=== PATIENT | female | born 1940 | race Caucasian/White ===

== ENCOUNTER → 2016-09-10 | Outpatient (CLI) | payer MEDICARE, OTHER ==
--- NOTE | 2016-09-10 12:11 | REPMRS ---
Patient History The patient states she had a clinical breast exam in 09/05 Patient is postmenopausal. No known family history of cancer. Digital Woman Screen Mammo: September 10, 2016 - Exam #: [id number] Bilateral CC and MLO view(s) were taken. Technologist: Vaishali Torres, Technologist Prior study comparison: April 10, 2014, digital woman screen mammo performed at [facility] to [facility]. March 25, 2010, bilateral bilat screen digital mammo performed at [facility] to [facility]. FINDINGS: There are scattered fibroglandular densities. There has been no change in the appearance of the mammogram from the prior studies. There is a mild amount of residual fibroglandular tissue which is fairly symmetric. There is no interval development of dominant mass, architectural distortion, or clustered microcalcification suggestive of malignancy. ASSESSMENT: BI-RADS/ACR category 1 mammogram. Negative. Recommendation Routine screening mammogram in 1 year (for women over age 40). This mammogram was interpreted with the aid of an FDA-approved computer-aided dectection system. Electronically Signed By: Jorge Darby MD 09/10/16 [id number]
== END ==
LOC: M WHC 09:14
PROVIDERS: ATTEND Nurse Practitioner Family
DX: Z01.419 Encounter for gynecological examination (general) (routine) without abnormal findings (principal); Z12.31 Encounter for screening mammogram for malignant neoplasm of breast; Z78.0 Asymptomatic menopausal state
CPT/HCPCS: G0101; G0202

== ENCOUNTER → 2017-05-08 | Outpatient (CLI) | payer MEDICARE, OTHER | LOC: M WUC 08:54 | DX: S52.022A Displaced fracture of olecranon process without intraarticular extension of left ulna, initial encounter for closed fracture (principal); X58.XXXA Exposure to other specified factors, initial encounter; Y92.9 Unspecified place or not applicable | CPT/HCPCS: 73080 ==

== ENCOUNTER → 2017-06-24 | Outpatient (REF) | payer MEDICARE, OTHER ==
[2017-06-28 00:06] LABS: LEVETIRACETAM (KEPPRA) 13.8 ug/mL (10.0-40.0)
== END ==
LOC: M LAB REF 17:13
DX: R56.9 Unspecified convulsions (principal)
CPT/HCPCS: 80180

== ENCOUNTER 2020-12-10 12:07 | Inpatient (IN) | payer MEDICARE, OTHER ==
[~2020-12-10] VITALS: Ht 154.9 cm; Wt 67.7 kg
[2020-12-10] MEDS ORDERED: traZODone 100 MG TAB PO PRN (12:30)
[2020-12-10] MEDS ORDERED: CALCIUM CARBONATE 500 MG CHEW U/D PO PRN (12:30)
[2020-12-10] MEDS ORDERED: MIRALAX *UNIT DOSE* 17GM PACKET PO PRN (12:30)
[2020-12-10 17:10] VITALS: BP 162/73
[2020-12-10] MEDS: REMEDY PHYTOPLEX Z-GUARD PASTE 113GM TUBE (FROM STOREROOM PRODUCT) TOP SCH ×2 (18:00→23:14)
[2020-12-10] MEDS ORDERED: PANT40TA29 PO (19:20)
[2020-12-10] MEDS ORDERED: AMBI5TAB PO (19:20)
[2020-12-10] MEDS ORDERED: LISI40TA4 PO (19:20)
[2020-12-10] MEDS ORDERED: ACET1TAB55 PO (19:20)
[2020-12-10] MEDS ORDERED: AMLO1TAB25 PO (19:20)
[2020-12-10] MEDS ORDERED: KEPP1TAB PO (19:20)
[2020-12-10] MEDS ORDERED: VALP1CAP2 PO (19:20)
[2020-12-10] MEDS ORDERED: MM S100C PO (19:20)
[2020-12-10] MEDS ORDERED: MELA10CA6 PO (19:20)
[2020-12-10] MEDS ORDERED: TRAZ-257 PO (19:20)
[2020-12-10] MEDS ORDERED: CALC500C16 PO (19:25)
[2020-12-10] MEDS ORDERED: HOME MED LIST COMPLETE! XX SCH (19:30)
[2020-12-10 20:00] VITALS: BP 110/56
[2020-12-10] MEDS: **hydrALAZINE HCL** 25 MG TAB PO SCH ×2 (20:34→23:12)
[2020-12-10] MEDS ORDERED: amLODIPine 5 MG TAB PO SCH (21:00)
[2020-12-10] MEDS ORDERED: lisinopriL 40 MG TAB PO SCH (21:00)
[2020-12-10] MEDS: COMBIVENT RESPIMAT 100-20MCG INHALER 4GM INH SCH (21:02)
[2020-12-10] MEDS: RAMELTEON 8 MG TAB (ROZEREM) PO SCH (21:17)
[2020-12-10] MEDS: DOCUSATE SODIUM 100MG CAPSULE PO SCH (21:17)
[2020-12-10] MEDS: levETIRAcetam 250MG TABLET (KEPPRA) PO SCH (21:17)
[2020-12-10] MEDS: SENNA 8.6 MG TAB (SENOKOT) PO SCH (21:17)
[2020-12-10] MEDS: VALPROIC ACID 250MG CAP PO SCH (21:29)
[2020-12-10] MEDS: ACETAMINOPHEN TAB 650MG DOSE (2X325MG) PO PRN (21:57)
[2020-12-11] MEDS: ACETAMINOPHEN TAB 650MG DOSE (2X325MG) PO PRN ×3 (03:50→13:34)
[2020-12-11] MEDS: **hydrALAZINE HCL** 25 MG TAB PO SCH ×3 (05:47→18:00)
[2020-12-11] MEDS: REMEDY PHYTOPLEX Z-GUARD PASTE 113GM TUBE (FROM STOREROOM PRODUCT) TOP SCH ×3 (05:50→18:00)
[2020-12-11 06:00] VITALS: BP 118/61
[2020-12-11 06:48] LABS: BASO % 0.3 % (0.0-1.0); EOS # 0.2 10^3/uL (0.0-0.5); EOS % 1.6 % (0.0-3.0); HEMATOCRIT 35.5 % (36.0-47.0); HEMOGLOBIN 11.9 g/dl (12.0-15.5); LYMPH # 5.3 10^3/uL (1.5-5.0); LYMPH % 46.2 % (24.0-44.0); MEAN CORPUSCULAR HEMOGLOBIN 31.1 pg (27.0-33.0); MEAN CORPUSCULAR HGB CONC 33.5 g/dl (32.0-36.5); MEAN CORPUSCULAR VOLUME 92.7 fl (80.0-96.0); MONO # 0.9 10^3/uL (0.0-0.8); MONO % 7.7 % (2.0-8.0); NEUTROPHILS % 43.4 % (36.0-66.0); PLATELET COUNT, AUTOMATED 234 10^3/uL (150-450); RED BLOOD COUNT 3.83 10^6/uL (4.00-5.40); WHITE BLOOD COUNT 11.6 10^3/uL (4.0-10.0)
[2020-12-11 07:11] LABS: ALBUMIN 2.6 GM/DL (3.2-5.2); ALT/SGPT 39 U/L (12-78); BILIRUBIN,TOTAL 0.4 MG/DL (0.2-1.0); BLOOD UREA NITROGEN 19 MG/DL (7-18); CALCIUM LEVEL 8.2 MG/DL (8.8-10.2); CARBON DIOXIDE LEVEL 25 MEQ/L (21-32); CHLORIDE LEVEL 113 MEQ/L (98-107); CREATININE FOR GFR 0.59 MG/DL (0.55-1.30); GLOMERULAR FILTRATION RATE > 60.0 (>39); GLUCOSE, FASTING 113 MG/DL (70-100); POTASSIUM SERUM 3.5 MEQ/L (3.5-5.1); SODIUM LEVEL 145 MEQ/L (136-145); TOTAL PROTEIN 5.7 GM/DL (6.4-8.2)
[2020-12-11] MEDS: COMBIVENT RESPIMAT 100-20MCG INHALER 4GM INH SCH ×3 (07:17→20:14)
[2020-12-11] MEDS: MAGIC MOUTHWASH SUSPENSION BTL SSP SCH ×3 (07:30→16:40)
[2020-12-11] MEDS: PANTOPRAZOLE 40MG TAB (PROTONIX) PO SCH (08:31)
[2020-12-11] MEDS: DOCUSATE SODIUM 100MG CAPSULE PO SCH ×2 (08:31→20:38)
[2020-12-11] MEDS: levETIRAcetam 250MG TABLET (KEPPRA) PO SCH ×2 (08:33→20:39)
[2020-12-11] MEDS ORDERED: FLUoxetine 20 MG CAP PO SCH (09:00)
[2020-12-11] MEDS ORDERED: FLUBLOK(EGG FREE)(QUAD)INFLUENZA VACC 0.5ML SYRINGE 18YRS & OLDER IM ONE (09:00)
--- NOTE | 2020-12-11 10:06 | HPEPDOC ---
Beef Breaker Note DATE OF ADMISSION: 12-10-20 DATE OF SERVICE: 12-11-20 TIME OF ADMISSION: Please refer to physician's admission order. SOURCE OF ADMISSION INFORMATION: [facility] record and patient CHIEF COMPLAINT: intracranial hemorrhage HISTORY OF PRESENT ILLNESS: 79F right handed with pmh HTN and spontaneous right frontal lobe ICH in 2009 presented to [place] on 12-03-20 with severe right sided headache and nausea. CTH revealed a right parietal-occipital intraparenchymal hemorrhage with brain compression and no significant midline shift. She was admitted to the neuro ICU, given hypertonic saline, made NPO, and started on Keppra for seizure prophylaxis. MRI brain on 12-07-20 showed hemorrhages measuring 3.3x5.1x6.7 cmmoderate localized vasogenic edema and mass effect upon the posterior aspect of the right lateral ventricleno evidence of acute hydrocephalus. No significant midline shift or herniation. She had left sided neglect, hemisensory loss and significant mobility and ADL impairments when evaluated by therapy and deemed medically appropriate for admission to ARU on 12-10-20. On eval patient reports her left arm has been moving involuntarily since her previous intracranial bleed. REVIEW OF SYSTEMS: The following is a completed review of systems and has been reviewed. Review of systems otherwise unremarkable. PAIN: Patient self reports no pain EYES: No recent vision changes EARS, NOSE, & THROAT: No throat pain, or dysphagia, or rhinorrhea CARDIOVASCULAR: Denies chest pain or palpitations PULMONARY: Denies shortness of breath GASTROINTESTINAL: Denies constipation/diarrhea GENITOURINARY: no dysuria MUSCULOSKELETAL: generalized weakness NEUROLOGICAL:left sided apraxia with neglect, + chorea LUE HEMATOLOGICAL: denies easy bruising SKIN:denies rash PSYCHIATRIC: Unremarkable All other review of systems found to be negative. PAST MEDICAL HISTORY: as per HPI ALLERGIES: Please see below. MEDICATIONS: Please see below. FAMILY HISTORY: Cardiac SOCIAL HISTORY: No smoking/illicit drugs/etoh DIET: mechanical soft and thins PHYSICAL EXAMINATION: VITAL SIGNS: Please see below. GENERAL: Pleasant and cooperative. No acute distress. no facial droop, tongue midline HEENT: PERRL. unable to cross midline to left, Clear conjunctiva CARDIOVASCULAR: Regular rate and rhythm. No murmurs, rubs, or gallops LUNGS: Clear to auscultation bilaterally. No wheezes. No rhonchi ABDOMEN: Soft, nontender, nondistended. Positive bowel sounds. Normal active bowel sounds NEUROLOGICAL: Alert and oriented times three. Cranial nerves II through XII grossly intact. Sensation grossly intact, +left sided neglect and impaired sensation to light touch on left, +apraxia +chorea LUE +clonus on left EXTREMITIES: 5\5 strength bilateral upper extremities. 5\5 strength right lower extremity. 5/5 strength in left lower extremity SKIN: no sacral erythema LABORATORY DATA: Please see below. IMAGING:Imaging documentation personally reviewed by record FUNCTIONAL STATUS: Premorbid: Independent with all activities of daily life as well as mobility On Admission: Total assistance for bed mobility, bathing, functional transfers, grooming GOALS: Min assist for bed mobility, functional transfers, bathing, dressing, wheelchair mobility ASSESSMENT:79-year-old F with past medical history of right frontal ICH who presents status post spontaneous right parietal-occipital lobe ICH PLAN: 1. Rehab- PT/OT advance mobility and ADLs, strengthen/stretch/maintain ROM all 4 limbs, MPO to left foot when in bed -SHANK THREADER for cog and swallow 2. Neuro hx of right frontal ICH with LUE dyskinesia, now s/p spontaneous right parieto-occipital ICH cont BP management, patient was not on antipletelet at baseline -f/u neurosurgery in 6 weeks with repeat head CT -will trial propranolol to prevent dysautonomia in setting of ICH- this may help with LUE chorea, will monitor -cont Depakote and Keppra for seizure ppx- f/u levels 3. Cardiac- hx of HTN cont BP meds -medicine consulted to assist in overall management 4. Resp- monitor for infection, admission CXR negative for infiltrate, patient without cough 5. GI ppx- protonix 6. DVT ppx- heparin and teds 7. Pain- tylenol prn 8. Psych- rozerem for insomnia 9. - monitor PVRs 10. Dispo- TBD POST ADMISSION PHYSICIAN EVALUATION: Medical and functional status: Description of medical status, medical assessment: As above. Rehabilitation diagnosis and current and prior cold morbid medical conditions as above. Risk of complications and plans to mitigate them as above. Description of functional status current status is as above. Prior status as above. Status compared to preadmission: There are no clinically significant differences between the patient's current status and the information described on the preadmission screening document. Treatment plan anticipated: Treatment plan is as described above. Required disc iplines including physical therapy, occupational therapy, others as noted above. Intensity of services: 3 hours a day, 6 days a week. Special considerations: There are no specific special or safety considerations that would likely preclude immediate implementation of an intensive rehabilitation program or subsequently influence the plan of care. ATTESTATION: Considering all the information above, it is my best judgment that this patient requires intensive rehabilitation therapy as described above and an inpatient hospital environment due to the complexity of nursing, medical, and rehabilitation needs required by the patient. Furthermore, this patient can reasonably be expected to participate in an benefit from an inpatient rehabilitation stay with an interdisciplinary team approach to the delivery of rehabilitation care under the direction and supervision of rehabilitation physician. PROGNOSIS: fair ESTIMATED LENGTH OF STAY:21-28 days. PROJECTED DISCHARGE DESTINATION: Home with family support and any durable medical equipment required to increase functional safety and mobility. TIME SPENT COUNSELING AND COORDINATING INITIAL CARE: Greater than 70 minutes. Vital Signs Vital Sign - Last 24 Hours 12/10/20 12/10/20 12/10/20 12/10/20 17:10 20:00 20:34 21:16 Temp 98.1 98.0 Pulse 94 85 98 Resp 17 17 B/P (MAP) 162/73 (102) 110/56 (74) 110/56 122/64 Pulse Ox 95 94 O2 Delivery Room Air Room Air 12/10/20 12/11/20 12/11/20 12/11/20 23:12 05:47 06:00 09:00 Temp 97.6 Pulse 80 Resp 17 B/P (MAP) 118/58 118/61 118/61 (80) Pulse Ox 96 O2 Delivery Room Air O2 Flow Rate 2.0 Laboratory Data CBC/BMP Laboratory Tests 12/11/20 06:11 Labs 24H Laboratory Tests 2 12/11/20 06:11: Immature Granulocyte % (Auto) 0.8, Neutrophils (%) (Auto) 43.4, Lymphocytes (%) (Auto) 46.2H, Monocytes (%) (Auto) 7.7, Eosinophils (%) (Auto) 1.6, Basophils (%) (Auto) 0.3, Neutrophils # (Auto) 5.0, Lymphocytes # (Auto) 5.3H, Monocytes # (Auto) 0.9H, Eosinophils # (Auto) 0.2, Basophils # (Auto) 0.0, Nucleated Red Blood Cells % (auto) 0.0, Anion Gap 7L, Glomerular Filtration Rate > 60.0, Calcium Level 8.2L, Total Bilirubin 0.4, Aspartate Amino Transf (AST/SGOT) 25, Alanine Aminotransferase (ALT/SGPT) 39, Alkaline Phosphatase 53, Total Protein 5.7L, Albumin 2.6L, Albumin/Globulin Ratio 0.8L Home Medications Scheduled Amlodipine Besylate (Amlodipine Besylate) 10 Mg Tablet, 10 MG PO QHS, (Reported) Levetiracetam (Keppra) 500 Mg Tablet, 500 MG PO BID, (Reported) Lisinopril (Lisinopril) 40 Mg Tablet, 40 MG PO QHS, (Reported) Melatonin (Melatonin) 10 Mg Capsule, 20 MG PO QHS, (Reported) Pantoprazole Sodium (Pantoprazole Sodium) 40 Mg Tablet.dr, 40 MG PO DAILY, (Reported) Trazodone HCl (Trazodone HCl) 100 Mg Tablet, 100 MG PO QHS, (Reported) Valproic Acid (Valproic Acid) 250 Mg Capsule, 250 MG PO QHS, (Reported) Zolpidem Tartrate (Ambien) 5 Mg Tablet, 2.5 MG PO QHS, (Reported) Scheduled PRN Acetaminophen (Acetaminophen) 325 Mg Tablet, 650 MG PO Q6H PRN for PAIN LEVEL 1- 4, (Reported) Calcium Carbonate (Calcium) 500 Mg Tab.chew, 1,000 MG PO Q6H PRN for INDIGESTION, (Reported) Docusate Sodium (Stool Softener) 100 Mg Capsule, 100 MG PO BID PRN for BOWEL CARE/CONSTIPATION, (Reported) Allergies Coded Allergies: chocolate flavor (Verified Allergy, Mild, FACIAL RASH, 12/10/20) No Known Allergies (Verified Allergy, Unknown, 12/10/20) A-FIB/CHADSVASC A-FIB History Current/History of A-Fib/PAF?: No Current PO Anticoag Therapy: No CHRISTIE NEVAREZ MD Dec 11, 2020 10:06
[2020-12-11] MEDS ORDERED: traZODone 25MG PER 1/2 TABLET PO PRN (10:45)
--- NOTE | 2020-12-11 11:47 | REP ---
INDICATION: r/o infiltrate. COMPARISON: No comparison chest x-ray. TECHNIQUE: Two views.. FINDINGS: The lungs are well inflated and free of infiltrate. The pleural angles are sharp. The heart is mildly enlarged with cardiothoracic ratio 54.2%.. Pulmonary vasculature is not increased. The thoracic aorta is mildly tortuous. There are degenerative changes in the thoracic spine. IMPRESSION: Mild cardiomegaly. No infiltrate seen. Otherwise no acute disease. <Electronically signed by Arturo Schroeder > 12/11/20 [id number]
[2020-12-11 14:00] VITALS: BP 124/58
[2020-12-11] MEDS: PROPRANOLOL 10 MG TAB PO SCH ×2 (16:40→20:38)
[2020-12-11 20:00] VITALS: BP 140/80
[2020-12-11] MEDS: VALPROIC ACID 250MG CAP PO SCH (20:33)
[2020-12-11] MEDS: amLODIPine 5 MG TAB PO SCH (20:38)
[2020-12-11] MEDS: SENNA 8.6 MG TAB (SENOKOT) PO SCH (20:38)
[2020-12-11] MEDS: HEPARIN SOD (PORCINE) 5000UNITS/ML 1ML VIAL/SYRINGE SQ SCH (20:39)
[2020-12-11] MEDS: RAMELTEON 8 MG TAB (ROZEREM) PO SCH (20:39)
[2020-12-12] MEDS: ACETAMINOPHEN TAB 650MG DOSE (2X325MG) PO PRN ×2 (04:46→09:11)
[2020-12-12] MEDS: **hydrALAZINE HCL** 25 MG TAB PO SCH ×4 (05:18→18:04)
[2020-12-12] MEDS: REMEDY PHYTOPLEX Z-GUARD PASTE 113GM TUBE (FROM STOREROOM PRODUCT) TOP SCH ×5 (05:21→21:11)
[2020-12-12 05:31] LABS: HEMATOCRIT 36.8 % (36.0-47.0); HEMOGLOBIN 12.4 g/dl (12.0-15.5); MEAN CORPUSCULAR HEMOGLOBIN 31.4 pg (27.0-33.0); MEAN CORPUSCULAR HGB CONC 33.7 g/dl (32.0-36.5); MEAN CORPUSCULAR VOLUME 93.2 fl (80.0-96.0); PLATELET COUNT, AUTOMATED 241 10^3/uL (150-450); RED BLOOD COUNT 3.95 10^6/uL (4.00-5.40); WHITE BLOOD COUNT 14.1 10^3/uL (4.0-10.0)
[2020-12-12 05:50] LABS: ATYPICAL LYMPH 3 % (0-5); EOSINOPHILS 3 % (0-3); LYMPHOCYTES 51 % (16-44); MONOCYTES 4 % (0-5); NEUTROPHILS 39 % (28-66); PLATELET ESTIMATE NORMAL (NORMAL)
[2020-12-12 05:51] LABS: SMUDGE CELLS 1+
[2020-12-12 06:00] VITALS: BP 161/78
[2020-12-12] MEDS: COMBIVENT RESPIMAT 100-20MCG INHALER 4GM INH SCH ×2 (08:00→20:35)
[2020-12-12] MEDS: HEPARIN SOD (PORCINE) 5000UNITS/ML 1ML VIAL/SYRINGE SQ SCH (09:00)
[2020-12-12] MEDS: MAGIC MOUTHWASH SUSPENSION BTL SSP SCH ×3 (09:10→16:50)
[2020-12-12] MEDS: PANTOPRAZOLE 40MG TAB (PROTONIX) PO SCH (09:10)
[2020-12-12] MEDS: DOCUSATE SODIUM 100MG CAPSULE PO SCH ×2 (09:10→21:08)
[2020-12-12] MEDS: levETIRAcetam 250MG TABLET (KEPPRA) PO SCH ×2 (09:11→21:08)
[2020-12-12] MEDS: PROPRANOLOL 10 MG TAB PO SCH ×3 (09:13→21:09)
--- NOTE | 2020-12-12 09:24 | IPNPDOC ---
PM&R Progress Note DATE OF SERVICE: Dec 12, 2020 Front End Architect Progress Note Subjective: Patient seen in her room stating she feels ok, but has a mild headache which tylenol is helping to treat. She staes she does not discomfort with urination, not cough, or fever. REVIEW OF SYSTEMS: The following is a completed review of systems and has been reviewed. Review of systems otherwise unremarkable. PAIN: Patient self reports no pain EYES: No recent vision changes EARS, NOSE, & THROAT: No throat pain, or dysphagia, or rhinorrhea CARDIOVASCULAR: Denies chest pain or palpitations PULMONARY: Denies shortness of breath GASTROINTESTINAL: Denies constipation/diarrhea GENITOURINARY: no dysuria MUSCULOSKELETAL: generalized weakness NEUROLOGICAL:left sided apraxia with neglect, + chorea LUE (improved) HEMATOLOGICAL: denies easy bruising SKIN:denies rash PSYCHIATRIC: Unremarkable All other review of systems found to be negative. PHYSICAL EXAMINATION: VITAL SIGNS: Please see below. GENERAL: Pleasant and cooperative. No acute distress. no facial droop, tongue midline HEENT: PERRL. able to cross midline to left, Clear conjunctiva CARDIOVASCULAR: Regular rate and rhythm. No murmurs, rubs, or gallops LUNGS: Clear to auscultation bilaterally. No wheezes. No rhonchi ABDOMEN: Soft, nontender, nondistended. Positive bowel sounds. Normal active bowel sounds NEUROLOGICAL: Alert and oriented times three. Cranial nerves II through XII grossly intact. Sensation grossly intact, +left sided neglect and impaired sensation to light touch on left, +apraxia +chorea LUE (improving) +clonus on left EXTREMITIES: 5\5 strength bilateral upper extremities. 5\5 strength right lower extremity. 5/5 strength in left lower extremity SKIN: no sacral erythema ASSESSMENT:79-year-old F with past medical history of right frontal ICH who presents status post spontaneous right parietal-occipital lobe ICH PLAN: 1. Rehab- PT/OT advance mobility and ADLs, strengthen/stretch/maintain ROM all 4 limbs, MPO to left foot when in bed -BILLET RECORDER for cog and swallow 2. Neuro hx of right frontal ICH with LUE dyskinesia, now s/p spontaneous right parieto-occipital ICH cont BP management, patient was not on antiplatelet at baseline -f/u neurosurgery in 6 weeks with repeat head CT -cont trial propranolol to prevent dysautonomia in setting of ICH- this may help with LUE chorea, will monitor -cont Depakote and Keppra for seizure ppx- f/u levels 3. Cardiac- hx of HTN cont BP meds -medicine consulted to assist in overall management 4. Resp- monitor for infection, admission CXR negative for infiltrate, patient without cough 5. GI ppx- protonix 6. DVT ppx- heparin and teds 7. Pain- tylenol prn 8. Psych- rozerem for insomnia 9. - monitor PVRs, patient retaining urine overnight with rising white count will order UA/Ucx, patient is afebrile 10. Dispo- TBD Allergies Coded Allergies: chocolate flavor (Verified Allergy, Mild, FACIAL RASH, 12/10/20) No Known Allergies (Verified Allergy, Unknown, 12/10/20) Vital Signs Vital Signs Date Time Temp Pulse Resp B/P (MAP) Pulse Ox O2 Delivery O2 Flow Rate FiO2 12/12/20 09:13 71 118/70 12/12/20 06:00 97.8 19 98 Room Air 12/11/20 23:13 2.0 Laboratory Data CBC/BMP Laboratory Tests 12/12/20 05:04 Labs 24H Laboratory Tests 2 12/12/20 05:04: Neutrophils (%) (Auto) , Nucleated Red Blood Cells % (auto) 0.0, Neutrophils 39, Lymphocytes (Manual) 51H, Monocytes (Manual) 4, Eosinophils (Manual) 3, Atypical Lymphocytes 3, Smudge Cells 1+, Platelet Estimate NORMAL, Valproic Acid (Depakene) Level 33.6L Current Medications Current Medications Current Medications Medications (Trade) Dose Ordered Sig/Melody Route PRN Reason Start Time Stop Time Status Last Admin Dose Admin Acetaminophen (Tylenol Tab) 650 mg Q4HP PRN PO fever/MILD PAIN (PS 1-4) 12/10/20 12:30 12/12/20 09:11 Albuterol/ Ipratropium (Combivent Respimat 100-20mcg) 1 puff RTID INH 12/10/20 20:00 12/11/20 20:14 Amlodipine Besylate (Norvasc) 5 mg QHS PO 12/10/20 21:00 12/10/20 20:12 DC Amlodipine Besylate (Norvasc) 5 mg QHS PO 12/11/20 21:00 12/11/20 20:38 Amlodipine Besylate (Norvasc) 10 mg QHS PO 12/10/20 21:00 12/11/20 14:44 DC 12/10/20 21:16 Calcium Carbonate (Tums) 1,000 mg Q4HP PRN PO HEARTBURN 12/10/20 12:30 Docusate Sodium (Colace) 100 mg BID PO 12/10/20 21:00 12/12/20 09:10 Fluoxetine HCl (PROzac) 20 mg DAILY PO 12/11/20 09:00 12/11/20 14:44 DC 12/11/20 12:14 Heparin Sodium (Porcine) (Heparin) 5,000 units Q12H SQ 12/11/20 21:00 12/11/20 20:39 Home Med (Home Med List Complete!) ASDIRECTED XX 12/10/20 19:30 12/10/20 19:36 DC Hydralazine HCl (Apresoline) 25 mg Q6H PO 12/10/20 18:00 12/12/20 05:18 Levetiracetam (Keppra) 500 mg BID PO 12/10/20 21:00 12/12/20 09:11 Lidocaine/ Diphenhydr/Alum/ Mg/Simeth (Magic Mouthwash) 5ML AC SSP 12/11/20 07:30 12/12/20 09:10 Lisinopril (Prinivil) 20 mg QHS PO 12/11/20 21:00 12/11/20 20:39 Lisinopril (Prinivil) 40 mg QHS PO 12/10/20 21:00 12/11/20 14:44 DC 12/10/20 21:13 Pantoprazole Sodium (Protonix) 40 mg DAILY PO 12/11/20 09:00 12/12/20 09:10 Polyethylene Glycol (Miralax) 1 pkt DAILY PRN PO CONSTIPATION 12/10/20 12:30 Propranolol HCl (Inderal) 10 mg TID PO 12/11/20 16:00 12/12/20 09:13 Ramelteon (Rozerem) 8 mg QHS PO 12/10/20 21:00 12/11/20 20:39 Senna (Senokot) 1 tab QHS PO 12/10/20 21:00 12/11/20 20:38 Trazodone HCl (Desyrel) 25 mg QHSP PRN PO INSOMNIA 12/11/20 10:45 Trazodone HCl (Desyrel) 100 mg QHSP PRN PO INSOMNIA 12/10/20 12:30 12/11/20 10:46 DC Valproic Acid (Depakene) 250 mg QHS PO 12/10/20 21:00 12/11/20 20:33 CHRISTIE NEVAREZ MD Dec 12, 2020 09:24
[2020-12-12 14:00] VITALS: BP 134/65
[2020-12-12] MEDS: ACETAMINOPHEN 500 MG TAB PO SCH ×2 (16:49→21:10)
[2020-12-12 20:00] VITALS: BP 128/60
[2020-12-12] MEDS: SENNA 8.6 MG TAB (SENOKOT) PO SCH (21:08)
[2020-12-12] MEDS: RAMELTEON 8 MG TAB (ROZEREM) PO SCH (21:08)
[2020-12-12] MEDS: amLODIPine 5 MG TAB PO SCH (21:09)
[2020-12-12] MEDS: VALPROIC ACID 250MG CAP PO SCH (21:10)
[2020-12-13] MEDS: ACETAMINOPHEN TAB 650MG DOSE (2X325MG) PO PRN (05:25)
[2020-12-13] MEDS: **hydrALAZINE HCL** 25 MG TAB PO SCH ×5 (05:25→23:43)
[2020-12-13] MEDS: REMEDY PHYTOPLEX Z-GUARD PASTE 113GM TUBE (FROM STOREROOM PRODUCT) TOP SCH ×4 (06:11→23:43)
[2020-12-13 06:34] VITALS: BP 146/80
[2020-12-13 07:51] LABS: HEMATOCRIT 36.4 % (36.0-47.0); HEMOGLOBIN 12.3 g/dl (12.0-15.5); MEAN CORPUSCULAR HEMOGLOBIN 31.4 pg (27.0-33.0); MEAN CORPUSCULAR HGB CONC 33.8 g/dl (32.0-36.5); MEAN CORPUSCULAR VOLUME 92.9 fl (80.0-96.0); PLATELET COUNT, AUTOMATED 277 10^3/uL (150-450); RED BLOOD COUNT 3.92 10^6/uL (4.00-5.40); WHITE BLOOD COUNT 15.3 10^3/uL (4.0-10.0)
[2020-12-13] MEDS: COMBIVENT RESPIMAT 100-20MCG INHALER 4GM INH SCH ×3 (08:00→20:00)
[2020-12-13 08:33] LABS: ATYPICAL LYMPH 4 % (0-5); BASOPHILS 2 % (0-1); BLAST CELLS 1 % (0-0); LYMPHOCYTES 44 % (16-44); MONOCYTES 8 % (0-5); MYELOCYTES 1 % (0-0); NEUTROPHILS 40 % (28-66); PLATELET ESTIMATE NORMAL (NORMAL)
[2020-12-13] MEDS: PROPRANOLOL 10 MG TAB PO SCH ×3 (09:00→20:14)
[2020-12-13] MEDS: DOCUSATE SODIUM 100MG CAPSULE PO SCH ×2 (09:33→20:13)
[2020-12-13] MEDS: ACETAMINOPHEN 500 MG TAB PO SCH ×3 (09:33→20:16)
[2020-12-13] MEDS: PANTOPRAZOLE 40MG TAB (PROTONIX) PO SCH (09:33)
[2020-12-13] MEDS: levETIRAcetam 250MG TABLET (KEPPRA) PO SCH ×2 (09:33→20:16)
[2020-12-13] MEDS: MAGIC MOUTHWASH SUSPENSION BTL SSP SCH ×3 (09:34→17:09)
--- NOTE | 2020-12-13 10:31 | IPNPDOC ---
PM&R Progress Note DATE OF SERVICE: Dec 13, 2020 Manager Market Research Progress Note Subjective: Patient seen in her room leaning to the left in her chair, alert and oriented, able to follow commands. She asked that she be able to take her vitamins for her macular degeneration. REVIEW OF SYSTEMS: The following is a completed review of systems and has been reviewed. Review of systems otherwise unremarkable. PAIN: Patient self reports no pain EYES: No recent vision changes EARS, NOSE, & THROAT: No throat pain, or dysphagia, or rhinorrhea CARDIOVASCULAR: Denies chest pain or palpitations PULMONARY: Denies shortness of breath GASTROINTESTINAL: Denies constipation/diarrhea GENITOURINARY: no dysuria MUSCULOSKELETAL: generalized weakness NEUROLOGICAL:left sided apraxia with neglect, + chorea LUE (improved) HEMATOLOGICAL: denies easy bruising SKIN:denies rash PSYCHIATRIC: Unremarkable All other review of systems found to be negative. PHYSICAL EXAMINATION: VITAL SIGNS: Please see below. GENERAL: Pleasant and cooperative. No acute distress. no facial droop, tongue midline HEENT: PERRL. able to cross midline to left, Clear conjunctiva CARDIOVASCULAR: Regular rate and rhythm. No murmurs, rubs, or gallops LUNGS: Clear to auscultation bilaterally. No wheezes. No rhonchi ABDOMEN: Soft, nontender, nondistended. Positive bowel sounds. Normal active bowel sounds NEUROLOGICAL: Alert and oriented times three. Cranial nerves II through XII g rossly intact. Sensation grossly intact, +left sided neglect and impaired sensation to light touch on left (improving), +apraxia +chorea LUE (improving) +clonus on left EXTREMITIES: 5\5 strength bilateral upper extremities. 5\5 strength right lower extremity. 5/5 strength in left lower extremity SKIN: no sacral erythema ASSESSMENT:79-year-old F with past medical history of right frontal ICH who presents status post spontaneous right parietal-occipital lobe ICH PLAN: 1. Rehab- PT/OT advance mobility and ADLs, strengthen/stretch/maintain ROM all 4 limbs, MPO to left foot when in bed, patient making functional gains in therapy -TOOL LAPPER HAND for cog and swallow 2. Neuro hx of right frontal ICH with LUE dyskinesia, now s/p spontaneous right parieto-occipital ICH cont BP management, patient was not on antiplatelet at baseline -f/u neurosurgery in 6 weeks with repeat head CT -cont trial propranolol to prevent dysautonomia in setting of ICH- this may help with LUE chorea, will monitor -cont Depakote and Keppra for seizure ppx- f/u levels 3. Cardiac- hx of HTN cont BP meds -medicine consulted to assist in overall management 4. Resp- monitor for infection, admission CXR negative for infiltrate, patient without cough 5. GI ppx- protonix 6. DVT ppx- heparin and teds 7. Pain- tylenol prn 8. Psych- rozerem for insomnia 9. - monitor PVRs, patient retaining urine, Ucx + for Strep agalactei will start Keflex, patient is afebrile , vitals stable, cont to monitor wbcs 10. Dispo- TBD -discussed case with her daughter Edita over the phone and answered her questions. Allergies Coded Allergies: chocolate flavor (Verified Allergy, Mild, FACIAL RASH, 12/10/20) No Known Allergies (Verified Allergy, Unknown, 12/10/20) Vital Signs Vital Signs Date Time Temp Pulse Resp B/P (MAP) Pulse Ox O2 Delivery O2 Flow Rate FiO2 12/13/20 09:00 52 138/74 12/13/20 06:34 97.7 17 95 Room Air 12/13/20 00:28 2.0 Laboratory Data CBC/BMP Laboratory Tests 12/13/20 06:34 Labs 24H Laboratory Tests 2 12/13/20 06:34: Neutrophils (%) (Auto) , Nucleated Red Blood Cells % (auto) 0.0, Neutrophils 40, Lymphocytes (Manual) 44, Monocytes (Manual) 8H, Basophils (Manual) 2H, Myelocytes 1H, Blastocytes 1H, Atypical Lymphocytes 4, Platelet Estimate NORMAL Microbiology Microbiology 12/12/20 Urine Culture - Preliminary, Resulted Strep Agalactiae Group B Current Medications Current Medications Current Medications Medications (Trade) Dose Ordered Sig/Melody Route PRN Reason Start Time Stop Time Status Last Admin Dose Admin Acetaminophen (Tylenol Tab) 650 mg Q24HP PRN PO fever/MILD PAIN (PS 1-4) 12/12/20 13:45 12/13/20 05:25 Acetaminophen (Tylenol Tab) 650 mg Q4HP PRN PO fever/MILD PAIN (PS 1-4) 12/10/20 12:30 12/12/20 13:41 DC 12/12/20 09:11 Acetaminophen (Tylenol Tab) 1,000 mg TID PO 12/12/20 16:00 12/13/20 09:33 Albuterol/ Ipratropium (Combivent Respimat 100-20mcg) 1 puff RTID INH 12/10/20 20:00 12/12/20 20:35 Amlodipine Besylate (Norvasc) 5 mg QHS PO 12/10/20 21:00 12/10/20 20:12 DC Amlodipine Besylate (Norvasc) 5 mg QHS PO 12/11/20 21:00 12/12/20 21:09 Amlodipine Besylate (Norvasc) 10 mg QHS PO 12/10/20 21:00 12/11/20 14:44 DC 12/10/20 21:16 Calcium Carbonate (Tums) 1,000 mg Q4HP PRN PO HEARTBURN 12/10/20 12:30 Cephalexin Monohydrate (Keflex) 500 mg Q6H PO 12/13/20 10:20 UNV Docusate Sodium (Colace) 100 mg BID PO 12/10/20 21:00 12/13/20 09:33 Fluoxetine HCl (PROzac) 20 mg DAILY PO 12/11/20 09:00 12/11/20 14:44 DC 12/11/20 12:14 Heparin Sodium (Porcine) (Heparin) 5,000 units Q12H SQ 12/11/20 21:00 12/12/20 09:23 DC 12/11/20 20:39 Home Med (Home Med List Complete!) ASDIRECTED XX 12/10/20 19:30 12/10/20 19:36 DC Hydralazine HCl (Apresoline) 25 mg Q6H PO 12/10/20 18:00 12/13/20 05:25 Lactobacillus Acidophilus (Bacid) 1 ea TID PO 12/13/20 16:00 UNV Levetiracetam (Keppra) 500 mg BID PO 12/10/20 21:00 12/13/20 09:33 Lidocaine/ Diphenhydr/Alum/ Mg/Simeth (Magic Mouthwash) 5ML AC SSP 12/11/20 07:30 12/13/20 09:34 Lisinopril (Prinivil) 20 mg QHS PO 12/11/20 21:00 12/12/20 21:09 Lisinopril (Prinivil) 40 mg QHS PO 12/10/20 21:00 12/11/20 14:44 DC 12/10/20 21:13 Pantoprazole Sodium (Protonix) 40 mg DAILY PO 12/11/20 09:00 12/13/20 09:33 Polyethylene Glycol (Miralax) 1 pkt DAILY PRN PO CONSTIPATION 12/10/20 12:30 Propranolol HCl (Inderal) 10 mg TID PO 12/11/20 16:00 12/12/20 21:09 Ramelteon (Rozerem) 8 mg QHS PO 12/10/20 21:00 12/12/20 21:08 Senna (Senokot) 1 tab QHS PO 12/10/20 21:00 12/12/20 21:08 Trazodone HCl (Desyrel) 25 mg QHSP PRN PO INSOMNIA 12/11/20 10:45 Trazodone HCl (Desyrel) 100 mg QHSP PRN PO INSOMNIA 12/10/20 12:30 12/11/20 10:46 DC Valproic Acid (Depakene) 250 mg QHS PO 12/10/20 21:00 12/12/20 21:10 CHRISTIE NEVAREZ MD Dec 13, 2020 10:31
[2020-12-13] MEDS: CEPHALEXIN 500 MG CAP PO SCH ×3 (12:53→23:42)
[2020-12-13] MEDS: LACTOBACILLUS ACIDOPHILUS CAP (BACID) PO SCH ×2 (12:53→17:08)
[2020-12-13 13:32] LABS: ALBUMIN 2.9 GM/DL (3.2-5.2); ALT/SGPT 57 U/L (12-78); BILIRUBIN,TOTAL 0.4 MG/DL (0.2-1.0); BLOOD UREA NITROGEN 19 MG/DL (7-18); CALCIUM LEVEL 9.1 MG/DL (8.8-10.2); CARBON DIOXIDE LEVEL 25 MEQ/L (21-32); CHLORIDE LEVEL 111 MEQ/L (98-107); CREATININE FOR GFR 0.62 MG/DL (0.55-1.30); GLOMERULAR FILTRATION RATE > 60.0 (>39); GLUCOSE, FASTING 102 MG/DL (70-100); SODIUM LEVEL 142 MEQ/L (136-145)
--- NOTE | 2020-12-13 13:59 | CR.PDOC ---
General Date of Consultation: Dec 13, 2020 Consultation REASON FOR CONSULTATION/CHIEF COMPLAINT: Management of medical comorbidities HISTORY OF PRESENT ILLNESS: 79F pmh HTN and spontaneous right frontal lobe ICH in 2009 presented to [facility] on 12-03-20 with severe right sided headache and nausea. CTH revealed a right parietal-occipital intraparenchymal hemorrhage with brain compression and no significant midline shift. She was admitted to the neuro ICU, given hypertonic saline, made NPO, and started on Keppra for seizure prophylaxis. MRI brain on 12-07-20 showed hemorrhages measuring 3.3x5.1x6.7 cmmoderate localized vasogenic edema and mass effect upon the posterior aspect of the right lateral ventricleno evidence of acute hydrocephalus. No significant midline shift or herniation. She had left sided neglect, hemisensory loss and significant mobility and ADL impairments when evaluated by therapy and deemed medically appropriate for admission to ARU on 12-10-20. On eval patient reports her left arm has been moving involuntarily and she cannot control it. She also complains of left upper extremity and left lower extremity weakness. She reports she has problem with balance and tends to fall on the left side. she denied any cough or phlegm. Denied any diarrhea or abdominal pain. No fever or chills. She did have urinary retention here at ARU requiring straight cath. Labs reveal a rising WBCs. ALLERGIES: Please see below. HOME MEDICATIONS: Please see below. PAST MEDICAL HISTORY: Hemorrhagic stroke in 2009 with right frontal hemorrhage Hypertension FAMILY HISTORY: Heart disease SOCIAL HISTORY: Does not smoke, or use alcohol, or use drugs REVIEW OF SYSTEMS: All 10 point review of systems are negative except those in HPI. PHYSICAL EXAMINATION: VITAL SIGNS: Please see below. GENERAL APPEARANCE: Awake alert sitting up by the side of the bed working with the therapy. HEENT: Normocephalic atraumatic moist mucous membranes anicteric eyes RESPIRATORY: Chest clear to auscultation no added sounds CARDIOVASCULAR: S1-S2 regular normal rate no rub murmur gallop ABDOMEN: Soft nontender bowel sounds normal EXTREMITIES: No edema NEUROLOGICAL: Some spontaneous movements of the left upper extremity with also purposeful movements, has left hemineglect LABORATORY DATA: Please see below. ASSESSMENT/PLAN: 79-year-old female with past medical history of hypertension, right frontal intracranial hemorrhage in 2009, suffered another right intracranial hemorrhage on 12/03/2020 at the parieto-occipital area with left- sided hemineglect, left upper extremity dyskinesia, and left-sided weakness now in ARU getting acute rehabilitation. Acute right-sided intracranial hemorrhage with left upper extremity dyskinesia Continue Keppra and valproic acid for seizure prophylaxis Propranolol started for dyskinesia Continue with PT/ OT as per ARU Hypertension Continue lisinopril, amlodipine, hydralazine UTI Streptococcus agalactiae On Keflex Acute urinary retention BladderScan and straight cath as needed GI prophylaxis With PPI Bowel meds and place Vital Signs/I&O Vital Signs Date Time Temp Pulse Resp B/P (MAP) Pulse Ox O2 Delivery O2 Flow Rate FiO2 12/13/20 12:54 122/64 12/13/20 09:00 52 12/13/20 06:34 97.7 17 95 Room Air 12/13/20 00:28 2.0 I&O- Last 24 Hours up to 6 AM 12/13/20 06:00 Intake Total 760 ml Output Total 950 ml Balance -190 ml Laboratory Data Labs 24H Laboratory Tests 2 12/13/20 06:30: Anion Gap 6L, Glomerular Filtration Rate > 60.0, Calcium Level 9.1, Total Bilirubin 0.4, Aspartate Amino Transf (AST/SGOT) 30, Alanine Aminotransferase (ALT/SGPT) 57, Alkaline Phosphatase 56, Total Protein 6.0L, Albumin 2.9L, Albumi n/Globulin Ratio 0.9L 12/13/20 06:34: Neutrophils (%) (Auto) , Nucleated Red Blood Cells % (auto) 0.0, Neutrophils 40, Lymphocytes (Manual) 44, Monocytes (Manual) 8H, Basophils (Manual) 2H, Myelocytes 1H, Blastocytes 1H, Atypical Lymphocytes 4, Platelet Estimate NORMAL CBC/BMP Laboratory Tests 12/13/20 06:30 12/13/20 06:34 Microbiology Microbiology 12/13/20 Blood Culture, Received Pending 12/13/20 Blood Culture, Received Pending 12/12/20 Urine Culture - Preliminary, Resulted Strep Agalactiae Group B Allergies Coded Allergies: chocolate flavor (Verified Allergy, Mild, FACIAL RASH, 12/10/20) No Known Allergies (Verified Allergy, Unknown, 12/10/20) Home Medications Scheduled Amlodipine Besylate (Amlodipine Besylate) 10 Mg Tablet, 10 MG PO QHS, (Reported) Levetiracetam (Keppra) 500 Mg Tablet, 500 MG PO BID, (Reported) Lisinopril (Lisinopril) 40 Mg Tablet, 40 MG PO QHS, (Reported) Melatonin (Melatonin) 10 Mg Capsule, 20 MG PO QHS, (Reported) Pantoprazole Sodium (Pantoprazole Sodium) 40 Mg Tablet.dr, 40 MG PO DAILY, (Reported) Trazodone HCl (Trazodone HCl) 100 Mg Tablet, 100 MG PO QHS, (Reported) Valproic Acid (Valproic Acid) 250 Mg Capsule, 250 MG PO QHS, (Reported) Zolpidem Tartrate (Ambien) 5 Mg Tablet, 2.5 MG PO QHS, (Reported) Scheduled PRN Acetaminophen (Acetaminophen) 325 Mg Tablet, 650 MG PO Q6H PRN for PAIN LEVEL 1- 4, (Reported) Calcium Carbonate (Calcium) 500 Mg Tab.chew, 1,000 MG PO Q6H PRN for INDIGESTION, (Reported) Docusate Sodium (Stool Softener) 100 Mg Capsule, 100 MG PO BID PRN for BOWEL CARE/CONSTIPATION, (Reported) Malou Reina MD Dec 13, 2020 13:59
[2020-12-13 14:00] VITALS: BP 132/71
[2020-12-13 20:00] VITALS: BP 140/74
[2020-12-13] MEDS: RAMELTEON 8 MG TAB (ROZEREM) PO SCH (20:14)
[2020-12-13] MEDS: amLODIPine 5 MG TAB PO SCH (20:15)
[2020-12-13] MEDS: TAMSULOSIN 0.4 MG CAP PO SCH (20:15)
[2020-12-13] MEDS: VALPROIC ACID 250MG CAP PO SCH (20:16)
[2020-12-13] MEDS: SENNA 8.6 MG TAB (SENOKOT) PO SCH (20:16)
[2020-12-14] MEDS: **hydrALAZINE HCL** 25 MG TAB PO SCH ×4 (05:10→23:52)
[2020-12-14] MEDS: REMEDY PHYTOPLEX Z-GUARD PASTE 113GM TUBE (FROM STOREROOM PRODUCT) TOP SCH ×4 (05:19→23:52)
[2020-12-14] MEDS: CEPHALEXIN 500 MG CAP PO SCH ×4 (05:19→23:51)
[2020-12-14] MEDS: ACETAMINOPHEN TAB 650MG DOSE (2X325MG) PO PRN (05:32)
[2020-12-14 06:00] VITALS: BP 118/58
[2020-12-14 06:43] LABS: HEMATOCRIT 37.7 % (36.0-47.0); HEMOGLOBIN 12.5 g/dl (12.0-15.5); MEAN CORPUSCULAR HEMOGLOBIN 30.9 pg (27.0-33.0); MEAN CORPUSCULAR HGB CONC 33.2 g/dl (32.0-36.5); MEAN CORPUSCULAR VOLUME 93.3 fl (80.0-96.0); PLATELET COUNT, AUTOMATED 282 10^3/uL (150-450); RED BLOOD COUNT 4.04 10^6/uL (4.00-5.40); WHITE BLOOD COUNT 17.4 10^3/uL (4.0-10.0)
[2020-12-14 07:12] LABS: ANISOCYTOSIS 1+; EOSINOPHILS 2 % (0-3); LYMPHOCYTES 35 % (16-44); MONOCYTES 5 % (0-5); NEUTROPHILS 56 % (28-66); PLATELET ESTIMATE NORMAL (NORMAL)
[2020-12-14] MEDS: DOCUSATE SODIUM 100MG CAPSULE PO SCH ×2 (09:00→20:25)
[2020-12-14] MEDS: LACTOBACILLUS ACIDOPHILUS CAP (BACID) PO SCH ×3 (09:41→17:53)
[2020-12-14] MEDS: ACETAMINOPHEN 500 MG TAB PO SCH ×3 (09:41→20:27)
[2020-12-14] MEDS: levETIRAcetam 250MG TABLET (KEPPRA) PO SCH ×2 (09:41→20:27)
[2020-12-14] MEDS: PANTOPRAZOLE 40MG TAB (PROTONIX) PO SCH (09:41)
[2020-12-14] MEDS: MAGIC MOUTHWASH SUSPENSION BTL SSP SCH ×3 (09:42→17:54)
[2020-12-14] MEDS: PROPRANOLOL 10 MG TAB PO SCH ×3 (09:53→20:26)
[2020-12-14] MEDS: COMBIVENT RESPIMAT 100-20MCG INHALER 4GM INH SCH ×3 (10:01→19:57)
[2020-12-14] MEDS ORDERED: traZODone 25MG PER 1/2 TABLET PO PRN ×2 (10:45→10:50)
[2020-12-14 14:00] VITALS: BP 119/84
[2020-12-14 20:00] VITALS: BP 138/74
[2020-12-14] MEDS: VALPROIC ACID 250MG CAP PO SCH (20:25)
[2020-12-14] MEDS: amLODIPine 5 MG TAB PO SCH (20:26)
[2020-12-14] MEDS: TAMSULOSIN 0.4 MG CAP PO SCH (20:26)
[2020-12-14] MEDS: RAMELTEON 8 MG TAB (ROZEREM) PO SCH (20:27)
[2020-12-14] MEDS: SENNA 8.6 MG TAB (SENOKOT) PO SCH (20:27)
[2020-12-15] MEDS: ACETAMINOPHEN TAB 650MG DOSE (2X325MG) PO PRN (01:36)
[2020-12-15] MEDS: CEPHALEXIN 500 MG CAP PO SCH ×4 (05:26→23:32)
[2020-12-15] MEDS: REMEDY PHYTOPLEX Z-GUARD PASTE 113GM TUBE (FROM STOREROOM PRODUCT) TOP SCH ×4 (05:26→23:33)
[2020-12-15] MEDS: **hydrALAZINE HCL** 25 MG TAB PO SCH ×4 (05:26→23:33)
[2020-12-15 06:00] VITALS: BP 116/78
[2020-12-15] MEDS: COMBIVENT RESPIMAT 100-20MCG INHALER 4GM INH SCH ×3 (07:25→20:23)
[2020-12-15] MEDS: DOCUSATE SODIUM 100MG CAPSULE PO SCH ×2 (08:22→20:11)
[2020-12-15] MEDS: MAGIC MOUTHWASH SUSPENSION BTL SSP SCH ×3 (08:22→17:54)
[2020-12-15] MEDS: PANTOPRAZOLE 40MG TAB (PROTONIX) PO SCH (08:26)
[2020-12-15] MEDS: LACTOBACILLUS ACIDOPHILUS CAP (BACID) PO SCH ×3 (08:26→18:50)
[2020-12-15] MEDS: levETIRAcetam 250MG TABLET (KEPPRA) PO SCH ×2 (08:26→20:08)
[2020-12-15] MEDS: PROPRANOLOL 10 MG TAB PO SCH ×3 (08:26→20:14)
[2020-12-15] MEDS: ACETAMINOPHEN 500 MG TAB PO SCH ×3 (08:27→20:08)
[2020-12-15] MEDS: AREDS PO SCH (08:28)
[2020-12-15 14:00] VITALS: BP 126/56
[2020-12-15 20:00] VITALS: BP 138/60
[2020-12-15] MEDS: RAMELTEON 8 MG TAB (ROZEREM) PO SCH (20:08)
[2020-12-15] MEDS: TAMSULOSIN 0.4 MG CAP PO SCH (20:09)
[2020-12-15] MEDS: VALPROIC ACID 250MG CAP PO SCH (20:09)
[2020-12-15] MEDS: SENNA 8.6 MG TAB (SENOKOT) PO SCH (20:10)
[2020-12-15] MEDS: amLODIPine 5 MG TAB PO SCH (20:10)
[2020-12-16] MEDS: CEPHALEXIN 500 MG CAP PO SCH ×3 (05:30→18:13)
[2020-12-16] MEDS: **hydrALAZINE HCL** 25 MG TAB PO SCH ×3 (05:31→18:13)
[2020-12-16] MEDS: ACETAMINOPHEN TAB 650MG DOSE (2X325MG) PO PRN (05:33)
[2020-12-16] MEDS: REMEDY PHYTOPLEX Z-GUARD PASTE 113GM TUBE (FROM STOREROOM PRODUCT) TOP SCH ×3 (05:42→18:00)
[2020-12-16 06:00] VITALS: BP 148/62
[2020-12-16 06:34] LABS: HEMATOCRIT 38.2 % (36.0-47.0); HEMOGLOBIN 12.7 g/dl (12.0-15.5); MEAN CORPUSCULAR HEMOGLOBIN 31.6 pg (27.0-33.0); MEAN CORPUSCULAR HGB CONC 33.2 g/dl (32.0-36.5); PLATELET COUNT, AUTOMATED 322 10^3/uL (150-450); RED BLOOD COUNT 4.02 10^6/uL (4.00-5.40); WHITE BLOOD COUNT 13.4 10^3/uL (4.0-10.0)
[2020-12-16 06:57] LABS: BLOOD UREA NITROGEN 16 MG/DL (7-18); CALCIUM LEVEL 8.8 MG/DL (8.8-10.2); CARBON DIOXIDE LEVEL 25 MEQ/L (21-32); CHLORIDE LEVEL 108 MEQ/L (98-107); CREATININE FOR GFR 0.67 MG/DL (0.55-1.30); GLOMERULAR FILTRATION RATE > 60.0 (>39); GLUCOSE, FASTING 110 MG/DL (70-100); POTASSIUM SERUM 4.2 MEQ/L (3.5-5.1); SODIUM LEVEL 140 MEQ/L (136-145)
[2020-12-16 07:31] LABS: ATYPICAL LYMPH 1 % (0-5); EOSINOPHILS 2 % (0-3); LYMPHOCYTES 53 % (16-44); MONOCYTES 8 % (0-5); NEUTROPHILS 36 % (28-66); PLATELET ESTIMATE NORMAL (NORMAL)
[2020-12-16] MEDS: LACTOBACILLUS ACIDOPHILUS CAP (BACID) PO SCH ×3 (08:08→16:46)
[2020-12-16] MEDS: MAGIC MOUTHWASH SUSPENSION BTL SSP SCH ×3 (08:08→16:47)
[2020-12-16] MEDS: levETIRAcetam 250MG TABLET (KEPPRA) PO SCH ×2 (08:09→21:37)
[2020-12-16] MEDS: PANTOPRAZOLE 40MG TAB (PROTONIX) PO SCH (08:09)
[2020-12-16] MEDS: AREDS PO SCH (08:09)
[2020-12-16] MEDS: PROPRANOLOL 10 MG TAB PO SCH ×3 (08:09→21:36)
[2020-12-16] MEDS: ACETAMINOPHEN 500 MG TAB PO SCH ×3 (08:10→21:38)
[2020-12-16] MEDS: DOCUSATE SODIUM 100MG CAPSULE PO SCH ×2 (08:10→21:37)
[2020-12-16] MEDS: COMBIVENT RESPIMAT 100-20MCG INHALER 4GM INH SCH ×2 (08:24→20:00)
--- NOTE | 2020-12-16 09:11 | IPNPDOC ---
PM&R Progress Note DATE OF SERVICE: Dec 16, 2020 Personnel Recruiter Progress Note Subjective: Patient seen in therapy stating she is sleeping better, is still having urinary retention and has been having the urge to go at times. She reports she had one mini seizure following her first stroke 10 years ago and nothing since. REVIEW OF SYSTEMS: The following is a completed review of systems and has been reviewed. Review of systems otherwise unremarkable. PAIN: Patient self reports no pain EYES: No recent vision changes EARS, NOSE, & THROAT: No throat pain, or dysphagia, or rhinorrhea CARDIOVASCULAR: Denies chest pain or palpitations PULMONARY: Denies shortness of breath GASTROINTESTINAL: Denies constipation/diarrhea GENITOURINARY: no dysuria, +retention MUSCULOSKELETAL: generalized weakness NEUROLOGICAL:left sided apraxia with neglect, + chorea LUE (resolved) HEMATOLOGICAL: denies easy bruising SKIN:denies rash PSYCHIATRIC: Unremarkable All other review of systems found to be negative. PHYSICAL EXAMINATION: VITAL SIGNS: Please see below. GENERAL: Pleasant and cooperative. No acute distress. no facial droop, tongue midline HEENT: PERRL. able to cross midline to left, Clear conjunctiva CARDIOVASCULAR: Regular rate and rhythm. No murmurs, rubs, or gallops LUNGS: Clear to auscultation bilaterally. No wheezes. No rhonchi ABDOMEN: Soft, nontender, nondistended. Positive bowel sounds. Normal active bowel sounds NEUROLOGICAL: Alert and oriented times three. Cranial nerves II through XII grossly intact. Sensation grossly intact, +left sided neglect and impaired sensation to light touch on left (improving), +apraxia +chorea LUE (resolved) +clonus on left EXTREMITIES: 5\\5 strength bilateral upper extremities. 5\\5 strength right lower extremity. 5/5 strength in left lower extremity SKIN: no sacral erythema ASSESSMENT:79-year-old F with past medical history of right frontal ICH who presents status post spontaneous right parietal-occipital lobe ICH PLAN: 1. Rehab- PT/OT advance mobility and ADLs, strengthen/stretch/maintain ROM all 4 limbs, MPO to left foot when in bed, patient making functional gains in therapy, ambulating with assistance 50 feet -[employer] SALESPERSON for cog and swallow 2. Neuro hx of right frontal ICH with LUE dyskinesia, now s/p spontaneous right parieto-occipital ICH cont BP management, patient was not on antiplatelet at baseline -f/u neurosurgery in 6 weeks with repeat head CT -cont trial propranolol to prevent dysautonomia in setting of ICH- this may help with LUE dyskinesia which has resolved -cont Depakote and Keppra for seizure ppx- patient has been on depakote since prior stroke (10 years) with only one reported "mini seizure" reported by patient and confirmed with her , Depakote levels are low, however she has been on this med for essentially prophylaxis, she is now on Keppra as well for prophylaxis with a level fo 9.5 (10 is normal) will increase Keppra dosing to 750 mg BID), f/u levels in a few days and discuss results with neuro, patient has not had seizures since new hemorrhagic stroke 3. Cardiac- hx of HTN cont BP meds -medicine consulted to assist in overall management 4. Resp- monitor for infection, admission CXR negative for infiltrate, patient without cough 5. GI ppx- protonix 6. DVT ppx- heparin and teds 7. Pain- tylenol prn 8. Psych- rozerem for insomnia 9. - patient c/u to retain urine, likely due to stroke and Strep agalactei UTI for which she is receiving will start Keflex and has been started on flomax, will cont to catheterize and will consider reinsertion of nguyen if no improvement in the next day or two 10. Dispo- TBD -discussed case with Russell, patient's over the phone today Allergies Coded Allergies: chocolate flavor (Verified Allergy, Mild, FACIAL RASH, 12/10/20) No Known Allergies (Verified Allergy, Unknown, 12/10/20) Vital Signs Vital Signs Date Time Temp Pulse Resp B/P (MAP) Pulse Ox O2 Delivery O2 Flow Rate FiO2 12/16/20 08:09 97 126/72 12/16/20 06:00 97.8 18 97 Room Air 12/13/20 00:28 2.0 Laboratory Data CBC/BMP Laboratory Tests 12/16/20 05:38 Labs 24H Laboratory Tests 2 12/16/20 05:38: Neutrophils (%) (Auto) , Nucleated Red Blood Cells % (auto) 0.0, Neutrophils 36, Lymphocytes (Manual) 53H, Monocytes (Manual) 8H, Eosinophils (Manual) 2, Atypica l Lymphocytes 1, Red Blood Cell Morphology NORMAL, Platelet Estimate NORMAL, Anion Gap 7L, Glomerular Filtration Rate > 60.0, Calcium Level 8.8 Microbiology Microbiology 12/13/20 Blood Culture - Preliminary, Resulted No Growth after 48 hours. All Specime... 12/13/20 Blood Culture - Preliminary, Resulted No Growth after 48 hours. All Specime... 12/12/20 Urine Culture - Final, Complete Strep Agalactiae Group B Current Medications Current Medications Current Medications Medications (Trade) Dose Ordered Sig/Melody Route PRN Reason Start Time Stop Time Status Last Admin Dose Admin Acetaminophen (Tylenol Tab) 650 mg Q24HP PRN PO fever/MILD PAIN (PS 1-4) 12/12/20 13:45 12/16/20 05:33 Acetaminophen (Tylenol Tab) 650 mg Q4HP PRN PO fever/MILD PAIN (PS 1-4) 12/10/20 12:30 12/12/20 13:41 DC 12/12/20 09:11 Acetaminophen (Tylenol Tab) 1,000 mg TID PO 12/12/20 16:00 12/16/20 08:10 Albuterol/ Ipratropium (Combivent Respimat 100-20mcg) 1 puff RTID INH 12/10/20 20:00 12/16/20 08:24 Amlodipine Besylate (Norvasc) 5 mg QHS PO 12/10/20 21:00 12/10/20 20:12 DC Amlodipine Besylate (Norvasc) 5 mg QHS PO 12/11/20 21:00 12/15/20 20:10 Amlodipine Besylate (Norvasc) 10 mg QHS PO 12/10/20 21:00 12/11/20 14:44 DC 12/10/20 21:16 Calcium Carbonate (Tums) 1,000 mg Q4HP PRN PO HEARTBURN 12/10/20 12:30 Cephalexin Monohydrate (Keflex) 500 mg Q6H PO 12/13/20 12:00 12/18/20 06:01 12/16/20 05:30 Docusate Sodium (Colace) 100 mg BID PO 12/10/20 21:00 12/14/20 20:25 Fluoxetine HCl (PROzac) 20 mg DAILY PO 12/11/20 09:00 12/11/20 14:44 DC 12/11/20 12:14 Heparin Sodium (Porcine) (Heparin) 5,000 units Q12H SQ 12/11/20 21:00 12/12/20 09:23 DC 12/11/20 20:39 Home Med (Home Med List Complete!) ASDIRECTED XX 12/10/20 19:30 12/10/20 19:36 DC Hydralazine HCl (Apresoline) 25 mg Q6H PO 12/10/20 18:00 12/16/20 05:31 Lactobacillus Acidophilus (Bacid) 1 ea WM PO 12/13/20 12:30 12/16/20 08:08 Levetiracetam (Keppra) 500 mg BID PO 12/10/20 21:00 12/16/20 09:09 DC 12/16/20 08:09 Levetiracetam (Keppra) 750 mg BID PO 12/16/20 21:00 UNV Lidocaine/ Diphenhydr/Alum/ Mg/Simeth (Magic Mouthwash) 5ML AC SSP 12/11/20 07:30 12/16/20 08:08 Lisinopril (Prinivil) 20 mg QHS PO 12/11/20 21:00 12/15/20 20:09 Lisinopril (Prinivil) 40 mg QHS PO 12/10/20 21:00 12/11/20 14:44 DC 12/10/20 21:13 Pantoprazole Sodium (Protonix) 40 mg DAILY PO 12/11/20 09:00 12/16/20 08:09 Patient Own Medication (Patient'S Own Med) 2 CAPS DAILY PO 12/15/20 09:00 12/16/20 08:09 Polyethylene Glycol (Miralax) 1 pkt DAILY PRN PO CONSTIPATION 12/10/20 12:30 Propranolol HCl (Inderal) 10 mg TID PO 12/11/20 16:00 12/16/20 08:09 Ramelteon (Rozerem) 8 mg QHS PO 12/10/20 21:00 12/15/20 20:08 Senna (Senokot) 1 tab QHS PO 12/10/20 21:00 12/14/20 20:27 Tamsulosin HCl (Flomax) 0.4 mg QHS PO 12/13/20 21:00 12/15/20 20:09 Trazodone HCl (Desyrel) 25 mg DAILY PRN PO INSOMNIA 12/14/20 10:50 Trazodone HCl (Desyrel) 25 mg QHSP PRN PO INSOMNIA 12/11/20 10:45 12/14/20 10:47 DC 12/13/20 22:28 Trazodone HCl (Desyrel) 50 mg QHSP PRN PO INSOMNIA 12/14/20 10:45 Trazodone HCl (Desyrel) 100 mg QHSP PRN PO INSOMNIA 12/10/20 12:30 12/11/20 10:46 DC Valproic Acid (Depakene) 250 mg QHS PO 12/10/20 21:00 12/15/20 20:09 CHRISTIE NEVAREZ MD Dec 16, 2020 09:11
--- NOTE | 2020-12-16 10:17 | IPNPDOC ---
Text Note Date of Service The patient was seen on 12/16/20. NOTE Patient was seen and examined this morning. No acute overnight events. PHYSICAL EXAMINATION: VITAL SIGNS: Please see below. GENERAL APPEARANCE: Awake alert sitting up by the side of the bed working with the therapy. HEENT: Normocephalic atraumatic moist mucous membranes anicteric eyes RESPIRATORY: Chest clear to auscultation no added sounds CARDIOVASCULAR: S1-S2 regular normal rate no rub murmur gallop ABDOMEN: Soft nontender bowel sounds normal EXTREMITIES: No edema NEUROLOGICAL: Some spontaneous movements of the left upper extremity with also purposeful movements, has left hemineglect LABORATORY DATA: Reviewed ASSESSMENT/PLAN: 79F with past medical history of hypertension and spontaneous right frontal lobe ICH in 2009 presented to [facility] on 12-03-20 with severe right sided headache and nausea. CTH revealed a right parietal-occipital intraparenchymal hemorrhage with brain compression and no significant midline shift. She was admitted to the neuro ICU, given hypertonic saline, made NPO, and started on Keppra for seizure prophylaxis. MRI brain on 12-07-20 showed hemorrhages measuring 3.3x5.1x6.7 cmmoderate localized vasogenic edema and mass effect upon the posterior aspect of the right lateral ventricleno evidence of acute hydrocephalus. No signific ant midline shift or herniation. She had left sided neglect, hemisensory loss and significant mobility and ADL impairments when evaluated by therapy and deemed medically appropriate for admission to ARU on 12-10-20. On eval patient reports her left arm has been moving involuntarily and she cannot control it. She also complains of left upper extremity and left lower extremity weakness. She reports she has problem with balance and tends to fall on the left side. she denied any cough or phlegm. In summary the patient suffered another right intracranial hemorrhage on 12/03/2020 at the parieto-occipital area with left- sided hemineglect, left upper extremity dyskinesia, and left-sided weakness now in ARU getting acute rehabilitation. 1. Acute right-sided intracranial hemorrhage with left upper extremity dyskinesia Continue Keppra and valproic acid for seizure prophylaxis Propranolol started for dyskinesia Continue with PT/ OT as per ARU 2. Hypertension Continue lisinopril, amlodipine, hydralazine The goal is to keep the systolic blood pressure under 120 mmHg and diastolic under 80 mmHg 3. UTI Streptococcus agalactiae On Keflex 4. Acute urinary retention BladderScan and straight cath as needed GI prophylaxis With PPI Disposition as per primary Rhonda KHOURY, I+O VSRhonda I+O Laboratory Tests 12/16/20 05:38 Vital Signs Date Time Temp Pulse Resp B/P (MAP) Pulse Ox O2 Delivery O2 Flow Rate FiO2 12/16/20 09:00 2.0 12/16/20 08:09 97 126/72 12/16/20 06:00 97.8 18 97 Room Air I&O- Last 24 Hours up to 6 AM 12/16/20 05:59 Intake Total 685 ml Output Total 2075 ml Balance -1390 ml JESSICA COFFEY MD Dec 16, 2020 10:17
[2020-12-16 14:00] VITALS: BP 107/64
[2020-12-16 20:00] VITALS: BP 132/58
[2020-12-16] MEDS: TAMSULOSIN 0.4 MG CAP PO SCH (21:36)
[2020-12-16] MEDS: VALPROIC ACID 250MG CAP PO SCH (21:37)
[2020-12-16] MEDS: RAMELTEON 8 MG TAB (ROZEREM) PO SCH (21:37)
[2020-12-16] MEDS: amLODIPine 5 MG TAB PO SCH (21:37)
[2020-12-16] MEDS: SENNA 8.6 MG TAB (SENOKOT) PO SCH (21:37)
[2020-12-17] MEDS: CEPHALEXIN 500 MG CAP PO SCH ×5 (00:28→23:00)
[2020-12-17] MEDS: **hydrALAZINE HCL** 25 MG TAB PO SCH ×5 (00:28→20:41)
[2020-12-17] MEDS: REMEDY PHYTOPLEX Z-GUARD PASTE 113GM TUBE (FROM STOREROOM PRODUCT) TOP SCH ×5 (00:28→23:01)
[2020-12-17] MEDS: ACETAMINOPHEN TAB 650MG DOSE (2X325MG) PO PRN (04:00)
[2020-12-17 06:00] VITALS: BP 132/80
[2020-12-17] MEDS: COMBIVENT RESPIMAT 100-20MCG INHALER 4GM INH SCH ×3 (08:00→20:00)
[2020-12-17] MEDS: LACTOBACILLUS ACIDOPHILUS CAP (BACID) PO SCH ×3 (08:23→17:15)
[2020-12-17] MEDS: MAGIC MOUTHWASH SUSPENSION BTL SSP SCH ×3 (08:23→17:17)
[2020-12-17] MEDS: PANTOPRAZOLE 40MG TAB (PROTONIX) PO SCH (08:23)
[2020-12-17] MEDS: ACETAMINOPHEN 500 MG TAB PO SCH ×3 (08:24→20:43)
[2020-12-17] MEDS: levETIRAcetam 250MG TABLET (KEPPRA) PO SCH ×2 (08:24→20:40)
[2020-12-17] MEDS: DOCUSATE SODIUM 100MG CAPSULE PO SCH ×2 (08:24→20:42)
[2020-12-17] MEDS: AREDS PO SCH (08:24)
[2020-12-17] MEDS: PROPRANOLOL 10 MG TAB PO SCH ×3 (08:25→20:41)
--- NOTE | 2020-12-17 12:17 | IPNPDOC ---
PM&R Progress Note DATE OF SERVICE: Dec 17, 2020 Cloth Washer Back Tender Progress Note Subjective: Patient seen in her room with her bedside stating she was feeling ok, but she was sleeping well. REVIEW OF SYSTEMS: The following is a completed review of systems and has been reviewed. Review of systems otherwise unremarkable. PAIN: Patient self reports no pain EYES: No recent vision changes EARS, NOSE, & THROAT: No throat pain, or dysphagia, or rhinorrhea CARDIOVASCULAR: Denies chest pain or palpitations PULMONARY: Denies shortness of breath GASTROINTESTINAL: Denies constipation/diarrhea GENITOURINARY: no dysuria, +retention MUSCULOSKELETAL: generalized weakness NEUROLOGICAL:left sided apraxia with neglect (improving) HEMATOLOGICAL: denies easy bruising SKIN:denies rash PSYCHIATRIC: Unremarkable All other review of systems found to be negative. PHYSICAL EXAMINATION: VITAL SIGNS: Please see below. GENERAL: Pleasant and cooperative. No acute distress. no facial droop, tongue midline HEENT: PERRL. able to cross midline to left, Clear conjunctiva CARDIOVASCULAR: Regular rate and rhythm. No murmurs, rubs, or gallops LUNGS: Clear to auscultation bilaterally. No wheezes. No rhonchi ABDOMEN: Soft, nontender, nondistended. Positive bowel sounds. Normal active bowel sounds NEUROLOGICAL: Alert and oriented times three. Cranial nerves II through XII grossly intact. Sensation grossly intact, +left sided neglect and impaired sensation to light touch on left (improving), +apraxia (improving) +clonus on left EXTREMITIES: 5\\5 strength bilateral upper extremities. 5\\5 strength right lower extremity. 5/5 strength in left lower extremity SKIN: no sacral erythema ASSESSMENT:79-year-old F with past medical history of right frontal ICH who presents status post spontaneous right parietal-occipital lobe ICH PLAN: 1. Rehab- PT/OT advance mobility and ADLs, strengthen/stretch/maintain ROM all 4 limbs, MPO to left foot when in bed, patient making functional gains in therapy, ambulating with assistance 50 feet -SO[employer] QUALITY ASSURANCE ANALYST for cog and swallow 2. Neuro hx of right frontal ICH with LUE dyskinesia, now s/p spontaneous right parieto-occipital ICH cont BP management, patient was not on antiplatelet at baseline -f/u neurosurgery in 6 weeks with repeat head CT -cont trial propranolol to prevent dysautonomia in setting of ICH- this may help with LUE dyskinesia which has resolved -cont Depakote and Keppra for seizure ppx- patient has been on depakote since prior stroke (10 years) with only one reported "mini seizure" reported by patient and confirmed with her , Depakote levels are low, however she has been on this med for essentially prophylaxis, she is now on Keppra as well for prophylaxis with a level fo 9.5 (10 is normal) will increase Keppra dosing to 750 mg BID), f/u levels in a few days and discuss results with neuro, patient has not had seizures since new hemorrhagic stroke 3. Cardiac- hx of HTN cont BP meds -medicine consulted to assist in overall management 4. Resp- monitor for infection, admission CXR negative for infiltrate, patient without cough 5. GI ppx- protonix 6. DVT ppx- teds 7. Pain- tylenol prn 8. Psych- rozerem for insomnia, will schedule trazodone 50mg qhs for insomnia and adjust BP med administration so she is not woken up at midnight for vitals 9. - patient c/u to retain urine, likely due to stroke and Strep agalactei UTI for which she is receiving Keflex and has been started on flomax, will insert nguyen today, start terazosin to help with possible bladder outlet obstruction 10. Dispo- TBD Allergies Coded Allergies: chocolate flavor (Verified Allergy, Mild, FACIAL RASH, 12/10/20) No Known Allergies (Verified Allergy, Unknown, 12/10/20) Vital Signs Vital Signs Date Time Temp Pulse Resp B/P (MAP) Pulse Ox O2 Delivery O2 Flow Rate FiO2 12/17/20 09:00 2.0 12/17/20 08:25 76 121/67 12/17/20 06:00 97.4 20 97 Room Air Microbiology Microbiology 12/13/20 Blood Culture - Preliminary, Resulted No Growth after 72 hours. All specime... 12/13/20 Blood Culture - Preliminary, Resulted No Growth after 72 hours. All specime... 12/12/20 Urine Culture - Final, Complete Strep Agalactiae Group B Current Medications Current Medications Current Medications Medications (Trade) Dose Ordered Sig/Melody Route PRN Reason Start Time Stop Time Status Last Admin Dose Admin Acetaminophen (Tylenol Tab) 650 mg Q24HP PRN PO fever/MILD PAIN (PS 1-4) 12/12/20 13:45 12/17/20 04:00 Acetaminophen (Tylenol Tab) 650 mg Q4HP PRN PO fever/MILD PAIN (PS 1-4) 12/10/20 12:30 12/12/20 13:41 DC 12/12/20 09:11 Acetaminophen (Tylenol Tab) 1,000 mg TID PO 12/12/20 16:00 12/17/20 08:24 Albuterol/ Ipratropium (Combivent Respimat 100-20mcg) 1 puff RTID INH 12/10/20 20:00 12/16/20 08:24 Amlodipine Besylate (Norvasc) 5 mg QHS PO 12/10/20 21:00 12/10/20 20:12 DC Amlodipine Besylate (Norvasc) 5 mg QHS PO 12/11/20 21:00 12/16/20 21:37 Amlodipine Besylate (Norvasc) 10 mg QHS PO 12/10/20 21:00 12/11/20 14:44 DC 12/10/20 21:16 Calcium Carbonate (Tums) 1,000 mg Q4HP PRN PO HEARTBURN 12/10/20 12:30 Cephalexin Monohydrate (Keflex) 500 mg Q6H PO 12/13/20 12:00 12/18/20 06:01 12/17/20 05:06 Docusate Sodium (Colace) 100 mg BID PO 12/10/20 21:00 12/16/20 21:37 Fluoxetine HCl (PROzac) 20 mg DAILY PO 12/11/20 09:00 12/11/20 14:44 DC 12/11/20 12:14 Heparin Sodium (Porcine) (Heparin) 5,000 units Q12H SQ 12/11/20 21:00 12/12/20 09:23 DC 12/11/20 20:39 Home Med (Home Med List Complete!) ASDIRECTED XX 12/10/20 19:30 12/10/20 19:36 DC Hydralazine HCl (Apresoline) 25 mg Q6H PO 12/10/20 18:00 12/17/20 05:06 Lactobacillus Acidophilus (Bacid) 1 ea WM PO 12/13/20 12:30 12/17/20 08:23 Levetiracetam (Keppra) 500 mg BID PO 12/10/20 21:00 12/16/20 09:09 DC 12/16/20 08:09 Levetiracetam (Keppra) 750 mg BID PO 12/16/20 21:00 12/17/20 08:24 Lidocaine/ Diphenhydr/Alum/ Mg/Simeth (Magic Mouthwash) 5ML AC SSP 12/11/20 07:30 12/17/20 08:23 Lisinopril (Prinivil) 20 mg QHS PO 12/11/20 21:00 12/16/20 21:36 Lisinopril (Prinivil) 40 mg QHS PO 12/10/20 21:00 12/11/20 14:44 DC 12/10/20 21:13 Pantoprazole Sodium (Protonix) 40 mg DAILY PO 12/11/20 09:00 12/17/20 08:23 Patient Own Medication (Patient'S Own Med) 2 CAPS DAILY PO 12/15/20 09:00 12/17/20 08:24 Polyethylene Glycol (Miralax) 1 pkt DAILY PRN PO CONSTIPATION 12/10/20 12:30 Propranolol HCl (Inderal) 10 mg TID PO 12/11/20 16:00 12/17/20 08:25 Ramelteon (Rozerem) 8 mg QHS PO 12/10/20 21:00 12/16/20 21:37 Senna (Senokot) 1 tab QHS PO 12/10/20 21:00 12/16/20 21:37 Tamsulosin HCl (Flomax) 0.4 mg QHS PO 12/13/20 21:00 12/16/20 21:36 Terazosin HCl (Hytrin) 1 mg DAILY PO 12/17/20 09:00 Trazodone HCl (Desyrel) 25 mg DAILY PRN PO INSOMNIA 12/14/20 10:50 Trazodone HCl (Desyrel) 25 mg QHSP PRN PO INSOMNIA 12/11/20 10:45 12/14/20 10:47 DC 12/13/20 22:28 Trazodone HCl (Desyrel) 50 mg QHSP PRN PO INSOMNIA 12/14/20 10:45 Trazodone HCl (Desyrel) 100 mg QHSP PRN PO INSOMNIA 12/10/20 12:30 12/11/20 10:46 DC Valproic Acid (Depakene) 250 mg QHS PO 12/10/20 21:00 12/16/20 21:37 CHRISTIE NEVAREZ MD Dec 17, 2020 12:17
--- NOTE | 2020-12-17 12:42 | IPNPDOC ---
Text Note Date of Service The patient was seen on 12/17/20. NOTE Patient was seen and examined this morning. Participating in therapy PHYSICAL EXAMINATION: VITAL SIGNS: Please see below. GENERAL APPEARANCE: Awake alert sitting up by the side of the bed working with the therapy. HEENT: Normocephalic atraumatic moist mucous membranes anicteric eyes RESPIRATORY: Chest clear to auscultation no added sounds CARDIOVASCULAR: S1-S2 regular normal rate no rub murmur gallop ABDOMEN: Soft nontender bowel sounds normal EXTREMITIES: No edema NEUROLOGICAL: Some spontaneous movements of the left upper extremity with also purposeful movements, has left hemineglect LABORATORY DATA: Reviewed ASSESSMENT/PLAN: 79F with past medical history of hypertension and spontaneous right frontal lobe ICH in 2009 presented to [facility] on 12-03-20 with severe right sided headache and nausea. CTH revealed a right parietal-occipital intraparenchymal hemorrhage with brain compression and no significant midline shift. She was admitted to the neuro ICU, given hypertonic saline, made NPO, and started on Keppra for seizure prophylaxis. MRI brain on 12-07-20 showed hemorrhages measuring 3.3x5.1x6.7 cmmoderate localized vasogenic edema and mass effect upon the posterior aspect of the right lateral ventricleno evidence of acute hydrocephalus. No significant midline shift or herniation. She had left sided neglect, hemisensory loss and significant mobility and ADL impairments when evaluated by therapy and deemed medically appropriate for admission to ARU on 12-10-20. On eval patient reports her left arm has been moving involuntarily and she cannot control it. She also complains of left upper extremity and left lower extremity weakness. She reports she has problem with balance and tends to fall on the left side. she denied any cough or phlegm. In summary the patient suffered another right intracranial hemorrhage on 12/03/2020 at the parieto-occipital area with left-sided hemineglect, left upper extremity dyskinesia, and left-sided weakness now in ARU getting acute rehabilitation. 1. Acute right-sided intracranial hemorrhage with left upper extremity dyskinesia Continue Keppra and valproic acid for seizure prophylaxis Propranolol started for dyskinesia Continue with PT/ OT as per ARU 2. Hypertension Continue lisinopril, amlodipine, hydralazine The goal is to keep the systolic blood pressure under 120 mmHg and diastolic under 80 mmHg 3. UTI Streptococcus agalactiae On Keflex WBC mildly elevated but pro-Yossi negative. Chest x-ray was done which is also negative. 4. Acute urinary retention BladderScan and straight cath as needed GI prophylaxis With PPI Disposition as per primary VS,Rhonda, I+O VSRhonda, I+O Vital Signs Date Time Temp Pulse Resp B/P (MAP) Pulse Ox O2 Delivery O2 Flow Rate FiO2 12/17/20 12:00 119/72 12/17/20 09:00 2.0 12/17/20 08:25 76 12/17/20 06:00 97.4 20 97 Room Air I&O- Last 24 Hours up to 6 AM 12/17/20 06:00 Intake Total 1260 ml Output Total 2100 ml Balance -840 ml JESSICA COFFEY MD Dec 17, 2020 12:42
[2020-12-17 14:00] VITALS: BP 116/67
[2020-12-17] MEDS: TERAZOSIN 1 MG CAP PO SCH (17:17)
[2020-12-17 20:00] VITALS: BP 158/63
[2020-12-17] MEDS: RAMELTEON 8 MG TAB (ROZEREM) PO SCH (20:39)
[2020-12-17] MEDS: TAMSULOSIN 0.4 MG CAP PO SCH (20:39)
[2020-12-17] MEDS: VALPROIC ACID 250MG CAP PO SCH (20:39)
[2020-12-17] MEDS: amLODIPine 5 MG TAB PO SCH (20:40)
[2020-12-17] MEDS: SENNA 8.6 MG TAB (SENOKOT) PO SCH (20:42)
[2020-12-17] MEDS ORDERED: traZODone 50 MG TAB PO SCH (21:00)
[2020-12-18] MEDS: REMEDY PHYTOPLEX Z-GUARD PASTE 113GM TUBE (FROM STOREROOM PRODUCT) TOP SCH ×3 (05:09→17:55)
[2020-12-18] MEDS: CEPHALEXIN 500 MG CAP PO SCH (05:09)
[2020-12-18 06:00] VITALS: BP 138/50
[2020-12-18 06:48] LABS: BASO % 0.4 % (0.0-1.0); EOS # 0.1 10^3/uL (0.0-0.5); EOS % 1.5 % (0.0-3.0); HEMATOCRIT 38.3 % (36.0-47.0); HEMOGLOBIN 12.5 g/dl (12.0-15.5); LYMPH # 4.9 10^3/uL (1.5-5.0); LYMPH % 51.4 % (24.0-44.0); MEAN CORPUSCULAR HEMOGLOBIN 31.3 pg (27.0-33.0); MEAN CORPUSCULAR HGB CONC 32.6 g/dl (32.0-36.5); MEAN CORPUSCULAR VOLUME 95.8 fl (80.0-96.0); MONO # 0.7 10^3/uL (0.0-0.8); MONO % 7.7 % (2.0-8.0); NEUTROPHILS # 3.6 10^3/uL (1.5-8.5); NEUTROPHILS % 37.9 % (36.0-66.0); PLATELET COUNT, AUTOMATED 332 10^3/uL (150-450); WHITE BLOOD COUNT 9.5 10^3/uL (4.0-10.0)
[2020-12-18 07:13] LABS: BLOOD UREA NITROGEN 17 MG/DL (7-18); CALCIUM LEVEL 9.2 MG/DL (8.8-10.2); CARBON DIOXIDE LEVEL 28 MEQ/L (21-32); CHLORIDE LEVEL 108 MEQ/L (98-107); CREATININE FOR GFR 0.66 MG/DL (0.55-1.30); GLOMERULAR FILTRATION RATE > 60.0 (>39); GLUCOSE, FASTING 106 MG/DL (70-100); POTASSIUM SERUM 4.6 MEQ/L (3.5-5.1); SODIUM LEVEL 141 MEQ/L (136-145)
[2020-12-18] MEDS: COMBIVENT RESPIMAT 100-20MCG INHALER 4GM INH SCH ×3 (07:30→19:20)
[2020-12-18] MEDS: TERAZOSIN 1 MG CAP PO SCH (08:34)
[2020-12-18] MEDS: PANTOPRAZOLE 40MG TAB (PROTONIX) PO SCH (08:34)
[2020-12-18] MEDS: levETIRAcetam 250MG TABLET (KEPPRA) PO SCH ×2 (08:34→21:17)
[2020-12-18] MEDS: LACTOBACILLUS ACIDOPHILUS CAP (BACID) PO SCH ×3 (08:35→17:55)
[2020-12-18] MEDS: PROPRANOLOL 10 MG TAB PO SCH (08:35)
[2020-12-18] MEDS: **hydrALAZINE HCL** 25 MG TAB PO SCH ×3 (08:35→21:00)
[2020-12-18] MEDS: ACETAMINOPHEN 500 MG TAB PO SCH ×3 (08:35→21:15)
[2020-12-18] MEDS: AREDS PO SCH (08:36)
[2020-12-18] MEDS: DOCUSATE SODIUM 100MG CAPSULE PO SCH ×2 (08:36→21:00)
[2020-12-18] MEDS: MAGIC MOUTHWASH SUSPENSION BTL SSP SCH ×3 (08:36→16:30)
--- NOTE | 2020-12-18 13:02 | REP ---
INDICATION: r/o new bleed- hx of recent right parietal-occip hemorrhage. COMPARISON: Comparison CT study is from August 01, 2009. By history, recent prior brain imaging was a done elsewhere. These are not available at this juncture. TECHNIQUE: Helical scanning is acquired. 5 mm axial images were reformatted. Coronal MPR images were generated. FINDINGS: Bone window settings demonstrate intact bony calvarium. The visualized paranasal sinuses are clear. Quantitative Consultant images unremarkable. No intraorbital abnormality is seen. On soft tissue window settings, there is a area of encephalomalacia in the right frontal lobe with ex vacuo enlargement of the right frontal horn. The 2010 study showed a large parenchymal hematoma in the right lower lobe and the encephalomalacia is felt to be residual. However, today's study demonstrates a subacute hemorrhage in the right parietal lobe consistent with a hemorrhagic infarction. The appearance suggests evolving and therefore subacute changes. There is some mass effect in the right parietooccipital lobe region which attenuates the occipital horn of the right lateral ventricle. No extra-axial fluid collection is seen. There is no visible midline shift. The right parieto-occipital hemorrhagic infarct area measures 6.5 x 4.4 x 6.1 cm in greatest dimension including the surrounding rim of edema. IMPRESSION: I am given the history of recent prior study showing a right parieto-occipital hemorrhage. Today's CT images demonstrate a subacute hemorrhagic infarct pattern in evolution in the right parietal and occipital lobes covering a fairly large area up to 6.5 cm in diameter. There is some mass effect but no midline shift. Old encephalomalacia is seen in the right frontal lobe region where a remote prior CT from 2009 showed a hemorrhage. No other or obviously acute intracranial hemorrhage seen. <Electronically signed by Arturo Schroeder > 12/18/20 [id number]
[2020-12-18 14:00] VITALS: BP 138/76
--- NOTE | 2020-12-18 14:13 | IPNPDOC ---
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 When asked if she slept last night she says she is not sure. REVIEW OF SYSTEMS: The following is a completed review of systems and has been reviewed. Review of systems otherwise unremarkable. PAIN: Patient self reports no pain EYES: No recent vision changes EARS, NOSE, & THROAT: No throat pain, or dysphagia, or rhinorrhea CARDIOVASCULAR: Denies chest pain or palpitations PULMONARY: Denies shortness of breath GASTROINTESTINAL: Denies constipation/diarrhea GENITOURINARY: no dysuria, +retention MUSCULOSKELETAL: generalized weakness NEUROLOGICAL:left sided apraxia with neglect (improving) HEMATOLOGICAL: denies easy bruising SKIN:denies rash PSYCHIATRIC: Unremarkable All other review of systems found to be negative. PHYSICAL EXAMINATION: VITAL SIGNS: Please see below. GENERAL: Pleasant and cooperative. No acute distress. no facial droop, tongue midline HEENT: PERRL. able to cross midline to left, Clear conjunctiva CARDIOVASCULAR: Regular rate and rhythm. No murmurs, rubs, or gallops LUNGS: Clear to auscultation bilaterally. No wheezes. No rhonchi ABDOMEN: Soft, nontender, nondistended. Positive bowel sounds. Normal active bowel sounds NEUROLOGICAL: Alert and oriented times three. Cranial nerves II through XII grossly intact. Sensation grossly intact, +left sided neglect and impaired s ensation to light touch on left (improving), +apraxia (improving) +clonus on left EXTREMITIES: 5\\5 strength bilateral upper extremities. 5\\5 strength right lower extremity. 5/5 strength in left lower extremity SKIN: no sacral erythema ASSESSMENT:79-year-old F with past medical history of right frontal ICH who presents status post spontaneous right parietal-occipital lobe ICH PLAN: 1. 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 Neuro hx of right frontal ICH with LUE dyskinesia, now s/p spontaneous right parieto-occipital ICH cont BP management, patient was not on antiplatelet at baseline -f/u neurosurgery in 6 weeks with repeat head CT -repeat CT ordered today as patient was more lethargic and leaning more to the left in PT after having had a good session in OT prior, repeat CT showing no new hemorrhage, when patient evaluated after therapy she was able to roll her self in bed, move all 4 limbs similarly to yesterday's exam, she reported feeling more tired today- suspect patient's symptoms were due to receiving trazodone last night and episode of hypotension while in PT (likely from terazosin coupled with BP meds) -s/p trial of propranolol to prevent dysautonomia in setting of ICH-stopping for now as patient with drop in BPs today in therapy -cont Depakote and Keppra for seizure ppx- patient has been on depakote since prior stroke (10 years) with only one reported "mini seizure" reported by maryam samuels and confirmed with her , Depakote levels are low, however she has been on this med for essentially prophylaxis, she is now on Keppra as well for prophylaxis with a level fo 9.5 (10 is normal) increased Keppra dosing to 750 mg BID), f/u levels in a few days and discuss results with neuro, patient has not had seizures since new hemorrhagic stroke 3. Cardiac- hx of HTN cont BP meds, patient with episode of hypotension to day in therapy most likely due to addition of terazosin, will stop propranolol, adjust hydralazine parameters to only give if sBP >140, and adjust timing of lisinopril -medicine consulted to assist in overall management 4. Resp- monitor for infection, admission CXR negative for infiltrate, patient without cough 5. GI ppx- protonix 6. DVT ppx- teds 7. Pain- tylenol prn 8. Psych- rozerem for insomnia, will decrease trazodone to 25mg qhs as patient more lethargic this morning 9. - urinary retention with failed TOV, s/p course of treatment for Strep agalactei UTI, cont flomax and terazosin for bladder outlet obstruction, nguyen placed 12-17-20, will repaet TOV next week or once patient has consistent strong urge to void 10. Dispo- 12-26-20 to home, progressing towards goals, may need additional time Allergies Coded Allergies: chocolate flavor (Verified Allergy, Mild, FACIAL RASH, 12/10/20) No Known Allergies (Verified Allergy, Unknown, 12/10/20) Vital Signs Vital Signs Date Time Temp Pulse Resp B/P (MAP) Pulse Ox O2 Delivery O2 Flow Rate FiO2 12/18/20 08:35 138/50 12/18/20 08:35 80 12/18/20 06:00 97.1 17 97 Room Air 12/17/20 09:00 2.0 Laboratory Data CBC/BMP Laboratory Tests 12/18/20 06:06 Labs 24H Laboratory Tests 2 12/18/20 06:06: Immature Granulocyte % (Auto) 1.1, Neutrophils (%) (Auto) 37.9, Lymphocytes (%) (Auto) 51.4H, Monocytes (%) (Auto) 7.7, Eosinophils (%) (Auto) 1.5, Basophils (%) (Auto) 0.4, Neutrophils # (Auto) 3.6, Lymphocytes # (Auto) 4.9, Monocytes # (Auto) 0.7, Eosinophils # (Auto) 0.1, Basophils # (Auto) 0.0, Nucleated Red Blood Cells % (auto) 0.0, Anion Gap 5L, Glomerular Filtration Rate > 60.0, Calcium Level 9.2 Microbiology Microbiology 12/13/20 Blood Culture - Final, Complete NO GROWTH AFTER 5 DAYS 12/13/20 Blood Culture - Final, Complete NO GROWTH AFTER 5 DAYS 12/12/20 Urine Culture - Final, Complete Strep Agalactiae Group B Current Medications Current Medications Current Medications Medications (Trade) Dose Ordered Sig/Melody Route PRN Reason Start Time Stop Time Status Last Admin Dose Admin Acetaminophen (Tylenol Tab) 650 mg Q24HP PRN PO fever/MILD PAIN (PS 1-4) 12/12/20 13:45 12/17/20 04:00 Acetaminophen (Tylenol Tab) 650 mg Q4HP PRN PO fever/MILD PAIN (PS 1-4) 12/10/20 12:30 12/12/20 13:41 DC 12/12/20 09:11 Acetaminophen (Tylenol Tab) 1,000 mg TID PO 12/12/20 16:00 12/18/20 08:35 Albuterol/ Ipratropium (Combivent Respimat 100-20mcg) 1 puff RTID INH 12/10/20 20:00 12/16/20 08:24 Amlodipine Besylate (Norvasc) 5 mg QHS PO 12/10/20 21:00 12/10/20 20:12 DC Amlodipine Besylate (Norvasc) 5 mg QHS PO 12/11/20 21:00 12/17/20 20:40 Amlodipine Besylate (Norvasc) 10 mg QHS PO 12/10/20 21:00 12/11/20 14:44 DC 12/10/20 21:16 Calcium Carbonate (Tums) 1,000 mg Q4HP PRN PO HEARTBURN 12/10/20 12:30 Cephalexin Monohydrate (Keflex) 500 mg Q6H PO 12/13/20 12:00 12/18/20 06:01 DC 12/18/20 05:09 Docusate Sodium (Colace) 100 mg BID PO 12/10/20 21:00 12/16/20 21:37 Fluoxetine HCl (PROzac) 20 mg DAILY PO 12/11/20 09:00 12/11/20 14:44 DC 12/11/20 12:14 Heparin Sodium (Porcine) (Heparin) 5,000 units Q12H SQ 12/11/20 21:00 12/12/20 09:23 DC 12/11/20 20:39 Home Med (Home Med List Complete!) ASDIRECTED XX 12/10/20 19:30 12/10/20 19:36 DC Hydralazine HCl (Apresoline) 25 mg Q6H PO 12/10/20 18:00 12/17/20 14:33 DC 12/17/20 05:06 Hydralazine HCl (Apresoline) 25 mg TID PO 12/17/20 16:00 12/18/20 08:35 Lactobacillus Acidophilus (Bacid) 1 ea WM PO 12/13/20 12:30 12/18/20 12:09 Levetiracetam (Keppra) 500 mg BID PO 12/10/20 21:00 12/16/20 09:09 DC 12/16/20 08:09 Levetiracetam (Keppra) 750 mg BID PO 12/16/20 21:00 12/18/20 08:34 Lidocaine/ Diphenhydr/Alum/ Mg/Simeth (Magic Mouthwash) 5ML AC SSP 12/11/20 07:30 12/18/20 12:09 Lisinopril (Prinivil) 10 mg BID PO 12/18/20 21:00 Lisinopril (Prinivil) 20 mg BID PO 12/18/20 09:00 12/18/20 11:33 DC 12/18/20 09:38 Lisinopril (Prinivil) 20 mg QHS PO 12/11/20 21:00 12/18/20 09:14 DC 12/17/20 20:41 Lisinopril (Prinivil) 40 mg QHS PO 12/10/20 21:00 12/11/20 14:44 DC 12/10/20 21:13 Pantoprazole Sodium (Protonix) 40 mg DAILY PO 12/11/20 09:00 12/18/20 08:34 Patient Own Medication (Patient'S Own Med) 2 CAPS DAILY PO 12/15/20 09:00 12/18/20 08:36 Polyethylene Glycol (Miralax) 1 pkt DAILY PRN PO CONSTIPATION 12/10/20 12:30 Propranolol HCl (Inderal) 10 mg TID PO 12/11/20 16:00 12/18/20 11:33 DC 12/18/20 08:35 Ramelteon (Rozerem) 8 mg QHS PO 12/10/20 21:00 12/17/20 20:39 Senna (Senokot) 1 tab QHS PO 12/10/20 21:00 12/16/20 21:37 Tamsulosin HCl (Flomax) 0.4 mg QHS PO 12/13/20 21:00 12/17/20 20:39 Terazosin HCl (Hytrin) 1 mg DAILY PO 12/17/20 09:00 12/18/20 08:34 Trazodone HCl (Desyrel) 25 mg DAILY PRN PO INSOMNIA 12/14/20 10:50 12/18/20 13:08 DC Trazodone HCl (Desyrel) 25 mg QHS PO 12/18/20 21:00 Trazodone HCl (Desyrel) 25 mg QHSP PRN PO INSOMNIA 12/11/20 10:45 12/14/20 10:47 DC 12/13/20 22:28 Trazodone HCl (Desyrel) 50 mg QHS PO 12/17/20 21:00 12/18/20 13:08 DC 12/17/20 20:40 Trazodone HCl (Desyrel) 50 mg QHSP PRN PO INSOMNIA 12/14/20 10:45 12/17/20 14:33 DC Trazodone HCl (Desyrel) 100 mg QHSP PRN PO INSOMNIA 12/10/20 12:30 12/11/20 10:46 DC Valproic Acid (Depakene) 250 mg QHS PO 12/10/20 21:00 12/17/20 20:39 CHRISTIE NEVAREZ MD Dec 18, 2020 14:13
[2020-12-18] MEDS: SIMETHICONE 80MG CHEW TAB PO SCH ×2 (16:28→21:17)
[2020-12-18 20:00] VITALS: BP 116/68
[2020-12-18] MEDS: SENNA 8.6 MG TAB (SENOKOT) PO SCH (21:00)
[2020-12-18] MEDS: amLODIPine 5 MG TAB PO SCH (21:16)
[2020-12-18] MEDS: VALPROIC ACID 250MG CAP PO SCH (21:17)
[2020-12-18] MEDS: RAMELTEON 8 MG TAB (ROZEREM) PO SCH (21:17)
[2020-12-18] MEDS: traZODone 25MG PER 1/2 TABLET PO SCH (21:17)
[2020-12-18] MEDS: TAMSULOSIN 0.4 MG CAP PO SCH (21:17)
[2020-12-19] MEDS: REMEDY PHYTOPLEX Z-GUARD PASTE 113GM TUBE (FROM STOREROOM PRODUCT) TOP SCH ×5 (05:25→23:55)
[2020-12-19 06:00] VITALS: BP 138/86
[2020-12-19] MEDS: TERAZOSIN 1 MG CAP PO SCH (08:50)
[2020-12-19] MEDS: SIMETHICONE 80MG CHEW TAB PO SCH ×3 (08:51→22:06)
[2020-12-19] MEDS: LACTOBACILLUS ACIDOPHILUS CAP (BACID) PO SCH ×3 (08:51→17:17)
[2020-12-19] MEDS: PANTOPRAZOLE 40MG TAB (PROTONIX) PO SCH (08:51)
[2020-12-19] MEDS: levETIRAcetam 250MG TABLET (KEPPRA) PO SCH ×2 (08:51→22:04)
[2020-12-19] MEDS: DOCUSATE SODIUM 100MG CAPSULE PO SCH ×2 (08:51→22:04)
[2020-12-19] MEDS: **hydrALAZINE HCL** 25 MG TAB PO SCH ×3 (08:52→22:03)
[2020-12-19] MEDS: ACETAMINOPHEN 500 MG TAB PO SCH ×3 (08:54→22:04)
[2020-12-19] MEDS: AREDS PO SCH (08:56)
[2020-12-19] MEDS: MAGIC MOUTHWASH SUSPENSION BTL SSP SCH ×3 (08:57→17:19)
--- NOTE | 2020-12-19 10:03 | IPNPDOC ---
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 REVIEW OF SYSTEMS: The following is a completed review of systems and has been reviewed. Review of systems otherwise unremarkable. PAIN: Patient self reports no pain EYES: No recent vision changes EARS, NOSE, & THROAT: No throat pain, or dysphagia, or rhinorrhea CARDIOVASCULAR: Denies chest pain or palpitations PULMONARY: Denies shortness of breath GASTROINTESTINAL: Denies constipation/diarrhea GENITOURINARY: no dysuria, +retention MUSCULOSKELETAL: generalized weakness NEUROLOGICAL:left sided apraxia with neglect (improving) HEMATOLOGICAL: denies easy bruising SKIN:denies rash PSYCHIATRIC: Unremarkable All other review of systems found to be negative. PHYSICAL EXAMINATION: VITAL SIGNS: Please see below. GENERAL: Pleasant and cooperative. No acute distress. no facial droop, tongue midline HEENT: PERRL. able to cross midline to left, Clear conjunctiva CARDIOVASCULAR: Regular rate and rhythm. No murmurs, rubs, or gallops LUNGS: Clear to auscultation bilaterally. No wheezes. No rhonchi ABDOMEN: Soft, nontender, nondistended. Positive bowel sounds. Normal active bowel sounds NEUROLOGICAL: Alert and oriented times three. Cranial nerves II through XII grossly intact. Sensation grossly intact, +left sided neglect and impaired sensation to light touch on left (improving), +apraxia (improving) +clonus on left EXTREMITIES: 5\\5 strength bilateral upper extremities. 5\\5 strength right lower extremity. 5/5 strength in left lower extremity SKIN: no sacral erythema ASSESSMENT:79-year-old F with past medical history of right frontal ICH who presents status post spontaneous right parietal-occipital lobe ICH PLAN: 1. 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 Neuro hx of right frontal ICH with LUE dyskinesia, now s/p spontaneous right parieto-occipital ICH cont BP management, patient was not on antiplatelet at baseline -f/u neurosurgery in 6 weeks with repeat head CT -repeat CT ordered 12-18-20 due to lethargy in therapy likely due to sleep medication and hypotension- CTH negative for new bleed, no new focal deficits, patient cont to improve -s/p trial of propranolol to prevent dysautonomia in setting of ICH-stopping for now as patient with drop in BPs today in therapy -cont Depakote and Keppra for seizure ppx- patient has been on depakote since prior stroke (10 years) with only one reported "mini seizure" reported by patient and confirmed with her , Depakote levels are low, however she has been on this med for essentially prophylaxis, she is now on Keppra as well for p rophylaxis with a level fo 9.5 (10 is normal) increased Keppra dosing to 750 mg BID), f/u levels in a few days and discuss results with neuro, patient has not had seizures since new hemorrhagic stroke 3. Cardiac- hx of HTN cont BP meds, patient with episode of hypotension to day in therapy most likely due to addition of terazosin-BP meds adjusted -medicine consulted to assist in overall management 4. Resp- monitor for infection, admission CXR negative for infiltrate, patient without cough 5. GI ppx- protonix -simethicone added for gas 6. DVT ppx- teds 7. Pain- tylenol prn 8. Psych- rozerem for insomnia, will decrease trazodone to 25mg qhs as patient more lethargic this morning 9. - urinary retention with failed TOV, s/p course of treatment for Strep aga lactei UTI, cont flomax and terazosin for bladder outlet obstruction, nguyen placed 12-17-20, will repeat TOV next week or once patient has consistent strong urge to void 10. Dispo- 12-26-20 to home, progressing towards goals, may need additional time Allergies Coded Allergies: chocolate flavor (Verified Allergy, Mild, FACIAL RASH, 12/10/20) No Known Allergies (Verified Allergy, Unknown, 12/10/20) Vital Signs Vital Signs Date Time Temp Pulse Resp B/P (MAP) Pulse Ox O2 Delivery O2 Flow Rate FiO2 12/19/20 08:53 116/56 12/19/20 06:00 97.1 100 17 99 Room Air 12/17/20 09:00 2.0 Microbiology Microbiology 12/13/20 Blood Culture - Final, Complete NO GROWTH AFTER 5 DAYS 12/13/20 Blood Culture - Final, Complete NO GROWTH AFTER 5 DAYS 12/12/20 Urine Culture - Final, Complete Strep Agalactiae Group B Current Medications Current Medications Current Medications Medications (Trade) Dose Ordered Sig/Melody Route PRN Reason Start Time Stop Time Status Last Admin Dose Admin Acetaminophen (Tylenol Tab) 650 mg Q24HP PRN PO fever/MILD PAIN (PS 1-4) 12/12/20 13:45 12/17/20 04:00 Acetaminophen (Tylenol Tab) 650 mg Q4HP PRN PO fever/MILD PAIN (PS 1-4) 12/10/20 12:30 12/12/20 13:41 DC 12/12/20 09:11 Acetaminophen (Tylenol Tab) 1,000 mg TID PO 12/12/20 16:00 12/18/20 21:15 Albuterol/ Ipratropium (Combivent Respimat 100-20mcg) 1 puff RTID INH 12/10/20 20:00 12/18/20 19:20 Amlodipine Besylate (Norvasc) 5 mg QHS PO 12/10/20 21:00 12/10/20 20:12 DC Amlodipine Besylate (Norvasc) 5 mg QHS PO 12/11/20 21:00 12/18/20 21:16 Amlodipine Besylate (Norvasc) 10 mg QHS PO 12/10/20 21:00 12/11/20 14:44 DC 12/10/20 21:16 Calcium Carbonate (Tums) 1,000 mg Q4HP PRN PO HEARTBURN 12/10/20 12:30 Cephalexin Monohydrate (Keflex) 500 mg Q6H PO 12/13/20 12:00 12/18/20 06:01 DC 12/18/20 05:09 Docusate Sodium (Colace) 100 mg BID PO 12/10/20 21:00 12/19/20 08:51 Fluoxetine HCl (PROzac) 20 mg DAILY PO 12/11/20 09:00 12/11/20 14:44 DC 12/11/20 12:14 Heparin Sodium (Porcine) (Heparin) 5,000 units Q12H SQ 12/11/20 21:00 12/12/20 09:23 DC 12/11/20 20:39 Home Med (Home Med List Complete!) ASDIRECTED XX 12/10/20 19:30 12/10/20 19:36 DC Hydralazine HCl (Apresoline) 25 mg Q6H PO 12/10/20 18:00 12/17/20 14:33 DC 12/17/20 05:06 Hydralazine HCl (Apresoline) 25 mg TID PO 12/17/20 16:00 12/18/20 08:35 Lactobacillus Acidophilus (Bacid) 1 ea WM PO 12/13/20 12:30 12/19/20 08:51 Levetiracetam (Keppra) 500 mg BID PO 12/10/20 21:00 12/16/20 09:09 DC 12/16/20 08:09 Levetiracetam (Keppra) 750 mg BID PO 12/16/20 21:00 12/19/20 08:51 Lidocaine/ Diphenhydr/Alum/ Mg/Simeth (Magic Mouthwash) 5ML AC SSP 12/11/20 07:30 12/19/20 08:57 Lisinopril (Prinivil) 10 mg BID PO 12/18/20 21:00 12/19/20 08:53 Lisinopril (Prinivil) 20 mg BID PO 12/18/20 09:00 12/18/20 11:33 DC 12/18/20 09:38 Lisinopril (Prinivil) 20 mg QHS PO 12/11/20 21:00 12/18/20 09:14 DC 12/17/20 20:41 Lisinopril (Prinivil) 40 mg QHS PO 12/10/20 21:00 12/11/20 14:44 DC 12/10/20 21:13 Pantoprazole Sodium (Protonix) 40 mg DAILY PO 12/11/20 09:00 12/19/20 08:51 Patient Own Medication (Patient'S Own Med) 2 CAPS DAILY PO 12/15/20 09:00 12/19/20 08:56 Polyethylene Glycol (Miralax) 1 pkt DAILY PRN PO CONSTIPATION 12/10/20 12:30 Propranolol HCl (Inderal) 10 mg TID PO 12/11/20 16:00 12/18/20 11:33 DC 12/18/20 08:35 Ramelteon (Rozerem) 8 mg QHS PO 12/10/20 21:00 12/18/20 21:17 Senna (Senokot) 1 tab QHS PO 12/10/20 21:00 12/16/20 21:37 Simethicone (Mylicon) 80 mg TID PO 12/18/20 16:00 12/19/20 08:51 Tamsulosin HCl (Flomax) 0.4 mg QHS PO 12/13/20 21:00 12/18/20 21:17 Terazosin HCl (Hytrin) 1 mg DAILY PO 12/17/20 09:00 12/19/20 08:50 Trazodone HCl (Desyrel) 25 mg DAILY PRN PO INSOMNIA 12/14/20 10:50 12/18/20 13:08 DC Trazodone HCl (Desyrel) 25 mg QHS PO 12/18/20 21:00 12/18/20 21:17 Trazodone HCl (Desyrel) 25 mg QHSP PRN PO INSOMNIA 12/11/20 10:45 12/14/20 10:47 DC 12/13/20 22:28 Trazodone HCl (Desyrel) 50 mg QHS PO 12/17/20 21:00 12/18/20 13:08 DC 12/17/20 20:40 Trazodone HCl (Desyrel) 50 mg QHSP PRN PO INSOMNIA 12/14/20 10:45 12/17/20 14:33 DC Trazodone HCl (Desyrel) 100 mg QHSP PRN PO INSOMNIA 12/10/20 12:30 12/11/20 10:46 DC Valproic Acid (Depakene) 250 mg QHS PO 12/10/20 21:00 12/18/20 21:17 CHRISTIE NEVAREZ MD Dec 19, 2020 10:03
[2020-12-19] MEDS: COMBIVENT RESPIMAT 100-20MCG INHALER 4GM INH SCH ×3 (11:28→19:45)
[2020-12-19 14:00] VITALS: BP 100/61
[2020-12-19 20:00] VITALS: BP 138/52
[2020-12-19] MEDS: TAMSULOSIN 0.4 MG CAP PO SCH (22:03)
[2020-12-19] MEDS: RAMELTEON 8 MG TAB (ROZEREM) PO SCH (22:03)
[2020-12-19] MEDS: traZODone 25MG PER 1/2 TABLET PO SCH (22:04)
[2020-12-19] MEDS: VALPROIC ACID 250MG CAP PO SCH (22:05)
[2020-12-19] MEDS: SENNA 8.6 MG TAB (SENOKOT) PO SCH (22:05)
[2020-12-19] MEDS: amLODIPine 5 MG TAB PO SCH (22:05)
[2020-12-20] MEDS: REMEDY PHYTOPLEX Z-GUARD PASTE 113GM TUBE (FROM STOREROOM PRODUCT) TOP SCH ×4 (05:16→21:23)
[2020-12-20 06:00] VITALS: BP 130/42
[2020-12-20] MEDS: COMBIVENT RESPIMAT 100-20MCG INHALER 4GM INH SCH ×3 (07:14→19:44)
[2020-12-20] MEDS: MAGIC MOUTHWASH SUSPENSION BTL SSP SCH ×3 (07:30→17:30)
[2020-12-20] MEDS: LACTOBACILLUS ACIDOPHILUS CAP (BACID) PO SCH ×3 (08:00→18:00)
[2020-12-20] MEDS: **hydrALAZINE HCL** 25 MG TAB PO SCH ×3 (09:00→21:00)
[2020-12-20] MEDS: AREDS PO SCH (09:00)
[2020-12-20] MEDS: DOCUSATE SODIUM 100MG CAPSULE PO SCH ×2 (09:00→21:00)
[2020-12-20] MEDS: SIMETHICONE 80MG CHEW TAB PO SCH ×3 (09:00→21:23)
[2020-12-20] MEDS: TERAZOSIN 1 MG CAP PO SCH (09:00)
[2020-12-20] MEDS: levETIRAcetam 250MG TABLET (KEPPRA) PO SCH ×2 (09:00→21:20)
[2020-12-20] MEDS: PANTOPRAZOLE 40MG TAB (PROTONIX) PO SCH (09:00)
[2020-12-20] MEDS: ACETAMINOPHEN 500 MG TAB PO SCH ×3 (09:00→21:23)
[2020-12-20 13:10] VITALS: BP 123/59
--- NOTE | 2020-12-20 13:30 | IPNPDOC ---
PM&R Progress Note DATE OF SERVICE: Dec 20, 2020 Kil[employer] Tender Progress Note Subjective: Rapid Assessment was called around 1:30, patient became unresponsive on the toilet after having strained to have a bowel movement. She was able to rouse, found to be warm and clammy with sBPs 100-110s, HR 100, FS 130 oriented x3, able to follow commands, no new weakness on the left. Patient most likely had a vaso vagal response while straining to have a BM which per therapy team she was straining for 5 minutes. Will give gentle hydration, no new imaging warranted as patient has no new focal deficits and did not fall or hit her head. Plans discussed and made with hospitalist. REVIEW OF SYSTEMS: The following is a completed review of systems and has been reviewed. Review of systems otherwise unremarkable. PAIN: Patient self reports no pain EYES: No recent vision changes EARS, NOSE, & THROAT: No throat pain, or dysphagia, or rhinorrhea CARDIOVASCULAR: Denies chest pain or palpitations PULMONARY: Denies shortness of breath GASTROINTESTINAL: Denies constipation/diarrhea GENITOURINARY: no dysuria, +retention MUSCULOSKELETAL: generalized weakness NEUROLOGICAL:left sided apraxia with neglect (improving) HEMATOLOGICAL: denies easy bruising SKIN:denies rash PSYCHIATRIC: Unremarkable All other review of systems found to be negative. PHYSICAL EXAMINATION: VITAL SIGNS: Please see below. GENERAL: Pleasant and cooperative. No acute distress. no facial droop, tongue midline HEENT: PERRL. able to cross midline to left, Clear conjunctiva CARDIOVASCULAR: Regular rate and rhythm. No murmurs, rubs, or gallops LUNGS: Clear to auscultation bilaterally. No wheezes. No rhonchi ABDOMEN: Soft, nontender, nondistended. Positive bowel sounds. Normal active bowel sounds NEUROLOGICAL: Alert and oriented times three. Cranial nerves II through XII grossly intact. Sensation grossly intact, +left sided neglect and impaired sensation to light touch on left (improving), +apraxia (improving) +clonus on left EXTREMITIES: 5\\5 strength bilateral upper extremities. 5\\5 strength right lower extremity. 5/5 strength in left lower extremity SKIN: no sacral erythema ASSESSMENT:79-year-old F with past medical history of right frontal ICH who presents status post spontaneous right parietal-occipital lobe ICH PLAN: 1. Rehab- PT/OT advance mobility and ADLs, strengthen/stretch/maintain ROM all 4 limbs, MPO to left foot when in bed, patient making functional gains in therapy, ambulating with assistance 50 feet -DIVISION CHIEF for cog and swallow 2. Neuro hx of right frontal ICH with LUE dyskinesia, now s/p spontaneous right parieto-occipital ICH cont BP management, patient was not on antiplatelet at baseline -f/u neurosurgery in 6 weeks with repeat head CT -repeat CT ordered 12-18-20 due to lethargy in therapy likely due to sleep medication and hypotension- CTH negative for new bleed, no new focal deficits, patient cont to improve -s/p trial of propranolol to prevent dysautonomia in setting of ICH-stopping for now as patient with drop in BPs today in therapy-improving -cont Depakote and Keppra for seizure ppx- patient has been on depakote since prior stroke (10 years) with only one reported "mini seizure" reported by patient and confirmed with her , Depakote levels are low, however she has been on this med for essentially prophylaxis, she is now on Keppra as well for prophylaxis with a level fo 9.5 (10 is normal) increased Keppra dosing to 750 mg BID), f/u levels in a few days and discuss results with neuro, 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 Cardiac- hx of HTN cont BP meds, patient with episode of hypotension to day in therapy most likely due to addition of terazosin-BP meds adjusted -medicine consulted to assist in overall management 4. Resp- monitor for infection, admission CXR negative for infiltrate, patient without cough 5. GI ppx- protonix -simethicone added for gas 6. DVT ppx- teds 7. Pain- tylenol prn 8. Psych- rozerem for insomnia, will decrease trazodone to 25mg qhs as patient more lethargic this morning 9. - urinary retention with failed TOV, s/p course of treatment for Strep agalactei UTI, cont flomax and terazosin for bladder outlet obstruction, nguyen placed 12-17-20, will repeat TOV next week or once patient has consistent strong urge to void 10. Dispo- 12-26-20 to home, progressing towards goals, may need additional time Allergies Coded Allergies: chocolate flavor (Verified Allergy, Mild, FACIAL RASH, 12/10/20) No Known Allergies (Verified Allergy, Unknown, 12/10/20) Vital Signs Vital Signs Date Time Temp Pulse Resp B/P (MAP) Pulse Ox O2 Delivery O2 Flow Rate FiO2 12/20/20 09:00 130/42 12/20/20 06:00 97.9 86 18 98 Room Air 12/17/20 09:00 2.0 Microbiology Microbiology 12/13/20 Blood Culture - Final, Complete NO GROWTH AFTER 5 DAYS 12/13/20 Blood Culture - Final, Complete NO GROWTH AFTER 5 DAYS 12/12/20 Urine Culture - Final, Complete Strep Agalactiae Group B Current Medications Current Medications Current Medications Medications (Trade) Dose Ordered Sig/Melody Route PRN Reason Start Time Stop Time Status Last Admin Dose Admin Acetaminophen (Tylenol Tab) 650 mg Q24HP PRN PO fever/MILD PAIN (PS 1-4) 12/12/20 13:45 12/17/20 04:00 Acetaminophen (Tylenol Tab) 650 mg Q4HP PRN PO fever/MILD PAIN (PS 1-4) 12/10/20 12:30 12/12/20 13:41 DC 12/12/20 09:11 Acetaminophen (Tylenol Tab) 1,000 mg TID PO 12/12/20 16:00 12/20/20 09:00 Albuterol/ Ipratropium (Combivent Respimat 100-20mcg) 1 puff RTID INH 12/10/20 20:00 12/20/20 12:10 Amlodipine Besylate (Norvasc) 5 mg QHS PO 12/10/20 21:00 12/10/20 20:12 DC Amlodipine Besylate (Norvasc) 5 mg QHS PO 12/11/20 21:00 12/19/20 22:05 Amlodipine Besylate (Norvasc) 10 mg QHS PO 12/10/20 21:00 12/11/20 14:44 DC 12/10/20 21:16 Calcium Carbonate (Tums) 1,000 mg Q4HP PRN PO HEARTBURN 12/10/20 12:30 Cephalexin Monohydrate (Keflex) 500 mg Q6H PO 12/13/20 12:00 12/18/20 06:01 DC 12/18/20 05:09 Docusate Sodium (Colace) 100 mg BID PO 12/10/20 21:00 12/20/20 09:00 Fluoxetine HCl (PROzac) 20 mg DAILY PO 12/11/20 09:00 12/11/20 14:44 DC 12/11/20 12:14 Heparin Sodium (Porcine) (Heparin) 5,000 units Q12H SQ 12/11/20 21:00 12/12/20 09:23 DC 12/11/20 20:39 Home Med (Home Med List Complete!) ASDIRECTED XX 12/10/20 19:30 12/10/20 19:36 DC Hydralazine HCl (Apresoline) 25 mg Q6H PO 12/10/20 18:00 12/17/20 14:33 DC 12/17/20 05:06 Hydralazine HCl (Apresoline) 25 mg TID PO 12/17/20 16:00 12/20/20 09:00 Lactobacillus Acidophilus (Bacid) 1 ea WM PO 12/13/20 12:30 12/20/20 12:19 Levetiracetam (Keppra) 500 mg BID PO 12/10/20 21:00 12/16/20 09:09 DC 12/16/20 08:09 Levetiracetam (Keppra) 750 mg BID PO 12/16/20 21:00 12/20/20 09:00 Lidocaine/ Diphenhydr/Alum/ Mg/Simeth (Magic Mouthwash) 5ML AC SSP 12/11/20 07:30 12/20/20 12:19 Lisinopril (Prinivil) 10 mg BID PO 12/18/20 21:00 12/20/20 09:00 Lisinopril (Prinivil) 20 mg BID PO 12/18/20 09:00 12/18/20 11:33 DC 12/18/20 09:38 Lisinopril (Prinivil) 20 mg QHS PO 12/11/20 21:00 12/18/20 09:14 DC 12/17/20 20:41 Lisinopril (Prinivil) 40 mg QHS PO 12/10/20 21:00 12/11/20 14:44 DC 12/10/20 21:13 Pantoprazole Sodium (Protonix) 40 mg DAILY PO 12/11/20 09:00 12/20/20 09:00 Patient Own Medication (Patient'S Own Med) 2 CAPS DAILY PO 12/15/20 09:00 12/20/20 09:00 Polyethylene Glycol (Miralax) 1 pkt DAILY PRN PO CONSTIPATION 12/10/20 12:30 Propranolol HCl (Inderal) 10 mg TID PO 12/11/20 16:00 12/18/20 11:33 DC 12/18/20 08:35 Ramelteon (Rozerem) 8 mg QHS PO 12/10/20 21:00 12/19/20 22:03 Senna (Senokot) 1 tab QHS PO 12/10/20 21:00 12/19/20 22:05 Simethicone (Mylicon) 80 mg TID PO 12/18/20 16:00 12/20/20 09:00 Tamsulosin HCl (Flomax) 0.4 mg QHS PO 12/13/20 21:00 12/19/20 22:03 Terazosin HCl (Hytrin) 1 mg DAILY PO 12/17/20 09:00 12/20/20 09:00 Trazodone HCl (Desyrel) 25 mg DAILY PRN PO INSOMNIA 12/14/20 10:50 12/18/20 13:08 DC Trazodone HCl (Desyrel) 25 mg QHS PO 12/18/20 21:00 12/19/20 22:04 Trazodone HCl (Desyrel) 25 mg QHSP PRN PO INSOMNIA 12/11/20 10:45 12/14/20 10:47 DC 12/13/20 22:28 Trazodone HCl (Desyrel) 50 mg QHS PO 12/17/20 21:00 12/18/20 13:08 DC 12/17/20 20:40 Trazodone HCl (Desyrel) 50 mg QHSP PRN PO INSOMNIA 12/14/20 10:45 12/17/20 14:33 DC Trazodone HCl (Desyrel) 100 mg QHSP PRN PO INSOMNIA 12/10/20 12:30 12/11/20 10:46 DC Valproic Acid (Depakene) 250 mg QHS PO 12/10/20 21:00 12/19/20 22:05 CHRISTIE NEVAREZ MD Dec 20, 2020 13:30
[2020-12-20] MEDS ORDERED: NS 1,000 ML IV ONE (13:45)
[2020-12-20 13:59] LABS: BASO # 0.1 10^3/uL (0.0-0.2); BASO % 0.4 % (0.0-1.0); EOS # 0.1 10^3/uL (0.0-0.5); EOS % 0.9 % (0.0-3.0); HEMATOCRIT 36.1 % (36.0-47.0); LYMPH # 4.3 10^3/uL (1.5-5.0); LYMPH % 38.2 % (24.0-44.0); MEAN CORPUSCULAR HEMOGLOBIN 31.3 pg (27.0-33.0); MEAN CORPUSCULAR HGB CONC 33.2 g/dl (32.0-36.5); MEAN CORPUSCULAR VOLUME 94.3 fl (80.0-96.0); MONO # 0.9 10^3/uL (0.0-0.8); MONO % 8.5 % (2.0-8.0); NEUTROPHILS # 5.7 10^3/uL (1.5-8.5); NEUTROPHILS % 51.3 % (36.0-66.0); PLATELET COUNT, AUTOMATED 355 10^3/uL (150-450); RED BLOOD COUNT 3.83 10^6/uL (4.00-5.40); WHITE BLOOD COUNT 11.1 10^3/uL (4.0-10.0)
[2020-12-20 14:00] VITALS: BP 128/65
--- NOTE | 2020-12-20 14:14 | IPNPDOC ---
Text Note Date of Service The patient was seen on 12/20/20. NOTE Patient was seen and examined this morning. Had a rapid response because she lost consciousness after having bowel movement on the bedside commode. On evaluation she was found to be in a normal state with normal blood pressure moist mucous membranes normal blood sugars. It was just thought to be vasovagal PHYSICAL EXAMINATION: VITAL SIGNS: Please see below. GENERAL APPEARANCE: Awake alert sitting up by the side of the bed working with the therapy. HEENT: Normocephalic atraumatic moist mucous membranes anicteric eyes RESPIRATORY: Chest clear to auscultation no added sounds CARDIOVASCULAR: S1-S2 regular normal rate no rub murmur gallop ABDOMEN: Soft nontender bowel sounds normal EXTREMITIES: No edema NEUROLOGICAL: Some spontaneous movements of the left upper extremity with also purposeful movements, has left hemineglect LABORATORY DATA: Reviewed ASSESSMENT/PLAN: 79F with past medical history of hypertension and spontaneous right frontal lobe ICH in 2009 presented to [place] on 12-03-20 with severe right sided headache and nausea. CTH revealed a right parietal-occipital intraparenchymal hemorrhage with brain compression and no significant midline shift. She was admitted to the neuro ICU, given hypertonic saline, made NPO, and started on Keppra for seizure prophylaxis. MRI brain on 12-07-20 showed hemorrhages measuring 3.3x5.1x6.7 cmmoderate localized vasogenic edema and mass effect upon the posterior aspect of the right lateral ventricleno evidence of acute hydrocephalus. No significant midline shift or herniation. She had left sided neglect, hemisensory loss and significant mobility and ADL impairments when evaluated by therapy and deemed medically appropriate for admission to ARU on 12-10-20. On eval patient reports her left arm has been moving involuntarily and she cannot control it. She also complains of left upper extremity and left lower extremity weakness. She reports she has problem with balance and tends to fall on the left side. she denied any cough or phlegm. In summary the patient suffered another right intracranial hemorrhage on 12/03/2020 at the parieto-occipital area with left-sided hemineglect, left upper extremity dyskinesia, and left-sided weakness now in ARU getting acute rehabilitation. 1. Acute right-sided intracranial hemorrhage with left upper extremity dyskinesia Continue Keppra and valproic acid for seizure prophylaxis Propranolol started for dyskinesia Continue with PT/ OT as per ARU 2. Hypertension Continue lisinopril, amlodipine, hydralazine The goal is to keep the systolic blood pressure under 120 mmHg and diastolic under 80 mmHg 3. UTI Streptococcus agalactiae On Keflex WBC mildly elevated but pro-Yossi negative. Chest x-ray was done which is also negative. 4. Acute urinary retention BladderScan and straight cath as needed Because of the vasovagal syncope around 1 PM today she will be given 1 L of IV fluids and will be continued to be on fall precautions and aspiration precaut ions. GI prophylaxis With PPI Disposition as per primary VS,Rhonda, I+O VS, Rhonda, I+O Laboratory Tests 12/20/20 13:44 Vital Signs Date Time Temp Pulse Resp B/P (MAP) Pulse Ox O2 Delivery O2 Flow Rate FiO2 12/20/20 09:00 130/42 12/20/20 06:00 97.9 86 18 98 Room Air 12/17/20 09:00 2.0 I&O- Last 24 Hours up to 6 AM 12/20/20 06:00 Intake Total 720 ml Output Total 1780 ml Balance -1060 ml JESSICA COFFEY MD Dec 20, 2020 14:14
[2020-12-20 14:26] LABS: CALCIUM LEVEL 9.5 MG/DL (8.8-10.2); CREATININE FOR GFR 1.03 MG/DL (0.55-1.30); GLOMERULAR FILTRATION RATE 55.3 (>39); POTASSIUM SERUM 4.6 MEQ/L (3.5-5.1)
[2020-12-20 17:49] VITALS: BP 108/74
--- NOTE | 2020-12-20 18:10 | REPVR ---
PROCEDURE INFORMATION: Exam: CT Chest Without Contrast; Diagnostic Exam date and time: 12/20/2020 5:39 PM Age: 79 years old Clinical indication: Shortness of breath; Additional info: R/O infiltrate TECHNIQUE: Imaging protocol: Diagnostic computed tomography of the chest without contrast. 3D rendering (Not supervised by radiologist): MIP and/or 3D reconstructed images were created by the technologist. Radiation optimization: All CT scans at this facility use at least one of these dose optimization techniques: automated exposure control; mA and/or kV adjustment per patient size (includes targeted exams where dose is matched to clinical indication); or iterative reconstruction. COMPARISON: CR Chest, 2 view PA, Lat 12/11/2020 11:19 AM FINDINGS: Lungs: No suspicious lung mass or air space process. No central endobronchial lesion. Pleural spaces: No pleural effusion or pneumothorax. Heart: Small volume of pericardial fluid. No overt cardiac enlargement. Pulmonary arteries: Pulmonary vascular/interstitial pattern does not suggest active pulmonary edema. Aorta: Thoracic aorta is ectatic and mildly atherosclerotic. No focal aneurysm. Lymph nodes: Small, nonspecific mediastinal nodes are present. Liver: Left lobe hepatic cyst, incidental, measuring 1 cm Bones/joints: Bony structures show no acute fracture or destructive process. Soft tissues: Unremarkable. Other findings: Limited study without IV contrast. IMPRESSION: 1. No evidence of pneumonia or pulmonary edema and no evidence of lung mass. 2. Borderline mild cardiac enlargement and small pericardial effusion without evidence of pulmonary edema Electronically signed by: Perry Shukla On 12/20/2020 18:10:18 PM
[2020-12-20 20:00] VITALS: BP 120/76
[2020-12-20] MEDS: SENNA 8.6 MG TAB (SENOKOT) PO SCH (21:00)
[2020-12-20] MEDS: VALPROIC ACID 250MG CAP PO SCH (21:21)
[2020-12-20] MEDS: amLODIPine 5 MG TAB PO SCH (21:21)
[2020-12-20] MEDS: RAMELTEON 8 MG TAB (ROZEREM) PO SCH (21:21)
[2020-12-20] MEDS: TAMSULOSIN 0.4 MG CAP PO SCH (21:21)
[2020-12-20] MEDS: traZODone 25MG PER 1/2 TABLET PO SCH (21:21)
[2020-12-21] MEDS: REMEDY PHYTOPLEX Z-GUARD PASTE 113GM TUBE (FROM STOREROOM PRODUCT) TOP SCH ×4 (05:16→22:00)
[2020-12-21 06:00] VITALS: BP 132/60
[2020-12-21] MEDS: COMBIVENT RESPIMAT 100-20MCG INHALER 4GM INH SCH ×3 (07:05→19:32)
[2020-12-21] MEDS: MAGIC MOUTHWASH SUSPENSION BTL SSP SCH ×3 (07:52→17:17)
[2020-12-21] MEDS: levETIRAcetam 250MG TABLET (KEPPRA) PO SCH ×2 (07:52→21:57)
[2020-12-21] MEDS: TERAZOSIN 1 MG CAP PO SCH (07:52)
[2020-12-21] MEDS: SIMETHICONE 80MG CHEW TAB PO SCH ×3 (07:52→21:57)
[2020-12-21] MEDS: PANTOPRAZOLE 40MG TAB (PROTONIX) PO SCH (07:52)
[2020-12-21] MEDS: DOCUSATE SODIUM 100MG CAPSULE PO SCH ×2 (07:53→21:58)
[2020-12-21] MEDS: ACETAMINOPHEN 500 MG TAB PO SCH ×3 (07:54→21:58)
[2020-12-21] MEDS: LACTOBACILLUS ACIDOPHILUS CAP (BACID) PO SCH ×3 (07:54→17:17)
[2020-12-21] MEDS: **hydrALAZINE HCL** 25 MG TAB PO SCH ×3 (07:54→21:59)
[2020-12-21] MEDS: AREDS PO SCH (08:00)
[2020-12-21 08:22] LABS: BASO # 0.1 10^3/uL (0.0-0.2); BASO % 0.6 % (0.0-1.0); EOS # 0.2 10^3/uL (0.0-0.5); EOS % 1.7 % (0.0-3.0); HEMATOCRIT 34.7 % (36.0-47.0); HEMOGLOBIN 11.4 g/dl (12.0-15.5); LYMPH # 4.1 10^3/uL (1.5-5.0); LYMPH % 46.9 % (24.0-44.0); MEAN CORPUSCULAR HEMOGLOBIN 31.4 pg (27.0-33.0); MEAN CORPUSCULAR HGB CONC 32.9 g/dl (32.0-36.5); MEAN CORPUSCULAR VOLUME 95.6 fl (80.0-96.0); MONO # 0.5 10^3/uL (0.0-0.8); MONO % 5.7 % (2.0-8.0); NEUTROPHILS # 3.9 10^3/uL (1.5-8.5); NEUTROPHILS % 44.5 % (36.0-66.0); PLATELET COUNT, AUTOMATED 289 10^3/uL (150-450); RED BLOOD COUNT 3.63 10^6/uL (4.00-5.40); WHITE BLOOD COUNT 8.8 10^3/uL (4.0-10.0)
[2020-12-21] MEDS ORDERED: NS 1,000 ML IV ONE ×2 (10:05→17:15)
[2020-12-21 14:00] VITALS: BP 126/61
[2020-12-21 18:23] LABS: ALBUMIN 2.9 GM/DL (3.2-5.2); ALT/SGPT 21 U/L (12-78); BILIRUBIN,TOTAL 0.2 MG/DL (0.2-1.0); BLOOD UREA NITROGEN 15 MG/DL (7-18); CALCIUM LEVEL 8.6 MG/DL (8.8-10.2); CARBON DIOXIDE LEVEL 24 MEQ/L (21-32); CHLORIDE LEVEL 112 MEQ/L (98-107); GLOMERULAR FILTRATION RATE > 60.0 (>39); GLUCOSE, FASTING 133 MG/DL (70-100); POTASSIUM SERUM 4.3 MEQ/L (3.5-5.1); SODIUM LEVEL 142 MEQ/L (136-145)
[2020-12-21 20:00] VITALS: BP 138/53
[2020-12-21] MEDS: NS 1,000 ML IV SCH (21:56)
[2020-12-21] MEDS: traZODone 25MG PER 1/2 TABLET PO SCH (21:57)
[2020-12-21] MEDS: VALPROIC ACID 250MG CAP PO SCH (21:57)
[2020-12-21] MEDS: RAMELTEON 8 MG TAB (ROZEREM) PO SCH (21:58)
[2020-12-21] MEDS: TAMSULOSIN 0.4 MG CAP PO SCH (21:58)
[2020-12-21] MEDS: SENNA 8.6 MG TAB (SENOKOT) PO SCH (21:58)
[2020-12-21] MEDS: amLODIPine 5 MG TAB PO SCH (21:59)
[2020-12-22] MEDS: NS 1,000 ML IV SCH ×3 (04:46→23:57)
[2020-12-22] MEDS: REMEDY PHYTOPLEX Z-GUARD PASTE 113GM TUBE (FROM STOREROOM PRODUCT) TOP SCH ×4 (04:46→20:45)
[2020-12-22 06:02] VITALS: BP 136/48
[2020-12-22] MEDS: COMBIVENT RESPIMAT 100-20MCG INHALER 4GM INH SCH ×3 (07:09→20:00)
[2020-12-22] MEDS: **hydrALAZINE HCL** 25 MG TAB PO SCH ×3 (09:00→20:45)
[2020-12-22] MEDS: PANTOPRAZOLE 40MG TAB (PROTONIX) PO SCH (09:24)
[2020-12-22] MEDS: levETIRAcetam 250MG TABLET (KEPPRA) PO SCH ×2 (09:24→20:43)
[2020-12-22] MEDS: TERAZOSIN 1 MG CAP PO SCH (09:25)
[2020-12-22] MEDS: DOCUSATE SODIUM 100MG CAPSULE PO SCH ×2 (09:25→20:43)
[2020-12-22] MEDS: LACTOBACILLUS ACIDOPHILUS CAP (BACID) PO SCH ×3 (09:25→17:05)
[2020-12-22] MEDS: SIMETHICONE 80MG CHEW TAB PO SCH ×3 (09:26→20:43)
[2020-12-22] MEDS: ACETAMINOPHEN 500 MG TAB PO SCH ×3 (09:27→20:44)
[2020-12-22] MEDS: AREDS PO SCH (09:27)
[2020-12-22] MEDS: MAGIC MOUTHWASH SUSPENSION BTL SSP SCH ×3 (09:28→17:05)
[2020-12-22 14:00] VITALS: BP 132/72
[2020-12-22 20:00] VITALS: BP 136/72
[2020-12-22] MEDS: RAMELTEON 8 MG TAB (ROZEREM) PO SCH (20:43)
[2020-12-22] MEDS: TAMSULOSIN 0.4 MG CAP PO SCH (20:43)
[2020-12-22] MEDS: SENNA 8.6 MG TAB (SENOKOT) PO SCH (20:43)
[2020-12-22] MEDS: traZODone 25MG PER 1/2 TABLET PO SCH (20:43)
[2020-12-22] MEDS: VALPROIC ACID 250MG CAP PO SCH (20:43)
[2020-12-22] MEDS: amLODIPine 5 MG TAB PO SCH (20:45)
[2020-12-23] MEDS: ACETAMINOPHEN TAB 650MG DOSE (2X325MG) PO PRN (01:55)
[2020-12-23] MEDS: REMEDY PHYTOPLEX Z-GUARD PASTE 113GM TUBE (FROM STOREROOM PRODUCT) TOP SCH ×3 (05:03→17:07)
[2020-12-23 05:54] LABS: BASO % 0.4 % (0.0-1.0); EOS # 0.3 10^3/uL (0.0-0.5); EOS % 2.6 % (0.0-3.0); HEMATOCRIT 32.7 % (36.0-47.0); HEMOGLOBIN 10.7 g/dl (12.0-15.5); LYMPH # 3.4 10^3/uL (1.5-5.0); LYMPH % 35.3 % (24.0-44.0); MEAN CORPUSCULAR HEMOGLOBIN 31.4 pg (27.0-33.0); MEAN CORPUSCULAR HGB CONC 32.7 g/dl (32.0-36.5); MEAN CORPUSCULAR VOLUME 95.9 fl (80.0-96.0); MONO # 0.5 10^3/uL (0.0-0.8); MONO % 5.3 % (2.0-8.0); NEUTROPHILS # 5.3 10^3/uL (1.5-8.5); NEUTROPHILS % 55.9 % (36.0-66.0); PLATELET COUNT, AUTOMATED 237 10^3/uL (150-450); RED BLOOD COUNT 3.41 10^6/uL (4.00-5.40); WHITE BLOOD COUNT 9.6 10^3/uL (4.0-10.0)
[2020-12-23 06:00] VITALS: BP 146/86
[2020-12-23 06:21] LABS: BLOOD UREA NITROGEN 10 MG/DL (7-18); CALCIUM LEVEL 8.9 MG/DL (8.8-10.2); CARBON DIOXIDE LEVEL 25 MEQ/L (21-32); CHLORIDE LEVEL 111 MEQ/L (98-107); CREATININE FOR GFR 0.62 MG/DL (0.55-1.30); GLOMERULAR FILTRATION RATE > 60.0 (>39); GLUCOSE, FASTING 100 MG/DL (70-100); POTASSIUM SERUM 4.2 MEQ/L (3.5-5.1); SODIUM LEVEL 144 MEQ/L (136-145)
[2020-12-23] MEDS: COMBIVENT RESPIMAT 100-20MCG INHALER 4GM INH SCH ×3 (07:51→20:00)
[2020-12-23] MEDS: LACTOBACILLUS ACIDOPHILUS CAP (BACID) PO SCH ×3 (08:00→17:03)
[2020-12-23] MEDS: MAGIC MOUTHWASH SUSPENSION BTL SSP SCH ×3 (09:08→17:06)
[2020-12-23] MEDS: DOCUSATE SODIUM 100MG CAPSULE PO SCH ×2 (09:08→20:40)
[2020-12-23] MEDS: levETIRAcetam 250MG TABLET (KEPPRA) PO SCH ×2 (09:09→20:42)
[2020-12-23] MEDS: **hydrALAZINE HCL** 25 MG TAB PO SCH ×3 (09:09→20:42)
[2020-12-23] MEDS: SIMETHICONE 80MG CHEW TAB PO SCH ×3 (09:09→20:41)
[2020-12-23] MEDS: TERAZOSIN 1 MG CAP PO SCH (09:09)
[2020-12-23] MEDS: ACETAMINOPHEN 500 MG TAB PO SCH ×3 (09:11→20:42)
[2020-12-23] MEDS: AREDS PO SCH (09:12)
[2020-12-23] MEDS: PANTOPRAZOLE 40MG TAB (PROTONIX) PO SCH (09:12)
[2020-12-23] MEDS: NS 1,000 ML IV SCH (09:19)
--- NOTE | 2020-12-23 10:20 | IPNPDOC ---
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 REVIEW OF SYSTEMS: The following is a completed review of systems and has been reviewed. Review of systems otherwise unremarkable. PAIN: Patient self reports no pain EYES: No recent vision changes EARS, NOSE, & THROAT: No throat pain, or dysphagia, or rhinorrhea CARDIOVASCULAR: Denies chest pain or palpitations PULMONARY: Denies shortness of breath GASTROINTESTINAL: Denies constipation/diarrhea GENITOURINARY: no dysuria, +retention MUSCULOSKELETAL: generalized weakness NEUROLOGICAL:left sided apraxia with neglect (improving) HEMATOLOGICAL: denies easy bruising SKIN:denies rash PSYCHIATRIC: Unremarkable All other review of systems found to be negative. PHYSICAL EXAMINATION: VITAL SIGNS: Please see below. GENERAL: Pleasant and cooperative. No acute distress. no facial droop, tongue midline HEENT: PERRL. able to cross midline to left, Clear conjunctiva CARDIOVASCULAR: Regular rate and rhythm. No murmurs, rubs, or gallops LUNGS: Clear to auscultation bilaterally. No wheezes. No rhonchi ABDOMEN: Soft, nontender, nondistended. Positive bowel sounds. Normal active bowel sounds NEUROLOGICAL: Alert and oriented times three. Cranial nerves II through XII grossly intact. Sensation grossly intact, +left sided neglect and impaired sensation to light touch on left (improving), +apraxia (improving) +clonus on left EXTREMITIES: 5\5 strength bilateral upper extremities. 5\5 strength right lower extremity. 5/5 strength in left lower extremity SKIN: no sacral erythema ASSESSMENT:79-year-old F with past medical history of right frontal ICH who presents status post spontaneous right parietal-occipital lobe ICH PLAN: 1. Rehab- PT/OT advance mobility and ADLs, strengthen/stretch/maintain ROM all 4 limbs, MPO to left foot when in bed, patient making functional gains in therapy, ambulating with assistance -HEATING PLANT SUPERINTENDENT for cog and swallow 2. Neuro hx of right frontal ICH with LUE dyskinesia, now s/p spontaneous right parieto-occipital ICH cont BP management, patient was not on antiplatelet at baseline -f/u neurosurgery in 6 weeks with repeat head CT -repeat CT ordered 12-18-20 due to lethargy in therapy likely due to sleep medication and hypotension- CTH negative for new bleed, no new focal deficits, patient cont to improve -cont Depakote and Keppra for seizure ppx-repeat Keppra levels since increasing dose is now therapeutic at 34, spoke with Dr. Velazquez who recommends given she is on AEds for prophylaxis ok to lower dose to 500 BID as therapeutic dosing not needed, patient has not had seizures since new hemorrhagic stroke -patient with vasovagal episode 12-20-20 while having a bowel movement, no new focal weakness, s/p gentle hydration, infectious work-up negative, lactic acidosis resolved with fluids-hospitalist assisting with management 3. Cardiac- hx of HTN cont BP meds -medicine consulted to assist in overall management 4. Resp- monitor for infection, admission CXR negative for infiltrate, patient without cough, CT chest 12-20-20 as part of infectious work-up also negative for infiltrate 5. GI ppx- protonix -simethicone added for gas 6. DVT ppx- teds 7. Pain- tylenol prn 8. Psych- rozerem for insomnia, cont trazodone 25mg qhs 9. - urinary retention with failed TOV, s/p course of treatment for Strep agalactei UTI, cont flomax and terazosin for bladder outlet obstruction, nguyen placed 12-17-20, will d/c nguyen tomorrow and start TOV as patient having urge to void 10. Dispo- 01-02-21 to home, progressing towards goals, family is agreeable to take her home, but would like more time on ARU Allergies Coded Allergies: chocolate flavor (Verified Allergy, Mild, FACIAL RASH, 12/10/20) No Known Allergies (Verified Allergy, Unknown, 12/10/20) Vital Signs Vital Signs Date Time Temp Pulse Resp B/P (MAP) Pulse Ox O2 Delivery O2 Flow Rate FiO2 12/23/20 09:11 146/86 12/23/20 06:00 98.1 101 20 94 Room Air 12/17/20 09:00 2.0 Laboratory Data CBC/BMP Laboratory Tests 12/23/20 05:20 Labs 24H Laboratory Tests 2 12/23/20 05:20: Immature Granulocyte % (Auto) 0.5, Neutrophils (%) (Auto) 55.9, Lymphocytes (%) (Auto) 35.3, Monocytes (%) (Auto) 5.3, Eosinophils (%) (Auto) 2.6, Basophils (%) (Auto) 0.4, Neutrophils # (Auto) 5.3, Lymphocytes # (Auto) 3.4, Monocytes # (Auto) 0.5, Eosinophils # (Auto) 0.3, Basophils # (Auto) 0.0, Nucleated Red Blood Cells % (auto) 0.2H, Anion Gap 8, Glomerular Filtration Rate > 60.0, Calcium Level 8.9 Microbiology Microbiology 12/20/20 Blood Culture - Preliminary, Resulted No Growth after 48 hours. All Specime... 12/20/20 Blood Culture - Preliminary, Resulted No Growth after 48 hours. All Specime... 12/13/20 Blood Culture - Final, Complete NO GROWTH AFTER 5 DAYS 12/13/20 Blood Culture - Final, Complete NO GROWTH AFTER 5 DAYS Current Medications Current Medications Current Medications Medications (Trade) Dose Ordered Sig/Melody Route PRN Reason Start Time Stop Time Status Last Admin Dose Admin Acetaminophen (Tylenol Tab) 650 mg Q24HP PRN PO fever/MILD PAIN (PS 1-4) 12/12/20 13:45 12/23/20 01:55 Acetaminophen (Tylenol Tab) 650 mg Q4HP PRN PO fever/MILD PAIN (PS 1-4) 12/10/20 12:30 12/12/20 13:41 DC 12/12/20 09:11 Acetaminophen (Tylenol Tab) 1,000 mg TID PO 12/12/20 16:00 12/23/20 09:11 Albuterol/ Ipratropium (Combivent Respimat 100-20mcg) 1 puff RTID INH 12/10/20 20:00 12/21/20 12:47 Amlodipine Besylate (Norvasc) 5 mg QHS PO 12/10/20 21:00 12/10/20 20:12 DC Amlodipine Besylate (Norvasc) 5 mg QHS PO 12/11/20 21:00 12/22/20 20:45 Amlodipine Besylate (Norvasc) 10 mg QHS PO 12/10/20 21:00 12/11/20 14:44 DC 12/10/20 21:16 Calcium Carbonate (Tums) 1,000 mg Q4HP PRN PO HEARTBURN 12/10/20 12:30 Cephalexin Monohydrate (Keflex) 500 mg Q6H PO 12/13/20 12:00 12/18/20 06:01 DC 12/18/20 05:09 Docusate Sodium (Colace) 100 mg BID PO 12/10/20 21:00 12/23/20 09:08 Fluoxetine HCl (PROzac) 20 mg DAILY PO 12/11/20 09:00 12/11/20 14:44 DC 12/11/20 12:14 Heparin Sodium (Porcine) (Heparin) 5,000 units Q12H SQ 12/11/20 21:00 12/12/20 09:23 DC 12/11/20 20:39 Home Med (Home Med List Complete!) ASDIRECTED XX 12/10/20 19:30 12/10/20 19:36 DC Hydralazine HCl (Apresoline) 25 mg Q6H PO 12/10/20 18:00 12/17/20 14:33 DC 12/17/20 05:06 Hydralazine HCl (Apresoline) 25 mg TID PO 12/17/20 16:00 12/23/20 09:09 Lactobacillus Acidophilus (Bacid) 1 ea WM PO 12/13/20 12:30 12/22/20 17:05 Levetiracetam (Keppra) 500 mg BID PO 12/10/20 21:00 12/16/20 09:09 DC 12/16/20 08:09 Levetiracetam (Keppra) 500 mg BID PO 12/23/20 21:00 Levetiracetam (Keppra) 750 mg BID PO 12/16/20 21:00 12/23/20 10:07 DC 12/23/20 09:09 Lidocaine/ Diphenhydr/Alum/ Mg/Simeth (Magic Mouthwash) 5ML AC SSP 12/11/20 07:30 12/23/20 09:08 Lisinopril (Prinivil) 10 mg BID PO 12/18/20 21:00 12/23/20 09:11 Lisinopril (Prinivil) 20 mg BID PO 12/18/20 09:00 12/18/20 11:33 DC 12/18/20 09:38 Lisinopril (Prinivil) 20 mg QHS PO 12/11/20 21:00 12/18/20 09:14 DC 12/17/20 20:41 Lisinopril (Prinivil) 40 mg QHS PO 12/10/20 21:00 12/11/20 14:44 DC 12/10/20 21:13 Pantoprazole Sodium (Protonix) 40 mg DAILY PO 12/11/20 09:00 12/23/20 09:12 Patient Own Medication (Patient'S Own Med) 2 CAPS DAILY PO 12/15/20 09:00 12/23/20 09:12 Polyethylene Glycol (Miralax) 1 pkt DAILY PRN PO CONSTIPATION 12/10/20 12:30 Propranolol HCl (Inderal) 10 mg TID PO 12/11/20 16:00 12/18/20 11:33 DC 12/18/20 08:35 Ramelteon (Rozerem) 8 mg QHS PO 12/10/20 21:00 12/22/20 20:43 Senna (Senokot) 1 tab QHS PO 12/10/20 21:00 12/22/20 20:43 Simethicone (Mylicon) 80 mg TID PO 12/18/20 16:00 12/23/20 09:09 Sodium Chloride 1,000 ml @ 105 mls/hr Q9H32M IV 12/21/20 19:20 12/23/20 09:37 DC 12/23/20 09:19 Tamsulosin HCl (Flomax) 0.4 mg QHS PO 12/13/20 21:00 12/22/20 20:43 Terazosin HCl (Hytrin) 1 mg DAILY PO 12/17/20 09:00 12/23/20 09:09 Trazodone HCl (Desyrel) 25 mg DAILY PRN PO INSOMNIA 12/14/20 10:50 12/18/20 13:08 DC Trazodone HCl (Desyrel) 25 mg QHS PO 12/18/20 21:00 12/22/20 20:43 Trazodone HCl (Desyrel) 25 mg QHSP PRN PO INSOMNIA 12/11/20 10:45 12/14/20 10:47 DC 12/13/20 22:28 Trazodone HCl (Desyrel) 50 mg QHS PO 12/17/20 21:00 12/18/20 13:08 DC 12/17/20 20:40 Trazodone HCl (Desyrel) 50 mg QHSP PRN PO INSOMNIA 12/14/20 10:45 12/17/20 14:33 DC Trazodone HCl (Desyrel) 100 mg QHSP PRN PO INSOMNIA 12/10/20 12:30 12/11/20 10:46 DC Valproic Acid (Depakene) 250 mg QHS PO 12/10/20 21:00 12/22/20 20:43 CHRISTIE NEVAREZ MD Dec 23, 2020 10:20
--- NOTE | 2020-12-23 12:58 | IPNPDOC ---
Text Note Date of Service The patient was seen on 12/23/20. NOTE Patient was seen and examined this morning. No acute events overnight PHYSICAL EXAMINATION: VITAL SIGNS: Please see below. GENERAL APPEARANCE: Awake alert sitting up by the side of the bed working with the therapy. HEENT: Normocephalic atraumatic moist mucous membranes anicteric eyes RESPIRATORY: Chest clear to auscultation no added sounds CARDIOVASCULAR: S1-S2 regular normal rate no rub murmur gallop ABDOMEN: Soft nontender bowel sounds normal EXTREMITIES: No edema NEUROLOGICAL: Some spontaneous movements of the left upper extremity with also purposeful movements, has left hemineglect LABORATORY DATA: Reviewed ASSESSMENT/PLAN: 79F with past medical history of hypertension and spontaneous right frontal lobe ICH in 2009 presented to [facility] on 12-03-20 with severe right sided headache and nausea. CTH revealed a right parietal-occipital intraparenchymal hemorrhage with brain compression and no significant midline shift. She was admitted to the neuro ICU, given hypertonic saline, made NPO, and started on Keppra for seizure prophylaxis. MRI brain on 12-07-20 showed hemorrhages measuring 3.3x5.1x6.7 cmmoderate localized vasogenic edema and mass effect upon the posterior aspect of the right lateral ventricleno evidence of acute hydrocephalus. No significa nt midline shift or herniation. She had left sided neglect, hemisensory loss and significant mobility and ADL impairments when evaluated by therapy and deemed medically appropriate for admission to ARU on 12-10-20. On eval patient reports her left arm has been moving involuntarily and she cannot control it. She also complains of left upper extremity and left lower extremity weakness. She reports she has problem with balance and tends to fall on the left side. she denied any cough or phlegm. In summary the patient suffered another right intracranial hemorrhage on 12/03/2020 at the parieto-occipital area with left- sided hemineglect, left upper extremity dyskinesia, and left-sided weakness now in ARU getting acute rehabilitation. 1. Acute right-sided intracranial hemorrhage with left upper extremity dyskinesia Continue Keppra and valproic acid for seizure prophylaxis Propranolol started for dyskinesia Continue with PT/ OT as per ARU 2. Hypertension Continue lisinopril, amlodipine, hydralazine The goal is to keep the systolic blood pressure under 120 mmHg and diastolic under 80 mmHg 3. UTI Streptococcus agalactiae Finished antibiotic WBC mildly elevated but pro-Yossi negative. Chest x-ray was done which is also negative. 4. Acute urinary retention BladderScan and straight cath as needed GI prophylaxis With PPI Disposition as per primary Rhonda KHOURY, I+O Rhonda KHOURY I+O Laboratory Tests 12/23/20 05:20 Vital Signs Date Time Temp Pulse Resp B/P (MAP) Pulse Ox O2 Delivery O2 Flow Rate FiO2 12/23/20 09:11 146/86 12/23/20 06:00 98.1 101 20 94 Room Air 12/17/20 09:00 2.0 I&O- Last 24 Hours up to 6 AM 12/23/20 05:59 Intake Total 2240 ml Output Total 2500 ml Balance -260 ml JESSICA COFFEY MD Dec 23, 2020 12:58
[2020-12-23 14:00] VITALS: BP 128/78
--- NOTE | 2020-12-23 16:54 | REP ---
INDICATION: r/o dvt- immobility COMPARISON: None. TECHNIQUE: Darby scale and color Doppler evaluation using linear high frequency transducer. FINDINGS: Ultrasound examination of the right and left lower extremity deep venous structures from the common femoral veins through the popliteal veins demonstrates normal compressibility flow and wave patterns in response to respiration and augmentation. There is no evidence for deep venous thrombosis. Evaluation of the bilateral veins below the popliteal fossa are somewhat limited. IMPRESSION: No evidence for deep venous thrombosis. <Electronically signed by Edy Griffith > 12/23/20 1112
[2020-12-23 20:00] VITALS: BP 138/73
[2020-12-23] MEDS: traZODone 25MG PER 1/2 TABLET PO SCH (20:40)
[2020-12-23] MEDS: SENNA 8.6 MG TAB (SENOKOT) PO SCH (20:40)
[2020-12-23] MEDS: RAMELTEON 8 MG TAB (ROZEREM) PO SCH (20:40)
[2020-12-23] MEDS: TAMSULOSIN 0.4 MG CAP PO SCH (20:40)
[2020-12-23] MEDS: amLODIPine 5 MG TAB PO SCH (20:41)
[2020-12-23] MEDS: VALPROIC ACID 250MG CAP PO SCH (20:41)
[2020-12-24 06:07] VITALS: BP 127/63
[2020-12-24] MEDS: REMEDY PHYTOPLEX Z-GUARD PASTE 113GM TUBE (FROM STOREROOM PRODUCT) TOP SCH ×5 (06:19→23:59)
[2020-12-24] MEDS: COMBIVENT RESPIMAT 100-20MCG INHALER 4GM INH SCH ×3 (07:58→20:00)
[2020-12-24] MEDS: MAGIC MOUTHWASH SUSPENSION BTL SSP SCH ×3 (08:34→17:07)
[2020-12-24] MEDS: SIMETHICONE 80MG CHEW TAB PO SCH ×3 (08:35→20:14)
[2020-12-24] MEDS: DOCUSATE SODIUM 100MG CAPSULE PO SCH ×2 (08:36→20:15)
[2020-12-24] MEDS: TERAZOSIN 1 MG CAP PO SCH (08:36)
[2020-12-24] MEDS: LACTOBACILLUS ACIDOPHILUS CAP (BACID) PO SCH ×3 (08:36→17:06)
[2020-12-24] MEDS: PANTOPRAZOLE 40MG TAB (PROTONIX) PO SCH (08:36)
[2020-12-24] MEDS: AREDS PO SCH (08:36)
[2020-12-24] MEDS: levETIRAcetam 250MG TABLET (KEPPRA) PO SCH ×2 (08:37→20:16)
[2020-12-24] MEDS: **hydrALAZINE HCL** 25 MG TAB PO SCH ×3 (08:37→20:16)
[2020-12-24] MEDS: ACETAMINOPHEN 500 MG TAB PO SCH ×3 (08:38→20:17)
--- NOTE | 2020-12-24 09:38 | IPNPDOC ---
PM&R Progress Note DATE OF SERVICE: Dec 24, 2020 Pallet Rectifier Progress Note Subjective: Patient seen in her room with leeann following family training, stating she feels fine, but is a little tired. She states since the nguyen has been removed she has not had the urge to urinate. REVIEW OF SYSTEMS: The following is a completed review of systems and has been reviewed. Review of systems otherwise unremarkable. PAIN: Patient self reports no pain EYES: No recent vision changes EARS, NOSE, & THROAT: No throat pain, or dysphagia, or rhinorrhea CARDIOVASCULAR: Denies chest pain or palpitations PULMONARY: Denies shortness of breath GASTROINTESTINAL: Denies constipation/diarrhea GENITOURINARY: no dysuria MUSCULOSKELETAL: generalized weakness NEUROLOGICAL:left sided apraxia with neglect (improving) HEMATOLOGICAL: denies easy bruising SKIN:denies rash PSYCHIATRIC: Unremarkable All other review of systems found to be negative. PHYSICAL EXAMINATION: VITAL SIGNS: Please see below. GENERAL: Pleasant and cooperative. No acute distress. no facial droop, tongue midline HEENT: PERRL. able to cross midline to left, Clear conjunctiva CARDIOVASCULAR: Regular rate and rhythm. No murmurs, rubs, or gallops LUNGS: Clear to auscultation bilaterally. No wheezes. No rhonchi ABDOMEN: Soft, nontender, nondistended. Positive bowel sounds. Normal active bowel sounds NEUROLOGICAL: Alert and oriented times three. Cranial nerves II through XII grossly intact. Sensation grossly intact, +left sided neglect and impaired sensation to light touch on left (improving), +apraxia (improving) +clonus on left EXTREMITIES: 5\5 strength bilateral upper extremities. 5\5 strength right lower extremity. 5/5 strength in left lower extremity SKIN: no sacral erythema ASSESSMENT:79-year-old F with past medical history of right frontal ICH who presents status post spontaneous right parietal-occipital lobe ICH PLAN: 1. 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 Neuro hx of right frontal ICH with LUE dyskinesia, now s/p spontaneous right parieto-occipital ICH cont BP management, patient was not on antiplatelet at baseline -f/u neurosurgery in 6 weeks with repeat head CT -repeat CT ordered 12-18-20 due to lethargy in therapy likely due to sleep medication and hypotension- CTH negative for new bleed, no new focal deficits, patient cont to improve -cont Depakote and Keppra for seizure ppx-repeat Keppra levels since increasing dose is now therapeutic at 34, spoke with Dr. Velazquez who recommends given she is on AEds for prophylaxis ok to lower dose to 500 BID as therapeutic dosing not needed, patient has not had seizures since new hemorrhagic stroke -f/u with neurology on dc -patient with vasovagal episode 12-20-20 while having a bowel movement, no new focal weakness, s/p gentle hydration, infectious work-up negative, lactic acidosis resolved with fluids-hospitalist assisting with management 3. Cardiac- hx of HTN cont BP meds -medicine consulted to assist in overall management 4. Resp- monitor for infection, admission CXR negative for infiltrate, patient without cough, CT chest 12-20-20 as part of infectious work-up also negative for infiltrate 5. GI ppx- protonix -simethicone added for gas 6. DVT ppx- teds 7. Pain- tylenol prn 8. Psych- rozerem for insomnia, cont trazodone 25mg qhs 9. - urinary retention with failed TOV, s/p course of treatment for Strep agalactei UTI, cont flomax and terazosin for bladder outlet obstruction, nguyen placed 12-17-20, nguyen removed today, bladder scanning protocol in place 10. Dispo- 01-02-21 to home, progressing towards goals, family is agreeable to take her home, but would like more time on ARU Allergies Coded Allergies: chocolate flavor (Verified Allergy, Mild, FACIAL RASH, 12/10/20) No Known Allergies (Verified Allergy, Unknown, 12/10/20) Vital Signs Vital Signs Date Time Temp Pulse Resp B/P (MAP) Pulse Ox O2 Delivery O2 Flow Rate FiO2 12/24/20 08:37 118/65 12/24/20 06:07 98.0 115 20 97 Room Air Microbiology Microbiology 12/20/20 Blood Culture - Preliminary, Resulted No Growth after 72 hours. All specime... 12/20/20 Blood Culture - Preliminary, Resulted No Growth after 72 hours. All specime... Current Medications Current Medications Current Medications Medications (Trade) Dose Ordered Sig/Melody Route PRN Reason Start Time Stop Time Status Last Admin Dose Admin Acetaminophen (Tylenol Tab) 650 mg Q24HP PRN PO fever/MILD PAIN (PS 1-4) 12/12/20 13:45 12/23/20 01:55 Acetaminophen (Tylenol Tab) 650 mg Q4HP PRN PO fever/MILD PAIN (PS 1-4) 12/10/20 12:30 12/12/20 13:41 DC 12/12/20 09:11 Acetaminophen (Tylenol Tab) 1,000 mg TID PO 12/12/20 16:00 12/24/20 08:38 Albuterol/ Ipratropium (Combivent Respimat 100-20mcg) 1 puff RTID INH 12/10/20 20:00 12/21/20 12:47 Amlodipine Besylate (Norvasc) 5 mg QHS PO 12/10/20 21:00 12/10/20 20:12 DC Amlodipine Besylate (Norvasc) 5 mg QHS PO 12/11/20 21:00 12/23/20 20:41 Amlodipine Besylate (Norvasc) 10 mg QHS PO 12/10/20 21:00 12/11/20 14:44 DC 12/10/20 21:16 Calcium Carbonate (Tums) 1,000 mg Q4HP PRN PO HEARTBURN 12/10/20 12:30 Cephalexin Monohydrate (Keflex) 500 mg Q6H PO 12/13/20 12:00 12/18/20 06:01 DC 12/18/20 05:09 Docusate Sodium (Colace) 100 mg BID PO 12/10/20 21:00 12/24/20 08:36 Fluoxetine HCl (PROzac) 20 mg DAILY PO 12/11/20 09:00 12/11/20 14:44 DC 12/11/20 12:14 Heparin Sodium (Porcine) (Heparin) 5,000 units Q12H SQ 12/11/20 21:00 12/12/20 09:23 DC 12/11/20 20:39 Home Med (Home Med List Complete!) ASDIRECTED XX 12/10/20 19:30 12/10/20 19:36 DC Hydralazine HCl (Apresoline) 25 mg Q6H PO 12/10/20 18:00 12/17/20 14:33 DC 12/17/20 05:06 Hydralazine HCl (Apresoline) 25 mg TID PO 12/17/20 16:00 12/24/20 08:37 Lactobacillus Acidophilus (Bacid) 1 ea WM PO 12/13/20 12:30 12/24/20 08:36 Levetiracetam (Keppra) 500 mg BID PO 12/10/20 21:00 12/16/20 09:09 DC 12/16/20 08:09 Levetiracetam (Keppra) 500 mg BID PO 12/23/20 21:00 12/24/20 08:37 Levetiracetam (Keppra) 750 mg BID PO 12/16/20 21:00 12/23/20 10:07 DC 12/23/20 09:09 Lidocaine/ Diphenhydr/Alum/ Mg/Simeth (Magic Mouthwash) 5ML AC SSP 12/11/20 07:30 12/24/20 08:34 Lisinopril (Prinivil) 10 mg BID PO 12/18/20 21:00 12/24/20 08:37 Lisinopril (Prinivil) 20 mg BID PO 12/18/20 09:00 12/18/20 11:33 DC 12/18/20 09:38 Lisinopril (Prinivil) 20 mg QHS PO 12/11/20 21:00 12/18/20 09:14 DC 12/17/20 20:41 Lisinopril (Prinivil) 40 mg QHS PO 12/10/20 21:00 12/11/20 14:44 DC 12/10/20 21:13 Pantoprazole Sodium (Protonix) 40 mg DAILY PO 12/11/20 09:00 12/24/20 08:36 Patient Own Medication (Patient'S Own Med) 2 CAPS DAILY PO 12/15/20 09:00 12/24/20 08:36 Polyethylene Glycol (Miralax) 1 pkt DAILY PRN PO CONSTIPATION 12/10/20 12:30 Propranolol HCl (Inderal) 10 mg TID PO 12/11/20 16:00 12/18/20 11:33 DC 12/18/20 08:35 Ramelteon (Rozerem) 8 mg QHS PO 12/10/20 21:00 12/23/20 20:40 Senna (Senokot) 1 tab QHS PO 12/10/20 21:00 12/23/20 20:40 Simethicone (Mylicon) 80 mg TID PO 12/18/20 16:00 12/24/20 08:35 Sodium Chloride 1,000 ml @ 105 mls/hr Q9H32M IV 12/21/20 19:20 12/23/20 09:37 DC 12/23/20 09:19 Tamsulosin HCl (Flomax) 0.4 mg QHS PO 12/13/20 21:00 12/23/20 20:40 Terazosin HCl (Hytrin) 1 mg DAILY PO 12/17/20 09:00 12/24/20 08:36 Trazodone HCl (Desyrel) 25 mg DAILY PRN PO INSOMNIA 12/14/20 10:50 12/18/20 13:08 DC Trazodone HCl (Desyrel) 25 mg QHS PO 12/18/20 21:00 12/23/20 20:40 Trazodone HCl (Desyrel) 25 mg QHSP PRN PO INSOMNIA 12/11/20 10:45 12/14/20 10:47 DC 12/13/20 22:28 Trazodone HCl (Desyrel) 50 mg QHS PO 12/17/20 21:00 12/18/20 13:08 DC 12/17/20 20:40 Trazodone HCl (Desyrel) 50 mg QHSP PRN PO INSOMNIA 12/14/20 10:45 12/17/20 14:33 DC Trazodone HCl (Desyrel) 100 mg QHSP PRN PO INSOMNIA 12/10/20 12:30 12/11/20 10:46 DC Valproic Acid (Depakene) 250 mg QHS PO 12/10/20 21:00 12/23/20 20:41 CHRISTIE NEVAREZ MD Dec 24, 2020 09:38
[2020-12-24 14:00] VITALS: BP 113/52
--- NOTE | 2020-12-24 14:45 | IPNPDOC ---
Text Note Date of Service The patient was seen on 12/24/20. NOTE No acute events overnight PHYSICAL EXAMINATION: VITAL SIGNS: Please see below. GENERAL APPEARANCE: Awake alert sitting up by the side of the bed working with the therapy. HEENT: Normocephalic atraumatic moist mucous membranes anicteric eyes RESPIRATORY: Chest clear to auscultation no added sounds CARDIOVASCULAR: S1-S2 regular normal rate no rub murmur gallop ABDOMEN: Soft nontender bowel sounds normal EXTREMITIES: No edema NEUROLOGICAL: Some spontaneous movements of the left upper extremity with also purposeful movements, has left hemineglect LABORATORY DATA: Reviewed ASSESSMENT/PLAN: 79F with past medical history of hypertension and spontaneous right frontal lobe ICH in 2009 presented to [facility] on 12-03-20 with severe right sided headache and nausea. CTH revealed a right parietal-occipital intraparenchymal hemorrhage with brain compression and no significant midline shift. She was admitted to the neuro ICU, given hypertonic saline, made NPO, and started on Keppra for seizure prophylaxis. MRI brain on 12-07-20 showed hemorrhages measuring 3.3x5.1x6.7 cmmoderate localized vasogenic edema and mass effect upon the posterior aspect of the right lateral ventricleno evidence of acute hydrocephalus. No significant midline shift or herniation. She had left sided neglect, hemisensory loss and significant mobility and ADL impairments when evaluated by therapy and deemed medically appropriate for admission to ARU on 12-10-20. On eval patient reports her left arm has been moving involuntarily and she cannot control it. She also complains of left upper extremity and left lower extremity weakness. She reports she has problem with balance and tends to fall on the left side. she denied any cough or phlegm. In summary the patient suffered another right intracranial hemorrhage on 12/03/2020 at the parieto-occipital area with left-sided hemineglect, left upper extremity dyskinesia, and left-sided we akness now in ARU getting acute rehabilitation. 1. Acute right-sided intracranial hemorrhage with left upper extremity dyskine twan Continue Keppra and valproic acid for seizure prophylaxis Propranolol started for dyskinesia Continue with PT/ OT as per ARU 2. Hypertension Continue lisinopril, amlodipine, hydralazine The goal is to keep the systolic blood pressure under 120 mmHg and diastolic under 80 mmHg 3. UTI Streptococcus agalactiae Finished antibiotic WBC mildly elevated but pro-Yossi negative. Chest x-ray was done which is also negative. 4. Acute urinary retention BladderScan and straight cath as needed GI prophylaxis With PPI Disposition as per primary VS,Rhonda, I+O VS, Rhonda, I+O Vital Signs Date Time Temp Pulse Resp B/P (MAP) Pulse Ox O2 Delivery O2 Flow Rate FiO2 12/24/20 08:37 118/65 12/24/20 06:07 98.0 115 20 97 Room Air I&O- Last 24 Hours up to 6 AM 12/24/20 06:00 Intake Total 1260 ml Output Total 1500 ml Balance -240 ml JESSICA COFFEY MD Dec 24, 2020 14:45
[2020-12-24 20:00] VITALS: BP 128/60
[2020-12-24] MEDS: TAMSULOSIN 0.4 MG CAP PO SCH (20:14)
[2020-12-24] MEDS: RAMELTEON 8 MG TAB (ROZEREM) PO SCH (20:14)
[2020-12-24] MEDS: traZODone 25MG PER 1/2 TABLET PO SCH (20:14)
[2020-12-24] MEDS: amLODIPine 5 MG TAB PO SCH (20:15)
[2020-12-24] MEDS: VALPROIC ACID 250MG CAP PO SCH (20:16)
[2020-12-24] MEDS: SENNA 8.6 MG TAB (SENOKOT) PO SCH (20:16)
[2020-12-25] MEDS: REMEDY PHYTOPLEX Z-GUARD PASTE 113GM TUBE (FROM STOREROOM PRODUCT) TOP SCH ×4 (05:05→21:23)
[2020-12-25 06:00] VITALS: BP 114/66
[2020-12-25 06:32] LABS: BASO % 0.2 % (0.0-1.0); EOS # 0.2 10^3/uL (0.0-0.5); EOS % 2.2 % (0.0-3.0); HEMATOCRIT 32.5 % (36.0-47.0); HEMOGLOBIN 10.8 g/dl (12.0-15.5); LYMPH # 1.9 10^3/uL (1.5-5.0); LYMPH % 18.2 % (24.0-44.0); MEAN CORPUSCULAR HEMOGLOBIN 31.5 pg (27.0-33.0); MEAN CORPUSCULAR HGB CONC 33.2 g/dl (32.0-36.5); MEAN CORPUSCULAR VOLUME 94.8 fl (80.0-96.0); MONO # 0.6 10^3/uL (0.0-0.8); MONO % 6.1 % (2.0-8.0); NEUTROPHILS # 7.5 10^3/uL (1.5-8.5); NEUTROPHILS % 72.7 % (36.0-66.0); PLATELET COUNT, AUTOMATED 200 10^3/uL (150-450); RED BLOOD COUNT 3.43 10^6/uL (4.00-5.40); WHITE BLOOD COUNT 10.3 10^3/uL (4.0-10.0)
[2020-12-25] MEDS: COMBIVENT RESPIMAT 100-20MCG INHALER 4GM INH SCH ×2 (07:10→12:47)
[2020-12-25 07:36] LABS: BLOOD UREA NITROGEN 9 MG/DL (7-18); CALCIUM LEVEL 8.8 MG/DL (8.8-10.2); CARBON DIOXIDE LEVEL 24 MEQ/L (21-32); CHLORIDE LEVEL 110 MEQ/L (98-107); CREATININE FOR GFR 0.66 MG/DL (0.55-1.30); GLOMERULAR FILTRATION RATE > 60.0 (>39); GLUCOSE, FASTING 107 MG/DL (70-100); POTASSIUM SERUM 3.9 MEQ/L (3.5-5.1); SODIUM LEVEL 142 MEQ/L (136-145)
[2020-12-25] MEDS: **hydrALAZINE HCL** 25 MG TAB PO SCH ×3 (09:00→21:22)
--- NOTE | 2020-12-25 09:07 | IPNPDOC ---
PM&R Progress Note DATE OF SERVICE: Dec 25, 2020 Account Director Progress Note Subjective: Patient seen in her room stating she rochelle a little shaky earlier that day when having a bowel movement and reports she thinks it was because she was cold. REVIEW OF SYSTEMS: The following is a completed review of systems and has been reviewed. Review of systems otherwise unremarkable. PAIN: Patient self reports no pain EYES: No recent vision changes EARS, NOSE, & THROAT: No throat pain, or dysphagia, or rhinorrhea CARDIOVASCULAR: Denies chest pain or palpitations PULMONARY: Denies shortness of breath GASTROINTESTINAL: Denies constipation/diarrhea GENITOURINARY: no dysuria MUSCULOSKELETAL: generalized weakness NEUROLOGICAL:left sided apraxia with neglect (improving) HEMATOLOGICAL: denies easy bruising SKIN:denies rash PSYCHIATRIC: Unremarkable All other review of systems found to be negative. PHYSICAL EXAMINATION: VITAL SIGNS: Please see below. GENERAL: Pleasant and cooperative. No acute distress. no facial droop, tongue midline HEENT: PERRL. able to cross midline to left, Clear conjunctiva CARDIOVASCULAR: Regular rate and rhythm. No murmurs, rubs, or gallops LUNGS: Clear to auscultation bilaterally. No wheezes. No rhonchi ABDOMEN: Soft, nontender, nondistended. Positive bowel sounds. Normal active bowel sounds NEUROLOGICAL: Alert and oriented times three. Cranial nerves II through XII grossly intact. Sensation grossly intact, +left sided neglect and impaired sensation to light touch on left (improving), +apraxia (improving) +clonus on left EXTREMITIES: 5\5 strength bilateral upper extremities. 5\5 strength right lower extremity. 5/5 strength in left lower extremity SKIN: no sacral erythema ASSESSMENT:79-year-old F with past medical history of right frontal ICH who presents status post spontaneous right parietal-occipital lobe ICH PLAN: 1. 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 Neuro hx of right frontal ICH with LUE dyskinesia, now s/p spontaneous right parieto-occipital ICH cont BP management, [facility] in 6 weeks with repeat head CT -repeat CT ordered 12-18-20 due to lethargy in therapy likely due to sleep medication and hypotension- CTH negative for new bleed, no new focal deficits, patient cont to improve -cont Depakote and Keppra for seizure ppx-repeat Keppra levels since increasing dose is now therapeutic at 34, spoke with Dr. Velazquez who recommends given she is on AEds for prophylaxis ok to lower dose to 500 BID as therapeutic dosing not needed, patient has not had seizures since new hemorrhagic stroke -f/u with neurology on dc -patient with vasovagal episode 12-20-20 while having a bowel movement, no new focal weakness, s/p gentle hydration, infectious work-up negative, lactic acidosis resolved with fluids-hospitalist assisting with management -patient reporting she felt shaky today when having a BM and reports this happens when she feels cold, wbc only mildly elevated to 10, Lactic acid elevated again despite stable vitals and patient appearing without infection, hospitalist aware and managing 3. Cardiac- hx of HTN cont BP meds -medicine consulted to assist in overall management 4. Resp- monitor for infection, admission CXR negative for infiltrate, patient without cough, CT chest 12-20-20 as part of infectious work-up also negative for infiltrate 5. GI ppx- protonix -simethicone added for gas 6. DVT ppx- teds 7. Pain- tylenol prn 8. Psych- rozerem for insomnia, cont trazodone 25mg qhs 9. - urinary retention with failed TOV, s/p course of treatment for Strep agalactei UTI, cont flomax and terazosin for bladder outlet obstruction, nguyen removed, bladder scanning protocol in place-patient voiding well 10. Dispo- 01-02-21 to home, progressing towards goals, family is agreeable to take her home Allergies Coded Allergies: chocolate flavor (Verified Allergy, Mild, FACIAL RASH, 12/10/20) No Known Allergies (Verified Allergy, Unknown, 12/10/20) Vital Signs Vital Signs Date Time Temp Pulse Resp B/P (MAP) Pulse Ox O2 Delivery O2 Flow Rate FiO2 12/25/20 06:00 98.7 110 18 114/66 (82) 97 Room Air Laboratory Data CBC/BMP Laboratory Tests 12/25/20 05:37 Labs 24H Laboratory Tests 2 12/25/20 05:37: Immature Granulocyte % (Auto) 0.6, Neutrophils (%) (Auto) 72.7H, Lymphocytes (%) (Auto) 18.2L, Monocytes (%) (Auto) 6.1, Eosinophils (%) (Auto) 2.2, Basophils (%) (Auto) 0.2, Neutrophils # (Auto) 7.5, Lymphocytes # (Auto) 1.9, Monocytes # (Auto) 0.6, Eosinophils # (Auto) 0.2, Basophils # (Auto) 0.0, Nucleated Red Blood Cells % (auto) 0.0, Anion Gap 8, Glomerular Filtration Rate > 60.0, Calcium Level 8.8 Microbiology Microbiology 12/20/20 Blood Culture - Preliminary, Resulted No Growth after 72 hours. All specime... 12/20/20 Blood Culture - Preliminary, Resulted No Growth after 72 hours. All specime... Current Medications Current Medications Current Medications Medications (Trade) Dose Ordered Sig/Melody Route PRN Reason Start Time Stop Time Status Last Admin Dose Admin Acetaminophen (Tylenol Tab) 650 mg Q24HP PRN PO fever/MILD PAIN (PS 1-4) 12/12/20 13:45 12/23/20 01:55 Acetaminophen (Tylenol Tab) 650 mg Q4HP PRN PO fever/MILD PAIN (PS 1-4) 12/10/20 12:30 12/12/20 13:41 DC 12/12/20 09:11 Acetaminophen (Tylenol Tab) 1,000 mg TID PO 12/12/20 16:00 12/24/20 20:17 Albuterol/ Ipratropium (Combivent Respimat 100-20mcg) 1 puff RTID INH 12/10/20 20:00 12/21/20 12:47 Amlodipine Besylate (Norvasc) 5 mg QHS PO 12/10/20 21:00 12/10/20 20:12 DC Amlodipine Besylate (Norvasc) 5 mg QHS PO 12/11/20 21:00 12/24/20 20:15 Amlodipine Besylate (Norvasc) 10 mg QHS PO 12/10/20 21:00 12/11/20 14:44 DC 12/10/20 21:16 Calcium Carbonate (Tums) 1,000 mg Q4HP PRN PO HEARTBURN 12/10/20 12:30 Cephalexin Monohydrate (Keflex) 500 mg Q6H PO 12/13/20 12:00 12/18/20 06:01 DC 12/18/20 05:09 Docusate Sodium (Colace) 100 mg BID PO 12/10/20 21:00 12/24/20 08:36 Fluoxetine HCl (PROzac) 20 mg DAILY PO 12/11/20 09:00 12/11/20 14:44 DC 12/11/20 12:14 Heparin Sodium (Porcine) (Heparin) 5,000 units Q12H SQ 12/11/20 21:00 12/12/20 09:23 DC 12/11/20 20:39 Home Med (Home Med List Complete!) ASDIRECTED XX 12/10/20 19:30 12/10/20 19:36 DC Hydralazine HCl (Apresoline) 25 mg Q6H PO 12/10/20 18:00 12/17/20 14:33 DC 12/17/20 05:06 Hydralazine HCl (Apresoline) 25 mg TID PO 12/17/20 16:00 12/24/20 08:37 Lactobacillus Acidophilus (Bacid) 1 ea WM PO 12/13/20 12:30 12/24/20 17:06 Levetiracetam (Keppra) 500 mg BID PO 12/10/20 21:00 12/16/20 09:09 DC 12/16/20 08:09 Levetiracetam (Keppra) 500 mg BID PO 12/23/20 21:00 12/24/20 20:16 Levetiracetam (Keppra) 750 mg BID PO 12/16/20 21:00 12/23/20 10:07 DC 12/23/20 09:09 Lidocaine/ Diphenhydr/Alum/ Mg/Simeth (Magic Mouthwash) 5ML AC SSP 12/11/20 07:30 12/24/20 17:07 Lisinopril (Prinivil) 10 mg BID PO 12/18/20 21:00 12/25/20 09:06 DC 12/24/20 20:17 Lisinopril (Prinivil) 20 mg BID PO 12/18/20 09:00 12/18/20 11:33 DC 12/18/20 09:38 Lisinopril (Prinivil) 20 mg QHS PO 12/11/20 21:00 12/18/20 09:14 DC 12/17/20 20:41 Lisinopril (Prinivil) 40 mg QHS PO 12/10/20 21:00 12/11/20 14:44 DC 12/10/20 21:13 Pantoprazole Sodium (Protonix) 40 mg DAILY PO 12/11/20 09:00 12/24/20 08:36 Patient Own Medication (Patient'S Own Med) 2 CAPS DAILY PO 12/15/20 09:00 12/24/20 08:36 Polyethylene Glycol (Miralax) 1 pkt DAILY PRN PO CONSTIPATION 12/10/20 12:30 Propranolol HCl (Inderal) 10 mg TID PO 12/11/20 16:00 12/18/20 11:33 DC 12/18/20 08:35 Ramelteon (Rozerem) 8 mg QHS PO 12/10/20 21:00 12/24/20 20:14 Senna (Senokot) 1 tab QHS PO 12/10/20 21:00 12/23/20 20:40 Simethicone (Mylicon) 80 mg TID PO 12/18/20 16:00 12/24/20 20:14 Sodium Chloride 1,000 ml @ 105 mls/hr Q9H32M IV 12/21/20 19:20 12/23/20 09:37 DC 12/23/20 09:19 Tamsulosin HCl (Flomax) 0.4 mg QHS PO 12/13/20 21:00 12/24/20 20:14 Terazosin HCl (Hytrin) 1 mg DAILY PO 12/17/20 09:00 12/25/20 09:06 DC 12/24/20 08:36 Terazosin HCl (Hytrin) 1 mg QHS PO 12/26/20 21:00 UNV Trazodone HCl (Desyrel) 25 mg DAILY PRN PO INSOMNIA 12/14/20 10:50 12/18/20 13:08 DC Trazodone HCl (Desyrel) 25 mg QHS PO 12/18/20 21:00 12/24/20 20:14 Trazodone HCl (Desyrel) 25 mg QHSP PRN PO INSOMNIA 12/11/20 10:45 12/14/20 10:47 DC 12/13/20 22:28 Trazodone HCl (Desyrel) 50 mg QHS PO 12/17/20 21:00 12/18/20 13:08 DC 12/17/20 20:40 Trazodone HCl (Desyrel) 50 mg QHSP PRN PO INSOMNIA 12/14/20 10:45 12/17/20 14:33 DC Trazodone HCl (Desyrel) 100 mg QHSP PRN PO INSOMNIA 12/10/20 12:30 12/11/20 10:46 DC Valproic Acid (Depakene) 250 mg QHS PO 12/10/20 21:00 12/24/20 20:16 CHRISTIE NEVAREZ MD Dec 25, 2020 09:07
[2020-12-25] MEDS: DOCUSATE SODIUM 100MG CAPSULE PO SCH ×2 (09:12→21:20)
[2020-12-25] MEDS: ACETAMINOPHEN 500 MG TAB PO SCH ×3 (09:12→21:23)
[2020-12-25] MEDS: MAGIC MOUTHWASH SUSPENSION BTL SSP SCH ×3 (09:13→16:28)
[2020-12-25] MEDS: AREDS PO SCH (09:13)
[2020-12-25] MEDS: SIMETHICONE 80MG CHEW TAB PO SCH ×3 (09:13→21:21)
[2020-12-25] MEDS: levETIRAcetam 250MG TABLET (KEPPRA) PO SCH ×2 (09:13→21:21)
[2020-12-25] MEDS: PANTOPRAZOLE 40MG TAB (PROTONIX) PO SCH (09:13)
[2020-12-25] MEDS: LACTOBACILLUS ACIDOPHILUS CAP (BACID) PO SCH ×3 (09:15→16:28)
--- NOTE | 2020-12-25 11:45 | IPNPDOC ---
Text Note Date of Service The patient was seen on 12/25/20. NOTE Patient seen and examined. She felt a little shaky this morning after having a bowel movement again. Vitals have been stable. She has no new complaints. PHYSICAL EXAMINATION: VITAL SIGNS: Please see below. GENERAL APPEARANCE: Awake alert sitting up by the side of the bed working with the therapy. HEENT: Normocephalic atraumatic moist mucous membranes anicteric eyes RESPIRATORY: Chest clear to auscultation no added sounds CARDIOVASCULAR: S1-S2 regular normal rate no rub murmur gallop ABDOMEN: Soft nontender bowel sounds normal EXTREMITIES: No edema NEUROLOGICAL: Some spontaneous movements of the left upper extremity with also purposeful movements, has left hemineglect LABORATORY DATA: Reviewed ASSESSMENT/PLAN: 79F with past medical history of hypertension and spontaneous right frontal lobe ICH in 2009 presented to [facility] on 12-03-20 with severe right sided headache and nausea. CTH revealed a right parietal-occipital intraparenchymal hemorrhage with brain compression and no significant midline shift. She was admitted to the neuro ICU, given hypertonic saline, made NPO, and started on Keppra for seizure prophylaxis. MRI brain on 12-07-20 showed hemorrhages measuring 3.3x5.1x6.7 cmmoderate localized vasogenic edema and mass effect upon the posterior aspect of the right lateral ventricleno evidence of acute hydrocephalus. No significant midline shift or herniation. She had left sided neglect, hemisensory loss and significant mobility and ADL impairments when evaluated by therapy and deemed medically appropriate for admission to ARU on 12-10-20. On eval patient reports her left arm has been moving involuntarily and she cannot control it. She also complains of left upper extremity and left lower extremity weakness. She reports she has problem with balance and tends to fall on the left side. she denied any cough or phlegm. In summary the patient suffered another right intracranial hemorrhage on 12/03/2020 at the parieto-occipital area with left-sided hemineglect, left upper extremity dyskinesia, and left-sided weakness now in ARU getting acute rehabilitation. 1. Acute right-sided intracranial hemorrhage with left upper extremity dy skinesia . Continue Keppra and valproic acid for seizure prophylaxis Propranolol started for dyskinesia Continue with PT/ OT as per ARU 2. Hypertension .Continue amlodipine, hydralazine The goal is to keep the systolic blood pressure under 120 mmHg and diastolic under 80 mmHg. Her lisinopril has been discontinued after she had this vasovagal episode and as her blood pressure has been maintaining below 120 systolic blood pressure 3. UTI Streptococcus agalactiae Finished antibiotic WBC mildly elevated but pro-Yossi negative. Chest x-ray was done which is also negative. 4. Acute urinary retention BladderScan and straight cath as needed 5. Lactic acidosis. She again has a lactic acidosis of 2.8. No signs of infection no signs of any respiratory distress or hypoxia no signs of any pne umonia. Recent UA has been negative the urine looks clean. Abdomen is completely benign. No rashes or diarrhea. The patient did have vasovagal episode 2 days back at this morning also was a little shaky after having a bowel movement. She probably is not maintaining a good oral intake and we will start the patient on 75 cc of normal saline and repeat a lactic acid again in the evening. There are no indications of starting her on any antibiotic at this point of time. GI prophylaxis With PPI Disposition as per primary VSRhonda, I+O VSRhonda, I+O Laboratory Tests 12/25/20 05:37 Vital Signs Date Time Temp Pulse Resp B/P (MAP) Pulse Ox O2 Delivery O2 Flow Rate FiO2 12/25/20 09:00 113/59 12/25/20 06:00 98.7 110 18 97 Room Air I&O- Last 24 Hours up to 6 AM 12/25/20 06:00 Intake Total 930 ml Output Total 1260 ml Balance -330 ml JESSICA COFFEY MD Dec 25, 2020 11:45
[2020-12-25] MEDS: NS 1,000 ML IV SCH (12:24)
[2020-12-25 14:00] VITALS: BP 109/63
[2020-12-25 20:00] VITALS: BP 112/62
[2020-12-25] MEDS ORDERED: TERAZOSIN 1 MG CAP PO SCH (21:00)
[2020-12-25] MEDS: TAMSULOSIN 0.4 MG CAP PO SCH (21:20)
[2020-12-25] MEDS: SENNA 8.6 MG TAB (SENOKOT) PO SCH (21:20)
[2020-12-25] MEDS: traZODone 25MG PER 1/2 TABLET PO SCH (21:21)
[2020-12-25] MEDS: VALPROIC ACID 250MG CAP PO SCH (21:21)
[2020-12-25] MEDS: RAMELTEON 8 MG TAB (ROZEREM) PO SCH (21:21)
[2020-12-26] MEDS: NS 1,000 ML IV SCH (01:05)
[2020-12-26] MEDS: REMEDY PHYTOPLEX Z-GUARD PASTE 113GM TUBE (FROM STOREROOM PRODUCT) TOP SCH ×4 (04:56→20:58)
[2020-12-26 05:44] VITALS: BP 158/88
[2020-12-26] MEDS: COMBIVENT RESPIMAT 100-20MCG INHALER 4GM INH SCH ×3 (07:20→19:20)
[2020-12-26] MEDS: LACTOBACILLUS ACIDOPHILUS CAP (BACID) PO SCH ×3 (08:24→17:08)
[2020-12-26] MEDS: PANTOPRAZOLE 40MG TAB (PROTONIX) PO SCH (08:24)
[2020-12-26] MEDS: MAGIC MOUTHWASH SUSPENSION BTL SSP SCH ×3 (08:24→17:07)
[2020-12-26] MEDS: levETIRAcetam 250MG TABLET (KEPPRA) PO SCH ×2 (08:24→20:56)
[2020-12-26] MEDS: ACETAMINOPHEN 500 MG TAB PO SCH ×3 (08:24→20:57)
[2020-12-26] MEDS: AREDS PO SCH (08:24)
[2020-12-26] MEDS: **hydrALAZINE HCL** 25 MG TAB PO SCH ×3 (08:25→20:59)
[2020-12-26] MEDS: DOCUSATE SODIUM 100MG CAPSULE PO SCH ×2 (08:25→20:57)
[2020-12-26] MEDS: SIMETHICONE 80MG CHEW TAB PO SCH ×3 (08:26→20:57)
[2020-12-26 14:00] VITALS: BP 132/68
[2020-12-26 20:00] VITALS: BP 142/78
[2020-12-26] MEDS: SENNA 8.6 MG TAB (SENOKOT) PO SCH (20:57)
[2020-12-26] MEDS: TAMSULOSIN 0.4 MG CAP PO SCH (20:57)
[2020-12-26] MEDS: VALPROIC ACID 250MG CAP PO SCH (20:57)
[2020-12-26] MEDS: RAMELTEON 8 MG TAB (ROZEREM) PO SCH (20:57)
[2020-12-26] MEDS: traZODone 25MG PER 1/2 TABLET PO SCH (20:57)
[2020-12-27] MEDS: REMEDY PHYTOPLEX Z-GUARD PASTE 113GM TUBE (FROM STOREROOM PRODUCT) TOP SCH ×3 (05:29→17:19)
[2020-12-27 06:00] VITALS: BP 160/96
[2020-12-27 06:07] VITALS: BP 150/82
[2020-12-27 06:53] LABS: BASO % 0.4 % (0.0-1.0); EOS # 0.3 10^3/uL (0.0-0.5); EOS % 3.5 % (0.0-3.0); HEMATOCRIT 33.6 % (36.0-47.0); HEMOGLOBIN 11.1 g/dl (12.0-15.5); LYMPH # 2.4 10^3/uL (1.5-5.0); LYMPH % 29.3 % (24.0-44.0); MEAN CORPUSCULAR HEMOGLOBIN 31.9 pg (27.0-33.0); MEAN CORPUSCULAR VOLUME 96.6 fl (80.0-96.0); MONO # 0.6 10^3/uL (0.0-0.8); MONO % 6.9 % (2.0-8.0); NEUTROPHILS % 59.5 % (36.0-66.0); PLATELET COUNT, AUTOMATED 207 10^3/uL (150-450); RED BLOOD COUNT 3.48 10^6/uL (4.00-5.40); WHITE BLOOD COUNT 8.3 10^3/uL (4.0-10.0)
[2020-12-27 07:16] LABS: BLOOD UREA NITROGEN 10 MG/DL (7-18); CARBON DIOXIDE LEVEL 26 MEQ/L (21-32); CHLORIDE LEVEL 111 MEQ/L (98-107); CREATININE FOR GFR 0.61 MG/DL (0.55-1.30); GLOMERULAR FILTRATION RATE > 60.0 (>39); GLUCOSE, FASTING 102 MG/DL (70-100); SODIUM LEVEL 144 MEQ/L (136-145)
[2020-12-27] MEDS: COMBIVENT RESPIMAT 100-20MCG INHALER 4GM INH SCH ×3 (07:18→18:40)
[2020-12-27] MEDS: MAGIC MOUTHWASH SUSPENSION BTL SSP SCH ×3 (07:30→17:19)
[2020-12-27] MEDS: **hydrALAZINE HCL** 25 MG TAB PO SCH ×3 (08:37→20:07)
[2020-12-27] MEDS: LACTOBACILLUS ACIDOPHILUS CAP (BACID) PO SCH ×3 (08:37→17:18)
[2020-12-27] MEDS: AREDS PO SCH (08:38)
[2020-12-27] MEDS: levETIRAcetam 250MG TABLET (KEPPRA) PO SCH ×2 (08:39→20:07)
[2020-12-27] MEDS: ACETAMINOPHEN 500 MG TAB PO SCH ×3 (08:40→20:08)
[2020-12-27] MEDS: SIMETHICONE 80MG CHEW TAB PO SCH ×3 (08:40→20:08)
[2020-12-27] MEDS: DOCUSATE SODIUM 100MG CAPSULE PO SCH ×2 (08:40→20:09)
[2020-12-27] MEDS: PANTOPRAZOLE 40MG TAB (PROTONIX) PO SCH (08:40)
[2020-12-27 14:59] VITALS: BP 141/77
[2020-12-27 20:00] VITALS: BP 142/80
[2020-12-27] MEDS: TAMSULOSIN 0.4 MG CAP PO SCH (20:07)
[2020-12-27] MEDS: traZODone 25MG PER 1/2 TABLET PO SCH (20:07)
[2020-12-27] MEDS: VALPROIC ACID 250MG CAP PO SCH (20:08)
[2020-12-27] MEDS: SENNA 8.6 MG TAB (SENOKOT) PO SCH (20:09)
[2020-12-27] MEDS: RAMELTEON 8 MG TAB (ROZEREM) PO SCH (20:09)
[2020-12-28] MEDS: ACETAMINOPHEN TAB 650MG DOSE (2X325MG) PO PRN (01:38)
[2020-12-28 04:55] VITALS: BP 120/62
[2020-12-28] MEDS: REMEDY PHYTOPLEX Z-GUARD PASTE 113GM TUBE (FROM STOREROOM PRODUCT) TOP SCH ×5 (04:59→23:26)
[2020-12-28] MEDS ORDERED: NORCO, ANEXSIA 5/325MG TABLET (HYDROcodone/ACETAMINOPHEN) PO ONE (05:50)
[2020-12-28] MEDS: COMBIVENT RESPIMAT 100-20MCG INHALER 4GM INH SCH ×3 (07:44→20:00)
[2020-12-28] MEDS: ACETAMINOPHEN 500 MG TAB PO SCH ×3 (09:00→20:44)
[2020-12-28] MEDS: DOCUSATE SODIUM 100MG CAPSULE PO SCH ×2 (09:00→20:44)
[2020-12-28] MEDS: levETIRAcetam 250MG TABLET (KEPPRA) PO SCH ×2 (09:15→20:44)
[2020-12-28] MEDS: LACTOBACILLUS ACIDOPHILUS CAP (BACID) PO SCH ×3 (09:15→17:57)
[2020-12-28] MEDS: PANTOPRAZOLE 40MG TAB (PROTONIX) PO SCH (09:15)
[2020-12-28] MEDS: SIMETHICONE 80MG CHEW TAB PO SCH ×3 (09:15→20:44)
[2020-12-28] MEDS: AREDS PO SCH (09:17)
[2020-12-28] MEDS: MAGIC MOUTHWASH SUSPENSION BTL SSP SCH ×3 (09:17→17:57)
[2020-12-28] MEDS: **hydrALAZINE HCL** 25 MG TAB PO SCH ×3 (09:18→20:45)
[2020-12-28 14:00] VITALS: BP 109/58
[2020-12-28 20:00] VITALS: BP 122/72
[2020-12-28] MEDS: VALPROIC ACID 250MG CAP PO SCH (20:43)
[2020-12-28] MEDS: traZODone 25MG PER 1/2 TABLET PO SCH (20:44)
[2020-12-28] MEDS: TAMSULOSIN 0.4 MG CAP PO SCH (20:44)
[2020-12-28] MEDS: RAMELTEON 8 MG TAB (ROZEREM) PO SCH (20:44)
[2020-12-28] MEDS: SENNA 8.6 MG TAB (SENOKOT) PO SCH (20:44)
[2020-12-29 06:00] VITALS: BP 136/78
[2020-12-29] MEDS: REMEDY PHYTOPLEX Z-GUARD PASTE 113GM TUBE (FROM STOREROOM PRODUCT) TOP SCH ×4 (06:00→23:38)
[2020-12-29] MEDS: COMBIVENT RESPIMAT 100-20MCG INHALER 4GM INH SCH ×3 (08:00→20:00)
[2020-12-29] MEDS: LACTOBACILLUS ACIDOPHILUS CAP (BACID) PO SCH ×3 (08:58→18:25)
[2020-12-29] MEDS: levETIRAcetam 250MG TABLET (KEPPRA) PO SCH ×2 (08:58→20:16)
[2020-12-29] MEDS: SIMETHICONE 80MG CHEW TAB PO SCH ×3 (08:58→20:15)
[2020-12-29] MEDS: PANTOPRAZOLE 40MG TAB (PROTONIX) PO SCH (08:58)
[2020-12-29] MEDS: ACETAMINOPHEN 500 MG TAB PO SCH ×3 (08:59→20:17)
[2020-12-29] MEDS: MAGIC MOUTHWASH SUSPENSION BTL SSP SCH ×3 (08:59→18:25)
[2020-12-29] MEDS: DOCUSATE SODIUM 100MG CAPSULE PO SCH ×2 (08:59→20:16)
[2020-12-29] MEDS: **hydrALAZINE HCL** 25 MG TAB PO SCH ×3 (09:00→20:16)
[2020-12-29] MEDS: AREDS PO SCH (09:00)
[2020-12-29 14:00] VITALS: BP 130/80
[2020-12-29 20:00] VITALS: BP 132/80
[2020-12-29] MEDS: SENNA 8.6 MG TAB (SENOKOT) PO SCH (20:15)
[2020-12-29] MEDS: TAMSULOSIN 0.4 MG CAP PO SCH (20:15)
[2020-12-29] MEDS: traZODone 25MG PER 1/2 TABLET PO SCH (20:16)
[2020-12-29] MEDS: VALPROIC ACID 250MG CAP PO SCH (20:16)
[2020-12-29] MEDS: RAMELTEON 8 MG TAB (ROZEREM) PO SCH (20:16)
[2020-12-30] MEDS: ACETAMINOPHEN TAB 650MG DOSE (2X325MG) PO PRN (04:24)
[2020-12-30] MEDS: REMEDY PHYTOPLEX Z-GUARD PASTE 113GM TUBE (FROM STOREROOM PRODUCT) TOP SCH ×4 (05:37→20:58)
[2020-12-30 06:00] VITALS: BP 134/72
[2020-12-30] MEDS: COMBIVENT RESPIMAT 100-20MCG INHALER 4GM INH SCH ×3 (08:00→19:14)
[2020-12-30] MEDS: MAGIC MOUTHWASH SUSPENSION BTL SSP SCH ×3 (08:20→17:29)
[2020-12-30] MEDS: PANTOPRAZOLE 40MG TAB (PROTONIX) PO SCH (08:20)
[2020-12-30] MEDS: SIMETHICONE 80MG CHEW TAB PO SCH ×3 (08:20→20:58)
[2020-12-30] MEDS: DOCUSATE SODIUM 100MG CAPSULE PO SCH ×2 (08:21→20:58)
[2020-12-30] MEDS: ACETAMINOPHEN 500 MG TAB PO SCH ×3 (08:21→20:57)
[2020-12-30] MEDS: AREDS PO SCH (08:21)
[2020-12-30] MEDS: levETIRAcetam 250MG TABLET (KEPPRA) PO SCH ×2 (08:21→20:57)
[2020-12-30] MEDS: LACTOBACILLUS ACIDOPHILUS CAP (BACID) PO SCH ×3 (08:21→17:27)
[2020-12-30] MEDS: **hydrALAZINE HCL** 25 MG TAB PO SCH ×3 (08:22→20:57)
[2020-12-30 09:29] LABS: BASO % 0.4 % (0.0-1.0); EOS # 0.3 10^3/uL (0.0-0.5); EOS % 4.6 % (0.0-3.0); HEMATOCRIT 33.9 % (36.0-47.0); HEMOGLOBIN 10.9 g/dl (12.0-15.5); LYMPH # 2.4 10^3/uL (1.5-5.0); LYMPH % 36.6 % (24.0-44.0); MEAN CORPUSCULAR HEMOGLOBIN 30.7 pg (27.0-33.0); MEAN CORPUSCULAR HGB CONC 32.2 g/dl (32.0-36.5); MEAN CORPUSCULAR VOLUME 95.5 fl (80.0-96.0); MONO # 0.5 10^3/uL (0.0-0.8); MONO % 7.9 % (2.0-8.0); NEUTROPHILS # 3.3 10^3/uL (1.5-8.5); NEUTROPHILS % 49.9 % (36.0-66.0); PLATELET COUNT, AUTOMATED 232 10^3/uL (150-450); RED BLOOD COUNT 3.55 10^6/uL (4.00-5.40); WHITE BLOOD COUNT 6.7 10^3/uL (4.0-10.0)
[2020-12-30 09:48] LABS: BLOOD UREA NITROGEN 14 MG/DL (7-18); CALCIUM LEVEL 9.1 MG/DL (8.8-10.2); CARBON DIOXIDE LEVEL 25 MEQ/L (21-32); CHLORIDE LEVEL 110 MEQ/L (98-107); CREATININE FOR GFR 0.68 MG/DL (0.55-1.30); GLOMERULAR FILTRATION RATE > 60.0 (>39); GLUCOSE, FASTING 106 MG/DL (70-100); POTASSIUM SERUM 4.2 MEQ/L (3.5-5.1); SODIUM LEVEL 142 MEQ/L (136-145)
[2020-12-30 14:00] VITALS: BP 125/70
--- NOTE | 2020-12-30 15:22 | IPNPDOC ---
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 She denies any respiratory symptoms. REVIEW OF SYSTEMS: The following is a completed review of systems and has been reviewed. Review of systems otherwise unremarkable. PAIN: Patient self reports no pain EYES: No recent vision changes EARS, NOSE, & THROAT: No throat pain, or dysphagia, or rhinorrhea CARDIOVASCULAR: Denies chest pain or palpitations PULMONARY: Denies shortness of breath GASTROINTESTINAL: Denies constipation/diarrhea GENITOURINARY: no dysuria MUSCULOSKELETAL: generalized weakness NEUROLOGICAL:left sided apraxia with neglect (improving) HEMATOLOGICAL: denies easy bruising SKIN:denies rash PSYCHIATRIC: Unremarkable All other review of systems found to be negative. PHYSICAL EXAMINATION: VITAL SIGNS: Please see below. GENERAL: Pleasant and cooperative. No acute distress. no facial droop, tongue midline HEENT: PERRL. able to cross midline to left, Clear conjunctiva CARDIOVASCULAR: Regular rate and rhythm. No murmurs, rubs, or gallops LUNGS: Clear to auscultation bilaterally. No wheezes. No rhonchi ABDOMEN: Soft, nontender, nondistended. Positive bowel sounds. Normal active bowel sounds NEUROLOGICAL: Alert and oriented times three. Cranial nerves II through XII grossly intact. Sensation grossly intact, +left sided neglect and impaired sensation to light touch on left (improving), +apraxia (improving) +clonus on left EXTREMITIES: 5\5 strength bilateral upper extremities. 5\5 strength right lower extremity. 5/5 strength in left lower extremity SKIN: no sacral erythema ASSESSMENT:79-year-old F with past medical history of right frontal ICH who pr esents status post spontaneous right parietal-occipital lobe ICH PLAN: 1. Rehab- PT/OT advance mobility and ADLs, strengthen/stretch/maintain ROM all 4 limbs, MPO to left foot when in bed, patient making functional gains in therapy, ambulating with assistance -INFANT TODDLER LEAD TEACHER for cog and swallow 2. Neuro hx of right frontal ICH with LUE dyskinesia, now s/p spontaneous right parieto-occipital ICH cont BP management, patient was not on antiplatelet at baseline -f/u neurosurgery in 6 weeks with repeat head CT -repeat CT ordered 12-18-20 due to lethargy in therapy likely due to sleep medication and hypotension- CTH negative for new bleed, no new focal deficits, patient cont to improve -cont Depakote and Keppra for seizure ppx-repeat Keppra levels since increasing dose is now therapeutic at 34, spoke with Dr. Velazquez who recommends given she is on AEds for prophylaxis ok to lower dose to 500 BID as therapeutic dosing not needed, patient has not had seizures since new hemorrhagic stroke -f/u with neurology on dc -patient with vasovagal episode 12-20-20 while having a bowel movement, no new focal weakness, s/p gentle hydration, infectious work-up negative, lactic acidosis resolved with fluids-hospitalist assisting with management -lactic acidosis from 12-25-20 resolved with fluids 3. Cardiac- hx of HTN cont BP meds -medicine consulted to assist in overall management 4. Resp- monitor for infection, admission CXR negative for infiltrate, patient without cough, CT chest 12-20-20 as part of infectious work-up also negative for infiltrate 5. GI ppx- protonix -simethicone added for gas 6. DVT ppx- teds 7. Pain- tylenol prn 8. Psych- rozerem for insomnia, cont trazodone 25mg qhs 9. - urinary retention with failed TOV, s/p course of treatment for Strep agalactei UTI, cont flomax and terazosin for bladder outlet obstruction, nguyen removed, bladder scanning protocol in place-patient voiding well 10. Dispo- 01-02-21 to home, progressing towards goals, family is agreeable to take her home Allergies Coded Allergies: chocolate flavor (Verified Allergy, Mild, FACIAL RASH, 12/10/20) No Known Allergies (Verified Allergy, Unknown, 12/10/20) Vital Signs Vital Signs Date Time Temp Pulse Resp B/P (MAP) Pulse Ox O2 Delivery O2 Flow Rate FiO2 12/30/20 14:00 98.7 102 18 125/70 (88) 95 Room Air Laboratory Data CBC/BMP Laboratory Tests 12/30/20 08:43 Labs 24H Laboratory Tests 2 12/30/20 08:43: Immature Granulocyte % (Auto) 0.6, Neutrophils (%) (Auto) 49.9, Lymphocytes (%) (Auto) 36.6, Monocytes (%) (Auto) 7.9, Eosinophils (%) (Auto) 4.6H, Basophils (%) (Auto) 0.4, Neutrophils # (Auto) 3.3, Lymphocytes # (Auto) 2.4, Monocytes # (Auto) 0.5, Eosinophils # (Auto) 0.3, Basophils # (Auto) 0.0, Nucleated Red Blood Cells % (auto) 0.0, Anion Gap 7L, Glomerular Filtration Rate > 60.0, Calcium Level 9.1 Microbiology Microbiology 12/20/20 Blood Culture - Final, Complete NO GROWTH AFTER 5 DAYS 12/20/20 Blood Culture - Final, Complete NO GROWTH AFTER 5 DAYS Current Medications Current Medications Current Medications Medications (Trade) Dose Ordered Sig/Melody Route PRN Reason Start Time Stop Time Status Last Admin Dose Admin Acetaminophen (Tylenol Tab) 650 mg Q24HP PRN PO fever/MILD PAIN (PS 1-4) 12/12/20 13:45 12/30/20 04:24 Acetaminophen (Tylenol Tab) 650 mg Q4HP PRN PO fever/MILD PAIN (PS 1-4) 12/10/20 12:30 12/12/20 13:41 DC 12/12/20 09:11 Acetaminophen (Tylenol Tab) 1,000 mg TID PO 12/12/20 16:00 12/30/20 08:21 Albuterol/ Ipratropium (Combivent Respimat 100-20mcg) 1 puff RTID INH 12/10/20 20:00 12/21/20 12:47 Amlodipine Besylate (Norvasc) 5 mg QHS PO 12/10/20 21:00 12/10/20 20:12 DC Amlodipine Besylate (Norvasc) 5 mg QHS PO 12/11/20 21:00 12/25/20 09:31 DC 12/24/20 20:15 Amlodipine Besylate (Norvasc) 10 mg QHS PO 12/10/20 21:00 12/11/20 14:44 DC 12/10/20 21:16 Calcium Carbonate (Tums) 1,000 mg Q4HP PRN PO HEARTBURN 12/10/20 12:30 Cephalexin Monohydrate (Keflex) 500 mg Q6H PO 12/13/20 12:00 12/18/20 06:01 DC 12/18/20 05:09 Docusate Sodium (Colace) 100 mg BID PO 12/10/20 21:00 12/29/20 20:16 Fluoxetine HCl (PROzac) 20 mg DAILY PO 12/11/20 09:00 12/11/20 14:44 DC 12/11/20 12:14 Heparin Sodium (Porcine) (Heparin) 5,000 units Q12H SQ 12/11/20 21:00 12/12/20 09:23 DC 12/11/20 20:39 Home Med (Home Med List Complete!) ASDIRECTED XX 12/10/20 19:30 12/10/20 19:36 DC Hydralazine HCl (Apresoline) 25 mg Q6H PO 12/10/20 18:00 12/17/20 14:33 DC 12/17/20 05:06 Hydralazine HCl (Apresoline) 25 mg TID PO 12/17/20 16:00 12/30/20 08:22 Lactobacillus Acidophilus (Bacid) 1 ea WM PO 12/13/20 12:30 12/30/20 12:41 Levetiracetam (Keppra) 500 mg BID PO 12/10/20 21:00 12/16/20 09:09 DC 12/16/20 08:09 Levetiracetam (Keppra) 500 mg BID PO 12/23/20 21:00 12/30/20 08:21 Levetiracetam (Keppra) 750 mg BID PO 12/16/20 21:00 12/23/20 10:07 DC 12/23/20 09:09 Lidocaine/ Diphenhydr/Alum/ Mg/Simeth (Magic Mouthwash) 5ML AC SSP 12/11/20 07:30 12/30/20 08:20 Lisinopril (Prinivil) 10 mg BID PO 12/18/20 21:00 12/25/20 09:06 DC 12/24/20 20:17 Lisinopril (Prinivil) 20 mg BID PO 12/18/20 09:00 12/18/20 11:33 DC 12/18/20 09:38 Lisinopril (Prinivil) 20 mg QHS PO 12/11/20 21:00 12/18/20 09:14 DC 12/17/20 20:41 Lisinopril (Prinivil) 40 mg QHS PO 12/10/20 21:00 12/11/20 14:44 DC 12/10/20 21:13 Pantoprazole Sodium (Protonix) 40 mg DAILY PO 12/11/20 09:00 12/30/20 08:20 Patient Own Medication (Patient'S Own Med) 2 CAPS DAILY PO 12/15/20 09:00 12/30/20 08:21 Polyethylene Glycol (Miralax) 1 pkt DAILY PRN PO CONSTIPATION 12/10/20 12:30 Propranolol HCl (Inderal) 10 mg TID PO 12/11/20 16:00 12/18/20 11:33 DC 12/18/20 08:35 Ramelteon (Rozerem) 8 mg QHS PO 12/10/20 21:00 12/29/20 20:16 Senna (Senokot) 1 tab QHS PO 12/10/20 21:00 12/29/20 20:15 Simethicone (Mylicon) 80 mg TID PO 12/18/20 16:00 12/30/20 08:20 Sodium Chloride 1,000 ml @ 75 mls/hr [id number] IV 12/25/20 11:45 12/26/20 11:46 DC 12/26/20 01:05 Sodium Chloride 1,000 ml @ 105 mls/hr [id number] IV 12/21/20 19:20 12/23/20 09:37 DC 12/23/20 09:19 Tamsulosin HCl (Flomax) 0.4 mg QHS PO 12/13/20 21:00 12/29/20 20:15 Terazosin HCl (Hytrin) 1 mg DAILY PO 12/17/20 09:00 12/25/20 09:06 DC 12/24/20 08:36 Terazosin HCl (Hytrin) 1 mg QHS PO 12/25/20 21:00 12/25/20 09:14 DC Trazodone HCl (Desyrel) 25 mg DAILY PRN PO INSOMNIA 12/14/20 10:50 12/18/20 13:08 DC Trazodone HCl (Desyrel) 25 mg QHS PO 12/18/20 21:00 12/29/20 20:16 Trazodone HCl (Desyrel) 25 mg QHSP PRN PO INSOMNIA 12/11/20 10:45 12/14/20 10:47 DC 12/13/20 22:28 Trazodone HCl (Desyrel) 50 mg QHS PO 12/17/20 21:00 12/18/20 13:08 DC 12/17/20 20:40 Trazodone HCl (Desyrel) 50 mg QHSP PRN PO INSOMNIA 12/14/20 10:45 12/17/20 14:33 DC Trazodone HCl (Desyrel) 100 mg QHSP PRN PO INSOMNIA 12/10/20 12:30 12/11/20 10:46 DC Valproic Acid (Depakene) 250 mg QHS PO 12/10/20 21:00 12/29/20 20:16 CHRISTIE NEVAREZ MD Dec 30, 2020 15:22
[2020-12-30 20:02] VITALS: BP 134/70
[2020-12-30] MEDS: TAMSULOSIN 0.4 MG CAP PO SCH (20:57)
[2020-12-30] MEDS: VALPROIC ACID 250MG CAP PO SCH (20:57)
[2020-12-30] MEDS: traZODone 25MG PER 1/2 TABLET PO SCH (20:57)
[2020-12-30] MEDS: RAMELTEON 8 MG TAB (ROZEREM) PO SCH (20:58)
[2020-12-30] MEDS: SENNA 8.6 MG TAB (SENOKOT) PO SCH (20:58)
[2020-12-31 05:28] VITALS: BP 122/80
[2020-12-31] MEDS: REMEDY PHYTOPLEX Z-GUARD PASTE 113GM TUBE (FROM STOREROOM PRODUCT) TOP SCH ×3 (06:00→16:56)
[2020-12-31] MEDS: COMBIVENT RESPIMAT 100-20MCG INHALER 4GM INH SCH ×2 (07:34→13:14)
[2020-12-31] MEDS: LACTOBACILLUS ACIDOPHILUS CAP (BACID) PO SCH ×3 (08:17→16:55)
[2020-12-31] MEDS: MAGIC MOUTHWASH SUSPENSION BTL SSP SCH ×3 (08:17→16:55)
[2020-12-31] MEDS: PANTOPRAZOLE 40MG TAB (PROTONIX) PO SCH (08:17)
[2020-12-31] MEDS: ACETAMINOPHEN 500 MG TAB PO SCH ×3 (08:17→20:33)
[2020-12-31] MEDS: DOCUSATE SODIUM 100MG CAPSULE PO SCH ×2 (08:17→20:31)
[2020-12-31] MEDS: SIMETHICONE 80MG CHEW TAB PO SCH ×3 (08:17→20:31)
[2020-12-31] MEDS: levETIRAcetam 250MG TABLET (KEPPRA) PO SCH ×2 (08:17→20:32)
[2020-12-31] MEDS: **hydrALAZINE HCL** 25 MG TAB PO SCH ×3 (08:18→20:31)
[2020-12-31] MEDS: AREDS PO SCH (08:18)
--- NOTE | 2020-12-31 10:36 | IPNPDOC ---
PM&R Progress Note DATE OF SERVICE: Dec 31, 2020 House Fellow Progress Note Subjective: Patient seen in her room stating she feels ready to go home on , denies any upper respiratory symptoms and would like a stronger pain medication in the event she has a headache. REVIEW OF SYSTEMS: The following is a completed review of systems and has been reviewed. Review of systems otherwise unremarkable. PAIN: Patient self reports no pain EYES: No recent vision changes EARS, NOSE, & THROAT: No throat pain, or dysphagia, or rhinorrhea CARDIOVASCULAR: Denies chest pain or palpitations PULMONARY: Denies shortness of breath GASTROINTESTINAL: Denies constipation/diarrhea GENITOURINARY: no dysuria MUSCULOSKELETAL: generalized weakness NEUROLOGICAL:left sided apraxia with neglect (improving) HEMATOLOGICAL: denies easy bruising SKIN:denies rash PSYCHIATRIC: Unremarkable All other review of systems found to be negative. PHYSICAL EXAMINATION: VITAL SIGNS: Please see below. GENERAL: Pleasant and cooperative. No acute distress. no facial droop, tongue midline HEENT: PERRL. able to cross midline to left, Clear conjunctiva CARDIOVASCULAR: Regular rate and rhythm. No murmurs, rubs, or gallops LUNGS: Clear to auscultation bilaterally. No wheezes. No rhonchi ABDOMEN: Soft, nontender, nondistended. Positive bowel sounds. Normal active bowel sounds NEUROLOGICAL: Alert and oriented times three. Cranial nerves II through XII grossly intact. Sensation grossly intact, +left sided neglect and impaired sensation to light touch on left (improving), +apraxia (improving) +clonus on left EXTREMITIES: 5\5 strength bilateral upper extremities. 5\5 strength right lower extremity. 5/5 strength in left lower extremity SKIN: no sacral erythema ASSESSMENT:79-year-old F with past medical history of right frontal ICH who presents status post spontaneous right parietal-occipital lobe ICH PLAN: 1. Rehab- PT/OT advance mobility and ADLs, strengthen/stretch/maintain ROM all 4 limbs, MPO to left foot when in bed, patient making functional gains in therapy, ambulating with assistance -BILLING SPECIALIST for cog and swallow 2. Neuro hx of right frontal ICH with LUE dyskinesia, now s/p spontaneous right parieto-occipital ICH cont BP management, patient was not on antiplatelet at baseline -f/u neurosurgery in 6 weeks with repeat head CT -repeat CT ordered 12-18-20 due to lethargy in therapy likely due to sleep medication and hypotension- CTH negative for new bleed, no new focal deficits, patient cont to improve -cont Depakote and Keppra for seizure ppx-repeat Keppra levels since increasing dose is now therapeutic at 34, spoke with Dr. Velazquez who recommends given she is on AEDs for prophylaxis ok to lower dose to 500 BID as therapeutic dosing not needed, patient has not had seizures since new hemorrhagic stroke -f/u with neurology on dc -will add Fiorcet prn for headaches -patient with vasovagal episode 12-20-20 while having a bowel movement, no new focal weakness, s/p gentle hydration, infectious work-up negative, lactic acidosis resolved with fluids-hospitalist assisting with management 3. Cardiac- hx of HTN cont BP meds -medicine consulted to assist in overall management 4. Resp- monitor for infection, admission CXR negative for infiltrate, patient without cough, CT chest 12-20-20 as part of infectious work-up also negative for infiltrate -Covid exposure- Resp panel negative 5. GI ppx- protonix -simethicone added for gas 6. DVT ppx- teds 7. Pain- tylenol prn 8. Psych- rozerem for insomnia, cont trazodone 25mg qhs 9. - inital urinary retention with failed TOV, s/p course of treatment for Strep agalactei UTI, cont flomax for bladder outlet obstruction, nguyen removed, bladder scanning protocol in place-patient voiding well now 10. Dispo- 01-02-21 to home, progressing towards goals, family is agreeable to take her home Allergies Coded Allergies: chocolate flavor (Verified Allergy, Mild, FACIAL RASH, 12/10/20) No Known Allergies (Verified Allergy, Unknown, 12/10/20) Vital Signs Vital Signs Date Time Temp Pulse Resp B/P (MAP) Pulse Ox O2 Delivery O2 Flow Rate FiO2 12/31/20 08:18 131/69 12/31/20 05:28 98.1 82 18 97 Room Air Current Medications Current Medications Current Medications Medications (Trade) Dose Ordered Sig/Melody Route PRN Reason Start Time Stop Time Status Last Admin Dose Admin Acetaminophen (Tylenol Tab) 650 mg Q24HP PRN PO fever/MILD PAIN (PS 1-4) 12/12/20 13:45 12/30/20 04:24 Acetaminophen (Tylenol Tab) 650 mg Q4HP PRN PO fever/MILD PAIN (PS 1-4) 12/10/20 12:30 12/12/20 13:41 DC 12/12/20 09:11 Acetaminophen (Tylenol Tab) 1,000 mg TID PO 12/12/20 16:00 12/31/20 08:17 Albuterol/ Ipratropium (Combivent Respimat 100-20mcg) 1 puff RTID INH 12/10/20 20:00 12/21/20 12:47 Amlodipine Besylate (Norvasc) 5 mg QHS PO 12/10/20 21:00 12/10/20 20:12 DC Amlodipine Besylate (Norvasc) 5 mg QHS PO 12/11/20 21:00 12/25/20 09:31 DC 12/24/20 20:15 Amlodipine Besylate (Norvasc) 10 mg QHS PO 12/10/20 21:00 12/11/20 14:44 DC 12/10/20 21:16 Calcium Carbonate (Tums) 1,000 mg Q4HP PRN PO HEARTBURN 12/10/20 12:30 Cephalexin Monohydrate (Keflex) 500 mg Q6H PO 12/13/20 12:00 12/18/20 06:01 DC 12/18/20 05:09 Docusate Sodium (Colace) 100 mg BID PO 12/10/20 21:00 12/31/20 08:17 Fluoxetine HCl (PROzac) 20 mg DAILY PO 12/11/20 09:00 12/11/20 14:44 DC 12/11/20 12:14 Heparin Sodium (Porcine) (Heparin) 5,000 units Q12H SQ 12/11/20 21:00 12/12/20 09:23 DC 12/11/20 20:39 Home Med (Home Med List Complete!) ASDIRECTED XX 12/10/20 19:30 12/10/20 19:36 DC Hydralazine HCl (Apresoline) 25 mg Q6H PO 12/10/20 18:00 12/17/20 14:33 DC 12/17/20 05:06 Hydralazine HCl (Apresoline) 25 mg TID PO 12/17/20 16:00 12/31/20 08:18 Lactobacillus Acidophilus (Bacid) 1 ea WM PO 12/13/20 12:30 12/31/20 08:17 Levetiracetam (Keppra) 500 mg BID PO 12/10/20 21:00 12/16/20 09:09 DC 12/16/20 08:09 Levetiracetam (Keppra) 500 mg BID PO 12/23/20 21:00 12/31/20 08:17 Levetiracetam (Keppra) 750 mg BID PO 12/16/20 21:00 12/23/20 10:07 DC 12/23/20 09:09 Lidocaine/ Diphenhydr/Alum/ Mg/Simeth (Magic Mouthwash) 5ML AC SSP 12/11/20 07:30 12/31/20 08:17 Lisinopril (Prinivil) 10 mg BID PO 12/18/20 21:00 12/25/20 09:06 DC 12/24/20 20:17 Lisinopril (Prinivil) 20 mg BID PO 12/18/20 09:00 12/18/20 11:33 DC 12/18/20 09:38 Lisinopril (Prinivil) 20 mg QHS PO 12/11/20 21:00 12/18/20 09:14 DC 12/17/20 20:41 Lisinopril (Prinivil) 40 mg QHS PO 12/10/20 21:00 12/11/20 14:44 DC 12/10/20 21:13 Pantoprazole Sodium (Protonix) 40 mg DAILY PO 12/11/20 09:00 12/31/20 08:17 Patient Own Medication (Patient'S Own Med) 2 CAPS DAILY PO 12/15/20 09:00 12/31/20 08:18 Polyethylene Glycol (Miralax) 1 pkt DAILY PRN PO CONSTIPATION 12/10/20 12:30 Propranolol HCl (Inderal) 10 mg TID PO 12/11/20 16:00 12/18/20 11:33 DC 12/18/20 08:35 Ramelteon (Rozerem) 8 mg QHS PO 12/10/20 21:00 12/30/20 20:58 Senna (Senokot) 1 tab QHS PO 12/10/20 21:00 12/29/20 20:15 Simethicone (Mylicon) 80 mg TID PO 12/18/20 16:00 12/31/20 08:17 Sodium Chloride 1,000 ml @ 75 mls/hr [id number] IV 12/25/20 11:45 12/26/20 11:46 DC 12/26/20 01:05 Sodium Chloride 1,000 ml @ 105 mls/hr [id number] IV 12/21/20 19:20 12/23/20 09:37 DC 12/23/20 09:19 Tamsulosin HCl (Flomax) 0.4 mg QHS PO 12/13/20 21:00 12/30/20 20:57 Terazosin HCl (Hytrin) 1 mg DAILY PO 12/17/20 09:00 12/25/20 09:06 DC 12/24/20 08:36 Terazosin HCl (Hytrin) 1 mg QHS PO 12/25/20 21:00 12/25/20 09:14 DC Trazodone HCl (Desyrel) 25 mg DAILY PRN PO INSOMNIA 12/14/20 10:50 12/18/20 13:08 DC Trazodone HCl (Desyrel) 25 mg QHS PO 12/18/20 21:00 12/30/20 20:57 Trazodone HCl (Desyrel) 25 mg QHSP PRN PO INSOMNIA 12/11/20 10:45 12/14/20 10:47 DC 12/13/20 22:28 Trazodone HCl (Desyrel) 50 mg QHS PO 12/17/20 21:00 12/18/20 13:08 DC 12/17/20 20:40 Trazodone HCl (Desyrel) 50 mg QHSP PRN PO INSOMNIA 12/14/20 10:45 12/17/20 14:33 DC Trazodone HCl (Desyrel) 100 mg QHSP PRN PO INSOMNIA 12/10/20 12:30 12/11/20 10:46 DC Valproic Acid (Depakene) 250 mg QHS PO 12/10/20 21:00 12/30/20 20:57 CHRISTIE NEVAREZ MD Dec 31, 2020 10:36
[2020-12-31 14:00] VITALS: BP 122/74
[2020-12-31] MEDS ORDERED: FIORICET TAB PO PRN (16:00)
[2020-12-31 19:26] VITALS: BP 142/50
[2020-12-31] MEDS: TAMSULOSIN 0.4 MG CAP PO SCH (20:31)
[2020-12-31] MEDS: traZODone 25MG PER 1/2 TABLET PO SCH (20:31)
[2020-12-31] MEDS: VALPROIC ACID 250MG CAP PO SCH (20:31)
[2020-12-31] MEDS: SENNA 8.6 MG TAB (SENOKOT) PO SCH (20:32)
[2020-12-31] MEDS: RAMELTEON 8 MG TAB (ROZEREM) PO SCH (20:32)
[2021-01-01] MEDS: ACETAMINOPHEN TAB 650MG DOSE (2X325MG) PO PRN (04:34)
[2021-01-01 04:40] VITALS: BP 118/78
[2021-01-01] MEDS: REMEDY PHYTOPLEX Z-GUARD PASTE 113GM TUBE (FROM STOREROOM PRODUCT) TOP SCH ×5 (06:00→23:25)
[2021-01-01] MEDS: COMBIVENT RESPIMAT 100-20MCG INHALER 4GM INH SCH ×3 (07:34→20:00)
[2021-01-01 08:31] LABS: BASO % 0.5 % (0.0-1.0); EOS # 0.3 10^3/uL (0.0-0.5); EOS % 3.8 % (0.0-3.0); HEMATOCRIT 36.6 % (36.0-47.0); HEMOGLOBIN 12.2 g/dl (12.0-15.5); LYMPH # 3.2 10^3/uL (1.5-5.0); LYMPH % 48.3 % (24.0-44.0); MEAN CORPUSCULAR HGB CONC 33.3 g/dl (32.0-36.5); MEAN CORPUSCULAR VOLUME 96.1 fl (80.0-96.0); MONO # 0.5 10^3/uL (0.0-0.8); MONO % 7.1 % (2.0-8.0); NEUTROPHILS # 2.6 10^3/uL (1.5-8.5); NEUTROPHILS % 39.5 % (36.0-66.0); PLATELET COUNT, AUTOMATED 269 10^3/uL (150-450); RED BLOOD COUNT 3.81 10^6/uL (4.00-5.40); WHITE BLOOD COUNT 6.6 10^3/uL (4.0-10.0)
[2021-01-01] MEDS: **hydrALAZINE HCL** 25 MG TAB PO SCH ×3 (09:00→21:00)
[2021-01-01] MEDS: DOCUSATE SODIUM 100MG CAPSULE PO SCH ×2 (09:00→21:12)
[2021-01-01 09:01] LABS: BLOOD UREA NITROGEN 14 MG/DL (7-18); CALCIUM LEVEL 9.5 MG/DL (8.8-10.2); CARBON DIOXIDE LEVEL 27 MEQ/L (21-32); CHLORIDE LEVEL 107 MEQ/L (98-107); CREATININE FOR GFR 0.69 MG/DL (0.55-1.30); GLOMERULAR FILTRATION RATE > 60.0 (>39); GLUCOSE, FASTING 105 MG/DL (70-100); POTASSIUM SERUM 4.3 MEQ/L (3.5-5.1); SODIUM LEVEL 142 MEQ/L (136-145)
[2021-01-01] MEDS: MAGIC MOUTHWASH SUSPENSION BTL SSP SCH ×3 (09:01→17:30)
[2021-01-01] MEDS: SIMETHICONE 80MG CHEW TAB PO SCH ×3 (09:02→21:12)
[2021-01-01] MEDS: PANTOPRAZOLE 40MG TAB (PROTONIX) PO SCH (09:02)
[2021-01-01] MEDS: levETIRAcetam 250MG TABLET (KEPPRA) PO SCH ×2 (09:02→21:12)
[2021-01-01] MEDS: LACTOBACILLUS ACIDOPHILUS CAP (BACID) PO SCH ×3 (09:02→17:33)
[2021-01-01] MEDS: ACETAMINOPHEN 500 MG TAB PO SCH ×3 (09:03→21:12)
[2021-01-01] MEDS: AREDS PO SCH (09:04)
--- NOTE | 2021-01-01 11:22 | REPVR ---
PROCEDURE INFORMATION: Exam: CT Head Without Contrast Exam date and time: 01/01/2021 10:41 AM Age: 80 years old Clinical indication: Pain; Headache; Additional info: Monitor recent ich (for [facility] neurosurgery to review) TECHNIQUE: Imaging protocol: Computed tomography of the head without contrast. Radiation optimization: All CT scans at this facility use at least one of these dose optimization techniques: automated exposure control; mA and/or kV adjustment per patient size (includes targeted exams where dose is matched to clinical indication); or iterative reconstruction. COMPARISON: CT Head without contrast 12/18/2020 12:47 PM FINDINGS: Brain: There is a new 16 x 16 x 10 mm hemorrhage within the anterior left frontal lobe minimal surrounding edema is present. There is no midline shift. A large resolving hemorrhage in the right parietal lobe is again noted. The density of the hematoma has decreased. The amount of surrounding edema is slightly improved. The hematoma and the surrounding edema measures up to 6 cm in maximum diameter (previously approximately 6.3 cm). Chronic encephalomalacia is present in the right frontal lobe. Age-related cerebral and cerebellar volume loss is present. Chronic small vessel ischemic disease is present in the cerebral white matter. Cerebral ventricles: There is severe ex vacuo dilation of the right frontal horn. Moderate dilation of the lateral ventricles is present. Paranasal sinuses: There is no acute sinusitis. Mastoid air cells: Visualized mastoid air cells are well aerated. Orbital cavity: Unremarkable as visualized. Bones/joints: No acute fracture. Soft tissues: Unremarkable. IMPRESSION: 1. New 16 mm left frontal lobe hemorrhage 2. Slowly resolving large right parietal lobe hemorrhage 3. Chronic findings as discussed above. Electronically signed by: Jun Burnett On 01/01/2021 11:22:15 AM
--- NOTE | 2021-01-01 12:53 | IPNPDOC ---
PM&R Progress Note DATE OF SERVICE: Jan 01, 2021 [employer] Progress Note Subjective: Patient seen in her room with her and understands that the CT did show a new bleed. She denies any new weakness, but dies say she had a headache over the weekend that did not respond to Tylenol and is wondering if that was when she had a new bleed. I explained that there was no way of knowing, but that she will be prone to headaches going forward and to monitor for new weakness. She and her understand she will also need to continue to monitor her blood pressures when at home. REVIEW OF SYSTEMS: The following is a completed review of systems and has been reviewed. Review of systems otherwise unremarkable. PAIN: Patient self reports no pain EYES: No recent vision changes EARS, NOSE, & THROAT: No throat pain, or dysphagia, or rhinorrhea CARDIOVASCULAR: Denies chest pain or palpitations PULMONARY: Denies shortness of breath GASTROINTESTINAL: Denies constipation/diarrhea GENITOURINARY: no dysuria MUSCULOSKELETAL: generalized weakness (improving0 NEUROLOGICAL:left sided apraxia with neglect (improving) HEMATOLOGICAL: denies easy bruising SKIN:denies rash PSYCHIATRIC: Unremarkable All other review of systems found to be negative. PHYSICAL EXAMINATION: VITAL SIGNS: Please see below. GENERAL: Pleasant and cooperative. No acute distress. no facial droop, tongue midline HEENT: PERRL. able to cross midline to left, Clear conjunctiva CARDIOVASCULAR: Regular rate and rhythm. No murmurs, rubs, or gallops LUNGS: Clear to auscultation bilaterally. No wheezes. No rhonchi ABDOMEN: Soft, nontender, nondistended. Positive bowel sounds. Normal active bowel sounds NEUROLOGICAL: Alert and oriented times three. Cranial nerves II through XII grossly intact. Sensation grossly intact, +left sided neglect and impaired sensation to light touch on left (improving), +apraxia (improving) +clonus on left EXTREMITIES: 5\\5 strength bilateral upper extremities. 5\\5 strength right lower extremity. 5/5 strength in left lower extremity SKIN: no sacral erythema ASSESSMENT:79-year-old F with past medical history of right frontal ICH who presents status post spontaneous right parietal-occipital lobe ICH PLAN: 1. Rehab- PT/OT advance mobility and ADLs, strengthen/stretch/maintain ROM all 4 limbs, patient making functional gains in therapy, ambulating with assistance -ARCHEOLOGY FACULTY MEMBER for cog and swallow 2. Neuro hx of right frontal ICH now s/p spontaneous right parieto-occipital ICH cont BP management, patient was not on antiplatelet at baseline -f/u neurosurgery in 6 weeks with repeat head CT -repeat CT ordered 12-18-20 due to lethargy in therapy likely due to sleep medication and hypotension- CTH negative for new bleed, no new focal deficits, patient cont to improve -cont Depakote and Keppra for seizure ppx-repeat Keppra levels since increasing dose is now therapeutic at 34, spoke with Dr. Velazquez who recommends given she is on AEDs for prophylaxis ok to lower dose to 500 BID as therapeutic dosing not needed, patient has not had seizures since new hemorrhagic stroke -f/u with neurology on dc -added Fiorcet prn for headaches -patient with vasovagal episode 12-20-20 while having a bowel movement, no new focal weakness, s/p gentle hydration, infectious work-up negative, lactic acidosis resolved with fluids-hospitalist assisting with management -CTH ordered today (01-01-21) to monitor ICH in preparation for her f/u with neurosurgery, CTH showing "New 16 mm left frontal lobe hemorrhage...Slowly resolving large right parietal lobe hemorrhage ", discussed case with INDIGO Ritchie Sah from [facility] who reviewed case with Dr. Stern and reports there is no surgical intervention, that patient is high risk for spontaneous bleed due to amyloid angiopathy, that patient will need to maintain good BP control while at home and go to the ED if she develops new focal weakness, patient's f/u appointment with neurosurgery to be scheduled in 2 weeks time where repeat CT will be ordered and reviewed with surgeon- plan of care discussed with patient and bedside, patient cont to make gains in therapy and no new neuro deficits noted 3. Cardiac- hx of HTN cont BP meds -medicine consulted to assist in overall management 4. Resp- monitor for infection, admission CXR negative for infiltrate, patient without cough, CT chest 12-20-20 as part of infectious work-up also negative for infiltrate -Covid exposure- Resp panel negative 5. GI ppx- protonix -simethicone added for gas 6. DVT ppx- teds 7. Pain- tylenol prn 8. Psych- rozerem for insomnia, cont trazodone 25mg qhs 9. - initial urinary retention with failed TOV, s/p course of treatment for Strep agalactei UTI, cont flomax for bladder outlet obstruction, nguyen removed, bladder scanning protocol in place-patient voiding well now 10. Dispo- 01-02-21 to home, progressing towards goals, family is agreeable to take her home Allergies Coded Allergies: chocolate flavor (Verified Allergy, Mild, FACIAL RASH, 12/10/20) No Known Allergies (Verified Allergy, Unknown, 12/10/20) Vital Signs Vital Signs Date Time Temp Pulse Resp B/P (MAP) Pulse Ox O2 Delivery O2 Flow Rate FiO2 01/01/21 09:00 118/78 01/01/21 04:40 97.3 72 18 92 Room Air Laboratory Data CBC/BMP Laboratory Tests 01/01/21 07:40 Labs 24H Laboratory Tests 2 01/01/21 07:40: Immature Granulocyte % (Auto) 0.8, Neutrophils (%) (Auto) 39.5, Lymphocytes (%) (Auto) 48.3H, Monocytes (%) (Auto) 7.1, Eosinophils (%) (Auto) 3.8H, Basophils (%) (Auto) 0.5, Neutrophils # (Auto) 2.6, Lymphocytes # (Auto) 3.2, Monocytes # (Auto) 0.5, Eosinophils # (Auto) 0.3, Basophils # (Auto) 0.0, Nucleated Red Blood Cells % (auto) 0.0, Anion Gap 8, Glomerular Filtration Rate > 60.0, Calcium Level 9.5 Microbiology Microbiology 12/31/20 Respiratory Virus Panel (PCR) ([facility]) - Final, Complete Current Medications Current Medications Current Medications Medications (Trade) Dose Ordered Sig/Melody Route PRN Reason Start Time Stop Time Status Last Admin Dose Admin Acetaminophen (Tylenol Tab) 650 mg Q24HP PRN PO fever/MILD PAIN (PS 1-4) 12/12/20 13:45 01/01/21 04:34 Acetaminophen (Tylenol Tab) 650 mg Q4HP PRN PO fever/MILD PAIN (PS 1-4) 12/10/20 12:30 12/12/20 13:41 DC 12/12/20 09:11 Acetaminophen (Tylenol Tab) 1,000 mg TID PO 12/12/20 16:00 01/01/21 09:03 Acetaminophen/ Butalbital/ Caffeine (Fioricet) 1 ea Q6HP PRN PO HEADACHE 12/31/20 16:00 01/01/21 01:33 Albuterol/ Ipratropium (Combivent Respimat 100-20mcg) 1 puff RTID INH 12/10/20 20:00 12/21/20 12:47 Amlodipine Besylate (Norvasc) 5 mg QHS PO 12/10/20 21:00 12/10/20 20:12 DC Amlodipine Besylate (Norvasc) 5 mg QHS PO 12/11/20 21:00 12/25/20 09:31 DC 12/24/20 20:15 Amlodipine Besylate (Norvasc) 10 mg QHS PO 12/10/20 21:00 12/11/20 14:44 DC 12/10/20 21:16 Calcium Carbonate (Tums) 1,000 mg Q4HP PRN PO HEARTBURN 12/10/20 12:30 Cephalexin Monohydrate (Keflex) 500 mg Q6H PO 12/13/20 12:00 12/18/20 06:01 DC 12/18/20 05:09 Docusate Sodium (Colace) 100 mg BID PO 12/10/20 21:00 12/31/20 20:31 Fluoxetine HCl (PROzac) 20 mg DAILY PO 12/11/20 09:00 12/11/20 14:44 DC 12/11/20 12:14 Heparin Sodium (Porcine) (Heparin) 5,000 units Q12H SQ 12/11/20 21:00 12/12/20 09:23 DC 12/11/20 20:39 Home Med (Home Med List Complete!) ASDIRECTED XX 12/10/20 19:30 12/10/20 19:36 DC Hydralazine HCl (Apresoline) 25 mg Q6H PO 12/10/20 18:00 12/17/20 14:33 DC 12/17/20 05:06 Hydralazine HCl (Apresoline) 25 mg TID PO 12/17/20 16:00 12/31/20 20:31 Lactobacillus Acidophilus (Bacid) 1 ea WM PO 12/13/20 12:30 01/01/21 11:56 Levetiracetam (Keppra) 500 mg BID PO 12/10/20 21:00 12/16/20 09:09 DC 12/16/20 08:09 Levetiracetam (Keppra) 500 mg BID PO 12/23/20 21:00 01/01/21 09:02 Levetiracetam (Keppra) 750 mg BID PO 12/16/20 21:00 12/23/20 10:07 DC 12/23/20 09:09 Lidocaine/ Diphenhydr/Alum/ Mg/Simeth (Magic Mouthwash) 5ML AC SSP 12/11/20 07:30 01/01/21 11:56 Lisinopril (Prinivil) 10 mg BID PO 12/18/20 21:00 12/25/20 09:06 DC 12/24/20 20:17 Lisinopril (Prinivil) 20 mg BID PO 12/18/20 09:00 12/18/20 11:33 DC 12/18/20 09:38 Lisinopril (Prinivil) 20 mg QHS PO 12/11/20 21:00 12/18/20 09:14 DC 12/17/20 20:41 Lisinopril (Prinivil) 40 mg QHS PO 12/10/20 21:00 12/11/20 14:44 DC 12/10/20 21:13 Pantoprazole Sodium (Protonix) 40 mg DAILY PO 12/11/20 09:00 01/01/21 09:02 Patient Own Medication (Patient'S Own Med) 2 CAPS DAILY PO 12/15/20 09:00 01/01/21 09:04 Polyethylene Glycol (Miralax) 1 pkt DAILY PRN PO CONSTIPATION 12/10/20 12:30 Propranolol HCl (Inderal) 10 mg TID PO 12/11/20 16:00 12/18/20 11:33 DC 12/18/20 08:35 Ramelteon (Rozerem) 8 mg QHS PO 12/10/20 21:00 12/31/20 20:32 Senna (Senokot) 1 tab QHS PO 12/10/20 21:00 12/31/20 20:32 Simethicone (Mylicon) 80 mg TID PO 12/18/20 16:00 01/01/21 09:02 Sodium Chloride 1,000 ml @ 75 mls/hr [id number] IV 12/25/20 11:45 12/26/20 11:46 DC 12/26/20 01:05 Sodium Chloride 1,000 ml @ 105 mls/hr [id number] IV 12/21/20 19:20 12/23/20 09:37 DC 12/23/20 09:19 Tamsulosin HCl (Flomax) 0.4 mg QHS PO 12/13/20 21:00 12/31/20 20:31 Terazosin HCl (Hytrin) 1 mg DAILY PO 12/17/20 09:00 12/25/20 09:06 DC 12/24/20 08:36 Terazosin HCl (Hytrin) 1 mg QHS PO 12/25/20 21:00 12/25/20 09:14 DC Trazodone HCl (Desyrel) 25 mg DAILY PRN PO INSOMNIA 12/14/20 10:50 12/18/20 13:08 DC Trazodone HCl (Desyrel) 25 mg QHS PO 12/18/20 21:00 12/31/20 20:31 Trazodone HCl (Desyrel) 25 mg QHSP PRN PO INSOMNIA 12/11/20 10:45 12/14/20 10:47 DC 12/13/20 22:28 Trazodone HCl (Desyrel) 50 mg QHS PO 12/17/20 21:00 12/18/20 13:08 DC 12/17/20 20:40 Trazodone HCl (Desyrel) 50 mg QHSP PRN PO INSOMNIA 12/14/20 10:45 12/17/20 14:33 DC Trazodone HCl (Desyrel) 100 mg QHSP PRN PO INSOMNIA 12/10/20 12:30 12/11/20 10:46 DC Valproic Acid (Depakene) 250 mg QHS PO 12/10/20 21:00 12/31/20 20:31 CHRISTIE NEVAREZ MD Jan 01, 2021 12:53
[2021-01-01 14:00] VITALS: BP 128/65
[2021-01-01 20:00] VITALS: BP 128/72
[2021-01-01] MEDS: traZODone 25MG PER 1/2 TABLET PO SCH (21:12)
[2021-01-01] MEDS: RAMELTEON 8 MG TAB (ROZEREM) PO SCH (21:12)
[2021-01-01] MEDS: TAMSULOSIN 0.4 MG CAP PO SCH (21:12)
[2021-01-01] MEDS: SENNA 8.6 MG TAB (SENOKOT) PO SCH (21:12)
[2021-01-01] MEDS: VALPROIC ACID 250MG CAP PO SCH (21:13)
[2021-01-02] MEDS: REMEDY PHYTOPLEX Z-GUARD PASTE 113GM TUBE (FROM STOREROOM PRODUCT) TOP SCH ×2 (05:03→12:00)
[2021-01-02 06:00] VITALS: BP 124/70
[2021-01-02] MEDS: MAGIC MOUTHWASH SUSPENSION BTL SSP SCH ×2 (07:30→12:00)
[2021-01-02] MEDS: COMBIVENT RESPIMAT 100-20MCG INHALER 4GM INH SCH (08:00)
[2021-01-02 09:00] VITALS: BP 120/68
[2021-01-02] MEDS: DOCUSATE SODIUM 100MG CAPSULE PO SCH (09:00)
[2021-01-02] MEDS: **hydrALAZINE HCL** 25 MG TAB PO SCH ×2 (09:00→10:19)
[2021-01-02] MEDS ORDERED: BUTA-198 PO (10:02)
[2021-01-02] MEDS ORDERED: MELA10CA6 PO (10:02)
[2021-01-02] MEDS ORDERED: MI-A80CH PO (10:02)
[2021-01-02] MEDS ORDERED: KEPP1TAB PO (10:02)
[2021-01-02] MEDS ORDERED: VALP1CAP2 PO (10:02)
[2021-01-02] MEDS ORDERED: HYDR25TA PO (10:02)
[2021-01-02] MEDS ORDERED: PANT40TA29 PO (10:02)
[2021-01-02] MEDS ORDERED: FLOM0.4C39 PO (10:02)
[2021-01-02] MEDS: SIMETHICONE 80MG CHEW TAB PO SCH (10:17)
[2021-01-02] MEDS: ACETAMINOPHEN 500 MG TAB PO SCH (10:17)
[2021-01-02] MEDS: LACTOBACILLUS ACIDOPHILUS CAP (BACID) PO SCH ×2 (10:17→13:20)
[2021-01-02] MEDS: levETIRAcetam 250MG TABLET (KEPPRA) PO SCH (10:17)
[2021-01-02] MEDS: PANTOPRAZOLE 40MG TAB (PROTONIX) PO SCH (10:17)
[2021-01-02] MEDS: AREDS PO SCH (10:18)
== END 2021-01-02 13:40 | disposition home health service (06) | DRG 57 ==
LOC: M PM&R 17:10
PROVIDERS: ADMIT Physical Medicine & Rehabilitation; ATTEND Physical Medicine & Rehabilitation
DX: I69.254 Hemiplegia and hemiparesis following other nontraumatic intracranial hemorrhage affecting left non-dominant side (principal); N39.0 Urinary tract infection, site not specified; E87.2 Acidosis; I69.290 Apraxia following other nontraumatic intracranial hemorrhage; I10 Essential (primary) hypertension; Z74.09 Other reduced mobility; Z74.1 Need for assistance with personal care; R53.1 Weakness; G47.00 Insomnia, unspecified; I69.298 Other sequelae of other nontraumatic intracranial hemorrhage; G24.9 Dystonia, unspecified; Z79.899 Other long term (current) drug therapy; Z91.02 Food additives allergy status; B95.5 Unspecified streptococcus as the cause of diseases classified elsewhere; R33.9 Retention of urine, unspecified; R55 Syncope and collapse

== ENCOUNTER 2021-01-16 14:27 | Emergency (ER) | payer MEDICARE, OTHER ==
[~2021-01-16] VITALS: Ht 154.9 cm; Wt 65.9 kg
[~2021-01-16 14:27] MED LIST: ACET1TAB55 PO; AMBI5TAB PO; AMLO1TAB25 PO; BUTA-198 PO; CALC500C16 PO; FLOM0.4C39 PO; HYDR25TA PO; KEPP1TAB PO; LISI40TA4 PO; MELA10CA6 PO; MI-A80CH PO; MM S100C PO; PANT40TA29 PO; TRAZ-257 PO; VALP1CAP2 PO
--- OUTSIDE RECORDS SUMMARY | 2021-01-16 15:29 | CCD | Continuity of Care Document ---
Author Author Sandra STERN MD Organization Unknown Address [address], [address] [place] [address] Phone [phone] Problems Description No Information Available Social History Type Date Description Comments Sex Unknown Allergies, Adverse Reactions, Alerts Description No Information Available Medications Description No Information Available Immunizations Description No Information Available Vital Signs Description No Information Available Results Description No Information Available Procedures Date Code Description Status 12/10/2020 42336 Hospital Subsequent Care Level 1 Completed 12/09/2020 18985 Hospital Subsequent Care Level 1 Completed 12/08/2020 20135 Hospital Subsequent Care Level 2 Completed 12/07/2020 32161 Hospital Subsequent Care Level 2 Completed 12/06/2020 91443 Hospital Subsequent Care Level 2 Completed 12/05/2020 19249 Hospital Subsequent Care Level 2 Completed 12/04/2020 61727 Hospital Subsequent Care Level 2 Completed 12/03/2020 73926 Hospital Initial Care Level 3 Co mpleted Medical Devices Description No Information Available Encounters Type Date Location Provider Dx Diagnosis Office Visit 12/10/2020 2:13a [facility] Neurosurgery Silver Stern MD 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, cortical Office Visit 12/09/2020 2:08a [facility] Neurosurgery Silver Stern MD 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, cortical Office Visit 12/08/2020 1:59a [facility] Neurosurgery Silver Stern MD 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, cortical Office Visit 12/07/2020 2:13a [facility] Neurosurgery Silver Stern MD 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, cortical R51.9 Headache, unspecified Office Visit 12/06/2020 2:11a [facility] Neurosurgery Silver Stern MD 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, cortical R51.9 Headache, unspecified Office Visit 12/05/2020 2:07a [facility] Neurosurgery Silver Stern MD 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, cortical R41.0 Disorientation, unspecified R45.1 Restlessness and agitation Office Visit 12/04/2020 2:06a [facility] Neurosurgery Silver Stern MD 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, cortical G93.6 Cerebral edema I10 Essential (primary) hyperten anat Office Visit 12/03/2020 2:03a [facility] Neurosurgery Silver Stern MD 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, cortical G93.5 Compression of brain I10 Essential (primary) hyperten anat Assessments Date Code Description Provider 12/10/2020 I61.1 Nontraumatic intracerebral hemor rhage in hemisphere, cortical Silver Stern MD 12/09/2020 I61.1 Nontraumatic intracerebral hemor rhage in hemisphere, cortical Silver Stern MD 12/08/2020 I61.1 Nontraumatic intracerebral hemor rhage in hemisphere, cortical Silver Stern MD 12/07/2020 I61.1 Nontraumatic intracerebral hemor rhage in hemisphere, cortical Silver Stern MD 12/07/2020 R51.9 Headache, unspecified Silver meneses MD 12/06/2020 I61.1 Nontraumatic intracerebral hemor rhage in hemisphere, cortical Silver Stern MD 12/06/2020 R51.9 Headache, unspecified Silver meneses MD 12/05/2020 I61.1 Nontraumatic intracerebral hemor rhage in hemisphere, rian Stern MD 12/05/2020 R41.0 Disorientation, unspecified Chi Stern MD 12/05/2020 R45.1 Restlessness and agitation Silver Stern MD 12/04/2020 I61.1 Nontraumatic intracerebral hemor rhage in hemisphere, cortical Silver Stern MD 12/04/2020 G93.6 Cerebral edema Silver Stern MD 12/04/2020 I10 Essential (primary) hypertension Silver Stern MD 12/03/2020 I61.1 Nontraumatic intracerebral hemor rhage in hemisphere, cortical Silver Stern MD 12/03/2020 G93.5 Compression of brain Silver cantor MD 12/03/2020 I10 Essential (primary) hypertension Silver Stern MD Plan of Treatment No Information Available Functional Status Description No Information Available Mental Status Description No Information Available Referrals Description No Information Available
--- OUTSIDE RECORDS SUMMARY | 2021-01-16 15:29 | CCD | Continuity of Care Document ---
Author Author Sandra Mccormick MD Organization Unknown Address [address] [facility] [address] [place] [address] Phone [phone] Care Team Providers Care Manager Of Care Name Role Phone Kp Mccormick JR, MD AUTM Unavailable [facility]M [phone] Sarah Talavera JR, MD AUTM ArthurEthan tejeda KAITLIN AUTM [phone] Problems Active Problems Provider Date Benign essential hypertension Kp Mccormick MD Onset: 0 10/21/2010 Pure hypercholesterolemia Kp Mccormick MD Onset: 10/21 Depressive disorder Kp Mccormick MD Onset: 10/21/2010 Refractory localization-related epilepsy Kp Mccormick MD Onset: 10/21/2010 Cerebral hemorrhage Kp Mccormick MD Onset: 10/21/2010 Essential hypertension Kp Mccormick MD Onset: 12/12/19 15 Social History Type Date Description Comments Sex Unknown Tobacco Use Start: Unknown Never Smoked Cigarettes ETOH Use Denies alcohol use Tobacco Use Start: Unknown Patient has never smoked Exercise Type/Frequency Exercises regularly Seat Belt/Car Seat always uses seat belt Allergies, Adverse Reactions, Alerts Active Allergies Criticality Reaction | Severity Comments Date Aspirin,Plavik Unable to assess criticality 12/17/2009 Medications Active Medications SIG Qnty Indications Ordering Provide r Date Amlodipine Besylate 5mg Tablets 1 by mouth every day 90tabs Kp Mccormick MD 02/21/2020 Preservision/Lutein Capsules 2 daily INDIGO Blevins JR 11/03/2019 Zolpidem Tartrate 5mg Tablets take one tablet by mouth at bedtime as needed max daily dose one tablet 30tabs Kp Mccormick MD 10/27/2019 Zyrtec 5MG Take AT Night Kp Mccormick MD 07/27/2018 Lisinopril 20mg Tablets Take 1 Tablet Daily 90tabs Kp Mccormick MD 07/28/2017 Trazodone HCL 100mg Tablets 1 PO AT hs 180tabs Kp Mccormick MD 08/19/2011 Vitamin D-1000 1000Unit Tablets 1 po qd Halley Chappell, NATHALY 01/21/2011 Vitamin B Complex Capsules 1 po qd Halley Chappell, NATHALY 01/21/2011 Levetiracetam 500mg Tablets take 1 tablet every 12 hours 180tabs Kp Mccormick MD 12/17/2009 Medications Administered in Office Medication SIG Qnty Indications Ordering Provider Date Covid-19 vaccine, Unspecified Inj ection Unknown 04/28/2020 Administration Of Flu Vaccine Inj ection Kp Mccormick MD 12/28/2019 Administration Of Flu Vaccine Inj ection Kp Mccormick MD 02/01/2019 Administration Of Flu Vaccine Inj ection Kp Mccormick MD 01/26/2017 Administration Of Flu Vaccine Inj ection Kp Mccormick MD 12/17/2009 Immunizations CPT Code Status Date Vaccine Lot # [id number] Given 12/28/2019 Influenza Vaccin e Quadrivalent Preser/Antibiotic Free Im Use [id number] 33869 Given 02/01/2019 Influenza Vaccin e Quadrivalent Preser/Antibiotic Free Im Use [id number] 76824 Given 07/15/2018 Shingrix [id number] Given 05/10/2018 Shingrix U-Flu Given 12/28/2017 Influenza,Unspecified 66963 Given 01/26/2017 Influenza Vaccin e Quadrivalent Preser/Antibiotic Free Im Use [id number] 29795 Given 06/06/2014 Prevnar 13 [id number] [id number] Given 04/02/2010 Zostavax 24481 Given 12/17/2009 Pneumovax 23 76092 Given 12/17/2009 Influenza Virus Vaccine Vital Signs Date Vital Result Comment 11/06/2020 10:47am BP Systolic 138 mmHg BP Diastolic 80 mmHg Heart Rate 76 /min Height 60.25 inches 5'0.25" Weight 147.00 lb BMI (Body Mass Index) 28.5 kg/m2 05/06/2020 11:20am BP Systolic 126 mmHg BP Diastolic 74 mmHg Height 60.25 inches 5'0.25" Weight 144.50 lb BMI (Body Mass Index) 28.0 kg/m2 Results Test Acquired Date Facility Test Result H/L Range Note Complete Blood Count 11/06/2020 [facility] [employer]: [place] [address] [phone] WBC 7.0 x10*3/UL 4.1 - 10.9 RBC 4.41 x10*6/UL 4.20 - 6.30 Hemoglobin 13.5 g/dL 12.0 - 18.0 Hematocrit 39.8 % 37.0 - 51.0 MCV 90.1 fL 80.0 - 97.0 MCH 30.6 pg 26.0 - 32.0 MCHC 34.0 g/dL 31.0 - 38.0 RDW 13.4 % 11.6 - 13.7 PLT 213 x10*3/UL 140 - 440 MPV 7.7 FL Low 7.8 - 11.0 Lymph % 55.5 % 10.0 - 58.5 Mid % 6.3 % 1.7 - 9.3 Neut % 38.2 % 37.0 - 92.0 Lymph # 3.9 x10*3/UL 0.6 - 4.1 Mid # 0.4 x10*3/UL 0.1 - 0.6 Neut # 2.7 x10*3/UL 2.0 - 7.8 Comprehensive Chem Profile 11/06/2020 [facility] mati Jacobs [facility]: [place] [address] [phone] Glucose 93 mg/dL 74 - 99 1 BUN 18 mg/dL 7 - 18 Creatinine 0.9 mg/dL 0.6 - 1.3 Sodium 139 mEq/L 136 - 145 Potassium 4.3 mEq/L 3.5 - 5.1 Chloride 105 mEq/L 98 - 107 Carbon Dioxide 26 mEq/L 21 - 32 Calcium 9.4 mg/dL 8.5 - 10.1 Alk. Phosphatase 64 mg/dL 46 - 116 Total Bilirubin 0.6 mg/dL 0.2 - 1.0 Ast (Sgot) 17 U/L 15 - 37 Alt (SGPT) 29 U/L 12 - 78 Albumin 3.9 g/dL 3.4 - 5.0 Total Protein 6.8 g/dL 6.4 - 8.2 A/G Ratio 1.34 CALC 1.00 - 1.90 GFR >= 60 mL/min >60 GFR >= 60 mL/min >60 2 Lipid Profile 11/06/2020 [facility] Feltmaker: [place] [address] [phone] Cholesterol 250 mg/dL High 131 - 200 Triglycerides 170 mg/dL High 30 - 150 HDL Cholesterol 61 mg/dL High 35 - 60 LDL (Calculated) 155 CALC 50 - 159 1 100-125 mg/dL PRE-DIABET ES/FASTING >126 mg/dL DIABETES/FASTING 2 CHRONIC KIDNEY DISEASE STAGI NG PER NKF STAGE I & II GFR >= 60 NORMAL TO MILDLY DECREASED STAGE III GFR 30-59 MODERATELY DECREASED STAGE IV GFR 15-29 SEVERELY DECREASED STAGE V GFR <15 VERY LITTLE GFR LEFT ESRD GFR <15 ON VOLLEYBALL COMMENTATOR Procedures Date Code Description Status 11/06/2020 91479 Office/Outpatient Established Mo d MDM 30-39 Min Completed 09/10/2016 [id number] Mammogram Completed 2015 [id number] Mammogram Completed 04/10/2014 [id number] Mammogram Completed 12/09/2005 [id number] Bone Mineral Density Test Comple [place] Description No Information Available Encounters Type Date Location Provider Dx Diagnosis Office Visit 11/06/2020 10:40a [facility] Kp Mccormick MD I10 Essential (primary) hypertension E78.00 Pure hypercholesterolemia, u nspecified R56.9 Unspecified convulsions G47.00 Insomnia, unspecified I68.0 Cerebral amyloid angiopathy E55.9 Vitamin D deficiency, unspec ified E66.3 Overweight Z68.28 Body mass index [BMI] 28.0-2 8.9, adult Assessments Date Code Description Provider 11/06/2020 I10 Essential (primary) hypertension Kp Mccormick MD 11/06/2020 E78.00 Pure hypercholesterolemia, unspe cified Kp Mccormick MD 11/06/2020 R56.9 Unspecified convulsions Kp Mccormick MD 11/06/2020 G47.00 Insomnia, unspecified Kp Mccormick MD 11/06/2020 I68.0 Cerebral amyloid angiopathy Stella nick Mccormick MD 11/06/2020 E55.9 Vitamin D deficiency, unspecifie d Kp Mccormick MD 11/06/2020 E66.3 Overweight Kp staples MD 11/06/2020 Z68.28 Body mass index [BMI] 28.0-28.9, adult Kp Mccormick MD Plan of Treatment Future Appointment(s):* 05/16/2021 8:40 am - [facility] * 05/16/2021 9:00 am - Kp Mccormick [facility] at [facility] 11/06/2020 - Kp Mccormick MD* I10 Essential (primary) hypertension* Comments:* Hypertension at [facility]-8 guidelines * E78.00 Pure hypercholesterolemia, unspecified * R56.9 Unspecified convulsions * G47.00 Insomnia, unspecified * I68.0 Cerebral amyloid angiopathy * E55.9 Vitamin D deficiency, unspecified * E66.3 Overweight * Z68.28 Body mass index [BMI] 28.0-28.9, adult Functional Status Description No Information Available Mental Status Description No Information Available Referrals Description No Information Available
--- OUTSIDE RECORDS SUMMARY | 2021-01-16 15:29 | CCD | Continuity of Care Document ---
Author Author Sandra STERN MD Organization Unknown Address [address], [address] [place] [address] Phone [phone] Problems Description No Information Available Social History Type Date Description Comments Sex Unknown Allergies, Adverse Reactions, Alerts Description No Information Available Medications Description No Information Available Immunizations Description No Information Available Vital Signs Description No Information Available Results Description No Information Available Procedures Date Code Description Status 12/10/2020 59948 Hospital Subsequent Care Level 1 Completed 12/09/2020 12947 Hospital Subsequent Care Level 1 Completed 12/08/2020 16907 Hospital Subsequent Care Level 2 Completed 12/07/2020 13369 Hospital Subsequent Care Level 2 Completed 12/06/2020 89507 Hospital Subsequent Care Level 2 Completed 12/05/2020 73024 Hospital Subsequent Care Level 2 Completed 12/04/2020 90874 Hospital Subsequent Care Level 2 Completed 12/03/2020 07575 Hospital Initial Care Level 3 Co mpleted Medical Devices Description No Information Available Encounters Type Date Location Provider Dx Diagnosis Office Visit 12/10/2020 2:13a [facility] Neurosurgery Silver Stern MD 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, cortical Office Visit 12/09/2020 2:08a [facility] Neurosurgery Silver Stern MD 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, cortical Office Visit 12/08/2020 1:59a [facility] Neurosurgery Silver Stern MD 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, cortical Office Visit 12/07/2020 2:13a [facility] Neurosurgery Silver Stern MD 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, cortical R51.9 Headache, unspecified Office Visit 12/06/2020 2:11a [facility] Neurosurgery Silver Stern MD 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, cortical R51.9 Headache, unspecified Office Visit 12/05/2020 2:07a [facility] Neurosurgery Silver Stern MD 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, cortical R41.0 Disorientation, unspecified R45.1 Restlessness and agitation Office Visit 12/04/2020 2:06a [facility] Neurosurgery Silver Stern MD 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, cortical G93.6 Cerebral edema I10 Essential (primary) hyperten anat Office Visit 12/03/2020 2:03a [facility] Neurosurgery Silver Stern MD I6 1.1 Nontraumatic [...]
--- OUTSIDE RECORDS SUMMARY | 2021-01-16 15:29 | CCD | Continuity of Care Document ---
Author Author Sandra Mccormick MD Organization Unknown Address [address] [facility] [address] [place] [address] Phone [phone] Care Team Providers Care Field Service Specialist Name Role Phone Kp Mccormick JR, MD AUTM Unavailable [facility] AUTM [phone] Sarah Talavera JR, MD AUTM Ethan Arthur KAITLIN AUTM [phone] Problems Active Problems Provider Date Benign essential hypertension Kp Mccormick MD Onset: 0 10/21/2010 Pure hypercholesterolemia Kp Mccormick MD Onset: 10/21 Depressive disorder Kp Mccormick MD Onset: 10/21/2010 Refractory localization-related epilepsy Kp Mccormick MD Onset: 10/21/2010 Cerebral hemorrhage Kp Mccormick MD Onset: 10/21/2010 Essential (primary) hypertension Kp Mccormick MD Onset : 12/11/2014 Social History Type Date Description Comments Sex Unknown Tobacco Use Start: Unknown Never Smoked Cigarettes ETOH Use Denies alcohol use Tobacco Use Start: Unknown Patient has never smoked Exercise Type/Frequency Exercises regularly Seat Belt/Car Seat always uses seat belt Allergies, Adverse Reactions, Alerts Active Allergies Reaction Severity Comments Date Aspirin,Plavik 12/17/2009 Medications Active Medications SIG Qnty Indications [...] Mccormick MD 07/28/2017 Trazodone HCL 100mg Tablets 2 PO AT hs 180tabs Kp Mccormick MD 08/19/2011 Vitamin D-1000 1000Unit Tablets 1 po qd NATHALY Mao 01/21/2011 Vitamin B Complex Capsules 1 po qd NATHALY Mao 01/21/2011 Levetiracetam 500mg Tablets take 1 tablet [...] CPT Code Status Date Vaccine Lot # [id number] Given 12/28/2019 Influenza Vaccin e Quadrivalent Preser/Antibiotic Free Im Use [id number] 24389 Given 02/01/2019 Influenza Vaccin e Quadrivalent Preser/Antibiotic Free Im Use [id number] 17282 Given 07/15/2018 Shingrix 05491 Given 05/10/2018 Shingrix U-Flu Given 12/28/2017 Influenza,Unspecified 37619 Given 01/26/2017 Influenza Vaccin e Quadrivalent Preser/Antibiotic Free Im Use [id number] 64147 Given 06/06/2014 Prevnar 13 [id number] Given 04/02/2010 Zostavax 11913 Given 12/17/2009 Pneumovax 23 80104 Given 12/17/2009 Influenza Virus Vaccine Vital Signs Date Vital Result Comment 05/06/2020 11:20am BP Systolic 126 mmHg BP Diastolic 74 mmHg Height 60.25 inches 5'0.25" Weight 144.50 lb BMI (Body Mass Index) 28.0 kg/m2 02/21/2020 8:46am BP Systolic 138 mmHg BP Diastolic 96 mmHg Heart Rate 82 /min Height 60.25 inches 5'0.25" Weight 147.00 lb BMI (Body Mass Index) 28.5 kg/m2 Results Description No Information Available Procedures Date Code Description Status 09/10/2016 07450989 Mammogram Completed 2015 [id number] Mammogram Completed 04/10/2014 [id number] Mammogram Completed 12/09/2005 478522090 Bone Mineral Density Test Comple [facility] [employer] Description No Information Available Encounters Description No Information Available Assessments Description No Information Available Plan of Treatment Future Appointment(s):* 11/06/2020 10:40 am - Kp Mccormick MD at [facility] 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
--- OUTSIDE RECORDS SUMMARY | 2021-01-16 15:29 | CCD | Continuity of Care Document ---
Author Author Sandra STERN MD Organization Unknown Address [address], [address] [place] [address] Phone [phone] Problems Description No Information Available Social History Type Date Description Comments Sex Unknown Allergies, Adverse Reactions, Alerts Description No Information Available Medications Description No Information Available Immunizations Description No Information Available Vital Signs Description No Information Available Results Description No Information Available Procedures Date Code Description Status 12/10/2020 33151 Hospital Subsequent Care Level 1 Completed 12/09/2020 42899 Hospital Subsequent Care Level 1 Completed 12/08/2020 49588 Hospital Subsequent Care Level 2 Completed 12/07/2020 69579 Hospital Subsequent Care Level 2 Completed 12/06/2020 63516 Hospital Subsequent Care Level 2 Completed 12/05/2020 67073 Hospital Subsequent Care Level 2 Completed 12/04/2020 35877 Hospital Subsequent Care Level 2 Completed 12/03/2020 87787 Hospital Initial Care Level 3 Co mpleted Medical Devices Description No Information Available Encounters Type Date Location Provider Dx Diagnosis Office Visit 12/10/2020 2:13a [facility] Neurosurgery Silver Stern MD 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, cortical Office Visit 12/09/2020 2:08a [facility] Neurosurgery Silver Stern MD 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, cortical Office Visit 12/08/2020 1:59a [facility] Neurosurgery Silver Stern MD 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, cortical Office Visit 12/07/2020 2:13a [facility] Neurosurgery Silver Stern MD 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, cortical R51.9 Headache, unspecified Office Visit 12/06/2020 2:11a [facility] Neurosurgery Silver Stern MD 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, cortical R51.9 Headache, unspecified Office Visit 12/05/2020 2:07a [facility] Neurosurgery Silver Stern MD 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, cortical R41.0 Disorientation, unspecified R45.1 Restlessness and agitation Office Visit 12/04/2020 2:06a [facility] Neurosurgery Silver Stern MD 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, cortical G93.6 Cerebral edema I10 Essential (primary) hyperten anat Office Visit 12/03/2020 2:03a [facility] Neurosurgery Silver Stern MD [...] Stern MD 12/06/2020 R51.9 Headache, unspecified Silver mensees MD 12/05/2020 I61.1 Nontraumatic intracerebral hemor rhage [...]
--- OUTSIDE RECORDS SUMMARY | 2021-01-16 15:29 | CCD | Continuity of Care Document ---
Author Author Sandra AMADOR MD Organization Unknown Address [address] [place] [address], [address] [place] [address] Phone [phone] Problems Description No Information Available Social History Type Date Description Comments Sex Unknown Allergies, Adverse Reactions, Alerts Description No Information Available Medications Description No Information Available Immunizations Description No Information Available Vital Signs Description No Information Available Results Description No Information Available Procedures Date Code Description Status 12/10/2020 30095 Hospital Subsequent Care Level 1 Completed 12/09/2020 68624 Hospital Subsequent Care Level 1 Completed 12/08/2020 02446 Hospital Subsequent Care Level 2 Completed 12/07/2020 21247 Hospital Subsequent Care Level 2 Completed 12/06/2020 65405 Hospital Subsequent Care Level 2 Completed 12/05/2020 27141 Hospital Subsequent Care Level 2 Completed 12/04/2020 99531 Hospital Subsequent Care Level 2 Completed 12/03/2020 01463 Hospital Initial Care Level 3 Co mpleted 12/03/2020 63054 Electrocardiogram Interpretation & Report Only Completed Medical Devices Description No Information Available Encounters Type Date Location Provider Dx Diagnosis Office Visit 12/10/2020 2:13a [facility] Neurosurgery Silver Stern MD 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, cortical Office Visit 12/09/2020 2:08a [facility] Neurosurgery Silver Stern MD 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, cortical Office Visit 12/08/2020 1:59a [facility] Neurosurgery Silver Stern MD 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, cortical Office Visit 12/07/2020 2:13a [facility] Neurosurgery Silver Stern MD 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, cortical R51.9 Headache, unspecified Office Visit 12/06/2020 2:11a [facility] Neurosurgery Silver Stern MD 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, cortical R51.9 Headache, unspecified Office Visit 12/05/2020 2:07a [facility] Neurosurgery Silver Stern MD 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, cortical R41.0 Disorientation, unspecified R45.1 Restlessness and agitation Office Visit 12/04/2020 2:06a [facility] Neurosurgery Silver Stern MD 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, cortical G93.6 Cerebral edema I10 Essential (primary) hyperten anat Office Visit 12/03/2020 2:03a [facility] Neurosurgery Silver Stern MD I6 1.1 [...] hemor rhage in hemisphere, rian Stern MD 12/07/2020 R51.9 Headache, unspecified Silver meneses MD 12/06/2020 I61.1 Nontraumatic intracerebral hemor rhage in hemisphere, rian Stern MD 12/06/2020 R51.9 Headache, unspecified Silver meneses MD 12/05/2020 I61.1 Nontraumatic intracerebral hemor rhage in hemisphere, rian Stern MD 12/05/2020 R41.0 Disorientation, unspecified Chi Stern MD 12/05/2020 R45.1 Restlessness and agitation Silver Stern MD 12/04/2020 I61.1 Nontraumatic intracerebral hemor rhage in hemisphere, rian Stern MD 12/04/2020 G93.6 Cerebral edema Silver Stern MD 12/04/2020 I10 Essential (primary) hypertension Silver Stern MD 12/03/2020 I61.1 Nontraumatic intracerebral hemor rhage in hemisphere, cortical Silver Stern MD 12/03/2020 G93.5 Compression of brain Silver cantor MD 12/03/2020 I10 Essential (primary) hypertension Silver Stern MD 12/03/2020 I61.9 Nontraumatic intracerebral hemor rhage, unspecified Rd Amador MD 12/03/2020 I61.5 Nontraumatic intracerebral hemor rhage, intraventricular Rd Amador MD 12/03/[address] hills MD 12/03/[address] Amador MD 12/03/2020 G81.94 Hemiplegia, unspecified affectin g left nondominant side Rd Amador MD 12/03/2020 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
--- OUTSIDE RECORDS SUMMARY | 2021-01-16 15:29 | CCD | Continuity of Care Document ---
Author Author Sandra RODRIGUEZ DO Organization Unknown Address [address] [facility] [address] [place] [address] Phone [phone] Care Team Providers Care Child Care Assistant Name Role Phone Kp Rodriguez JR, MD AUTM Unavailable [facility] AUTM [phone] Sarah Talavera JR, MD AUTM ArthurEthan tejeda OD AUTM [phone] [facility] AUTM [phone] Problems Active Problems Provider Date Benign essential hypertension Kp Rodriguez MD Onset: 0 10/21/2010 Pure hypercholesterolemia Kp Rodriguez MD Onset: 10/21 Depressive disorder Kp Rodriguez MD Onset: 10/21/2010 Refractory localization-related epilepsy Kp Rodriguez MD Onset: 10/21/2010 Cerebral hemorrhage Kp Rodriguez MD Onset: 10/21/2010 Essential hypertension Kp Rodriguez MD Onset: 12/12/19 15 Social History Type Date Description Comments Sex Unknown Tobacco Use Start: Unknown Never Smoked Cigarettes ETOH Use Denies alcohol use Tobacco Use Start: Unknown Patient has never smoked Exercise Type/Frequency Exercises regularly Seat Belt/Car Seat always uses seat belt Allergies and adverse reactions Active Allergies Criticality Reaction | Severity Comments Date Vu Cissek Unable to assess criticality 12/17/2009 Medications Active Medications SIG Qnty Indications Ordering Provide r Date Trazodone HCL 50mg Tablets 1/2 tab by mouth every night as needed 14tabs Claus Rodriguez DO 01/07/2021 Pantoprazole Sodium 40mg Solution Rec 1 by mouth every morning 30units Claus Rodriguez, DO 12/20 Hydralazine HCL 25mg Tablets 1 by mouth three times a day 90tabs Claus Rodriguez, DO 2020 Valproic Acid 250mg Capsules one tab at at bedtime 270caps Claus Rodriguez, DO 01/04/20 21 Melatonin 10mg Capsules one tab by mouth one hour before bed 30caps Manuel Garay, D.O. 1 Preservision/Lutein Capsules 2 daily INDIGO Blevins JR 11/03/2019 Zyrtec 5MG Take AT Night Kp Rodriguez MD 07/27/2018 Lisinopril 20mg Tablets take 1 tablet daily 90tabs Claus Rodriguez, DO 07/29/19 18 Vitamin D-1000 1000Unit Tablets 1 po qd Halley Chappell, ANP 01/21/2011 Vitamin B Complex Capsules 1 po qd Halley Chappell, ANP 01/21/2011 Levetiracetam 500mg Tablets take 1 tablet every 12 hours 180tabs Claus Rodriguez, DO 12/18/19 10 Tamsulosin HCL 0.4mg Capsules 1 daily 1/2 hour after same meal 90van ness campuss Claus Rodriguez, DO Butalbital-Acetaminophen 50-300mg Tablets 1 or 2 tab every 4 hours as needed headach 90tabs Sammy Rodriguez, DO History Medications Protonix 40mg Tablets DR 1 by mouth every morning 90tabs Manuel Garay, D.O. 01/03 - 01/07/2021 Medications Administered in Office Medication SIG Qnty Indications Ordering Provider Date Covid-19 vaccine, Unspecified Inj ection Unknown 04/28/2020 Administration Of Flu Vaccine Inj ection Kp Rodriguez MD 12/28/2019 Administration Of Flu Vaccine Inj ection Kp Rodriguez MD 02/01/2019 Administration Of Flu Vaccine Inj ection Kp Rodriguez MD 01/26/2017 Administration Of Flu Vaccine Inj ection Kp Rodriguez MD 12/17/2009 Immunizations CPT Code Status Date Vaccine Lot # [id number] Given 12/28/2019 Influenza Vaccin e Quadrivalent Preser/Antibiotic Free Im Use [id number] 41452 Given 02/01/2019 Influenza Vaccin e Quadrivalent Preser/Antibiotic Free Im Use [id number] 08737 Given 07/15/2018 Shingrix 90407 Given 05/10/2018 Shingrix U-Flu Given 12/28/2017 Influenza,Unspecified 45706 Given 01/26/2017 Influenza Vaccin e Quadrivalent Preser/Antibiotic Free Im Use [id number] 74344 Given 06/06/2014 Prevnar 13 [id number] 56472 Given 04/02/2010 Zostavax 31686 Given 12/17/2009 Pneumovax 23 33222 Given 12/17/2009 Influenza Virus Vaccine Vital Signs Date Vital Result Comment 01/07/2021 11:14am BP Systolic 132 mmHg BP Diastolic 76 mmHg Heart Rate 68 /min Height 60.25 inches 5'0.25" Weight 145.00 lb BMI (Body Mass Index) 28.1 kg/m2 11/06/2020 10:47am BP Systolic 138 mmHg BP Diastolic 80 mmHg Heart Rate 76 /min Height 60.25 inches 5'0.25" Weight 147.00 lb BMI (Body Mass Index) 28.5 kg/m2 Results Test Acquired Date Facility Test Result H/L Range Note Complete Blood Count 11/06/2020 [facility] Purchasing Analyst: [place] [address] [phone] WBC 7.0 x10*3/UL 4.1 - 10.9 RBC [...] 2.0 - 7.8 Comprehensive Chem Profile 11/06/2020 [facility] Purchasing Analyst: [place] [address] [phone] Glucose 93 mg/dL 74 - 99 1 [...] 60 mL/min >60 2 Lipid Profile 11/06/2020 [facility] Purchasing Analyst: [place] [address] [phone] Cholesterol 250 mg/dL High 131 - 200 [...] LITTLE GFR LEFT ESRD GFR <15 ON [employer] Procedures Date Code Description Status 11/06/2020 68111 Office/Outpatient Established Mo d MDM 30-39 Min Completed 09/10/2016 [id number] Mammogram Completed 2015 [id number] Mammogram Completed 04/10/2014 [id number] Mammogram Completed 12/09/2005 524445561 Bone Mineral Density Test Comple Ipsum Description No Information Available Encounters Type Date Location Provider Dx Diagnosis Office Visit 11/06/2020 10:40a [facility] 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 E55.9 Vitamin D deficiency, unspec ified E66.3 Overweight Z68.28 Body mass index [BMI] 28.0-2 8.9, adult Assessments Date Code Description Provider 11/06/2020 I10 Essential (primary) hypertension Kp Rodriguez MD 11/06/2020 E78.00 Pure hypercholesterolemia, unspe cified Kp Rodriguez MD 11/06/2020 R56.9 Unspecified convulsions Kp Rodriguez MD 11/06/2020 G47.00 Insomnia, unspecified Kp Rodriguez MD 11/06/2020 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 * 05/16/2021 9:00 am - Kp Rodriguez MD at [facility] 01/07/2021 - Claus Rodriguez DO* All * New Medication:* Trazodone HCL 50 mg - 1/2 tab by mouth every night as needed * Pantoprazole Sodium 40 mg - 1 by mouth every morning Functional Status Description No Information Available Mental Status Description No Information Available Referrals Description No Information Available
--- OUTSIDE RECORDS SUMMARY | 2021-01-16 15:29 | CCD | Continuity of Care Document ---
Author Author Sandra STERN MD Organization Unknown Address [address], [address] [place] [address] Phone [phone] Problems Description No Information Available Social History Type Date Description Comments Sex Unknown Allergies, Adverse Reactions, Alerts Description No Information Available Medications Description No Information Available Immunizations Description No Information Available Vital Signs Description No Information Available Results Description No Information Available Procedures Date Code Description Status 12/10/2020 36158 Hospital Subsequent Care Level 1 Completed 12/09/2020 01477 Hospital Subsequent Care Level 1 Completed 12/08/2020 14457 Hospital Subsequent Care Level 2 Completed 12/07/2020 77185 Hospital Subsequent Care Level 2 Completed 12/06/2020 47514 Hospital Subsequent Care Level 2 Completed 12/05/2020 44503 Hospital Subsequent Care Level 2 Completed 12/04/2020 99341 Hospital Subsequent Care Level 2 Completed 12/03/2020 69035 Hospital Initial Care Level 3 Co mpleted Medical Devices Description No Information Available Encounters Type Date Location Provider Dx Diagnosis Office Visit 12/10/2020 2:13a [facility] Neurosurgery Silver Stern MD 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, cortical Office Visit 12/09/2020 2:08a [facility] Neurosurgery Silver Stern MD 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, cortical Office Visit 12/08/2020 1:59a [facility] Neurosurgery Silver Stern MD 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, cortical Office Visit 12/07/2020 2:13a [facility] Neurosurgery Silver Stern MD 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, cortical R51.9 Headache, unspecified Office Visit 12/06/2020 2:11a [facility] Neurosurgery Silver Stern MD 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, cortical R51.9 Headache, unspecified Office Visit 12/05/2020 2:07a [facility] Neurosurgery Silver Stern MD 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, cortical R41.0 Disorientation, unspecified R45.1 Restlessness and agitation Office Visit 12/04/2020 2:06a [facility] Neurosurgery Silver Stern MD 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, cortical G93.6 Cerebral edema I10 Essential (primary) hyperten anat Office Visit 12/03/2020 2:03a [facility] Neurosurgery Silver Stern MD I6 1.1 Nontraumatic [...]
--- OUTSIDE RECORDS SUMMARY | 2021-01-16 15:29 | CCD | Continuity of Care Document ---
Author Author Sandra PADILLA MD Organization Unknown Address [address], [address] [place] [address] Phone [phone] Problems Description No Information Available Social History Type Date Description Comments Sex Unknown Allergies, Adverse Reactions, Alerts Description No Information Available Medications Description No Information Available Immunizations Description No Information Available Vital Signs Description No Information Available Results Description No Information Available Procedures Date Code Description Status 12/04/2020 03752 Hospital Subsequent Care Level 2 Completed 12/03/2020 25286 Hospital Initial Care Level 3 Co mpleted Medical Devices Description No Information Available Encounters Type Date Location Provider Dx Diagnosis Office Visit 12/04/2020 2:06a [facility] Neurosurgery Silver Padilla MD 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, cortical G93.6 Cerebral edema I10 Essential (primary) hyperten anat Office Visit 12/03/2020 2:03a [facility] Neurosurgery Silver Padilla MD 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, cortical G93.5 Compression of brain I10 Essential (primary) hyperten anat Assessments Date Code Description Provider 12/04/2020 I61.1 Nontraumatic intracerebral hemor rhage in hemisphere, cortical Silver Padilla MD 12/04/2020 G93.6 Cerebral edema Silver Padilla MD 12/04/2020 I10 Essential (primary) hypertension Silver Padilla MD 12/03/2020 I61.1 Nontraumatic intracerebral hemor rhage in hemisphere, cortical Silver Padilla MD 12/03/2020 G93.5 Compression of brain Silver cantor MD 12/03/2020 I10 Essential (primary) hypertension Silver Padilla MD Plan of Treatment No Information Available Functional Status Description No Information Available Mental Status Description No Information Available Referrals Description No Information Available
--- OUTSIDE RECORDS SUMMARY | 2021-01-16 15:29 | CCD | Continuity of Care Document ---
Author Author Sandra PADILLA MD Organization Unknown Address [address], [address] [place] [address] Phone [phone] Problems Description No Information Available Social History Type Date Description Comments Sex Unknown Allergies, Adverse Reactions, Alerts Description No Information Available Medications Description No Information Available Immunizations Description No Information Available Vital Signs Description No Information Available Results Description No Information Available Procedures Date Code Description Status 12/04/2020 27410 Hospital Subsequent Care Level 2 Completed 12/03/2020 20879 Hospital Initial Care Level 3 Co mpleted Medical Devices Description No Information Available Encounters Type Date Location Provider Dx Diagnosis Office Visit 12/04/2020 2:06a [facility] Neurosurgery Silver Padilla MD 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, cortical G93.6 Cerebral edema I10 Essential (primary) hyperten anat Office Visit 12/03/2020 2:03a [facility] Neurosurgery Silver Padilla MD I6 1.1 Nontraumatic [...]
--- OUTSIDE RECORDS SUMMARY | 2021-01-16 15:29 | CCD | Continuity of Care Document ---
Author Author Sandra STERN MD Organization Unknown Address [address], [address] [place] [address] Phone [phone] Problems Description No Information Available Social History Type Date Description Comments Sex Unknown Allergies, Adverse Reactions, Alerts Description No Information Available Medications Description No Information Available Immunizations Description No Information Available Vital Signs Description No Information Available Results Description No Information Available Procedures Date Code Description Status 12/10/2020 94263 Hospital Subsequent Care Level 1 Completed 12/09/2020 81448 Hospital Subsequent Care Level 1 Completed 12/08/2020 97577 Hospital Subsequent Care Level 2 Completed 12/07/2020 07405 Hospital Subsequent Care Level 2 Completed 12/06/2020 35300 Hospital Subsequent Care Level 2 Completed 12/05/2020 60336 Hospital Subsequent Care Level 2 Completed 12/04/2020 60768 Hospital Subsequent Care Level 2 Completed 12/03/2020 93652 Hospital Initial Care Level 3 Co mpleted Medical Devices Description No Information Available Encounters Type Date Location Provider Dx Diagnosis Office Visit 12/10/2020 2:13a [facility] Neuro[facility] Silver Stern MD 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, cortical Office Visit 12/09/2020 2:08a [facility] Neurosurgery Silver Stern MD 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, cortical Office Visit 12/08/2020 1:59a [facility] Neurosurgery Silver Stern MD 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, cortical Office Visit 12/07/2020 2:13a [facility] Neurosurgery Silver Stern MD 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, cortical R51.9 Headache, unspecified Office Visit 12/06/2020 2:11a [facility] Neurosurgery Silver Stern MD 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
--- OUTSIDE RECORDS SUMMARY | 2021-01-16 15:29 | CCD | Continuity of Care Document ---
Author Author Sandra Mccormick MD Organization Unknown Address [address] [facility] [address] [place] [address] Phone [phone] Care Team Providers Care Population Geneticist Name Role Phone Kp Mccormick JR, MD [facility] Unavailable [facility] [phone] Sarah Talavera JR, MD [facility] Ethan Arthur KAITLIN [facility] [phone] Problems Active Problems Provider Date Benign essential [...] CPT Code Status Date Vaccine Lot # [id number] Given 12/28/2019 Influenza Vaccin e Quadrivalent Preser/Antibiotic Free Im Use [id number] Given 02/01/2019 Influenza Vaccin e Quadrivalent Preser/Antibiotic Free Im Use [id number] 93436 Given 07/15/2018 Shingrix [id number] Given 05/10/2018 Shingrix U-Flu Given 12/28/2017 Influenza,Unspecified 85063 Given 01/26/2017 Influenza Vaccin e Quadrivalent Preser/Antibiotic Free Im Use [id number] 66982 Given 06/06/2014 Prevnar 13 [id number] [id number] Given 04/02/2010 Zostavax 65552 Given 12/17/2009 Pneumovax 23 50994 Given 12/17/2009 Influenza Virus Vaccine Vital Signs Date Vital Result Comment 11/06/2020 10:47am BP Systolic 138 mmHg BP Diastolic 80 mmHg Heart Rate 76 /min Height 60.25 inches 5'0.25" Weight 147.00 lb BMI (Body Mass Index) 28.5 kg/m2 05/06/2020 11:20am BP Systolic 126 mmHg BP Diastolic 74 mmHg Height 60.25 inches 5'0.25" Weight 144.50 lb BMI (Body Mass Index) 28.0 kg/m2 Results Description No Information Available Procedures Date Code Description Status 09/10/2016 [id number] Mammogram Completed 2015 [id number] Mammogram Completed 04/10/2014 [id number] Mammogram Completed 12/09/2005 [id number] Bone Mineral Density Test Comple [place] Description No Information Available Encounters Description No Information Available Assessments Description No Information Available Plan of Treatment No Information Available Functional Status Description No Information Available Mental Status Description No Information Available Referrals Description No Information Available
--- OUTSIDE RECORDS SUMMARY | 2021-01-16 15:29 | CCD | Continuity of Care Document ---
Author Author Sandra STERN MD Organization Unknown Address [address], [address] [place] [address] Phone [phone] Problems Description No Information Available Social History Type Date Description Comments Sex Unknown Allergies, Adverse Reactions, Alerts Description No Information Available Medications Description No Information Available Immunizations Description No Information Available Vital Signs Description No Information Available Results Description No Information Available Procedures Date Code Description Status 12/10/2020 47034 Hospital Subsequent Care Level 1 Completed 12/09/2020 20272 Hospital Subsequent Care Level 1 Completed 12/08/2020 03555 Hospital Subsequent Care Level 2 Completed 12/07/2020 01369 Hospital Subsequent Care Level 2 Completed 12/06/2020 64013 Hospital Subsequent Care Level 2 Completed 12/05/2020 15999 Hospital Subsequent Care Level 2 Completed 12/04/2020 75003 Hospital Subsequent Care Level 2 Completed 12/03/2020 87537 Hospital Initial Care Level 3 Co mpleted Medical Devices Description No Information Available Encounters Type Date Location Provider Dx Diagnosis Office Visit 12/10/2020 2:13a [facility] Neurosurgery Silver Stern MD 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, cortical Office Visit 12/09/2020 2:08a [facility] Neurosurgery Silver Stern MD 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, cortical Office Visit 12/08/2020 1:59a [facility] Neurosurgery Silver Stern MD 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, cortical Office Visit 12/07/2020 2:13a [facility] Neurosurgery Silver Stern MD 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
--- OUTSIDE RECORDS SUMMARY | 2021-01-16 15:30 | CCD ---
Author Author [facility] Organization [facility] Address Unknown Phone Unavailable Care Team Providers Care Senior Web Services Developer Name Role Phone Kahlil Stern MD Unavailable Unavailable Padalino, Kahlil Sheppard MD Unavailable Unavailable Padalino, Kahlil Sheppard MD Unavailable Unavailable Padalino, Kahlil Sheppard MD Unavailable Unavailable Padalino, Kahlil Sheppard MD Unavailable Unavailable Padalino, Kahlil Sheppard MD Unavailable Unavailable Padalino, Kahlil Sheppard MD Unavailable Unavailable Padalino, Kahlil Sheppard MD Unavailable Unavailable Padalino, Kahlil Sheppard MD Unavailable Unavailable Padalino, Kahlil Sheppard MD Unavailable Unavailable Padalino, Kahlil Sheppard MD Unavailable Unavailable Padalino, Kahlil Sheppard MD Unavailable Unavailable Padalino, Kahlil Sheppard MD Unavailable Unavailable PadalinKahlil bradley MD Unavailable Unavailable PadalinoKahlil MD Unavailable Unavailable PadalinoKahlil MD Unavailable Unavailable PadalinoKahlil MD Unavailable Unavailable PadalinoKahlil MD Unavailable Unavailable PadalinoKahlil MD Unavailable Unavailable PadalinoKahlil MD Unavailable Unavailable PadalinKahlil bradley MD Unavailable Unavailable PadalinKahlil bradley MD Unavailable Unavailable Padalinkirk, Kahlil Sheppard MD Unavailable Unavailable Padalinkirk, Kahlil Sheppard MD Unavailable Unavailable Padalinkirk, Kahlil Sheppard MD Unavailable Unavailable Akhilalinkirk, Kahlil Sheppard MD Unavailable Unavailable PadalinKahlil bradley MD Unavailable Unavailable Padalinkirk, Kahlil Sheppard MD Unavailable Unavailable AkhilalinKahlil bradley MD Unavailable Unavailable PadalinKahlil bradley MD Unavailable Unavailable AkhilalinKahlil bradley MD Unavailable Unavailable Padalinkirk, Kahlil Sheppard MD Unavailable Unavailable Padalino, Kahlil Sheppard MD Unavailable Unavailable Padalino, Kahlil Sheppard MD Unavailable Unavailable Padalino, Kahlil Sheppard MD Unavailable Unavailable Padalino, Kahlil Sheppard MD Unavailable Unavailable Padalino, Kahlil Sheppard MD Unavailable Unavailable Padalino, Kahlil Sheppard MD Unavailable Unavailable Padalino, Kahlil Sheppard MD Unavailable Unavailable Padalino, Kahlil Sheppard MD Unavailable Unavailable Padalino, Kahlil Sheppard MD Unavailable Unavailable Padalino, Kahlil Sheppard MD Unavailable Unavailable Padalino, Kahlil Sheppard MD Unavailable Unavailable Padalino, Kahlil Sheppard MD Unavailable Unavailable Padalino, Kahlil Sheppard MD Unavailable Unavailable Padalino, Kahlil Sheppard MD Unavailable Unavailable Padalino, Kahlil Sheppard MD Unavailable Unavailable Padalino, Kahlil Sheppard MD Unavailable Unavailable Padalino, Kahlil Sheppard MD Unavailable Unavailable Padalino, Kahlil Sheppard MD Unavailable Unavailable Padalino, Kahlli Sheppard MD Unavailable Unavailable Padalino, Kahlil Sheppard MD Unavailable Unavailable Padalino, Kahlil Sheppard MD Unavailable Unavailable Padalino, Kahlil Sheppard MD Unavailable Unavailable Padalino, Kahlil Sheppard MD Unavailable Unavailable Padalino, Kahlil Sheppard MD Unavailable Unavailable Padalino, Kahlil Sheppard MD Unavailable Unavailable Padalino, Kahlil Sheppard MD Unavailable Unavailable Padalino, Kahlil Sheppard MD Unavailable Unavailable Padalino, Kahlil Sheppard MD Unavailable Unavailable Padalino, Kahlil Sheppard MD Unavailable Unavailable Padalino, Kahlil Sheppard MD Unavailable Unavailable Padalino, Kahlil Sheppard MD Unavailable Unavailable Padalino, Kahlil Sheppard MD Unavailable Unavailable Padalino, Kahlil Sheppard MD Unavailable Unavailable Padalino, Kahlil Sheppard MD Unavailable Unavailable Padalino, Kahlil Sheppard MD Unavailable Unavailable Padalino, Kahlil Sheppard MD Unavailable Unavailable Padalino, Kahlil Sheppard MD Unavailable Unavailable Padalino, Kahlil Sheppard MD Unavailable Unavailable Padalino, Kahlil Sheppard MD Unavailable Unavailable Padalino, Kahlil Sheppard MD Unavailable Unavailable Padalino, Kahlil Sheppard MD Unavailable Unavailable Padalino, Kahlil Sheppard MD Unavailable Unavailable Padalino, Kahlil Sheppard MD Unavailable Unavailable Padalino, Kahlil Sheppard MD Unavailable Unavailable Padalino, Kahlil Sheppard MD Unavailable Unavailable Padalino, Kahlil Sheppard MD Unavailable Unavailable Padalino, Kahlil Sheppard MD Unavailable Unavailable Padalino, Kahlil Sheppard MD Unavailable Unavailable Padalino, Kahlil Sheppard MD Unavailable Unavailable Padalino, Kahlil Sheppard MD Unavailable Unavailable Padalino, Kahlil Sheppard MD Unavailable Unavailable Padalino, Kahlil Sheppard MD Unavailable Unavailable Padalino, Kahlil Sheppard MD Unavailable Unavailable Padalino, Kahlil Sheppard MD Unavailable Unavailable Padalino, Kahlil Sheppard MD Unavailable Unavailable Padalino, Kahlil Sheppard MD Unavailable Unavailable Padalino, Kahlil Sheppard MD Unavailable Unavailable Padalino, Kahlil Sheppard MD Unavailable Unavailable Padalino, Kahlil Sheppard MD Unavailable Unavailable Padalino, Kahlil Sheppard MD Unavailable Unavailable Padalino, Kahlil Sheppard MD Unavailable Unavailable Padalino, Kahlil Sheppard MD Unavailable Unavailable Padalino, Kahlil Sheppard MD Unavailable Unavailable Padalino, Kahlil Sheppard MD Unavailable Unavailable Padalino, Kahlil Sheppard MD Unavailable Unavailable Padalino, Kahlil Sheppard MD Unavailable Unavailable Padalino, Kahlil Sheppard MD Unavailable Unavailable Padalino, Kahlil Sheppard MD Unavailable Unavailable Padalino, Kahlil Sheppard MD Unavailable Unavailable Padalino, Kahlil Sheppard MD Unavailable Unavailable Padalino, Kahlil Sheppard MD Unavailable Unavailable Padalino, Kahlil Sheppard MD Unavailable Unavailable Padalino, Kahlil Shepaprd MD Unavailable Unavailable Padalino, Kahlil Sheppard MD Unavailable Unavailable Padalino, Kahlil Sheppard MD Unavailable Unavailable Padalino, Kahlil Sheppard MD Unavailable Unavailable Padalino, Kahlil Sheppard MD Unavailable Unavailable Padalino, Kahlil Sheppard MD Unavailable Unavailable Padalino, Kahlil Sheppard MD Unavailable Unavailable Padalino, aKhlil Sheppard MD Unavailable Unavailable Padalino, Kahlil Sheppard MD Unavailable Unavailable Padalino, Kahlil Sheppard MD Unavailable Unavailable Padalino, Kahlil Sheppard MD Unavailable Unavailable Padalino, Kahlil Sheppard MD Unavailable Unavailable Padalino, Kahlil Sheppard MD Unavailable Unavailable Padalino, Kahlil Sheppard MD Unavailable Unavailable Padalino, Kahlil Sheppard MD Unavailable Unavailable Padalino, Kahlil Sheppard MD Unavailable Unavailable Padalino, Kahlil Sheppard MD Unavailable Unavailable Padalino, Kahlil Sheppard MD Unavailable Unavailable Padalino, Kahlil Sheppard MD Unavailable Unavailable Padalino, Kahlil Sheppard MD Unavailable Unavailable Padalino, Kahlil Sheppard MD Unavailable Unavailable Padalino, Kahlil Sheppard MD Unavailable Unavailable Padalino, Kahlil Sheppard MD Unavailable Unavailable Padalino, Kahlil Sheppard MD Unavailable Unavailable Padalino, Kahlil Sheppard MD Unavailable Unavailable Padalino, Kahlil Sheppard MD Unavailable Unavailable Padalino, Kahlil Sheppard MD Unavailable Unavailable Padalino, Kahlil Sheppard MD Unavailable Unavailable Padalino, Kahlil Sheppard MD Unavailable Unavailable Padalino, Kahlil Sheppard MD Unavailable Unavailable Padalino, Kahlil Sheppard MD Unavailable Unavailable Padalino, Kahlil Sheppard MD Unavailable Unavailable Padalino, Kahlil Sheppard MD Unavailable Unavailable Padalino, Kahlil Sheppard MD Unavailable Unavailable Padalino, Kahlil Sheppard MD Unavailable Unavailable Padalino, Kahlil Sheppard MD Unavailable Unavailable Padalino, Kahlil Sheppard MD Unavailable Unavailable Padalino, Kahlli Sheppard MD Unavailable Unavailable Padalino, Kahlil Sheppard MD Unavailable Unavailable Padalino, Kahill Sheppard MD Unavailable Unavailable Padalino, Kahlil Sheppard MD Unavailable Unavailable Padalino, Kahlil Sheppard MD Unavailable Unavailable Padalino, Kahlil Sheppard MD Unavailable Unavailable Padalino, Kahlil Sheppard MD Unavailable Unavailable Padalino, Kahlil Sheppard MD Unavailable Unavailable Padalino, Kahlil Sheppard MD Unavailable Unavailable Padalino, Kahlil Sheppard MD Unavailable Unavailable Padalino, Kahlil Sheppard MD Unavailable Unavailable Padalino, Kahlil Sheppard MD Unavailable Unavailable Padalino, Kahlil Sheppard MD Unavailable Unavailable Padalino, Kahlil Sheppard MD Unavailable Unavailable Padalino, Kahlil Sheppard MD Unavailable Unavailable Padalino, Kahlil Sheppard MD Unavailable Unavailable Padalino, Kahlil Sheppard MD Unavailable Unavailable Padalino, Kahlil Sheppard MD Unavailable Unavailable Padalino, Kahlil Sheppard MD Unavailable Unavailable Padalino, Kahlil Sheppard MD Unavailable Unavailable Padalino, Kahlil Sheppard MD Unavailable Unavailable Padalino, Kahlil Sheppard MD Unavailable Unavailable Padalino, Kahlil Sheppard MD Unavailable Unavailable Padalino, Kahlil Sheppard MD Unavailable Unavailable Padalino, Kahlil Sheppard MD Unavailable Unavailable Padalino, Kahlil Sheppard MD Unavailable Unavailable Padalino, Kahlil Sheppard MD Unavailable Unavailable Padalino, Kahlil Sheppard MD Unavailable Unavailable Padalino, Kahlil Sheppard MD Unavailable Unavailable Padalino, Kahlil Sheppard MD Unavailable Unavailable Padalino, Kahlil Sheppard MD Unavailable Unavailable Padalino, Kahlil Sheppard MD Unavailable Unavailable Padalino, Kahlil Sheppard MD Unavailable Unavailable Padalino, Kahlil Sheppard MD Unavailable Unavailable Padalino, Kahlil Sheppard MD Unavailable Unavailable Padalino, Kahlil Sheppard MD Unavailable Unavailable Padalino, Kahlil Sheppard MD Unavailable Unavailable Padalino, Kahlil Sheppard MD Unavailable Unavailable Padalino, Kahlil Sheppard MD Unavailable Unavailable Padalino, Kahlil Sheppard MD Unavailable Unavailable Padalino, Kahlil Sheppard MD Unavailable Unavailable Padalino, Kahlil Sheppard MD Unavailable Unavailable Padalino, Kahlil Sheppard MD Unavailable Unavailable Padalino, Kahlil Sheppard MD Unavailable Unavailable Padalino, Kahlil Sheppard MD Unavailable Unavailable Padalino, Kahlil Sheppard MD Unavailable Unavailable Padalino, Kahlil Sheppard MD Unavailable Unavailable Padalino, Kahlil Sheppard MD Unavailable Unavailable Padalino, Kahlil Sheppard MD Unavailable Unavailable Padalino, Kahlil Sheppard MD Unavailable Unavailable Padalino, Kahlil Sheppard MD Unavailable Unavailable Padalino, Kahlil Sheppard MD Unavailable Unavailable Padalino, Kahlil Sheppard MD Unavailable Unavailable Padalino, Kahlil Sheppard MD Unavailable Unavailable Padalino, Kahlil Sheppard MD Unavailable Unavailable Padalino, Kahlil Sheppard MD Unavailable Unavailable Padalino, Kahlil Sheppard MD Unavailable Unavailable Padalino, Kahlil Sheppard MD Unavailable Unavailable Padalino, Kahlil Sheppard MD Unavailable Unavailable Padalino, Kahlil Sheppard MD Unavailable Unavailable Padalino, Kahlil Sheppard MD Unavailable Unavailable Padalino, Kahlil Sheppard MD Unavailable Unavailable Padalino, Kahlil Sheppard MD Unavailable Unavailable Padalino, Kahlil Sheppard MD Unavailable Unavailable Padalino, Kahlil Sheppard MD Unavailable Unavailable Padalino, Kahlil Sheppard MD Unavailable Unavailable Padalino, Kahlil Sheppard MD Unavailable Unavailable Padalino, Kahlil Sheppard MD Unavailable Unavailable Padalino, Kahlil Sheppard MD Unavailable Unavailable Padalino, Kahlil Sheppard MD Unavailable Unavailable Padalino, Kahlil Sheppard MD Unavailable Unavailable Padalino, Kahlil Sheppard MD Unavailable Unavailable Padalino, Kahlil Sheppard MD Unavailable Unavailable Padalino, Kahlil Sheppard MD Unavailable Unavailable Padalino, Kahlil Sheppard MD Unavailable Unavailable Padalino, Kahlil Sheppard MD Unavailable Unavailable Padalino, Kahlil Sheppard MD Unavailable Unavailable Padalino, Kahlil Sheppard MD Unavailable Unavailable Padalino, Kahlil Sheppard MD Unavailable Unavailable Padalino, Kahlil Sheppard MD Unavailable Unavailable Padalino, Kahlil Sheppard MD Unavailable Unavailable Padalino, Kahlil Sheppard MD Unavailable Unavailable Padalino, Kahlil Sheppard MD Unavailable Unavailable Padalino, Kahlil Sheppard MD Unavailable Unavailable Padalino, Kahlil Sheppard MD Unavailable Unavailable Padalino, Kahlil Sheppard MD Unavailable Unavailable Padalino, Kahlil Sheppard MD Unavailable Unavailable Padalino, Kahlil Sheppard MD Unavailable Unavailable Padalino, Kahlil Sheppard MD Unavailable Unavailable Padalino, Kahlil Sheppard MD Unavailable Unavailable PHYSICIAN, PHYSICIAN ER Unavailable Unavailable Hugh Mccormick MD Unavailable Unavailable Hugh Mccormick MD Unavailable Unavailable JaceHugh dodd MD Unavailable Unavailable PembrokeHugh dodd MD Unavailable Unavailable JaceHugh dodd MD Unavailable Unavailable PembrokeHugh dodd MD Unavailable Unavailable PembrokeHugh dodd MD Unavailable Unavailable PembrokeHugh dodd MD Unavailable Unavailable PembrokeHugh dodd MD Unavailable Unavailable JaceHugh dodd MD Unavailable Unavailable PembrokeHugh dodd MD Unavailable Unavailable PembrokeHugh dodd MD Unavailable Unavailable JaceHugh dodd MD Unavailable Unavailable PembrokeHugh dodd MD Unavailable Unavailable PembrokeHugh MD Unavailable Unavailable PembrokeHugh MD Unavailable Unavailable PembrokeHugh dodd MD Unavailable Unavailable JaceHugh dodd MD Unavailable Unavailable PembrokeHugh dodd MD Unavailable Unavailable JaceHugh dodd MD Unavailable Unavailable PembrokeHugh dodd MD Unavailable Unavailable JaceHugh dodd MD Unavailable Unavailable PembrokeHugh MD Unavailable Unavailable JaceHugh MD Unavailable Unavailable JaceHugh MD Unavailable Unavailable JaceHugh MD Unavailable Unavailable JaceHugh MD Unavailable Unavailable PembrokeHugh MD Unavailable Unavailable JaceHugh MD Unavailable Unavailable JaceHugh MD Unavailable Unavailable JaceHugh MD Unavailable Unavailable PembrokeHugh MD Unavailable Unavailable JaceHugh MD Unavailable Unavailable PembrokeHugh MD Unavailable Unavailable JaceHugh MD Unavailable Unavailable JaceHugh MD Unavailable Unavailable JaceHugh MD Unavailable Unavailable JaceHugh MD Unavailable Unavailable JaceHugh MD Unavailable Unavailable JaceHugh MD Unavailable Unavailable JaceHugh MD Unavailable Unavailable PembrokeHugh MD Unavailable Unavailable JaceHugh MD Unavailable Unavailable JaceHugh MD Unavailable Unavailable JaceHugh MD Unavailable Unavailable PembrokeHugh MD Unavailable Unavailable PembrokeHugh MD Unavailable Unavailable PembrokeHugh MD Unavailable Unavailable PembrokeHugh MD Unavailable Unavailable PembrokeHugh MD Unavailable Unavailable JaceHugh MD Unavailable Unavailable JaceHugh MD Unavailable Unavailable PembrokeHugh MD Unavailable Unavailable JaceHugh MD Unavailable Unavailable JaceHugh MD Unavailable Unavailable PembrokeHugh MD Unavailable Unavailable JaceHugh MD Unavailable Unavailable JaceHugh MD Unavailable Unavailable JaceHugh MD Unavailable Unavailable PembrokeHugh MD Unavailable Unavailable JaceHugh MD Unavailable Unavailable JaceHugh MD Unavailable Unavailable PembrokeHugh MD Unavailable Unavailable JaceHugh MD Unavailable Unavailable JaceHugh MD Unavailable Unavailable PembrokeHugh MD Unavailable Unavailable PembrokeHugh MD Unavailable Unavailable JaceHugh MD Unavailable Unavailable PembrokeHugh MD Unavailable Unavailable JaceHugh MD Unavailable Unavailable PembrokeHugh MD Unavailable Unavailable PembrokeHugh MD Unavailable Unavailable PembrokeHugh MD Unavailable Unavailable JaceHugh MD Unavailable Unavailable PembrokeHugh MD Unavailable Unavailable PembrokeHugh MD Unavailable Unavailable JaceHugh MD Unavailable Unavailable JaceHugh MD Unavailable Unavailable JaceHugh MD Unavailable Unavailable PembrokeHugh Kp HART Unavailable Unavailable JaceHugh Unavailable Unavailable JaceHugh Unavailable Unavailable JaceHugh Unavailable Unavailable JaceHugh Unavailable Unavailable JaceHugh Unavailable Unavailable PembrokeHugh Unavailable Unavailable PHYSICIAN, ER Unavailable Unavailable Re-disclosure Warning The records that you are about to access may contain information from federally-assisted alcohol or drug abuse programs. If such information is present, then the following federally mandated warning applies: This information has been disclosed to you from records protected by federal confidentiality rules (42 CFR part 2). The federal rules prohibit you from making any further disclosure of this information unless further disclosure is expressly permitted by the written consent of the person to whom it pertains or as otherwise permitted by 42 CFR part 2. A general authorization for the release of medical or other information is NOT sufficient for this purpose. The Federal rules restrict any use of the information to criminally investigate or prosecute any alcohol or drug abuse patient.The records that you are about to access may contain highly sensitive health information, the redisclosure of which is protected by Article 27-F of the [facility] Public Health law. If you continue you may have access to information: Regarding HIV / AIDS; Provided by facilities licensed or operated by the [facility] Office of Mental Health; or Provided by the [facility] Office for People With Developmental Disabilities. If such information is present, then the following [facility] mandated warning applies: This information has been disclosed to you from confidential records which are protected by state law. State law prohibits you from making any further disclosure of this information without the specific written consent of the person to whom it pertains, or as otherwise permitted by law. Any unauthorized further disclosure in violation of state law may result in a fine or prison sentence or both. A general authorization for the release of medical or other information is NOT sufficient authorization for further disc losure. Family History Family Member Name Family Member Gender Family Member Status Date o f Status Description Data Source(s) Unknown Male Problem [facility] ([facility]) Unknown Unknown Problem [facility] ([facility]) Unknown Female Problem [facility] ([facility]) Encounters Encounter Providers Location Date Indications Data Source(s ) Outpatient Attender: Silver Stern MD [facility] [place] 12/10/2020 02:13:00 AM EDT [facility] ([facility]) Outpatient Attender: Silver Stern MD [facility] [place] 12/09/2020 02:08:00 AM EDT [facility] ([facility]) Outpatient Attender: Silver Stern MD [facility] [place] 12/08/2020 01:59:00 AM EDT [facility] ([facility]) Outpatient Attender: Silver Stern MD [facility] [place] 12/07/2020 02:13:00 AM EDT [facility] ([facility]) Outpatient Attender: Silver Stern MD [facility] [place] 12/06/2020 02:11:00 AM EDT [facility] ([facility]) Outpatient Attender: Silver Stern MD [facility] [place] 12/05/2020 02:07:00 AM EDT [facility] ([facility]) Outpatient Attender: Silver Stern MD [facility] [place] 12/04/2020 02:06:00 AM EDT [facility] ([facility]) Inpatient Attender: Silver Stern MDAttender: LUIS Tucker 12/03/2020 07:50:00 AM EDT [facility] Inpatient Attender: Silver Stern MDAttender: LUIS Tucker 12/03/2020 06:22:10 AM EDT [facility] [place] [facility] Inpatient Attender: Silver Stern MDA ttender: ER PHYSICIANAdmitter: Silver Stern MD 12/03/2020 05:49:00 AM EDT - 12/10/2020 03:16:00 PM EDT CEREBRAL HEMORRHAGE SPONTANEOUS [facility] CEREBRAL HEMORRHAGE SPONTANEOUS Patient discharged. Outpatient Attender: Silver Stern MD [facility] [place] 12/03/2020 02:03:00 AM EDT [facility] ([facility]) Outpatient Attender: Kp Galindo 0 11/06/2020 10:40:00 AM EDT [facility] ([facility] ) Outpatient Attender: Kp Galindo 0 05/06/2020 10:40:00 AM EST [facility] ([facility] ) Outpatient Attender: Kp Galindo 1 04/23/2019 07:40:00 AM EST [facility] ([facility] ) Immunizations Vaccine Date Status Description Data Source(s) COVID-19 (Moderna), mRNA, LNP-S, PF, 100 mcg/0.5 mL do se 05/26/2020 12:00:00 AM EST completed [facility] COVID-19 VACCINE Moderna 05/26/2020 12:00:00 AM EST completed [facility] Vaccine Series Complete: YESThis Data wa s Submitted to [facility] Via [employer]. COVID-19 (Moderna), mRNA, LNP-S, PF, 100 mcg/0.5 mL do se 04/28/2020 12:00:00 AM EST completed [facility] COVID-19 VACCINE Moderna 04/28/2020 12:00:00 AM EST completed [facility] Vaccine Series Complete: NOThis Data was Submitted to [facility] Via [employer]. Influenza, injectable, MDCK, preservative free, vera valent 12/28/2019 02:33:00 PM EDT completed [facility] Influenza, injectable, MDCK, preservative free, vera valent 12/28/2019 12:00:00 AM EDT completed [facility] Medications Medication Brand Name Start Date Product Form Dose Route Admi nistrative Instructions Pharmacy Instructions Status Indications Reaction Description Data Source(s) Trazodone Hydrochloride 50 MG Oral Tablet Trazodone HCL 01/07/2021 12:00:00 AM EDT ORAL active [facility] ([facility]) pantoprazole 4 MG/ML Injectable Solution Pantoprazole Sodium 01/07/2021 12:00:00 AM EDT ORAL active [facility] ([facility]) Hydralazine Hydrochloride 25 MG Oral Tablet Hydralazine HCL 01/03/2021 12:00:00 AM EDT ORAL active [facility] ([facility]) Valproic Acid 250 MG Oral Capsule Valproic Acid 01/03/2021 12:00:00 A M EDT active [facility] ([facility]) pantoprazole 40 MG Delayed Release Oral Tablet [Protonix] Pr otonix 01/03/2021 12:00:00 AM EDT ORAL completed [facility] ([facility]) Melatonin 10 MG Oral Tablet Melatonin 01/03/2021 12:00:00 AM EDT ORAL active [facility] ([facility]) Acetaminophen 325 MG / butalbital 50 MG / Caffeine 40 MG Oral Tablet 50-325-40 mg BUTALB/ACETAMINOPHEN/CAFFEINE 01/02/2021 12:00:00 AM EDT tablet 2 0 TAKE ONE TABLET BY MOUTH EVERY 6 HOURS NEEDED FOR HEADACHE TAKE ONE TABLET BY MOUTH EVERY 6 HOURS NEEDED FOR HEADACHE SOLD: 01/02/2021 [facility] 250 mg 01/02/2021 12:00:00 AM EDT capsule 30 TAKE ONE CAPSULE BY MOUTH EVERY DAY AT BEDTIME TAKE ONE CAPSULE BY MOUTH EVERY DAY AT BEDTIME SOLD: [facility] 0.4 mg 01/02/2021 12:00:00 AM EDT capsule 30 TAKE ONE CAPSULE BY MOUTH EVERY DAY AT BEDTIME TAKE ONE CAPSULE BY MOUTH EVERY DAY AT BEDTIME SOLD: [facility] 10 mg 01/02/2021 12:00:00 AM EDT capsule 30 TAKE ONE CAPSULE BY MOUTH EVERY DAY AT BEDTIME TAKE ONE CAPSULE BY MOUTH EVERY DAY AT BEDTIME SOLD: [facility] Hydralazine Hydrochloride 25 MG Oral Tablet HYDRALAZINE HCL 01/02/2021 12:00:00 AM EDT tablet 90 TAKE ONE TABLET BY MOUTH THR EE TIMES A DAY TAKE ONE TABLET BY MOUTH THREE TIMES A DAY SOLD: 01/02/2021 [facility] 500 mg 01/02/2021 12:00:00 AM EDT tablet 60 TAKE ONE TABLET BY MOUTH TWICE A DAY TAKE ONE TABLET BY MOUTH TWICE A DAY SOLD: 01/02/2021 [facility] pantoprazole 40 MG Delayed Release Oral Tablet PANTOPRAZOLE SODIUM 01/02/2021 12:00:00 AM EDT tablet,delayed release (DR/EC) 30 T RADHIKA ONE TABLET BY MOUTH EVERY DAY TAKE ONE TABLET BY MOUTH EVERY DAY SOLD: 01/02/2021 [facility] 80 mg 01/02/2021 12:00:00 AM EDT tablet,chewable 90 CHEW ONE TABLET BY MOUTH THREE TIMES A DAY NEEDED FOR GAS PAIN CHEW ONE TABLET BY MOUTH THREE TIMES A DAY NEEDED FOR GAS PAIN SOLD: 01/02/2021 [facility] 5 mg 12/05/2020 12:00:00 AM EDT tablet 30 TAKE ONE TABLET BY MOUTH AT BEDTIME NEEDED MAXIMUM DAILY DOSE = 1 TAKE ONE TABLET BY MOUTH AT BEDTIME NEEDED MAXIMUM DAILY DOSE = 1 SOLD: 12/05/2020 [facility] 5 mg 10/29/2020 12:00:00 AM EDT tablet 30 TAKE ONE TABLET BY MOUTH EVERY DAY AT BEDTIME NEEDED MAXIMUM DAILY DOSE = 1 TABLET TAKE ONE TABLET BY MOUTH EVERY DAY AT BEDTIME NEEDED MAXIMUM DAILY DOSE = 1 TABLET SOLD: 10/30/2020 [facility] 5 mg 09/29/2020 12:00:00 AM EDT tablet 30 TAKE ONE TABLET BY MOUTH AT BEDTIME NEEDED MAXIMUM DAILY DOSE = 1 TABLET TAKE ONE TABLET BY MOUTH AT BEDTIME NEEDED MAXIMUM DAILY DOSE = 1 TABLET SOLD: 09/30/2020 [facility] 500 mg 09/24/2020 12:00:00 AM EDT tablet 30 TAKE ONE TABLET BY MOUTH EVERY 12 HOURS TAKE ONE TABLET BY MOUTH EVERY 12 HOURS SOLD: 09/25/2020 [facility] 5 mg 08/31/2020 12:00:00 AM EDT tablet 30 TAKE ONE TABLET BY MOUTH AT BEDTIME MAXIMUM DAILY DOSE = 1 TABLET TAKE ONE TABLET BY MOUTH AT BEDTIME MAXIMUM DAILY DOSE = 1 TABLET SOLD: 08/31/2020 [facility] 5 mg 08/01/2020 12:00:00 AM EDT tablet 30 TAKE ONE TABLET BY MOUTH EVERY DAY AT BEDTIME NEEDED, MAXIMUM DAILY DOSE = ONE TABLET TAKE ONE TABLET BY MOUTH EVERY DAY AT BEDTIME NEEDED, MAXIMUM DAILY DOSE = ONE TABLET SOLD: 08/02/2020 [facility] 5 mg 06/29/2020 12:00:00 AM EDT tablet 30 TAKE ONE TABLET BY MOUTH AT BEDTIME NEEDED MAXIMUM DAILY DOSE = ONE TABLET TAKE ONE TABLET BY MOUTH AT BEDTIME NEEDED MAXIMUM DAILY DOSE = ONE TABLET SOLD: 07/02/2020 [facility] 5 mg 05/30/2020 12:00:00 AM EST tablet 30 TAKE ONE TABLET BY MOUTH EVERY DAY AT BEDTIME NEEDED MAXIMUM DAILY DOSE = ONE TABLET TAKE ONE TABLET BY MOUTH EVERY DAY AT BEDTIME NEEDED MAXIMUM DAILY DOSE = ONE TABLET SOLD: 05/31/2020 [facility] 5 mg 05/04/2020 12:00:00 AM EST tablet 30 TAKE ONE TABLET BY MOUTH EVERY DAY AT BEDTIME NEEDED, MAXIMUM DAILY DOSE = ONE TABLET TAKE ONE TABLET BY MOUTH EVERY DAY AT BEDTIME NEEDED, MAXIMUM DAILY DOSE = ONE TABLET SOLD: 05/06/2020 [facility] Covid-19 vaccine, Unspecified 04/28/2020 12:00:00 AM EST completed [facility] ([facility]) Medication administered onsite 5 mg 04/02/2020 12:00:00 AM EST tablet 30 TAKE ONE TABLET BY MOUTH EVERY DAY AT BEDTIME NEEDED, MAXIMUM DAILY DOSE = ONE TABLET TAKE ONE TABLET BY MOUTH EVERY DAY AT BEDTIME NEEDED, MAXIMUM DAILY DOSE = ONE TABLET SOLD: 04/04/2020 [facility] 5 mg 02/21/2020 12:00:00 AM EST tablet 30 TAKE ONE TABLET BY MOUTH EVERY DAY TAKE ONE TABLET BY MOUTH EVERY DAY SOLD: 02/21/2020 [facility] Amlodipine 5 MG Oral Tablet Amlodipine Besylate 02/21/2020 12:00:00 A M EST ORAL active [facility] Administration Of Flu Vaccine 12/28/2019 12:00:00 AM EDT completed [facility] ([facility]) Medication administered onsite Insurance Providers Payer name Policy type / Coverage type Policy ID Covered democrat ID Covered democrat's relationship to ferraro Policy [place] Plan Information [place]/[employer] (Old) Medigap Part B [id number] Self [id number] [place] Ppo Medigap Part B [id number] Self [id number] [place] Ppo Medigap Part B [id number] Self [id number] POM[employer] [id number] [place] (pr) Medigap Part B [id number] Self [id number] Medicare Natl Govt Servic Medicare Primary [id number] Self Medicare Natl Govt Servic Medicare Primary [id number] Self [id number] Medicare Natl Govt Servic Medicare Primary [id number] Self [id number] [place] Medicare Primary [id number] Self 1 [id number] Medicare [place] Medicare Primary [id number] Self 1 [id number] Medicare [place] Medicare Primary [id number] Self 1 [id number] Medicare [place] Medicare Primary [id number] Self 1 [id number] Medicare [place] Medicare Primary [id number] Self 1 [id number] [facility] ([place]) Medigap Part B [id number] Self [id number] [facility] [id number] SP [id number] [place] PPO O [id number] S [id number] MEDICARE C [id number] S [id number] A [facility] [id number] SP [id number] MEDICARE [id number] SP [id number] [place] Medigap Part B [id number] Self [id number] Medicare Natl Gov't Servi Medicare Primary [id number] Self 1 [id number] MEDICARE -O/P [id number] 18 [id number] [place]-O/P [id number] 18 [id number] MEDICARE PART A -O/P [id number] 18 [id number] R HEA [id number] S [id number] MEDICARE MCA [id number] S [id number] MEDICARE MCA [id number] S [id number] MEDICARE [id number] SP [id number] A Problems, Conditions, and Diagnoses No Information Surgeries/Procedures Procedure Description Date Indications Data Source(s) [facility] C[facility]/DAY 15 MINUTES 12/10/2020 12:00:00 AM EDT [facility] ([facility]) [facility] C[facility]/DAY 15 MINUTES 12/09/2020 12:00:00 AM EDT [facility] ([facility]) [facility] C[facility]/DAY 25 MINUTES 12/08/2020 12:00:00 AM EDT [facility] ([facility]) [facility] CARE/DAY 25 MINUTES 12/07/2020 12:00:00 AM EDT [facility] ([facility]) [facility] CARE/DAY 25 MINUTES 12/06/2020 12:00:00 AM EDT [facility] ([facility]) [facility] C[facility]/DAY 25 MINUTES 12/05/2020 12:00:00 AM EDT [facility] ([facility]) [facility] C[facility]/DAY 25 MINUTES 12/04/2020 12:00:00 AM EDT [facility] ([facility]) Electrocardiogram Interpretation & Report Only 021 12:00:00 AM EDT [facility] ([facility]) INITIAL HOSPITAL CARE/DAY 70 MINUTES 12/03/2020 12:00: 00 AM EDT [facility] ([facility]) OFFICE OUTPATIENT VISIT 25 MINUTES 11/06/2020 12:00:00 AM EDT [facility] ([facility]) Results ID Date Data Source [id number] 12/31/2020 02:19:00 PM EDT [facility] Name Value Range Interpretation Code Description Data Noemy rce(s) Supporting Document(s) SARS-CoV-2 (COVID 19) NEGATIVE - SARS-CoV-2 (COVID19) [facility] This lab was ordered by [facility] a nd reported by [facility]. ID Date Data Source [id number] 12/09/2020 03:40:00 PM EDT [facility] Name Value Range Interpretation Code Description Data Noemy rce(s) Supporting Document(s) SARS coronavirus 2 RNA [Presence] in Res piratory specimen by VANESSA with probe detection NOT DETECTED [facility] This lab was reported by [facility]. ID Date Data Source [id number] 12/09/2020 07:33:04 PM EDT [facility] Name Value Range Interpretation Code Description Data Noemy rce(s) Supporting Document(s) SPECIMEN DESCRIPTION [facility] [place] COVID19 RESULT (NDET) [facility] THIS ASSAY AMPLIFIES AND DETECTSTHE TARG ET RNA USING REAL-TIME PCR.TESTING PERFORMED ON THE [employer] COMMENT [facility] UNDER AN EMERGENCY USE AUTHORIZATION(EUA ) FOR THE DETECTION AND/OR DIAGNOSISOF THE VIRUS THAT CAUSES COVID-19.NEGATIVE 2019_NCOV RT-PCR RESULTS DONOT PRECLUDE 2019_NCOV INFECTION ANDSHOULD NOT BE USED THE SOLE BASISFOR PATIENT MANAGEMENT DECISIONS. FIRST TEST [facility] [place] [facility] [place] [employer] IN [employer] [facility] [place] SYMPTOMATIC [facility] [place] [facility] [place] DATE OF SYMPT ONSET [facility] [place] HOSPITALIZED [facility] [place] [facility] ICU [facility] [place] CONGREGATE CARE SET [facility] [place] [facility] [place] [facility] [place] ID Date Data Source [id number] 12/09/2020 07:34:31 AM EDT [facility] [place] Name Value Range Interpretation Code Description Data Noemy rce(s) Supporting Document(s) SODIUM 141 mmol/L (136-145) [facility] [place] [place] POTASSIUM 3.6 mmol/L (3.6-5.2) [facility] [place] CHLORIDE 108 mmol/L (100-108) [facility] [place] CO2 27 mmol/L (22-31) [facility] [place] [place] ANION GAP 6 mmol/L (7-16) L [facility] [place] [facility] UREA NITROGEN 14 mg/dL (7-24) [facility] [place] [facility] CREATININE 0.42 mg/dL (0.60-1.00) L [facility] [place] [facility] [place] BUN/CREAT RATIO 33.3 RATIO (10.0-20.0) H [facility] [place] GLUCOSE 118 mg/dL (70-99) H [facility] [place] [facility] [place] CALCIUM 8.8 mg/dL (8.4-10.2) [facility] [place] [facility] [place] GFR >60 ml/min/1.73m2 (>59) [facility] [place] [facility] [place] GFR ( AMER) >60 ml/min/1.73m2 (>59) [facility] [place] [place] GFR INTERPRETATION [facility] [place] --NORMAL KIDNEY FUNCTION OR MILD DISEASE - GFR >OR= 60CHRONIC KIDNEY DISEASE - GFR 15 - 59RENAL FAILURE - GFR <15 Est. GFR calculation based on the MDRDstudy equation, which assumes a steadystate for creatinine. Est. GFR should notbe used for medication dosing. ID Date Data Source [id number] 12/09/2020 07:07:42 AM EDT [facility] [place] Name Value Range Interpretation Code Description Data Noemy rce(s) Supporting Document(s) WBC 12.6 10*3/uL (4.1-11.0) H [facility] [place] [facility] [place] RBC 4.02 10*6/uL (4.00-5.40) [facility] [place] HGB 12.6 g/dL (12.0-16.0) [facility] [place] [place] HCT 37.7 % (36.0-47.0) [facility] [place] [facility] [place] MCV 93.7 fL (80.0-95.0) [facility] [place] [facility] [place] MCH 31.2 pg (27.0-32.0) [facility] [place] [facility] [place] MCHC 33.3 g/dL (32.0-36.0) [facility] [place] [place] RDW 13.6 % (10.5-14.5) [facility] [place] [facility] [place] PLT 193 10*3/uL (150-450) [facility] [place] [place] MPV 8.5 fL (7.1-10.7) [facility] [place] [place] NEUT % 60.6 % (35.0-75.0) [facility] [place] LYMPH % 33.8 % (16.0-52.0) [facility] [place] MONO % 4.3 % (0.0-8.0) [facility] [place] [place] EOS % 0.2 % (0.0-5.0) [facility] [place] [place] BASO % 1.1 % (0.0-4.0) [facility] [place] [place] NEUT # 7.6 10*3/uL (1.8-7.7) [facility] [place] [place] LYMPH # 4.2 10*3/uL (1.2-4.8) [facility] [place] [facility] [place] MONO # 0.5 10*3/uL (0.0-0.8) [facility] [place] [facility] [place] Eosinophils [#/volume] in Blood by Automated count 0.0 10*3/uL (0.0-0 .5) [facility] [place] [facility] [place] BASO # 0.1 10*3/uL (0.0-0.2) [facility] [place] [facility] [place] ID Date Data Source [id number] 12/08/2020 09:04:34 PM EDT [facility] [place] [facility] [place] Name Value Range Interpretation Code Description Data Noemy rce(s) Supporting Document(s) POC GLUCOSE 132 mg/dL (70-99) H [facility] [place] [facility] [place] NOTIFIED NURSEPERFORMED BY CLINICAL S TAFF ID Date Data Source [id number] 12/08/2020 06:25:46 PM EDT [facility] [place] [facility] [place] Name Value Range Interpretation Code Description Data Noemy rce(s) Supporting Document(s) SODIUM 142 mmol/L (136-145) [facility] [place] [place] POTASSIUM 3.9 mmol/L (3.6-5.2) [facility] [place] [place] CHLORIDE 110 mmol/L (100-108) H [facility] [place] [place] CO2 27 mmol/L (22-31) [facility] [place] [place] ANION GAP 5 mmol/L (7-16) L [facility] [place] [facility] [place] UREA NITROGEN 15 mg/dL (7-24) [facility] [place] [place] CREATININE 0.54 mg/dL (0.60-1.00) L [facility] [place] [place] BUN/CREAT RATIO 27.8 RATIO (10.0-20.0) H [facility] [place] GLUCOSE 137 mg/dL (70-99) H [facility] [place] [facility] [place] CALCIUM 8.0 mg/dL (8.4-10.2) L [facility] [place] [place] GFR >60 ml/min/1.73m2 (>59) [facility] [place] [place] GFR ( AMER) >60 ml/min/1.73m2 (>59) [facility] [place] [place] GFR INTERPRETATION [facility] [place] --NORMAL KIDNEY FUNCTION OR MILD DISEASE - GFR >OR= 60CHRONIC KIDNEY DISEASE - GFR 15 - 59RENAL FAILURE - GFR <15 Est. GFR calculation based on the MDRDstudy equation, which assumes a steadystate for creatinine. Est. GFR should notbe used for medication dosing. ID Date Data Source [id number] 12/08/2020 06:31:01 PM EDT [facility] [place] Name Value Range Interpretation Code Description Data Noemy rce(s) Supporting Document(s) OSMOLALITY,SERUM 289 mosm/kg (280-300) [facility] ID Date Data Source [id number] 12/08/2020 01:32:57 PM EDT [facility] Name Value Range Interpretation Code Description Data Noemy rce(s) Supporting Document(s) SODIUM 144 mmol/L (136-145) [facility] [place] POTASSIUM 3.8 mmol/L (3.6-5.2) [facility] [place] CHLORIDE 111 mmol/L (100-108) H [facility] [place] CO2 27 mmol/L (22-31) [facility] [place] ANION GAP 6 mmol/L (7-16) L [facility] [place] [facility] [place] UREA NITROGEN 14 mg/dL (7-24) [facility] [place] CREATININE 0.53 mg/dL (0.60-1.00) L [facility] [place] BUN/CREAT RATIO 26.4 RATIO (10.0-20.0) H [facility] [place] GLUCOSE 132 mg/dL (70-99) H [facility] [place] CALCIUM 8.1 mg/dL (8.4-10.2) L [facility] [place] [facility] [place] GFR >60 ml/min/1.73m2 (>59) [facility] [place] [facility] [place] GFR ( AMER) >60 ml/min/1.73m2 (>59) [facility] [place] [facility] [place] GFR INTERPRETATION [facility] [place] --NORMAL KIDNEY FUNCTION OR MILD DISEASE - GFR >OR= 60CHRONIC KIDNEY DISEASE - GFR 15 - 59RENAL FAILURE - GFR <15 Est. GFR calculation based on the MDRDstudy equation, which assumes a steadystate for creatinine. Est. GFR should notbe used for medication dosing. ID Date Data Source [id number] 12/08/2020 01:09:16 AM EDT [facility] [place] [facility] Name Value Range Interpretation Code Description Data Noemy rce(s) Supporting Document(s) WBC 11.5 10*3/uL (4.1-11.0) H [facility] [place] [facility] [place] RBC 3.79 10*6/uL (4.00-5.40) L [facility] [place] [facility] [place] HGB 11.8 g/dL (12.0-16.0) L [facility] [place] HCT 35.7 % (36.0-47.0) L [facility] [place] [facility] [place] MCV 94.4 fL (80.0-95.0) [facility] [place] [facility] [place] MCH 31.2 pg (27.0-32.0) [facility] [place] [facility] [place] MCHC 33.1 g/dL (32.0-36.0) [facility] [place] [facility] [place] RDW 13.7 % (10.5-14.5) [facility] [place] [facility] [place] PLT 175 10*3/uL (150-450) [facility] [place] [place] MPV 8.1 fL (7.1-10.7) [facility] [place] [facility] ID Date Data Source [id number] 12/08/2020 10:20:41 AM EDT [facility] [place] [facility] Name Value Range Interpretation Code Description Data Noemy rce(s) Supporting Document(s) OSMOLALITY,SERUM 293 mosm/kg (280-300) [facility] PERFORMED AT [address] [place] [address] [place] [address] ID Date Data Source [id number] 12/08/2020 01:44:34 AM EDT [facility] [place] Name Value Range Interpretation Code Description Data Noemy rce(s) Supporting Document(s) SODIUM 145 mmol/L (136-145) [facility] [place] POTASSIUM 3.8 mmol/L (3.6-5.2) [facility] [place] [facility] [place] CHLORIDE 113 mmol/L (100-108) H [facility] [place] [facility] [place] CO2 26 mmol/L (22-31) [facility] [place] [place] ANION GAP 6 mmol/L (7-16) L [facility] [place] [facility] [place] UREA NITROGEN 9 mg/dL (7-24) [facility] [place] [place] CREATININE 0.47 mg/dL (0.60-1.00) L [facility] [place] [place] BUN/CREAT RATIO 19.1 RATIO (10.0-20.0) [facility] [place] GLUCOSE 125 mg/dL (70-99) H [facility] [place] [facility] [place] CALCIUM 8.7 mg/dL (8.4-10.2) [facility] [place] [place] GFR >60 ml/min/1.73m2 (>59) [facility] [place] [place] GFR ( AMER) >60 ml/min/1.73m2 (>59) [facility] [place] [place] GFR INTERPRETATION [facility] [place] --NORMAL KIDNEY FUNCTION OR MILD DISEASE - GFR >OR= 60CHRONIC KIDNEY DISEASE - GFR 15 - 59RENAL FAILURE - GFR <15 Est. GFR calculation based on the MDRDstudy equation, which assumes a steadystate for creatinine. Est. GFR should notbe used for medication dosing. ID Date Data Source [id number] 12/07/2020 07:45:54 PM EDT [facility] [place] [facility] [place] Name Value Range Interpretation Code Description Data Noemy rce(s) Supporting Document(s) SODIUM 146 mmol/L (136-145) H [facility] [place] [facility] [place] POTASSIUM 4.5 mmol/L (3.6-5.2) [facility] [place] [place] CHLORIDE 116 mmol/L (100-108) H [facility] [place] [facility] [place] CO2 24 mmol/L (22-31) [facility] [place] ANION GAP 6 mmol/L (7-16) L [facility] [place] [place] UREA NITROGEN 10 mg/dL (7-24) [facility] [place] [place] CREATININE 0.65 mg/dL (0.60-1.00) [facility] [place] [place] BUN/CREAT RATIO 15.4 RATIO (10.0-20.0) [facility] [place] GLUCOSE 133 mg/dL (70-99) H [facility] [place] [facility] [place] CALCIUM 8.1 mg/dL (8.4-10.2) L [facility] [place] [place] GFR >60 ml/min/1.73m2 (>59) [facility] [place] GFR ( AMER) >60 ml/min/1.73m2 (>59) [facility] [place] GFR INTERPRETATION [facility] --NORMAL KIDNEY FUNCTION OR MILD DISEASE - GFR >OR= 60CHRONIC KIDNEY DISEASE - GFR 15 - 59RENAL FAILURE - GFR <15 Est. GFR calculation based on the MDRDstudy equation, which assumes a steadystate for creatinine. Est. GFR should notbe used for medication dosing. ID Date Data Source [id number] 12/07/2020 03:01:02 PM EDT [facility] [place] [facility] [place] Name Value Range Interpretation Code Description Data Noemy rce(s) Supporting Document(s) OSMOLALITY,SERUM 296 mosm/kg (280-300) [facility] PERFORMED AT [address] [place] [address] [place] [address] ID Date Data Source [id number] 12/07/2020 01:22:26 PM EDT [facility] Name Value Range Interpretation Code Description Data Noemy rce(s) Supporting Document(s) SODIUM 149 mmol/L (136-145) H [facility] [place] [place] POTASSIUM 3.8 mmol/L (3.6-5.2) [facility] [place] [facility] [place] CHLORIDE 119 mmol/L (100-108) H [facility] [place] CO2 25 mmol/L (22-31) [facility] [place] ANION GAP 5 mmol/L (7-16) L [facility] [place] [place] UREA NITROGEN 9 mg/dL (7-24) [facility] [place] CREATININE 0.52 mg/dL (0.60-1.00) L [facility] [place] [facility] [place] BUN/CREAT RATIO 17.3 RATIO (10.0-20.0) [facility] [place] GLUCOSE 108 mg/dL (70-99) H [facility] [place] [facility] [place] CALCIUM 8.1 mg/dL (8.4-10.2) L [facility] [place] [facility] [place] GFR >60 ml/min/1.73m2 (>59) [facility] [place] [place] GFR ( AMER) >60 ml/min/1.73m2 (>59) [facility] [place] [facility] [place] GFR INTERPRETATION [facility] --NORMAL KIDNEY FUNCTION OR MILD DISEASE - GFR >OR= 60CHRONIC KIDNEY DISEASE - GFR 15 - 59RENAL FAILURE - GFR <15 Est. GFR calculation based on the MDRDstudy equation, which assumes a steadystate for creatinine. Est. GFR should notbe used for medication dosing. ID Date Data Source [id number] 12/07/2020 11:25:00 AM EDT [facility] al DATE OF EXAM: 12/07/2020HEST, SINGLE PO RTABLE VIEW. INDICATION: Pneumonia COMPARISON: None TECHNIQUE: A portable radiograph of the chest was obtained. FINDINGS: Minimal bibasilar opacities are seen, nonspecific however may represent atelectasis and/or infiltrate. No large pleural effusions or pulmonary edema is seen. The cardiomediastinal silhouette is mildly prominent. Visualized osseous structures are within normal limits. IMPRESSION: Minimal bibasilar opacities, nonspecific however may represent atelectasis and/or infiltrate. These findings are slightly more pronounced at the left lung base. Professional interpretation performed at [facility] .End of diagnostic report for accession: [id number] Interpreted: Cassidy Frias MDTranscribed: 12/07/2020 11:24 AMSigned: 12/07/2020 11:25 AM Cassidy Frias MD [facility] # [id number] BILL # [id number] Name Value Range Interpretation Code Description Data Noemy rce(s) Supporting Document(s) ID Date Data Source [id number] 12/07/2020 06:00:47 AM EDT [facility] [place] [facility] [place] Name Value Range Interpretation Code Description Data Noemy rce(s) Supporting Document(s) SODIUM 149 mmol/L (136-145) H [facility] [place] [facility] [place] POTASSIUM 3.5 mmol/L (3.6-5.2) L [facility] [place] [facility] [place] CHLORIDE 119 mmol/L (100-108) H [facility] [place] [facility] [place] CO2 26 mmol/L (22-31) [facility] [place] [facility] [place] ANION GAP 4 mmol/L (7-16) L [facility] [place] [facility] [place] UREA NITROGEN 10 mg/dL (7-24) [facility] [place] [facility] [place] CREATININE 0.59 mg/dL (0.60-1.00) L [facility] [place] [facility] [place] BUN/CREAT RATIO 16.9 RATIO (10.0-20.0) [facility] GLUCOSE 133 mg/dL (70-99) H [facility] [place] [facility] [place] CALCIUM 8.0 mg/dL (8.4-10.2) L [facility] [place] [facility] [place] GFR >60 ml/min/1.73m2 (>59) [facility] [place] [facility] [place] GFR ( AMER) >60 ml/min/1.73m2 (>59) [facility] [place] [facility] [place] GFR INTERPRETATION Lab [facility] e of [place] --NORMAL KIDNEY FUNCTION OR MILD DISEASE - GFR >OR= 60CHRONIC KIDNEY DISEASE - GFR 15 - 59RENAL FAILURE - GFR <15 Est. GFR calculation based on the MDRDstudy equation, which assumes a steadystate for creatinine. Est. GFR should notbe used for medication dosing. ID Date Data Source [id number] 12/07/2020 10:49:00 AM EDT [facility] DATE OF EXAM: 12/07/2020T BRAIN WITHOUT CONTRAST CLINICAL STATEMENT: Follow-up intracranial hemorrhage TECHNIQUE: Multiple noncontrast images were obtained through the brain from the base of skull to the vertex without intravenous contrast. COMPARISON: 12/03/2020 FINDINGS: A moderate to large sized acute hemorrhage is seen involving the right parieto-occipital lobe. The hemorrhage measures approximately 3.3 x 5.1 x 6.7 cm (transverse by anterior posterior by craniocaudad dimensions). The hemorrhage demonstrates expected evolution with moderate localized vasogenic edema and mass effect upon the posterior aspect of the right lateral ventricle. A small amount of intraventricular hemorrhage is again visualized. No evidence of acute hydrocephalus. No significant midline shift or herniation is seen. A small area of encephalomalacia is again seen in the right anterior frontal lobe. Mild low-attenuation is seen throughout the periventricular and subcortical white matter, nonspecific however most likely sequela of chronic small vessel ischemic disease. No acute major vascular territory infarct is seen. The ventricles and sulci are prominent, compatible with diffuse cerebral volume loss. The calvarium is intact. The visualized paranasal sinuses and orbits appear unremarkable. Mastoid air cells are clear. IMPRESSION: Expected evolution of a moderate to large sized acute parenchymal hemorrhage in the right parieto-occipital lobe with moderate localized vasogenic edema and local mass effect. The degree of localized mass-effect appears slightly increased compared to 12/03/2020. Small amount of intraventricular hemorrhage with no evidence of acute hydrocephalus. A contemporaneous report was provided by [facility] at the time of this examination, reporting similar findings. Professional interpretation performed at [facility] [phone].End of diagnostic report for accession: [id number] Interpreted: Cassidy Frias MDTranscribed: 12/07/2020 10:46 AMSigned: 12/07/2020 10:49 AM Cassidy Frias MD [facility] # [id number] [facility] # [id number] Name Value Range Interpretation Code Description Data Noemy rce(s) Supporting Document(s) ID Date Data Source [id number] 12/07/2020 12:57:35 AM EDT [facility] [place] [facility] Name Value Range Interpretation Code Description Data Noemy rce(s) Supporting Document(s) SODIUM 149 mmol/L (136-145) H [facility] [place] [facility] [place] POTASSIUM 3.3 mmol/L (3.6-5.2) L [facility] [place] [facility] [place] CHLORIDE 115 mmol/L (100-108) H [facility] [place] [facility] [place] CO2 25 mmol/L (22-31) [facility] [place] [facility] [place] ANION GAP 9 mmol/L (7-16) [facility] [place] [facility] [place] UREA NITROGEN 10 mg/dL (7-24) [facility] [place] [facility] [place] CREATININE 0.68 mg/dL (0.60-1.00) [facility] [place] [facility] [place] BUN/CREAT RATIO 14.7 RATIO (10.0-20.0) [facility] GLUCOSE 161 mg/dL (70-99) H [facility] [place] [facility] [place] CALCIUM 8.7 mg/dL (8.4-10.2) [facility] [place] [facility] [place] GFR >60 ml/min/1.73m2 (>59) [facility] [place] [facility] [place] GFR ([facility] AM) >60 ml/min/1.73m2 (>59) [facility] [place] [facility] [place] GFR INTERPRETATION [facility] --NORMAL KIDNEY FUNCTION OR MILD DISEASE - GFR >OR= 60CHRONIC KIDNEY DISEASE - GFR 15 - 59RENAL FAILURE - GFR <15 Est. GFR calculation based on the MDRDstudy equation, which assumes a steadystate for creatinine. Est. GFR should notbe used for medication dosing. ID Date Data Source [id number] 12/07/2020 12:32:37 AM EDT [facility] [place] Name Value Range Interpretation Code Description Data Noemy rce(s) Supporting Document(s) WBC 12.5 10*3/uL (4.1-11.0) H [facility] RBC 3.66 10*6/uL (4.00-5.40) L [facility] HGB 11.5 g/dL (12.0-16.0) L [facility] HCT 34.2 % (36.0-47.0) L [facility] MCV 93.6 fL (80.0-95.0) [facility] MCH 31.5 pg (27.0-32.0) [facility] MCHC 33.6 g/dL (32.0-36.0) [facility] RDW 13.4 % (10.5-14.5) [facility] PLT 196 10*3/uL (150-450) [facility] MPV 8.1 fL (7.1-10.7) [facility] ID Date Data Source [id number] 12/06/2020 04:39:51 PM EDT [facility] Name Value Range Interpretation Code Description Data Noemy rce(s) Supporting Document(s) SODIUM 147 mmol/L (136-145) H [facility] POTASSIUM 4.0 mmol/L (3.6-5.2) [facility] CHLORIDE 116 mmol/L (100-108) H [facility] CO2 24 mmol/L (22-31) [facility] ANION GAP 7 mmol/L (7-16) [facility] UREA NITROGEN 9 mg/dL (7-24) [facility] CREATININE 0.65 mg/dL (0.60-1.00) [facility] BUN/CREAT RATIO 13.8 RATIO (10.0-20.0) [facility] GLUCOSE 134 mg/dL (70-99) H [facility] CALCIUM 8.7 mg/dL (8.4-10.2) [facility] GFR >60 ml/min/1.73m2 (>59) [facility] GFR ( AMER) >60 ml/min/1.73m2 (>59) [facility] GFR INTERPRETATION [facility] --NORMAL KIDNEY FUNCTION OR MILD DISEASE - GFR >OR= 60CHRONIC KIDNEY DISEASE - GFR 15 - 59RENAL FAILURE - GFR <15 Est. GFR calculation based on the MDRDstudy equation, which assumes a steadystate for creatinine. Est. GFR should notbe used for medication dosing. ID Date Data Source [id number] 12/06/2020 11:04:35 AM EDT [facility] Name Value Range Interpretation Code Description Data Noemy rce(s) Supporting Document(s) SODIUM 150 mmol/L (136-145) H [facility] POTASSIUM 3.5 mmol/L (3.6-5.2) L [facility] CHLORIDE 117 mmol/L (100-108) H [facility] CO2 29 mmol/L (22-31) [facility] ANION GAP 4 mmol/L (7-16) L [facility] UREA NITROGEN 9 mg/dL (7-24) [facility] CREATININE 0.47 mg/dL (0.60-1.00) L [facility] BUN/CREAT RATIO 19.1 RATIO (10.0-20.0) [facility] GLUCOSE 119 mg/dL (70-99) H [facility] CALCIUM 8.8 mg/dL (8.4-10.2) [facility] GFR >60 ml/min/1.73m2 (>59) [facility] GFR ([facility] AMER) >60 ml/min/1.73m2 (>59) [facility] GFR INTERPRETATION [facility] --NORMAL KIDNEY FUNCTION OR MILD DISEASE - GFR >OR= 60CHRONIC KIDNEY DISEASE - GFR 15 - 59RENAL FAILURE - GFR <15 Est. GFR calculation based on the MDRDstudy equation, which assumes a steadystate for creatinine. Est. GFR should notbe used for medication dosing. ID Date Data Source [id number] 12/06/2020 05:30:01 AM EDT [facility] Name Value Range Interpretation Code Description Data Noemy rce(s) Supporting Document(s) CALCIUM IONIZED 5.20 mg/dL (4.64-5.28) [facility] IONIZED CALCIUM NORMALIZED TO PH 7.40 AN D 37 DEGREES C. ID Date Data Source [id number] 12/06/2020 05:15:06 AM EDT [facility] Name Value Range Interpretation Code Description Data Noemy rce(s) Supporting Document(s) PHOSPHORUS 2.1 mg/dL (2.5-4.5) L [facility] ID Date Data Source [id number] 12/06/2020 05:15:06 AM EDT [facility] Name Value Range Interpretation Code Description Data Noemy rce(s) Supporting Document(s) MAGNESIUM 2.2 mg/dL (1.7-2.4) [facility] ID Date Data Source [id number] 12/06/2020 05:15:05 AM EDT [facility] Name Value Range Interpretation Code Description Data Noemy rce(s) Supporting Document(s) SODIUM 148 mmol/L (136-145) H [facility] POTASSIUM 3.3 mmol/L (3.6-5.2) L [facility] CHLORIDE 117 mmol/L (100-108) H [facility] CO2 26 mmol/L (22-31) [facility] ANION GAP 5 mmol/L (7-16) L [facility] UREA NITROGEN 11 mg/dL (7-24) [facility] CREATININE 0.48 mg/dL (0.60-1.00) L [facility] BUN/CREAT RATIO 22.9 RATIO (10.0-20.0) [facility] GLUCOSE 122 mg/dL (70-99) H [facility] CALCIUM 8.3 mg/dL (8.4-10.2) L [facility] GFR >60 ml/min/1.73m2 (>59) [facility] GFR ( AMER) >60 ml/min/1.73m2 (>59) [facility] GFR INTERPRETATION [facility] --NORMAL KIDNEY FUNCTION OR MILD DISEASE - GFR >OR= 60CHRONIC KIDNEY DISEASE - GFR 15 - 59RENAL FAILURE - GFR <15 Est. GFR calculation based on the MDRDstudy equation, which assumes a steadystate for creatinine. Est. GFR should notbe used for medication dosing. ID Date Data Source [id number] 12/06/2020 04:41:17 AM EDT [facility] Name Value Range Interpretation Code Description Data Noemy rce(s) Supporting Document(s) WBC 12.4 10*3/uL (4.1-11.0) H [facility] RBC 3.91 10*6/uL (4.00-5.40) L [facility] HGB 12.0 g/dL (12.0-16.0) [facility] HCT 36.7 % (36.0-47.0) [facility] MCV 93.8 fL (80.0-95.0) [facility] MCH 30.7 pg (27.0-32.0) [facility] MCHC 32.7 g/dL (32.0-36.0) [facility] RDW 13.6 % (10.5-14.5) [facility] PLT 186 10*3/uL (150-450) [facility] MPV 8.0 fL (7.1-10.7) [facility] ID Date Data Source [id number] 12/05/2020 11:27:36 PM EDT [facility] Name Value Range Interpretation Code Description Data Noemy rce(s) Supporting Document(s) SODIUM 147 mmol/L (136-145) H [facility] POTASSIUM 3.1 mmol/L (3.6-5.2) L [facility] CHLORIDE 115 mmol/L (100-108) H [facility] CO2 27 mmol/L (22-31) [facility] ANION GAP 5 mmol/L (7-16) L [facility] UREA NITROGEN 12 mg/dL (7-24) [facility] CREATININE 0.53 mg/dL (0.60-1.00) L [facility] BUN/CREAT RATIO 22.6 RATIO (10.0-20.0) H [facility] GLUCOSE 120 mg/dL (70-99) H [facility] CALCIUM 8.0 mg/dL (8.4-10.2) L [facility] GFR >60 ml/min/1.73m2 (>59) [facility] GFR ( AMER) >60 ml/min/1.73m2 (>59) [facility] GFR INTERPRETATION [facility] --NORMAL KIDNEY FUNCTION OR MILD DISEASE - GFR >OR= 60CHRONIC KIDNEY DISEASE - GFR 15 - 59RENAL FAILURE - GFR <15 Est. GFR calculation based on the MDRDstudy equation, which assumes a steadystate for creatinine. Est. GFR should notbe used for medication dosing. ID Date Data Source [id number] 12/05/2020 05:17:38 PM EDT [facility] Name Value Range Interpretation Code Description Data Noemy rce(s) Supporting Document(s) SODIUM 145 mmol/L (136-145) [facility] POTASSIUM 4.8 mmol/L (3.6-5.2) [facility] CHLORIDE 116 mmol/L (100-108) H [facility] CO2 25 mmol/L (22-31) [facility] ANION GAP 4 mmol/L (7-16) L [facility] UREA NITROGEN 12 mg/dL (7-24) [facility] CREATININE 0.64 mg/dL (0.60-1.00) [facility] BUN/CREAT RATIO 18.8 RATIO (10.0-20.0) [facility] GLUCOSE 118 mg/dL (70-99) H [facility] CALCIUM 8.0 mg/dL (8.4-10.2) L [facility] GFR >60 ml/min/1.73m2 (>59) [facility] GFR ( AMER) >60 ml/min/1.73m2 (>59) [facility] GFR INTERPRETATION [facility] --NORMAL KIDNEY FUNCTION OR MILD DISEASE - GFR >OR= 60CHRONIC KIDNEY DISEASE - GFR 15 - 59RENAL FAILURE - GFR <15 Est. GFR calculation based on the MDRDstudy equation, which assumes a steadystate for creatinine. Est. GFR should notbe used for medication dosing. ID Date Data Source [id number] 12/05/2020 10:04:40 AM EDT [facility] Name Value Range Interpretation Code Description Data Noemy rce(s) Supporting Document(s) SODIUM 148 mmol/L (136-145) H [facility] POTASSIUM 3.3 mmol/L (3.6-5.2) L [facility] CHLORIDE 116 mmol/L (100-108) H [facility] CO2 26 mmol/L (22-31) [facility] ANION GAP 6 mmol/L (7-16) L [facility] UREA NITROGEN 10 mg/dL (7-24) [facility] CREATININE 0.53 mg/dL (0.60-1.00) L [facility] BUN/CREAT RATIO 18.9 RATIO (10.0-20.0) [facility] GLUCOSE 131 mg/dL (70-99) H [facility] CALCIUM 8.2 mg/dL (8.4-10.2) L [facility] GFR >60 ml/min/1.73m2 (>59) [facility] GFR ( AMER) >60 ml/min/1.73m2 (>59) [facility] GFR INTERPRETATION [facility] --NORMAL KIDNEY FUNCTION OR MILD DISEASE - GFR >OR= 60CHRONIC KIDNEY DISEASE - GFR 15 - 59RENAL FAILURE - GFR <15 Est. GFR calculation based on the MDRDstudy equation, which assumes a steadystate for creatinine. Est. GFR should notbe used for medication dosing. ID Date Data Source [id number] 12/05/2020 01:22:54 AM EDT [facility] Name Value Range Interpretation Code Description Data Noemy rce(s) Supporting Document(s) CALCIUM IONIZED 5.28 mg/dL (4.64-5.28) [facility] IONIZED CALCIUM NORMALIZED TO PH 7.40 AN D 37 DEGREES C. ID Date Data Source [id number] 12/05/2020 01:20:03 AM EDT [facility] Name Value Range Interpretation Code Description Data Noemy rce(s) Supporting Document(s) MAGNESIUM 2.2 mg/dL (1.7-2.4) [facility] ID Date Data Source [id number] 12/05/2020 01:20:03 AM EDT [facility] Name Value Range Interpretation Code Description Data Noemy rce(s) Supporting Document(s) PHOSPHORUS 2.3 mg/dL (2.5-4.5) L [facility] ID Date Data Source [id number] 12/05/2020 01:20:03 AM EDT [facility] Name Value Range Interpretation Code Description Data Noemy rce(s) Supporting Document(s) SODIUM 143 mmol/L (136-145) [facility] POTASSIUM 3.9 mmol/L (3.6-5.2) [facility] CHLORIDE 114 mmol/L (100-108) H [facility] CO2 24 mmol/L (22-31) [facility] ANION GAP 5 mmol/L (7-16) L [facility] UREA NITROGEN 10 mg/dL (7-24) [facility] CREATININE 0.59 mg/dL (0.60-1.00) L [facility] BUN/CREAT RATIO 16.9 RATIO (10.0-20.0) [facility] GLUCOSE 122 mg/dL (70-99) H [facility] CALCIUM 8.8 mg/dL (8.4-10.2) [facility] GFR >60 ml/min/1.73m2 (>59) [facility] GFR ( AMER) >60 ml/min/1.73m2 (>59) [facility] GFR INTERPRETATION [facility] --NORMAL KIDNEY FUNCTION OR MILD DISEASE - GFR >OR= 60CHRONIC KIDNEY DISEASE - GFR 15 - 59RENAL FAILURE - GFR <15 Est. GFR calculation based on the MDRDstudy equation, which assumes a steadystate for creatinine. Est. GFR should notbe used for medication dosing. ID Date Data Source [id number] 12/05/2020 12:53:17 AM EDT [facility] Name Value Range Interpretation Code Description Data Noemy rce(s) Supporting Document(s) WBC 12.3 10*3/uL (4.1-11.0) H [facility] RBC 3.77 10*6/uL (4.00-5.40) L [facility] HGB 11.5 g/dL (12.0-16.0) L [facility] HCT 35.7 % (36.0-47.0) L [facility] MCV 94.6 fL (80.0-95.0) [facility] MCH 30.6 pg (27.0-32.0) [facility] MCHC 32.3 g/dL (32.0-36.0) [facility] RDW 13.6 % (10.5-14.5) [facility] PLT 180 10*3/uL (150-450) [facility] MPV 7.9 fL (7.1-10.7) [facility] ID Date Data Source [id number] 12/04/2020 08:46:10 PM EDT [facility] Name Value Range Interpretation Code Description Data Noemy rce(s) Supporting Document(s) SODIUM 147 mmol/L (136-145) H [facility] POTASSIUM 3.5 mmol/L (3.6-5.2) L [facility] CHLORIDE 117 mmol/L (100-108) H [facility] CO2 20 mmol/L (22-31) L [facility] ANION GAP 10 mmol/L (7-16) [facility] UREA NITROGEN 11 mg/dL (7-24) [facility] CREATININE 0.75 mg/dL (0.60-1.00) [facility] BUN/CREAT RATIO 14.7 RATIO (10.0-20.0) [facility] GLUCOSE 157 mg/dL (70-99) H [facility] CALCIUM 8.7 mg/dL (8.4-10.2) [facility] GFR >60 ml/min/1.73m2 (>59) [facility] GFR ( AMER) >60 ml/min/1.73m2 (>59) [facility] GFR INTERPRETATION [facility] --NORMAL KIDNEY FUNCTION OR MILD DISEASE - GFR >OR= 60CHRONIC KIDNEY DISEASE - GFR 15 - 59RENAL FAILURE - GFR <15 Est. GFR calculation based on the MDRDstudy equation, which assumes a steadystate for creatinine. Est. GFR should notbe used for medication dosing. ID Date Data Source [id number] 12/04/2020 05:58:00 PM EDT [facility] DATE OF EXAM: 12/04/2020[facility] MRI BRAIN WITHOUT AND WITH CONTRAST CLINICAL STATEMENT: Parenchymal hemorrhage. Follow-up TECHNIQUE: MRI of the brain was performed with and without contrast, following intravenous administration of 12 ml Prohance/ 15 ml vial. The following pulse sequences were performed: Sagittal T1 and axial T1,T2, FLAIR, GRE, DWI, post-contrast axial, sagittal, and coronal T1. COMPARISON: None of this type. CT brain dated 12/03/2020. FINDINGS: A large acute right parieto-occipital lobe parenchymal hemorrhage is seen, measuring 5.5 x 3.2 x 6.8 cm. A moderate amount of surrounding edema is present, resulting in near complete effacement of the right occipital horn. There is no significant midline shift. There is no evidence of underlying enhancing mass lesion or vascular malformation. There is no extra- axial fluid collection. A small amount of intraventricular hemorrhage is seen. There is no evidence of hydrocephalus. There is no evidence of restricted diffusion to suggest acute infarction. A moderate-sized chronic right frontal lobe infarct is seen, with associated hemosiderin staining. Age appropriate atrophy and moderate chronic microvascular white matter ischemic changes are present. Multiple punctate foci of increased susceptibility artifact are seen throughout multiple cerebral and cerebellar hemispheres. Normal intracranial arterial flow-voids are present. The visualized paranasal sinuses and orbits appear unremarkable. IMPRESSION: Large acute right parieto-occipital lobe parenchymal hemorrhage, with small amount of intraventricular hemorrhage. No evidence of hydrocephalus or midline shift. No evidence of underlying enhancing mass lesion or vascular malformation. Chronic moderate sized previously hemorrhagic right frontal lobe infarct. Multiple punctate foci of increased susceptibility artifact throughout bilateral cerebral and cerebellar hemispheres, raising the possibility of underlying amyloid angiopathy. Professional interpretation performed at [facility] .End of diagnostic report for accession: [id number] Interpreted: Braeden Patten MDTranscribed: 12/04/2020 05:49 PMSigned: 12/04/2020 05:58 PM Braeden Patten MD [facility] # [id number] BILL # [id number] Name Value Range Interpretation Code Description Data Noemy e(s) Supporting Document(s) ID Date Data Source [id number] 12/04/2020 02:16:45 PM EDT [facility] Name Value Range Interpretation Code Description Data Noemy e(s) Supporting Document(s) SODIUM 143 mmol/L (136-145) [facility] POTASSIUM 3.5 mmol/L (3.6-5.2) L [facility] CHLORIDE 114 mmol/L (100-108) H [facility] CO2 21 mmol/L (22-31) L [facility] ANION GAP 8 mmol/L (7-16) [facility] UREA NITROGEN 12 mg/dL (7-24) [facility] CREATININE 0.62 mg/dL (0.60-1.00) [facility] BUN/CREAT RATIO 19.4 RATIO (10.0-20.0) [facility] GLUCOSE 124 mg/dL (70-99) H [facility] CALCIUM 8.3 mg/dL (8.4-10.2) L [facility] GFR >60 ml/min/1.73m2 (>59) [facility] GFR ( AMER) >60 ml/min/1.73m2 (>59) [facility] GFR INTERPRETATION [facility] --NORMAL KIDNEY FUNCTION OR MILD DISEASE - GFR >OR= 60CHRONIC KIDNEY DISEASE - GFR 15 - 59RENAL FAILURE - GFR <15 Est. GFR calculation based on the MDRDstudy equation, which assumes a steadystate for creatinine. Est. GFR should notbe used for medication dosing. ID Date Data Source [id number] 12/04/2020 06:17:33 AM EDT [facility] Name Value Range Interpretation Code Description Data Noemy rce(s) Supporting Document(s) CALCIUM IONIZED 5.12 mg/dL (4.64-5.28) [facility] IONIZED CALCIUM NORMALIZED TO PH 7.40 AN D 37 DEGREES C. ID Date Data Source [id number] 12/04/2020 06:17:18 AM EDT [facility] Name Value Range Interpretation Code Description Data Noemy rce(s) Supporting Document(s) PHOSPHORUS 3.1 mg/dL (2.5-4.5) [facility] ID Date Data Source [id number] 12/04/2020 06:17:18 AM EDT [facility] Name Value Range Interpretation Code Description Data Noemy rce(s) Supporting Document(s) SODIUM 146 mmol/L (136-145) H [facility] POTASSIUM 3.6 mmol/L (3.6-5.2) [facility] CHLORIDE 115 mmol/L (100-108) H [facility] CO2 23 mmol/L (22-31) [facility] ANION GAP 8 mmol/L (7-16) [facility] UREA NITROGEN 12 mg/dL (7-24) [facility] CREATININE 0.58 mg/dL (0.60-1.00) L [facility] BUN/CREAT RATIO 20.7 RATIO (10.0-20.0) H [facility] GLUCOSE 131 mg/dL (70-99) H [facility] CALCIUM 9.0 mg/dL (8.4-10.2) [facility] GFR >60 ml/min/1.73m2 (>59) [facility] GFR ([facility] AMER) >60 ml/min/1.73m2 (>59) [facility] GFR INTERPRETATION [facility] --NORMAL KIDNEY FUNCTION OR MILD DISEASE - GFR >OR= 60CHRONIC KIDNEY DISEASE - GFR 15 - 59RENAL FAILURE - GFR <15 Est. GFR calculation based on the MDRDstudy equation, which assumes a steadystate for creatinine. Est. GFR should notbe used for medication dosing. ID Date Data Source [id number] 12/04/2020 06:17:18 AM EDT [facility] Name Value Range Interpretation Code Description Data Noemy rce(s) Supporting Document(s) MAGNESIUM 2.2 mg/dL (1.7-2.4) [facility] ID Date Data Source [id number] 12/04/2020 05:45:45 AM EDT [facility] Name Value Range Interpretation Code Description Data Noemy rce(s) Supporting Document(s) WBC 14.0 10*3/uL (4.1-11.0) H [facility] RBC 4.13 10*6/uL (4.00-5.40) [facility] HGB 12.8 g/dL (12.0-16.0) [facility] HCT 38.8 % (36.0-47.0) [facility] MCV 94.0 fL (80.0-95.0) [facility] MCH 31.0 pg (27.0-32.0) [facility] MCHC 33.0 g/dL (32.0-36.0) [facility] RDW 13.9 % (10.5-14.5) [facility] PLT 198 10*3/uL (150-450) [facility] MPV 7.7 fL (7.1-10.7) [facility] ID Date Data Source [id number] 12/04/2020 12:21:20 AM EDT [facility] Name Value Range Interpretation Code Description Data Noemy rce(s) Supporting Document(s) SODIUM 145 mmol/L (136-145) [facility] POTASSIUM 4.2 mmol/L (3.6-5.2) [facility] CHLORIDE 113 mmol/L (100-108) H [facility] CO2 25 mmol/L (22-31) [facility] ANION GAP 7 mmol/L (7-16) [facility] UREA NITROGEN 12 mg/dL (7-24) [facility] CREATININE 0.65 mg/dL (0.60-1.00) [facility] BUN/CREAT RATIO 18.5 RATIO (10.0-20.0) [facility] GLUCOSE 126 mg/dL (70-99) H [facility] CALCIUM 8.5 mg/dL (8.4-10.2) [facility] GFR >60 ml/min/1.73m2 (>59) [facility] GFR ( AMER) >60 ml/min/1.73m2 (>59) [facility] GFR INTERPRETATION [facility] --NORMAL KIDNEY FUNCTION OR MILD DISEASE - GFR >OR= 60CHRONIC KIDNEY DISEASE - GFR 15 - 59RENAL FAILURE - GFR <15 Est. GFR calculation based on the MDRDstudy equation, which assumes a steadystate for creatinine. Est. GFR should notbe used for medication dosing. ID Date Data Source [id number] 12/03/2020 06:37:44 PM EDT [facility] Name Value Range Interpretation Code Description Data Noemy rce(s) Supporting Document(s) SODIUM 144 mmol/L (136-145) [facility] POTASSIUM 4.4 mmol/L (3.6-5.2) [facility] CHLORIDE 111 mmol/L (100-108) H [facility] CO2 23 mmol/L (22-31) [facility] ANION GAP 10 mmol/L (7-16) [facility] UREA NITROGEN 13 mg/dL (7-24) [facility] CREATININE 0.64 mg/dL (0.60-1.00) [facility] BUN/CREAT RATIO 20.3 RATIO (10.0-20.0) H [facility] GLUCOSE 128 mg/dL (70-99) H [facility] CALCIUM 8.7 mg/dL (8.4-10.2) [facility] GFR >60 ml/min/1.73m2 (>59) [facility] GFR ( AMER) >60 ml/min/1.73m2 (>59) [facility] GFR INTERPRETATION [facility] --NORMAL KIDNEY FUNCTION OR MILD DISEASE - GFR >OR= 60CHRONIC KIDNEY DISEASE - GFR 15 - 59RENAL FAILURE - GFR <15 Est. GFR calculation based on the MDRDstudy equation, which assumes a steadystate for creatinine. Est. GFR should notbe used for medication dosing. ID Date Data Source [id number] 12/03/2020 05:30:00 PM EDT [facility] DATE OF EXAM: 12/03/2020T BRAIN WITHOUT CONTRAST CLINICAL STATEMENT: Follow-up intracranial hemorrhage. TECHNIQUE: CT of the head was performed using 5 mm collimation from the base of skull to the vertex without contrast. COMPARISON: Earlier on same date. FINDINGS: Since the prior study, there has been no significant interval change in large right parieto-occipital lobe parenchymal hemorrhage, measuring approximately 5.9 cm AP by 3.1 cm transverse by 6.5 cm craniocaudad. A moderate amount of surrounding vasogenic edema is present, without new mass-effect or midline shift. A small amount of intraventricular hemorrhage is present. There is no evidence of hydrocephalus. There is no extra-axial fluid collection. There is no loss of toro-white matter differentiation to suggest acute territorial infarct. A moderate-sized chronic right frontal lobe infarct is again seen. Age appropriate atrophy and moderate chronic microvascular ischemic changes are identified within the supratentorial white matter. The calvarium is intact. The visualized paranasal sinuses and orbits appear unremarkable. IMPRESSION: No significant interval change. Large acute right parieto-occipital lobe parenchymal hemorrhage, without new mass- effect or midline shift. Professional interpretation performed at [facility] .End of diagnostic report for accession: [id number] Interpreted: Braeden Patten MDTranscribed: 12/03/2020 05:28 PMSigned: 12/03/2020 05:30 PM Braeden Patten MD [facility] # [id number] BILL # [id number] Name Value Range Interpretation Code Description Data Noemy rce(s) Supporting Document(s) ID Date Data Source [id number] 12/03/2020 06:30:00 AM EDT [facility] Name Value Range Interpretation Code Description Data Noemy rce(s) Supporting Document(s) SARS coronavirus 2 RNA [Presence] in Res piratory specimen by VANESSA with probe detection NOT DETECTED [facility] This lab was reported by [facility]. ID Date Data Source [id number] 12/03/2020 07:45:03 AM EDT [facility] Name Value Range Interpretation Code Description Data Noemy rce(s) Supporting Document(s) SPECIMEN DESCRIPTION [facility] INFLUENZA A (NEG) [facility] INFLUENZA B (NEG) [facility] RSV (NEG) [facility] COMMENT [facility] THE [place] FDA HAS MADE THIS TEST AVAILABL EUNDER AN EMERGENCY USE AUTHORIZATION(EUA) FOR THE DETECTION AND/OR DIAGNOSISOF THE VIRUS THAT CAUSES COVID-19.PERFORMED AT [address] [facility] [address] COVID19 RESULT (NDET) [facility] THIS ASSAY AMPLIFIES AND DETECTSTHE TARG ET RNA USING REAL-TIME PCR.TESTING PERFORMED ON F-OriginID GENEXPERTNEGATIVE 2019_NCOV RT-PCR RESULTS DONOT PRECLUDE 2019_NCOV INFECTION ANDSHOULD NOT BE USED THE SOLE BASISFOR PATIENT MANAGEMENT DECISIONS. FIRST TEST [facility] [employer] [facility] SYMPTOMATIC [facility] DATE OF SYMPT ONSET [facility] ICU [facility] [place] CON[facility]REG[facility] CARE SET [facility] ID Date Data Source [id number] 12/03/2020 10:40:43 AM EDT [facility] Name Value Range Interpretation Code Description Data Noemy rce(s) Supporting Document(s) CHOLESTEROL @ 260 mg/dL (0-200) H [facility] TRIGLYCERIDE @ 140 mg/dL (30-200) [facility] HDL CHOLESTEROL @ 69 mg/dL (>40) [facility] PER NCEP ATP III GUIDELINES:RESULTS LOWE R THAN 40 MG/DL ARE SUGGESTIVEOF INCREASED RISK FOR CORONARY ARTERYDISEASE. RESULTS > OR = TO 60 MG/DL ARECONSIDERED A NEGATIVE RISK FACTOR. CHOL/HDL RATIO 3.8 RATIO [facility] CHOL-HDL RATIO CHD RISK FEMALE MALEVERY HIGH >8.3 >14.3HIGH 5.6- 8.3 6.7- 14.3AVERAGE 3.7- 5.6 4.0- 6.7BELOW AVERAGE 2.5- 3.7 2.7- 4.0PROTECTED <2.5 <2.7 LDL CHOL (CALC) 163 mg/dL (<130) [facility] [place] [facility] PER NCEP ATP III GUIDELINES: OPTIMAL < 100 NEAR OPTIMAL 100 - 129BORDERLINE HIGH 130 - 159 HIGH 160 - 189 VERY HIGH > 189 ID Date Data Source [id number] 12/03/2020 10:31:02 AM EDT [facility] [place] patricia CURIEL Name Value Range Interpretation Code Description Data Noemy rce(s) Supporting Document(s) KEPPRA @ 14 ug/mL (5-30) [facility] [place] BUCKY ID Date Data Source [id number] 12/03/2020 08:10:00 AM EDT [facility] DATE OF EXAM: 12/03/2020T BRAIN WITHOUT CONTRAST CLINICAL STATEMENT: Code B TECHNIQUE: Multiple noncontrast images were obtained through the brain from the base of skull to the vertex without intravenous contrast. COMPARISON: None FINDINGS: A moderate sized acute parenchymal hemorrhage is seen involving the right parieto-occipital lobe. The hemorrhage measures approximately 5.2 x 3.6 x 6.2 cm (transverse by anterior posterior by craniocaudad dimensions). Moderate localized vasogenic edema and mass effect is seen in this location. There is associated effacement upon the posterior aspect of the right lateral ventricle including the occipital horn. A very small amount of intraventricular hemorrhage is noted. No significant midline shift or herniation is seen. No acute major vascular territory infarct is seen. A moderate sized chronic right anterior frontal lobe infarct is noted. Mild low-attenuation is seen throughout the periventricular and subcortical white matter, nonspecific however most likely sequela of chronic small vessel ischemic disease. The ventricles and sulci are prominent, compatible diffuse cerebral volume loss. The calvarium is intact. The patient is status post bilateral intraocular lens replacement. The visualized paranasal sinuses appear unremarkable. Mastoid air cells are clear. IMPRESSION: Moderate sized acute parenchymal hemorrhage involving the right occipital lobe. Associated mass effect and localized vasogenic edema, with no significant midline shift or herniation. Very small amount of intraventricular hemorrhage. A contemporaneous report was provided by [facility] at the time of this examination, reporting similar findings. Professional interpretation performed at [facility] .End of diagnostic report for accession: [id number] Interpreted: Cassidy Frias MDTranscribed: 12/03/2020 08:07 AMSigned: 12/03/2020 08:10 AM Cassidy Frias MD [facility] # [id number] BILL # [id number] Name Value Range Interpretation Code Description Data Noemy rce(s) Supporting Document(s) ID Date Data Source [id number] 12/03/2020 06:49:08 AM EDT [facility] Name Value Range Interpretation Code Description Data Noemy rce(s) Supporting Document(s) WBC 11.5 10*3/uL (4.1-11.0) H [facility] RBC 4.21 10*6/uL (4.00-5.40) [facility] HGB 13.2 g/dL (12.0-16.0) [facility] HCT 39.5 % (36.0-47.0) [facility] MCV 93.8 fL (80.0-95.0) [facility] MCH 31.3 pg (27.0-32.0) [facility] MCHC 33.4 g/dL (32.0-36.0) [facility] RDW 13.5 % (10.5-14.5) [facility] PLT 209 10*3/uL (150-450) [facility] MPV 7.8 fL (7.1-10.7) [facility] NEUT % 62.0 % (35.0-75.0) [facility] LYMPH % 34.4 % (16.0-52.0) [facility] MONO % 3.3 % (0.0-8.0) [facility] EOS % 0.1 % (0.0-5.0) [facility] BASO % 0.2 % (0.0-4.0) [facility] NEUT # 7.1 10*3/uL (1.8-7.7) [facility] LYMPH # 3.9 10*3/uL (1.2-4.8) [facility] MONO # 0.4 10*3/uL (0.0-0.8) [facility] Eosinophils [#/volume] in Blood by Automated count 0.0 10*3/uL (0.0-0 .5) [facility] BASO # 0.0 10*3/uL (0.0-0.2) [facility] ID Date Data Source [id number] 12/03/2020 06:41:22 AM EDT [facility] Name Value Range Interpretation Code Description Data Noemy rce(s) Supporting Document(s) TROPONIN I <0.05 ng/mL (<0.05) [facility] [place] Less than 0.05: Myocardial injury unlike lyGreater than or equal to 0.05: Highly suggestive of myocardial injuryCorrelation with rise and/or fall ofserial troponins, clinical symptomsand ECG changes is necessary. ID Date Data Source [id number] 12/03/2020 06:36:37 AM EDT [facility] Name Value Range Interpretation Code Description Data Noemy rce(s) Supporting Document(s) PT 10.6 s (9.2-11.9) [facility] PERFORMED AT [address] [place] [address] INR 1.01 [facility] SUGGESTED THERAPEUTIC RANGES USING INR F ORSTABILIZED ANTICOAGULATED PATIENTS:STANDARD DOSE THERAPY INR 2.0-3.0 DVT, PE, PREVENT DVT OR EMBOLISMHIGH DOSE THERAPY INR 2.5-3.5 PREVENT EMBOLISM FROM MECHANICAL HEART VALVE ID Date Data Source [id number] 12/03/2020 06:36:41 AM EDT [facility] Name Value Range Interpretation Code Description Data Noemy rce(s) Supporting Document(s) SODIUM 140 mmol/L (136-145) [facility] POTASSIUM 3.8 mmol/L (3.6-5.2) [facility] CHLORIDE 106 mmol/L (100-108) [facility] CO2 26 mmol/L (22-31) [facility] ANION GAP 8 mmol/L (7-16) [facility] UREA NITROGEN 15 mg/dL (7-24) [facility] CREATININE 0.78 mg/dL (0.60-1.00) [facility] BUN/CREAT RATIO 19.2 RATIO (10.0-20.0) [facility] GLUCOSE 140 mg/dL (70-99) H [facility] CALCIUM 8.7 mg/dL (8.4-10.2) [facility] GFR >60 ml/min/1.73m2 (>59) [facility] GFR ( AMER) >60 ml/min/1.73m2 (>59) [facility] GFR INTERPRETATION [facility] --NORMAL KIDNEY FUNCTION OR MILD DISEASE - GFR >OR= 60CHRONIC KIDNEY DISEASE - GFR 15 - 59RENAL FAILURE - GFR <15 Est. GFR calculation based on the MDRDstudy equation, which assumes a steadystate for creatinine. Est. GFR should notbe used for medication dosing. ID Date Data Source [id number] 12/03/2020 06:36:37 AM EDT [facility] Name Value Range Interpretation Code Description Data Noemy rce(s) Supporting Document(s) APTT 24.7 s (22.0-34.3) [facility] PERFORMED AT [address] [facility] [address] ID Date Data Source [id number] 12/03/2020 06:22:09 AM EDT [facility] Name Value Range Interpretation Code Description Data Noemy rce(s) Supporting Document(s) HOLD TUBE PINK [facility] ID Date Data Source [id number] 11/06/2020 11:09:00 AM EDT [facility] ([facility]) Name Value Range Interpretation Code Description Data Noemy rce(s) Supporting Document(s) Triglyceride [Mass/volume] in Serum or Plasma 170 mg/dL 30-150 [facility] ([facility]) Cholesterol [Mass/volume] in Serum or Plasma 250 mg/dL 131-200 [facility] ([facility]) Cholesterol in HDL [Mass/volume] in Serum or Plasma 61 mg/dL 35-60 [facility] ([facility]) Cholesterol in LDL [Mass/volume] in Serum or Plasma by calcu lation 155 CALC 50-159 [facility] ([facility]) ID Date Data Source [id number] 11/06/2020 11:09:00 AM EDT [facility] ([facility]) Name Value Range Interpretation Code Description Data Noemy rce(s) Supporting Document(s) Glucose [Mass/volume] in Serum or Plasma 93 mg/dL 74-99 [facility] ([facility]) 100-125 mg/dL PRE-DIABETES/FASTING >126 mg/dL DIABETES/FASTING Urea nitrogen [Mass/volume] in Serum or Plasma 18 mg/dL 7-18 [facility] ([facility]) Sodium [Moles/volume] in Serum or Plasma 139 meq/L 136-145 [facility] ([facility]) Creatinine 0.9 mg/dL 0.6-1.3 [facility] Potassium [Moles/volume] in Serum or Plasma 4.3 meq/L 3.5-5.1 [facility] ([facility]) Calcium [Mass/volume] in Serum or Plasma 9.4 mg/dL 8.5-10.1 [facility] ([facility]) Carbon dioxide, total [Moles/volume] in Serum or Plasma 26 meq/L 21 -32 [facility] ([facility]) Chloride [Moles/volume] in Serum or Plasma 105 meq/L 98-107 [facility] ([facility]) Aspartate aminotransferase [Enzymatic activity/volume] in Serum or Plasma 17 U/L 15-37 [facility] ([facility] ) Total Bilirubin 0.6 mg/dL 0.2-1.0 [facility] ([facility]) Alkaline phosphatase isoenzyme [Units/volume] in Serum or Pl asma 64 mg/dL 46-116 [facility] ([facility]) Albumin [Mass/volume] in Serum or Plasma 3.9 g/dL 3.4-5.0 [facility] ([facility]) Alanine aminotransferase [Enzymatic activity/volume] in Seru m or Plasma 29 U/L 12-78 [facility] ([facility]) Proteinase 3 Ab [Units/volume] in Serum 6.8 g/dL 6.4-8.2 [facility] ([facility]) Glomerular filtration rate/1.73 sq M pre dicted among blacks [Volume Rate/Area] in Serum or Plasma by Creatinine-based formula (MDRD) [facility] <content>CHRONIC KIDNEY DISEASE STAGING PER NKF</content>
<content></content>
<content>STAGE I & II GFR >= 60 NORMAL TO MILDLY DECREASED</content>
<content>STAGE III GFR 30-59 MODERATELY DECREASED</content>
<content>STAGE IV GFR 15-29 SEVERELY DECREASED</content>
<content>STAGE V GFR <15 VERY LITTLE GFR LEFT</content>
<content>ESRD GFR <15 ON TANK HOOP BENDER</content>
<content></content> Glomerular filtration rate/1.73 sq M pre dicted among non-blacks [Volume Rate/Area] in Serum or Plasma by Creatinine-based formula (MDRD) Laboratory test result [facility] ([facility] ) A/G Ratio 1.34 CALC 1.00-1.90 [facility] ID Date Data Source [id number] 11/06/2020 11:09:00 AM EDT [facility] ([facility]) Name Value Range Interpretation Code Description Data Noemy rce(s) Supporting Document(s) Leukocytes [#/volume] in Blood by Automated count 7.0 x10*3/UL 4.1-10 .9 [facility] ([facility]) Hemoglobin [Mass/volume] in Blood 13.5 g/dL 12.0-18.0 [facility] ([facility]) Hematocrit [Volume Fraction] of Blood by Automated count 39.8 % 3 7.0-51.0 [facility] ([facility]) Erythrocytes [#/volume] in Blood by Automated count 4.41 x10*6/UL 4.2 0-6.30 [facility] ([facility]) MCH 30.6 pg 26.0-32.0 [facility] MCHC 34.0 g/dL 31.0-38.0 [facility]) MCV 90.1 fL 80.0-97.0 [facility] Erythrocyte distribution width [Ratio] by Automated count 13.4 % 11.6-13.7 [facility] ([facility]) Platelets [#/volume] in Blood by Automated count 213 x10*3/UL 140-440 [facility] ([facility]) MPV 7.7 FL 7.8-11.0 [facility]) Lymph % 55.5 % 10.0-58.5 [facility]) Mid % 6.3 % 1.7-9.3 [facility] Neut % 38.2 % 37.0-92.0 [facility] Neut # 2.7 x10*3/UL 2.0-7.8 [facility] ([facility]) Mid # 0.4 x10*3/UL 0.1-0.6 [facility] ([facility]) Lymph # 3.9 x10*3/UL 0.6-4.1 [facility] ([facility]) ID Date Data Source [id number] 05/06/2020 12:13:00 PM EST [facility] ([facility]) Name Value Range Interpretation Code Description Data Noemy rce(s) Supporting Document(s) Thyrotropin [Units/volume] in Serum or Plasma by Detec tion limit <= 0.05 mIU/L 1.59 uIU/mL 0.36-3.74 [facility] ([facility] ) ID Date Data Source [id number] 05/06/2020 12:13:00 PM EST [facility] ([facility]) Name Value Range Interpretation Code Description Data Noemy rce(s) Supporting Document(s) Cholesterol [Mass/volume] in Serum or Plasma 234 mg/dL 131-200 [facility] ([facility]) Triglyceride [Mass/volume] in Serum or Plasma 194 mg/dL 30-150 [facility] ([facility]) Cholesterol in HDL [Mass/volume] in Serum or Plasma 62 mg/dL 35-60 [facility] ([facility]) Cholesterol in LDL [Mass/volume] in Serum or Plasma by calcu lation 133 CALC 50-159 [facility] ([facility]) ID Date Data Source [id number] 05/06/2020 12:13:00 PM EST [facility] ([facility]) Name Value Range Interpretation Code Description Data Noemy rce(s) Supporting Document(s) Glucose [Mass/volume] in Serum or Plasma 97 mg/dL 74-99 [facility] ([facility]) 100-125 mg/dL PRE-DIABETES/FASTING >126 mg/dL DIABETES/FASTING Urea nitrogen [Mass/volume] in Serum or Plasma 15 mg/dL 7-18 [facility] ([facility]) Potassium [Moles/volume] in Serum or Plasma 4.3 meq/L 3.5-5.1 [facility] ([facility]) Sodium [Moles/volume] in Serum or Plasma 143 meq/L 136-145 [facility] ([facility]) Creatinine 0.7 mg/dL 0.6-1.3 [facility] Carbon dioxide, total [Moles/volume] in Serum or Plasma 27 meq/L 21 -32 [facility] ([facility]) Chloride [Moles/volume] in Serum or Plasma 106 meq/L 98-107 [facility] ([facility]) Calcium [Mass/volume] in Serum or Plasma 9.1 mg/dL 8.5-10.1 [facility] ([facility]) Aspartate aminotransferase [Enzymatic activity/volume] in Serum or Plasma 17 U/L 15-37 [facility] ([facility] ) Total Bilirubin 0.6 mg/dL 0.2-1.0 [facility] ([facility]) Alkaline phosphatase isoenzyme [Units/volume] in Serum or Pl asma 75 mg/dL 46-116 [facility] ([facility]) Alanine aminotransferase [Enzymatic activity/volume] in Seru m or Plasma 27 U/L 12-78 [facility] ([facility]) Albumin [Mass/volume] in Serum or Plasma 4.0 g/dL 3.4-5.0 [facility] ([facility]) A/G Ratio 1.29 CALC 1.00-1.90 [facility]) Glomerular filtration rate/1.73 sq M pre dicted among non-blacks [Volume Rate/Area] in Serum or Plasma by Creatinine-based formula (MDRD) Laboratory test [facility] Proteinase 3 Ab [Units/volume] in Serum 7.1 g/dL 6.4-8.2 [facility] ([facility]) Glomerular filtration rate/1.73 sq M pre dicted among blacks [Volume Rate/Area] in Serum or Plasma by Creatinine-based formula (MDRD) Laboratory test result [facility] <content>CHRONIC KIDNEY DISEASE STAGING PER NK[facility]</content>
<content></content>
<content>STAGE I & II GFR >= 60 NORMAL TO MILDLY DECREASED</content>
<content>STAGE III GFR 30-59 MODERATELY DECREASED</content>
<content>STAGE IV GFR 15-29 SEVERELY DECREASED</content>
<content>STAGE V GFR <15 VERY LITTLE GFR LEFT</content>
<content>ESRD GFR <15 ON TANK HOOP BENDER</content>
<content></content> ID Date Data Source [id number] 05/06/2020 12:13:00 PM EST [facility] ([facility]) Name Value Range Interpretation Code Description Data Noemy rce(s) Supporting Document(s) Hemoglobin [Mass/volume] in Blood 14.2 g/dL 12.0-18.0 [facility] ([facility]) Erythrocytes [#/volume] in Blood by Automated count 4.57 x10*6/UL 4.2 0-6.30 [facility] ([facility]) Leukocytes [#/volume] in Blood by Automated count 8.5 x10*3/UL 4.1-10 .9 [facility] ([facility]) Hematocrit [Volume Fraction] of Blood by Automated count 40.8 % 3 7.0-51.0 [facility] ([facility]) MCHC 34.9 g/dL 31.0-38.0 [facility]) MCH 31.2 pg 26.0-32.0 [facility]) MCV 89.3 fL 80.0-97.0 [facility]) MPV 8.4 FL 7.8-11.0 [facility] ([facility]) Erythrocyte distribution width [Ratio] by Automated count 12.6 % 11.6-13.7 [facility] ([facility]) Platelets [#/volume] in Blood by Automated count 255 x10*3/UL 140-440 [facility] ([facility]) Lymph % 52.7 % 10.0-58.5 [facility] Neut % 41.0 % 37.0-92.0 [facility] ([facility]) Mid % 6.3 % 1.7-9.3 [facility] Mid # 0.5 x10*3/UL 0.1-0.6 [facility] ([facility]) Lymph # 4.5 x10*3/UL 0.6-4.1 [facility] ([facility]) Neut # 3.5 x10*3/UL 2.0-7.8 [facility] ([facility]) ID Date Data Source [id number] 02/21/2020 09:07:00 AM EST [facility] ([facility]) Name Value Range Interpretation Code Description Data Noemy rce(s) Supporting Document(s) Triglyceride [Mass/volume] in Serum or Plasma 163 mg/dL 30-150 [facility] ([facility]) Cholesterol [Mass/volume] in Serum or Plasma 239 mg/dL 131-200 [facility] ([facility]) Cholesterol in LDL [Mass/volume] in Serum or Plasma by calcu lation 147 CALC 50-159 [facility] ([facility]) Cholesterol in HDL [Mass/volume] in Serum or Plasma 59 mg/dL 35-60 [facility] ([facility]) ID Date Data Source [id number] 02/21/2020 09:07:00 AM EST [facility] ([facility]) Name Value Range Interpretation Code Description Data Noemy rce(s) Supporting Document(s) Urea nitrogen [Mass/volume] in Serum or Plasma 16 mg/dL 7-18 [facility] ([facility]) Creatinine 0.8 mg/dL 0.6-1.3 [facility] Glucose [Mass/volume] in Serum or Plasma 95 mg/dL 74-99 [facility] ([facility]) 100-125 mg/dL PRE-DIABETES/FASTING >126 mg/dL DIABETES/FASTING Chloride [Moles/volume] in Serum or Plasma 105 meq/L 98-107 [facility] ([facility]) Potassium [Moles/volume] in Serum or Plasma 4.4 meq/L 3.5-5.1 [facility] ([facility]) Sodium [Moles/volume] in Serum or Plasma 143 meq/L 136-145 [facility] ([facility]) Calcium [Mass/volume] in Serum or Plasma 9.2 mg/dL 8.5-10.1 [facility] ([facility]) Carbon dioxide, total [Moles/volume] in Serum or Plasma 25 meq/L 21 -32 [facility] ([facility]) Glomerular filtration rate/1.73 sq M pre dicted among non-blacks [Volume Rate/Area] in Serum or Plasma by Creatinine-based formula (MDRD) Laboratory test result [facility] ([facility] ) Glomerular filtration rate/1.73 sq M pre dicted among blacks [Volume Rate/Area] in Serum or Plasma by Creatinine-based formula (MDRD) Laboratory test result [facility] ([facility]) <content>CHRONIC KIDNEY DISEASE STAGING PER NK[facility]</content>
<content></content>
<content>STAGE I & II GFR >= 60 NORMAL TO MILDLY DECREASED</content>
<content>STAGE III GFR 30-59 MODERATELY DECREASED</content>
<content>STAGE IV GFR 15-29 SEVERELY DECREASED</content>
<content>STAGE V GFR <15 VERY LITTLE GFR LEFT</content>
<content>ESRD GFR <15 ON TANK HOOP BENDER</content>
<content></content> ID Date Data Source [id number] 02/21/2020 09:07:00 AM EST [facility] Name Value Range Interpretation Code Description Data Neomy rce(s) Supporting Document(s) Erythrocytes [#/volume] in Blood by Automated count 4.65 x10*6/UL 4.2 0-6.30 [facility] ([facility]) Leukocytes [#/volume] in Blood by Automated count 8.1 x10*3/UL 4.1-10 .9 [facility] ([facility]) Hemoglobin [Mass/volume] in Blood 14.4 g/dL 12.0-18.0 [facility] ([facility]) Hematocrit [Volume Fraction] of Blood by Automated count 41.3 % 3 7.0-51.0 [facility] ([facility]) MCH 31.1 pg 26.0-32.0 [facility]) MCV 88.7 fL 80.0-97.0 [facility]) Erythrocyte distribution width [Ratio] by Automated count 12.7 % 11.6-13.7 [facility] ([facility]) Platelets [#/volume] in Blood by Automated count 224 x10*3/UL 140-440 [facility] ([facility]) MCHC 35.0 g/dL 31.0-38.0 [facility] Mid % 6.4 % 1.7-9.3 [facility] Lymph % 54.4 % 10.0-58.5 [facility] MPV 8.1 FL 7.8-11.0 [facility] Lymph # 4.4 x10*3/UL 0.6-4.1 [facility] ([facility]) Neut % 39.2 % 37.0-92.0 [facility] Mid # 0.6 x10*3/UL 0.1-0.6 [facility] ([facility]) Neut # 3.1 x10*3/UL 2.0-7.8 [facility] ([facility]) Procedure Social History Code Duration Value Status Description Data Source(s ) Smoking 12/06/2020 08:29:00 AM EDT Denies Ever Smoked complete d Denies Ever Smoked [facility] Vital Signs ID Date Data Source [id number] Name Value Range Interpretation Code Description Data Source(s) Systolic blood pressure 132 mm[Hg] 132 mm[Hg] M [facility] ([facility]) Diastolic blood pressure 76 mm[Hg] 76 mm[Hg] [facility] ([facility]) Heart rate 68 /min 68 /min [facility] ([facility]) Body height 60.25 [in_i] 60.25 [in_i] [facility] 5'0.25" Body weight 145.00 [lb_av] 145.00 [lb_av] [facility] ([facility]) Body mass index (BMI) [Ratio] 28.1 kg/m2 28.1 k g/m2 [facility] ([facility]) Deprecated Oxygen saturation in Capillary blood by Oximetry 95 % Normal (applies to non-numeric results) 95 % [facility] Systolic blood pressure 119 mm[Hg] Normal (applies t o non-numeric results) 119 mm[Hg] [facility] Diastolic blood pressure 68 mm[Hg] Normal (applies to non-numeric results) 68 mm[Hg] [facility] Heart rate 97 min Normal (applies to non-numeric resul ts) 97 min [facility] Respiratory rate 17 min Normal (applies to non-numeric results) 17 min [facility] Body temperature 36.2 zechariah Normal (applies to non-numeric results) 36.2 zechariah [facility] Body weight Measured 66 kg Normal (applies to non-num nima results) 66 kg [facility] Body mass index (BMI) [Ratio] 29.16 kg/m2 No rmal (applies to non-numeric results) 29.16 kg/m2 [facility] Body height 154.8384 cm Normal (applies to non-numeric res ults) 154.8384 cm [facility] Body height 60.25 [in_i] 60.25 [in_i] [facility] ([facility] 5'0.25" Body weight 147.00 [lb_av] 147.00 [lb_av] [facility] ([facility]) Body mass index (BMI) [Ratio] 28.5 kg/m2 28.5 k g/m2 [facility] ([facility]) Systolic blood pressure 138 mm[Hg] 138 mm[Hg] [facility] ([facility]) Diastolic blood pressure 80 mm[Hg] 80 mm[Hg] [facility] ([facility]) Heart rate 76 /min 76 /min [facility] Body mass index (BMI) [Ratio] 28.0 kg/m2 28.0 k g/m2 [facility] ([facility]) Systolic blood pressure 126 mm[Hg] 126 mm[Hg] [facility] ([facility]) Diastolic blood pressure 74 mm[Hg] 74 mm[Hg] [facility] ([facility]) Body height 60.25 [in_i] 60.25 [in_i] [facility] 5'0.25" Body weight 144.50 [lb_av] 144.50 [lb_av] [facility] ([facility]) Heart rate 82 /min 82 /min [facility] Systolic blood pressure 138 mm[Hg] 138 mm[Hg] [facility] ([facility]) Diastolic blood pressure 96 mm[Hg] 96 mm[Hg] [facility] ([facility]) Body weight 147.00 [lb_av] 147.00 [lb_av] LEILANI Shukla ([facility]) Body mass index (BMI) [Ratio] 28.5 kg/m2 28.5 k g/m2 [facility] Body height 60.25 [in_i] 60.25 [in_i] [facility] ([facility] 5'0.25"
--- NOTE | 2021-01-16 16:57 | REPVR ---
PROCEDURE INFORMATION: Exam: CT Head Without Contrast Exam date and time: 01/16/2021 4:38 PM Age: 80 years old Clinical indication: Pain; Headache; Additional info: Headache and CVA history TECHNIQUE: Imaging protocol: Computed tomography of the head without contrast. Radiation optimization: All CT scans at this facility use at least one of these dose optimization techniques: automated exposure control; mA and/or kV adjustment per patient size (includes targeted exams where dose is matched to clinical indication); or iterative reconstruction. COMPARISON: CT Head without contrast 01/01/2021 10:52 AM FINDINGS: Brain: There is volume loss. There is white matter lucency consistent with chronic microvascular disease. There is extensive right frontal encephalomalacia unchanged from prior scan. There is a new small area of left inferior frontal encephalomalacia. There is a small hemorrhage in this location on the prior scan. In the right parietal lobe there is a large area of subacute to chronic hemorrhage. This has decreased in density consistent with evolution of hemorrhage when compared to the prior scan. The hematoma is now relatively hypodense with a rim of surrounding edema. Maximal dimension is now 5 cm, decreased from 6 cm on the prior scan. No new hemorrhage. No acute infarct. No extra-axial hematoma. No subarachnoid hemorrhage. Cerebral ventricles: No ventriculomegaly. Paranasal sinuses: Visualized sinuses are unremarkable. No fluid levels. Mastoid air cells: Visualized mastoid air cells are well aerated. Bones/joints: Unremarkable. No acute fracture. Soft tissues: Unremarkable. IMPRESSION: 1. Large right parietal hematoma with decrease in size and density compared with prior scans. This is consistent with evolution of acute hemorrhage to subacute hemorrhage. 2. Left inferior frontal small hemorrhage is no longer seen. There is developing encephalomalacia in this location. 3. Extensive stable right inferior frontal encephalomalacia. 4. No new hemorrhage or infarct compared with prior scan Electronically signed by: Hu Oneil On 01/16/2021 16:56:57 PM
[2021-01-16 18:42] VITALS: BP 145/64
== END 2021-01-16 18:44 | disposition home or self-care (01) ==
LOC: M ED 14:27 → EDBD 14:27 → M ED 18:44
DX: B34.1 Enterovirus infection, unspecified (principal); R51.9 Headache, unspecified; J02.9 Acute pharyngitis, unspecified; I10 Essential (primary) hypertension; Z86.73 Personal history of transient ischemic attack (TIA), and cerebral infarction without residual deficits; I62.00 Nontraumatic subdural hemorrhage, unspecified; G93.89 Other specified disorders of brain; Z79.899 Other long term (current) drug therapy

== ENCOUNTER 2021-05-22 16:11 | Emergency (ER) | payer MEDICARE, OTHER ==
[~2021-05-22] VITALS: Ht 154.9 cm; Wt 65.9 kg
[2021-05-22] MEDS ORDERED: KEPP1TAB PO (16:41)
[2021-05-22] MEDS ORDERED: LISI20TA33 PO (16:41)
[2021-05-22] MEDS ORDERED: TRAZ-252 PO (16:41)
[2021-05-22 17:28] LABS: HEMATOCRIT 37.4 % (36.0-47.0); HEMOGLOBIN 12.4 g/dl (12.0-15.5); MEAN CORPUSCULAR HEMOGLOBIN 29.7 pg (27.0-33.0); MEAN CORPUSCULAR HGB CONC 33.2 g/dl (32.0-36.5); MEAN CORPUSCULAR VOLUME 89.5 fl (80.0-96.0); PLATELET COUNT, AUTOMATED 227 10^3/uL (150-450); RED BLOOD COUNT 4.18 10^6/uL (4.00-5.40); WHITE BLOOD COUNT 8.1 10^3/uL (4.0-10.0)
[2021-05-22 17:54] LABS: BLOOD UREA NITROGEN 21 MG/DL (7-18); CALCIUM LEVEL 9.3 MG/DL (8.8-10.2); CARBON DIOXIDE LEVEL 23 MEQ/L (21-32); CHLORIDE LEVEL 111 MEQ/L (98-107); CREATININE FOR GFR 0.74 MG/DL (0.55-1.30); GLOMERULAR FILTRATION RATE > 60.0 (>39); GLUCOSE, FASTING 122 MG/DL (70-100); POTASSIUM SERUM 3.9 MEQ/L (3.5-5.1); SODIUM LEVEL 143 MEQ/L (136-145)
[2021-05-22] MEDS ORDERED: FUROSEMIDE 20MG/2ML VIAL (J1940) IV ONE (17:55)
[2021-05-22 18:25] VITALS: BP 166/88
[2021-05-22] MEDS ORDERED: AMLO1TAB24 PO (18:36)
[2021-05-22 20:29] VITALS: BP 138/86
== END 2021-05-22 21:08 | disposition home or self-care (01) ==
LOC: EDBD 16:11 → M ED 16:11
DX: I10 Essential (primary) hypertension (principal); Z91.018 Allergy to other foods; Z79.899 Other long term (current) drug therapy
CPT/HCPCS: 70450; 80048; 85027; 93041; 96374; 99285; J1940

== ENCOUNTER → 2022-01-06 | Outpatient (REF) | payer MEDICARE, OTHER ==
[~2022-01-06] MED LIST changes: +AMLO1TAB24 PO; +LISI20TA33 PO; +TRAZ-252 PO
== END ==
LOC: M LAB REF 16:13
PROVIDERS: ATTEND Internal Medicine
DX: G40.909 Epilepsy, unspecified, not intractable, without status epilepticus (principal); I68.0 Cerebral amyloid angiopathy

== ENCOUNTER → 2022-07-10 | Outpatient (REF) | payer MEDICARE, OTHER | LOC: M LAB REF 16:30 | PROVIDERS: ATTEND Internal Medicine | DX: G40.909 Epilepsy, unspecified, not intractable, without status epilepticus (principal); I68.0 Cerebral amyloid angiopathy ==

== ENCOUNTER 2022-09-25 14:57 | Emergency (ER) | payer MEDICARE, OTHER ==
[~2022-09-25] VITALS: Ht 154.9 cm; Wt 72.7 kg
[2022-09-25 16:37] LABS: HEMATOCRIT 43.7 % (36.0-47.0); HEMOGLOBIN 14.5 g/dl (12.0-15.5); MEAN CORPUSCULAR HGB CONC 33.2 g/dl (32.0-36.5); MEAN CORPUSCULAR VOLUME 90.3 fl (80.0-96.0); PLATELET COUNT, AUTOMATED 246 10^3/uL (150-450); RED BLOOD COUNT 4.84 10^6/uL (4.00-5.40); WHITE BLOOD COUNT 16.4 10^3/uL (4.0-10.0)
[2022-09-25 17:21] LABS: ATYPICAL LYMPH 3 % (0-5); LYMPHOCYTES 16 % (16-44); MONOCYTES 6 % (0-5); NEUTROPHILS 71 % (28-66)
[2022-09-25 17:22] LABS: PLATELET ESTIMATE NORMAL (NORMAL)
[2022-09-25 17:59] LABS: ERYTHROCYTE SEDIMENTATION RATE 14 mm/hr (0-30)
[2022-09-25 18:10] LABS: BLOOD UREA NITROGEN 20 MG/DL (9-23); CALCIUM LEVEL 10.6 MG/DL (8.3-10.6); CARBON DIOXIDE LEVEL 21 MMOL/L (20-31); CHLORIDE LEVEL 106 MMOL/L (98-107); CREATININE FOR GFR 0.76 MG/DL (0.55-1.30); GLOMERULAR FILTRATION RATE > 60.0 (>39); GLUCOSE, FASTING 103 MG/DL (74-106); POTASSIUM SERUM 4.3 MMOL/L (3.5-5.1); SODIUM LEVEL 139 MMOL/L (136-145)
[2022-09-25 19:42] LABS: INR 0.98; PROTHROMBIN TIME 13.2 SECONDS (12.5-14.5)
[2022-09-25 19:43] LABS: PARTIAL THROMBOPLASTIN TIME 26.7 SECONDS (24.8-34.2)
[2022-09-25 19:52] LABS: ALBUMIN 3.7 G/DL (3.2-5.2); BILIRUBIN,DIRECT 0.2 MG/DL (<0.4); BILIRUBIN,TOTAL 0.7 MG/DL (0.3-1.2); TOTAL PROTEIN 6.7 G/DL (5.7-8.2)
[2022-09-25] MEDS ORDERED: ISOVUE-370 76% 100ML VIAL As Ordered ONE (20:07)
[2022-09-25 23:15] VITALS: O2SAT 95
[2022-09-25 23:30] VITALS: BP 159/90; TEMP 98
== END 2022-09-25 23:39 | disposition short-term general hospital (02) ==
LOC: M ED 14:57 → EDBD 14:57 → M ED 23:39
DX: S06.6X0A Traumatic subarachnoid hemorrhage without loss of consciousness, initial encounter (principal); W01.0XXA Fall on same level from slipping, tripping and stumbling without subsequent striking against object, initial encounter; I10 Essential (primary) hypertension; K21.9 Gastro-esophageal reflux disease without esophagitis; G40.909 Epilepsy, unspecified, not intractable, without status epilepticus; Z91.018 Allergy to other foods; Z79.811 Long term (current) use of aromatase inhibitors; Z79.899 Other long term (current) drug therapy
CPT/HCPCS: 36415; 70450; 71046; 71275; 73590; 74177; 80048; 80076; 81001; 82140; 83605; 83880; 85025; 85610; 85652; 85730; 86140; 87040; 87086; 87635; 93005; 93971; 99284; Q9967

== ENCOUNTER → 2022-10-27 | Outpatient (CLI) | payer MEDICARE, OTHER | LOC: M RAD 12:54 | PROVIDERS: ATTEND Nurse Practitioner Family | DX: I61.6 Nontraumatic intracerebral hemorrhage, multiple localized (principal) ==

== ENCOUNTER 2022-11-26 04:37 | Observation (INO) | payer MEDICARE, OTHER ==
[~2022-11-26] VITALS: Ht 157.5 cm; Wt 72.3 kg
[2022-11-26 05:31] LABS: ETHYL ALCOHOL (ETHANOL) < 0.003 % (0.000-0.010)
[2022-11-26 05:33] LABS: BLOOD UREA NITROGEN 16 MG/DL (9-23); CALCIUM LEVEL 8.9 MG/DL (8.3-10.6); CARBON DIOXIDE LEVEL 24 MMOL/L (20-31); CHLORIDE LEVEL 109 MMOL/L (98-107); CPK CREATINE PHOSPHOKINASE 87 U/L (34-145); CREATININE FOR GFR 0.75 MG/DL (0.55-1.30); GLOMERULAR FILTRATION RATE > 60.0 (>39); GLUCOSE, FASTING 117 MG/DL (74-106); INR 1.05; MAGNESIUM LEVEL 1.9 MG/DL (1.8-2.4); MB/CK RELATIVE INDEX 1.14 (< OR =4); PROTHROMBIN TIME 13.4 SECONDS (12.5-14.5); SODIUM LEVEL 140 MMOL/L (136-145)
[2022-11-26 05:34] LABS: PARTIAL THROMBOPLASTIN TIME 30.4 SECONDS (24.8-34.2); THYROID STIMULATING HORMONE 2.062 uIU/ML (0.55-4.78)
[2022-11-26 05:36] LABS: FREE T4 1.27 NG/DL (0.89-1.76)
[2022-11-26 05:47] LABS: BASO # 0.1 10^3/uL (0.0-0.2); BASO % 0.4 % (0.0-1.0); EOS # 0.1 10^3/uL (0.0-0.5); EOS % 0.9 % (0.0-3.0); HEMATOCRIT 39.1 % (36.0-47.0); LYMPH # 5.8 10^3/uL (1.5-5.0); LYMPH % 47.2 % (24.0-44.0); MEAN CORPUSCULAR HEMOGLOBIN 30.3 pg (27.0-33.0); MEAN CORPUSCULAR HGB CONC 33.2 g/dl (32.0-36.5); MEAN CORPUSCULAR VOLUME 91.1 fl (80.0-96.0); MONO # 0.8 10^3/uL (0.0-0.8); MONO % 6.6 % (2.0-8.0); NEUTROPHILS # 5.4 10^3/uL (1.5-8.5); NEUTROPHILS % 44.6 % (36.0-66.0); PLATELET COUNT, AUTOMATED 223 10^3/uL (150-450); RED BLOOD COUNT 4.29 10^6/uL (4.00-5.40); WHITE BLOOD COUNT 12.2 10^3/uL (4.0-10.0)
[2022-11-26] MEDS ORDERED: ACETAMINOPHEN TAB 650MG DOSE (2X325MG) PO ONE (06:30)
[2022-11-26 06:37] LABS: CK-MB VALUE MASS 1.7 NG/ML (<3.6)
[2022-11-26 06:45] LABS: MB/CK RELATIVE INDEX 2.09 (< OR =4)
[2022-11-26] MEDS ORDERED: NS 500 ML IV ONE (07:35)
[2022-11-26] MEDS ORDERED: ISOVUE-370 76% 100ML VIAL As Ordered ONE (07:46)
[2022-11-26] MEDS ORDERED: MED REC IN PROGRESS XX SCH (10:50)
[2022-11-26] MEDS ORDERED: MED REC CURRENTLY UNOBTAINABLE XX SCH (11:20)
[2022-11-26 12:50] VITALS: BP 137/76; TEMP 97.7; O2SAT 95
[2022-11-26] MEDS ORDERED: traZODone 50 MG TAB PO PRN (13:15)
[2022-11-26] MEDS ORDERED: ACETAMINOPHEN TAB 650MG DOSE (2X325MG) PO PRN (13:15)
[2022-11-26] MEDS ORDERED: traMADol 50 MG TAB PO PRN (13:20)
[2022-11-26 14:50] VITALS: BP 137/76; TEMP 97.7; O2SAT 95
[2022-11-26] MEDS ORDERED: MELA10CA6 PO (15:25)
[2022-11-26] MEDS ORDERED: HYDR-3910 PO (15:25)
[2022-11-26] MEDS ORDERED: PANT40TA29 PO (15:25)
[2022-11-26] MEDS ORDERED: AMLO1TAB24 PO (15:25)
[2022-11-26] MEDS ORDERED: VALP1CAP2 PO (15:25)
[2022-11-26] MEDS ORDERED: HOME MED LIST COMPLETE! XX SCH (15:30)
[2022-11-26] MEDS: **hydrALAZINE HCL** 25 MG TAB PO SCH ×2 (16:14→21:00)
[2022-11-26 20:54] VITALS: BP 133/77
[2022-11-26] MEDS ORDERED: VALPROIC ACID 250MG CAP PO SCH (21:00)
[2022-11-26] MEDS: levETIRAcetam 250MG TABLET (KEPPRA) PO SCH (21:00)
[2022-11-26] MEDS ORDERED: LIDOCAINE 5% (LIDODERM) PATCH TD SCH (21:00)
[2022-11-26 22:00] VITALS: BP 133/71; TEMP 97.7; O2SAT 96
[2022-11-27 06:00] VITALS: BP 134/78; TEMP 97.7; O2SAT 94
[2022-11-27 06:15] LABS: HEMATOCRIT 37.7 % (36.0-47.0); HEMOGLOBIN 12.4 g/dl (12.0-15.5); MEAN CORPUSCULAR HEMOGLOBIN 30.3 pg (27.0-33.0); MEAN CORPUSCULAR HGB CONC 32.9 g/dl (32.0-36.5); MEAN CORPUSCULAR VOLUME 92.2 fl (80.0-96.0); PLATELET COUNT, AUTOMATED 230 10^3/uL (150-450); RED BLOOD COUNT 4.09 10^6/uL (4.00-5.40); WHITE BLOOD COUNT 9.4 10^3/uL (4.0-10.0)
[2022-11-27 06:37] LABS: BLOOD UREA NITROGEN 14 MG/DL (9-23); CALCIUM LEVEL 8.6 MG/DL (8.3-10.6); CARBON DIOXIDE LEVEL 22 MMOL/L (20-31); CHLORIDE LEVEL 109 MMOL/L (98-107); CREATININE FOR GFR 0.68 MG/DL (0.55-1.30); GLOMERULAR FILTRATION RATE > 60.0 (>39); GLUCOSE, FASTING 113 MG/DL (74-106); POTASSIUM SERUM 3.7 MMOL/L (3.5-5.1); SODIUM LEVEL 140 MMOL/L (136-145)
[2022-11-27] MEDS ORDERED: VALPROIC ACID 250MG CAP PO SCH (09:00)
[2022-11-27] MEDS ORDERED: amLODIPine 5 MG TAB PO SCH (09:00)
[2022-11-27] MEDS ORDERED: PANTOPRAZOLE 40MG TAB (PROTONIX) PO SCH (09:00)
[2022-11-27 10:11] VITALS: BP 131/79
[2022-11-27] MEDS: levETIRAcetam 250MG TABLET (KEPPRA) PO SCH (10:11)
[2022-11-27] MEDS: **hydrALAZINE HCL** 25 MG TAB PO SCH (10:11)
[2022-11-27 14:00] VITALS: BP 126/80; TEMP 97.9; O2SAT 95
[2022-11-27 16:15] VITALS: BP 104/60
== END 2022-11-27 16:55 | disposition home health service (06) ==
LOC: M ED 04:37 → M ED INP 10:38 → ENRESERV 12:59 → M MSPAV 14:50
PROVIDERS: ADMIT General Practice; ATTEND General Practice
DX: R29.6 Repeated falls (principal); R26.89 Other abnormalities of gait and mobility; R53.81 Other malaise; Z86.73 Personal history of transient ischemic attack (TIA), and cerebral infarction without residual deficits; G40.909 Epilepsy, unspecified, not intractable, without status epilepticus; I10 Essential (primary) hypertension; N39.0 Urinary tract infection, site not specified; R33.9 Retention of urine, unspecified; B95.1 Streptococcus, group B, as the cause of diseases classified elsewhere; Z79.899 Other long term (current) drug therapy
CPT/HCPCS: 36415; 70450; 71045; 71275; 72125; 72131; 80048; 80164; 80180; 81001; 82077; 82550; 82553; 83605; 83735; 84439; 84443; 84484; 85025; 85027; 85610; 85730; 87486; 87581; 87633; 87798; 93005; 93041; 93971; 94760; 96374; 97116; 97161; 97165; 97535; 99285; G0378; Q9967

== ENCOUNTER → 2023-03-29 | Outpatient (REF) | payer MEDICARE, OTHER ==
[~2023-03-29] MED LIST changes: +HYDR-3910 PO
[2023-03-29 23:58] LABS: APPEARANCE, URINE HAZY (CLEAR); BACTERIA, URINE AUTO 3+ (NEGATIVE); BILIRUBIN, URINE AUTO NEGATIVE (NEGATIVE); BLOOD, URINE BLOOD NEGATIVE (NEGATIVE); COLOR, URINE YELLOW (YELLOW); GLUCOSE, URINE (UA) AUTO NEGATIVE (NEGATIVE); KETONE, URINE AUTO NEGATIVE (NEGATIVE); LEUKOCYTE ESTERASE, URINE AUTO 3+ (NEGATIVE); MUCUS, URINE SMALL (NEGATIVE); NITRITE, URINE AUTO NEGATIVE (NEGATIVE); PROTEIN, URINE AUTO NEGATIVE (NEGATIVE); RBC, URINE AUTO 3 /HPF (0-3); SPECIFIC GRAVITY URINE AUTO 1.011 (1.002-1.035); SQUAMOUS EPITHELIAL CELL UR AU 1 /HPF (0-6); UROBILINOGEN, URINE AUTO 0.2 mg/dL (0.0-2.0); WBC, URINE AUTO TNTC /HPF (0-3)
== END ==
LOC: M LAB REF 08:56
PROVIDERS: ATTEND Internal Medicine
DX: R30.0 Dysuria (principal)

== ENCOUNTER → 2023-06-23 | Outpatient (REF) | payer MEDICARE, OTHER ==
[~2023-06-23] MED LIST changes: -HYDR-3910 PO; -HYDR25TA PO; +HYDR25TA87 PO; +HYDR25TA88 PO
[2023-06-23 12:14] LABS: APPEARANCE, URINE HAZY (CLEAR); BACTERIA, URINE AUTO NEGATIVE (NEGATIVE); BILIRUBIN, URINE AUTO NEGATIVE (NEGATIVE); BLOOD, URINE BLOOD NEGATIVE (NEGATIVE); COLOR, URINE YELLOW (YELLOW); GLUCOSE, URINE (UA) AUTO NEGATIVE (NEGATIVE); KETONE, URINE AUTO NEGATIVE (NEGATIVE); LEUKOCYTE ESTERASE, URINE AUTO 1+ (NEGATIVE); MUCUS, URINE SMALL (NEGATIVE); NITRITE, URINE AUTO NEGATIVE (NEGATIVE); PROTEIN, URINE AUTO NEGATIVE (NEGATIVE); RBC, URINE AUTO 1 /HPF (0-3); SPECIFIC GRAVITY URINE AUTO 1.012 (1.002-1.035); SQUAMOUS EPITHELIAL CELL UR AU 4 /HPF (0-6); UROBILINOGEN, URINE AUTO 0.2 mg/dL (0.0-2.0); WBC, URINE AUTO 3 /HPF (0-3)
== END ==
LOC: M LAB REF 10:25
PROVIDERS: ATTEND Internal Medicine
DX: R33.9 Retention of urine, unspecified (principal)

== ENCOUNTER 2023-09-17 20:18 | Observation (INO) | payer MEDICARE, OTHER ==
[~2023-09-17] VITALS: Ht 154.9 cm; Wt 67.2 kg
[2023-09-17 21:11] LABS: BASO # 0.1 10^3/uL (0.0-0.2); BASO % 0.4 % (0.0-1.0); EOS # 0.1 10^3/uL (0.0-0.5); EOS % 0.4 % (0.0-3.0); HEMATOCRIT 38.9 % (36.0-47.0); HEMOGLOBIN 13.1 g/dl (12.0-15.5); LYMPH % 49.3 % (24.0-44.0); MEAN CORPUSCULAR HEMOGLOBIN 29.7 pg (27.0-33.0); MEAN CORPUSCULAR HGB CONC 33.7 g/dl (32.0-36.5); MEAN CORPUSCULAR VOLUME 88.2 fl (80.0-96.0); MONO # 0.8 10^3/uL (0.0-0.8); MONO % 5.3 % (2.0-8.0); NEUTROPHILS # 6.3 10^3/uL (1.5-8.5); NEUTROPHILS % 44.3 % (36.0-66.0); PLATELET COUNT, AUTOMATED 277 10^3/uL (150-450); RED BLOOD COUNT 4.41 10^6/uL (4.00-5.40); WHITE BLOOD COUNT 14.3 10^3/uL (4.0-10.0)
[2023-09-17 21:15] LABS: INR 1.07; PROTHROMBIN TIME 13.6 SECONDS (12.5-14.5)
[2023-09-17 21:21] LABS: CK-MB VALUE MASS 6.6 NG/ML (<3.6)
[2023-09-17 21:23] LABS: C REACTIVE PROTEIN QUANTITATIV < 0.40 MG/DL (<1.0)
[2023-09-17 21:24] LABS: ALBUMIN 4.1 G/DL (3.2-5.2); ALKALINE PHOSPHATASE 90 U/L (46-116); ALT/SGPT 27 U/L (7.0-40); AST/SGOT 20 U/L (<34); BILIRUBIN,TOTAL 0.7 MG/DL (0.3-1.2); BLOOD UREA NITROGEN 19 MG/DL (9-23); CALCIUM LEVEL 9.2 MG/DL (8.3-10.6); CARBON DIOXIDE LEVEL 22 MMOL/L (20-31); CHLORIDE LEVEL 109 MMOL/L (98-107); CPK CREATINE PHOSPHOKINASE 283 U/L (34-145); CREATININE FOR GFR 0.71 MG/DL (0.55-1.30); GLOMERULAR FILTRATION RATE > 60.0 (>32); GLUCOSE, FASTING 149 MG/DL (74-106); MAGNESIUM LEVEL 2.1 MG/DL (1.8-2.4); MB/CK RELATIVE INDEX 2.33 (< OR =4); POTASSIUM SERUM 3.4 MMOL/L (3.5-5.1); SODIUM LEVEL 141 MMOL/L (136-145)
[2023-09-17] MEDS: levETIRAcetam INJection 500 MG in D5W MINI-BAG PLUS 100 ML IV ONE (21:40)
[2023-09-17] MEDS: LIDOCAINE 2% 5ML JELLY UROJET TOP ONE (21:46)
[2023-09-17] MEDS: POTASSIUM CHLORIDE 10MEQ SR TABLET PO ONE (21:47)
[2023-09-17 22:13] LABS: MB/CK RELATIVE INDEX 2.64 (< OR =4)
[2023-09-17] MEDS ORDERED: MORPHINE 10MG/0.5ML ORAL CONCENTRATE SOLUTION U/D PO PRN (23:20)
[2023-09-17] MEDS ORDERED: MED REC IN PROGRESS XX SCH (23:25)
[2023-09-18] MEDS: ACETAMINOPHEN TAB 650MG DOSE (2X325MG) PO ONE (01:18)
[2023-09-18] MEDS: LIDOCAINE 5% (LIDODERM) PATCH TD ONE (01:18)
[2023-09-18] MEDS ORDERED: ACETAMINOPHEN 325 MG TAB PO PRN (16:35)
[2023-09-18 16:47] VITALS: BP 141/74; TEMP 97.5; O2SAT 96
[2023-09-18] MEDS ORDERED: TAMS1CAP17 PO (17:51)
[2023-09-18] MEDS ORDERED: LEVE500T5 PO (17:51)
[2023-09-18] MEDS ORDERED: QUET1TAB17 PO (17:51)
[2023-09-18] MEDS ORDERED: SENN-186 PO (17:51)
[2023-09-18] MEDS ORDERED: HOME MED LIST COMPLETE! XX SCH (17:55)
[2023-09-18 19:55] VITALS: BP 127/78; TEMP 97; O2SAT 93
[2023-09-18] MEDS: traZODone 25MG PER 1/2 TABLET PO SCH (21:57)
[2023-09-18] MEDS: VALPROIC ACID 250MG CAP PO SCH (21:58)
[2023-09-18] MEDS: TAMSULOSIN 0.4 MG CAP PO SCH (21:58)
[2023-09-18] MEDS: PANTOPRAZOLE 40MG TAB (PROTONIX) PO SCH (21:58)
[2023-09-18] MEDS: QUEtiapine FUMARATE 25 MG TAB PO SCH (22:00)
[2023-09-18] MEDS: levETIRAcetam 250MG TABLET (KEPPRA) PO SCH (22:00)
[2023-09-18] MEDS: **hydrALAZINE HCL** 25 MG TAB PO SCH (22:00)
[2023-09-19 04:00] VITALS: BP 131/78; TEMP 97.5; O2SAT 93
[2023-09-19 06:22] LABS: BASO % 0.4 % (0.0-1.0); EOS # 0.2 10^3/uL (0.0-0.5); EOS % 2.1 % (0.0-3.0); HEMATOCRIT 37.4 % (36.0-47.0); HEMOGLOBIN 12.3 g/dl (12.0-15.5); LYMPH # 4.4 10^3/uL (1.5-5.0); LYMPH % 51.8 % (24.0-44.0); MEAN CORPUSCULAR HEMOGLOBIN 29.5 pg (27.0-33.0); MEAN CORPUSCULAR HGB CONC 32.9 g/dl (32.0-36.5); MEAN CORPUSCULAR VOLUME 89.7 fl (80.0-96.0); MONO # 0.6 10^3/uL (0.0-0.8); MONO % 6.5 % (2.0-8.0); NEUTROPHILS # 3.3 10^3/uL (1.5-8.5); PLATELET COUNT, AUTOMATED 207 10^3/uL (150-450); RED BLOOD COUNT 4.17 10^6/uL (4.00-5.40); WHITE BLOOD COUNT 8.5 10^3/uL (4.0-10.0)
[2023-09-19 06:42] LABS: BLOOD UREA NITROGEN 15 MG/DL (9-23); CALCIUM LEVEL 8.5 MG/DL (8.3-10.6); CARBON DIOXIDE LEVEL 22 MMOL/L (20-31); CHLORIDE LEVEL 113 MMOL/L (98-107); CREATININE FOR GFR 0.68 MG/DL (0.55-1.30); GLOMERULAR FILTRATION RATE > 60.0 (>32); GLUCOSE, FASTING 103 MG/DL (74-106); PHOSPHORUS LEVEL 3.8 MG/DL (2.4-5.1); POTASSIUM SERUM 3.8 MMOL/L (3.5-5.1); SODIUM LEVEL 143 MMOL/L (136-145)
[2023-09-19] MEDS: amLODIPine 5 MG TAB PO SCH (09:41)
[2023-09-19] MEDS: POTASSIUM CHLORIDE 10MEQ SR TABLET PO SCH (09:41)
[2023-09-19 12:00] VITALS: BP 125/70; TEMP 98.4; O2SAT 94
[2023-09-19 20:48] VITALS: BP 150/78; TEMP 98.4; O2SAT 96
[2023-09-20 04:35] VITALS: BP 149/78; TEMP 98.1; O2SAT 99
[2023-09-20] MEDS: cefTRIAXone SOD 1 GM in D5W MINI-BAG PLUS 50 ML IV SCH (09:03)
[2023-09-20 09:04] VITALS: BP 122/74
[2023-09-20] MEDS ORDERED: CEFD1CAP9 PO (11:14)
[2023-09-20 12:00] VITALS: BP 124/74; TEMP 98.2; O2SAT 95
== END 2023-09-20 14:09 | disposition home or self-care (01) ==
LOC: M ED 20:18 → EDBD 20:18 → INTOOBSV 23:17 → M ED INP 23:17 → M MSPAV 09-18 00:38
PROVIDERS: ADMIT Preventive Medicine Undersea and Hyperbaric Medicine; ATTEND Hospitalist
DX: S09.90XA Unspecified injury of head, initial encounter (principal); W19.XXXA Unspecified fall, initial encounter; Y92.003 Bedroom of unspecified non-institutional (private) residence as the place of occurrence of the external cause; Y93.9 Activity, unspecified; Y99.9 Unspecified external cause status; R29.6 Repeated falls; Z86.73 Personal history of transient ischemic attack (TIA), and cerebral infarction without residual deficits; I10 Essential (primary) hypertension; G40.909 Epilepsy, unspecified, not intractable, without status epilepticus; Z79.899 Other long term (current) drug therapy; Z91.018 Allergy to other foods; Z79.2 Long term (current) use of antibiotics
CPT/HCPCS: 36415; 70450; 71045; 72125; 76775; 80047; 80048; 80053; 81001; 82550; 82553; 83605; 83735; 84100; 84484; 85025; 85610; 86140; 87040; 87086; 87486; 87581; 87633; 87798; 93005; 93041; 96365; 96375; 97116; 97161; 97530; 99285; G0378; J0696; J1953

== ENCOUNTER → 2023-10-04 | Outpatient (REF) ==
[~2023-10-04] MED LIST changes: +CEFD1CAP9 PO; +LEVE500T5 PO; +QUET1TAB17 PO; +SENN-186 PO; +TAMS1CAP17 PO
[2023-10-04 12:19] LABS: HEMATOCRIT 40.4 % (36.0-47.0); MEAN CORPUSCULAR HEMOGLOBIN 29.1 pg (27.0-33.0); MEAN CORPUSCULAR HGB CONC 32.2 g/dl (32.0-36.5); MEAN CORPUSCULAR VOLUME 90.4 fl (80.0-96.0); PLATELET COUNT, AUTOMATED 262 10^3/uL (150-450); RED BLOOD COUNT 4.47 10^6/uL (4.00-5.40); WHITE BLOOD COUNT 9.6 10^3/uL (4.0-10.0)
[2023-10-04 12:52] LABS: VALPROIC ACID (DEPAKOTE) 67.4 UG/ML (50.0-100.0)
[2023-10-04 12:53] LABS: BLOOD UREA NITROGEN 15 MG/DL (9-23); CALCIUM LEVEL 9.2 MG/DL (8.3-10.6); CARBON DIOXIDE LEVEL 25 MMOL/L (20-31); CHLORIDE LEVEL 105 MMOL/L (98-107); CREATININE FOR GFR 0.66 MG/DL (0.55-1.30); GLOMERULAR FILTRATION RATE > 60.0 (>32); GLUCOSE, FASTING 117 MG/DL (74-106); SODIUM LEVEL 142 MMOL/L (136-145)
== END ==
PROVIDERS: ATTEND Physician Assistant
DX: G40.909 Epilepsy, unspecified, not intractable, without status epilepticus (principal)

== ENCOUNTER → 2023-10-25 | Outpatient (REF) | payer MEDICARE, OTHER ==
[2023-10-25 11:38] LABS: HEMATOCRIT 39.7 % (36.0-47.0); MEAN CORPUSCULAR HEMOGLOBIN 29.8 pg (27.0-33.0); MEAN CORPUSCULAR HGB CONC 32.7 g/dl (32.0-36.5); MEAN CORPUSCULAR VOLUME 91.1 fl (80.0-96.0); PLATELET COUNT, AUTOMATED 229 10^3/uL (150-450); RED BLOOD COUNT 4.36 10^6/uL (4.00-5.40)
[2023-10-25 11:53] LABS: BLOOD UREA NITROGEN 21 MG/DL (9-23); CALCIUM LEVEL 9.4 MG/DL (8.3-10.6); CARBON DIOXIDE LEVEL 25 MMOL/L (20-31); CHLORIDE LEVEL 105 MMOL/L (98-107); CREATININE FOR GFR 0.69 MG/DL (0.55-1.30); GLOMERULAR FILTRATION RATE > 60.0 (>32); GLUCOSE, FASTING 113 MG/DL (74-106); POTASSIUM SERUM 4.1 MMOL/L (3.5-5.1); SODIUM LEVEL 138 MMOL/L (136-145)
== END ==
PROVIDERS: ATTEND Internal Medicine
DX: G40.909 Epilepsy, unspecified, not intractable, without status epilepticus (principal)

== ENCOUNTER → 2023-10-28 | Outpatient (REF) | PROVIDERS: ATTEND Internal Medicine | DX: M25.461 Effusion, right knee (principal) ==

== ENCOUNTER → 2023-11-22 | Outpatient (REF) | payer MEDICARE, OTHER | PROVIDERS: ATTEND Internal Medicine | DX: G40.909 Epilepsy, unspecified, not intractable, without status epilepticus (principal); Z53.8 Procedure and treatment not carried out for other reasons ==

== ENCOUNTER → 2023-11-24 | Outpatient (REF) | payer MEDICARE, OTHER ==
[2023-11-24 11:58] LABS: HEMATOCRIT 45.6 % (36.0-47.0); HEMOGLOBIN 14.6 g/dl (12.0-15.5); MEAN CORPUSCULAR HEMOGLOBIN 29.4 pg (27.0-33.0); MEAN CORPUSCULAR VOLUME 91.8 fl (80.0-96.0); PLATELET COUNT, AUTOMATED 248 10^3/uL (150-450); RED BLOOD COUNT 4.97 10^6/uL (4.00-5.40); WHITE BLOOD COUNT 12.9 10^3/uL (4.0-10.0)
[2023-11-24 12:12] LABS: BLOOD UREA NITROGEN 18 MG/DL (9-23); CALCIUM LEVEL 9.6 MG/DL (8.3-10.6); CARBON DIOXIDE LEVEL 27 MMOL/L (20-31); CHLORIDE LEVEL 103 MMOL/L (98-107); CREATININE FOR GFR 0.75 MG/DL (0.55-1.30); GLOMERULAR FILTRATION RATE > 60.0 (>32); GLUCOSE, FASTING 135 MG/DL (74-106); POTASSIUM SERUM 3.8 MMOL/L (3.5-5.1); SODIUM LEVEL 140 MMOL/L (136-145)
== END ==
PROVIDERS: ATTEND Internal Medicine
DX: I50.9 Heart failure, unspecified (principal)

== ENCOUNTER → 2023-12-15 | Outpatient (REF) | payer MEDICARE, OTHER ==
[2023-12-15 13:02] LABS: MEAN CORPUSCULAR HEMOGLOBIN 29.8 pg (27.0-33.0); MEAN CORPUSCULAR HGB CONC 32.6 g/dl (32.0-36.5); MEAN CORPUSCULAR VOLUME 91.5 fl (80.0-96.0); PLATELET COUNT, AUTOMATED 247 10^3/uL (150-450); RED BLOOD COUNT 5.03 10^6/uL (4.00-5.40); WHITE BLOOD COUNT 11.4 10^3/uL (4.0-10.0)
[2023-12-15 13:26] LABS: VALPROIC ACID (DEPAKOTE) 53.7 UG/ML (50.0-100.0)
[2023-12-15 13:28] LABS: BLOOD UREA NITROGEN 19 MG/DL (9-23); CALCIUM LEVEL 10.1 MG/DL (8.3-10.6); CARBON DIOXIDE LEVEL 26 MMOL/L (20-31); CHLORIDE LEVEL 104 MMOL/L (98-107); GLOMERULAR FILTRATION RATE > 60.0 (>32); GLUCOSE, FASTING 119 MG/DL (74-106); POTASSIUM SERUM 4.4 MMOL/L (3.5-5.1); SODIUM LEVEL 139 MMOL/L (136-145)
== END ==
PROVIDERS: ATTEND Physician Assistant
DX: R29.6 Repeated falls (principal)

== ENCOUNTER → 2023-12-16 | Outpatient (REF) | payer MEDICARE, OTHER | PROVIDERS: ATTEND Physician Assistant | DX: R68.83 Chills (without fever) (principal) ==

== ENCOUNTER → 2024-02-23 | Outpatient (REF) | payer MEDICARE, OTHER ==
[2024-02-23 09:56] LABS: HEMOGLOBIN 15.1 g/dl (12.0-15.5); MEAN CORPUSCULAR HEMOGLOBIN 30.3 pg (27.0-33.0); MEAN CORPUSCULAR HGB CONC 32.8 g/dl (32.0-36.5); MEAN CORPUSCULAR VOLUME 92.4 fl (80.0-96.0); PLATELET COUNT, AUTOMATED 225 10^3/uL (150-450); RED BLOOD COUNT 4.98 10^6/uL (4.00-5.40); WHITE BLOOD COUNT 12.7 10^3/uL (4.0-10.0)
[2024-02-23 10:27] LABS: BLOOD UREA NITROGEN 18 MG/DL (9-23); CALCIUM LEVEL 9.9 MG/DL (8.3-10.6); CARBON DIOXIDE LEVEL 24 MMOL/L (20-31); CHLORIDE LEVEL 105 MMOL/L (98-107); CREATININE FOR GFR 0.68 MG/DL (0.55-1.30); GLOMERULAR FILTRATION RATE > 60.0 (>32); GLUCOSE, FASTING 126 MG/DL (74-106); SODIUM LEVEL 141 MMOL/L (136-145)
== END ==
PROVIDERS: ATTEND Internal Medicine
DX: G40.909 Epilepsy, unspecified, not intractable, without status epilepticus (principal)

== ENCOUNTER → 2024-03-29 | Outpatient (REF) | payer MEDICARE, OTHER | PROVIDERS: ATTEND Internal Medicine | DX: G40.909 Epilepsy, unspecified, not intractable, without status epilepticus (principal) ==

== ENCOUNTER → 2024-04-20 | Outpatient (REF) | payer MEDICARE, OTHER ==
[2024-04-20 14:25] LABS: HEMOGLOBIN 12.7 g/dl (12.0-15.5); MEAN CORPUSCULAR HEMOGLOBIN 30.8 pg (27.0-33.0); MEAN CORPUSCULAR HGB CONC 32.6 g/dl (32.0-36.5); MEAN CORPUSCULAR VOLUME 94.4 fl (80.0-96.0); PLATELET COUNT, AUTOMATED 182 10^3/uL (150-450); RED BLOOD COUNT 4.13 10^6/uL (4.00-5.40)
[2024-04-20 14:57] LABS: BLOOD UREA NITROGEN 14 MG/DL (9-23); CALCIUM LEVEL 8.5 MG/DL (8.3-10.6); CARBON DIOXIDE LEVEL 26 MMOL/L (20-31); CHLORIDE LEVEL 105 MMOL/L (98-107); CREATININE FOR GFR 0.64 MG/DL (0.55-1.30); GLOMERULAR FILTRATION RATE > 60.0 (>32); GLUCOSE, FASTING 94 MG/DL (74-106); POTASSIUM SERUM 4.4 MMOL/L (3.5-5.1); SODIUM LEVEL 144 MMOL/L (136-145)
== END ==
PROVIDERS: ATTEND Physician Assistant
DX: R29.6 Repeated falls (principal)

== ENCOUNTER → 2024-05-24 | Outpatient (REF) | payer MEDICARE, OTHER ==
[2024-05-24 09:14] LABS: HEMATOCRIT 42.1 % (36.0-47.0); HEMOGLOBIN 13.5 g/dl (12.0-15.5); MEAN CORPUSCULAR HEMOGLOBIN 31.2 pg (27.0-33.0); MEAN CORPUSCULAR HGB CONC 32.1 g/dl (32.0-36.5); MEAN CORPUSCULAR VOLUME 97.2 fl (80.0-96.0); PLATELET COUNT, AUTOMATED 229 10^3/uL (150-450); RED BLOOD COUNT 4.33 10^6/uL (4.00-5.40)
[2024-05-24 09:38] LABS: BLOOD UREA NITROGEN 19 MG/DL (9-23); CALCIUM LEVEL 8.6 MG/DL (8.3-10.6); CARBON DIOXIDE LEVEL 25 MMOL/L (20-31); CHLORIDE LEVEL 108 MMOL/L (98-107); CREATININE FOR GFR 0.86 MG/DL (0.55-1.30); GLOMERULAR FILTRATION RATE > 60.0 (>32); GLUCOSE, FASTING 169 MG/DL (74-106); POTASSIUM SERUM 4.8 MMOL/L (3.5-5.1); SODIUM LEVEL 142 MMOL/L (136-145)
== END ==
PROVIDERS: ATTEND Internal Medicine
DX: G40.909 Epilepsy, unspecified, not intractable, without status epilepticus (principal)

== ENCOUNTER → 2024-06-12 | Outpatient (REF) | payer MEDICARE, OTHER ==
[2024-06-12 16:09] LABS: VALPROIC ACID (DEPAKOTE) 33.8 UG/ML (50.0-100.0)
[2024-06-12 16:10] LABS: ALBUMIN 3.3 G/DL (3.2-5.2); ALKALINE PHOSPHATASE 71 U/L (35-104); ALT/SGPT 42 U/L (7.0-40); AST/SGOT 22 U/L (<34); BILIRUBIN,TOTAL 0.3 MG/DL (0.3-1.2); BLOOD UREA NITROGEN 21 MG/DL (9-23); CALCIUM LEVEL 9.1 MG/DL (8.3-10.6); CARBON DIOXIDE LEVEL 25 MMOL/L (20-31); CHLORIDE LEVEL 104 MMOL/L (98-107); CREATININE FOR GFR 0.72 MG/DL (0.55-1.30); GLOMERULAR FILTRATION RATE > 60.0 (>32); GLUCOSE, FASTING 87 MG/DL (74-106); POTASSIUM SERUM 4.2 MMOL/L (3.5-5.1); SODIUM LEVEL 141 MMOL/L (136-145); TOTAL PROTEIN 6.3 G/DL (5.7-8.2)
== END ==
PROVIDERS: ATTEND Physician Assistant
DX: R29.6 Repeated falls (principal)

== ENCOUNTER → 2024-08-09 | Outpatient (REF) | payer MEDICARE, OTHER ==
[~2024-08-09] MED LIST changes: -AMBI5TAB PO; -FLOM0.4C39 PO; +TAMS-18 PO; +ZOLP-532 PO
[2024-08-09 08:40] LABS: HEMATOCRIT 45.3 % (36.0-47.0); HEMOGLOBIN 14.9 g/dl (12.0-15.5); MEAN CORPUSCULAR HEMOGLOBIN 30.8 pg (27.0-33.0); MEAN CORPUSCULAR HGB CONC 32.9 g/dl (32.0-36.5); MEAN CORPUSCULAR VOLUME 93.6 fl (80.0-96.0); PLATELET COUNT, AUTOMATED 203 10^3/uL (150-450); RED BLOOD COUNT 4.84 10^6/uL (4.00-5.40); WHITE BLOOD COUNT 12.1 10^3/uL (4.0-10.0)
[2024-08-09 09:14] LABS: VALPROIC ACID (DEPAKOTE) 33.2 UG/ML (50.0-100.0)
[2024-08-09 09:16] LABS: CALCIUM LEVEL 9.4 MG/DL (8.3-10.6); CREATININE FOR GFR 0.64 MG/DL (0.55-1.30); GLOMERULAR FILTRATION RATE 88.7 (>32)
[2024-08-09 17:37] LABS: AMORPHOUS SEDIMENT SMALL (NEGATIVE); APPEARANCE, URINE HAZY (CLEAR); BACTERIA, URINE AUTO NEGATIVE (NEGATIVE); BILIRUBIN, URINE AUTO NEGATIVE (NEGATIVE); BLOOD, URINE BLOOD 1+ (NEGATIVE); COLOR, URINE YELLOW (YELLOW); GLUCOSE, URINE (UA) AUTO NEGATIVE (NEGATIVE); KETONE, URINE AUTO NEGATIVE (NEGATIVE); LEUKOCYTE ESTERASE, URINE AUTO 1+ (NEGATIVE); NITRITE, URINE AUTO NEGATIVE (NEGATIVE); PROTEIN, URINE AUTO NEGATIVE (NEGATIVE); RBC, URINE AUTO 15 /HPF (0-3); SPECIFIC GRAVITY URINE AUTO 1.015 (1.002-1.035); SQUAMOUS EPITHELIAL CELL UR AU 1 /HPF (0-6); UROBILINOGEN, URINE AUTO 0.2 mg/dL (0.0-2.0); WBC, URINE AUTO 21 /HPF (0-3)
== END ==
PROVIDERS: ATTEND Physician Assistant
DX: R29.6 Repeated falls (principal); Z79.899 Other long term (current) drug therapy

== ENCOUNTER → 2024-09-27 | Outpatient (REF) | payer MEDICARE, OTHER ==
[~2024-09-27] MED LIST changes: +LISI40TA10 PO; -LISI40TA4 PO
== END ==
PROVIDERS: ATTEND Internal Medicine
DX: G40.909 Epilepsy, unspecified, not intractable, without status epilepticus (principal)

== ENCOUNTER → 2024-10-18 | Outpatient (CLI) | payer MEDICARE, OTHER | LOC: M PLAIMG 10-04 08:11 → M RAD 08:16 | PROVIDERS: ATTEND Physician Assistant | DX: R41.82 Altered mental status, unspecified (principal); F84.8 Other pervasive developmental disorders; G93.89 Other specified disorders of brain; R90.89 Other abnormal findings on diagnostic imaging of central nervous system ==

== ENCOUNTER → 2024-11-29 | Outpatient (REF) | payer MEDICARE, OTHER ==
[2024-11-29 12:10] LABS: PLATELET COUNT, AUTOMATED 177 10^3/uL (150-450)
[2024-11-29 12:34] LABS: CALCIUM LEVEL 8.8 MG/DL (8.3-10.6); CARBON DIOXIDE LEVEL 26.0 MMOL/L (20-31); CHLORIDE LEVEL 108.0 MMOL/L (98-107); CREATININE FOR GFR 0.7 MG/DL (0.55-1.30); GLOMERULAR FILTRATION RATE 86.8 (>32); POTASSIUM SERUM 3.9 MMOL/L (3.5-5.1); SODIUM LEVEL 145.0 MMOL/L (136-145)
== END ==
PROVIDERS: ATTEND Internal Medicine
DX: G40.909 Epilepsy, unspecified, not intractable, without status epilepticus (principal)

== ENCOUNTER → 2025-02-21 | Outpatient (REF) | payer MEDICARE, OTHER ==
[2025-02-21 14:14] LABS: PLATELET COUNT, AUTOMATED 198 10^3/uL (150-450)
[2025-02-21 14:48] LABS: CALCIUM LEVEL 8.4 MG/DL (8.3-10.6); CARBON DIOXIDE LEVEL 24.0 MMOL/L (20-31); CHLORIDE LEVEL 107.0 MMOL/L (98-107); CREATININE FOR GFR 0.65 MG/DL (0.55-1.30); GLOMERULAR FILTRATION RATE 87.9 (>32); POTASSIUM SERUM 3.9 MMOL/L (3.5-5.1); SODIUM LEVEL 144.0 MMOL/L (136-145)
== END ==
PROVIDERS: ATTEND Internal Medicine
DX: G40.909 Epilepsy, unspecified, not intractable, without status epilepticus (principal)

== ENCOUNTER → 2025-03-19 | Outpatient (REF) | payer MEDICARE, OTHER | PROVIDERS: ATTEND Physician Assistant | DX: R05.9 Cough, unspecified (principal) ==